=== PATIENT | male | born 1985 | race Caucasian/White ===

== ENCOUNTER 2021-01-18 16:01 | Inpatient (IN) | payer SELFPAY ==
[2021-01-18 16:07] VITALS: BMI 22.8
--- NOTE | 2021-01-18 16:13 | ECG_ITS ---
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 Measurements Intervals [place] Rate: 111 P: 57 NM: 116 QRS: 66 QRSD: 88 T: 59 QT: 320 QTc: 436 Interpretive Statements SINUS TACHYCARDIA WITH SHORT NM INTERVAL Compared to ECG 01/16/2018 21:51:07 Short NM interval now present Sinus rhythm no longer present Electronically Signed On 01-18-2021 18:48:58 PHOTO EQUIPMENT TECHNICIAN by Haile Kerns M.D. [id number]
--- NOTE | 2021-01-18 16:13 | XRR_ITS ---
PROCEDURE INFORMATION: Exam: XR Chest Exam date and time: 01/18/2021 4:44 PM Age: 35 years old Clinical indication: Injury or trauma; Other: Not specified; Blunt trauma (contusions or hematomas); Patient HX: ETOH intox, trauma, reduced breath sounds. Unable to provide history TECHNIQUE: Imaging protocol: XR of the chest Views: 1 view. COMPARISON: CR Chest 1 [place] [id number] 10/28/2015 12:46 PM FINDINGS: Lungs: Lungs are clear. Pleural spaces: Unremarkable. No pleural effusion. No pneumothorax. Heart/Mediastinum: Heart is within normal limits of size. Bones/joints: There is question of some mild lateral wedging of T9. Correlation with clinical findings is suggested. There are degenerative changes in the lower thoracic spine. XR/XR chest 1V portable [id number] IMPRESSION: Possible T9 compression fracture, correlation with clinical findings is suggested.
[2021-01-18 16:17] VITALS: BP 124/88; PULSE 123; RESP 16; O2SAT 96
[2021-01-18] MEDS: sodium chloride 0.9% 1,000 ML 999 ML IV (16:28)
--- NOTE | 2021-01-18 16:30 | CTR_ITS ---
PROCEDURE INFORMATION: Exam: CT Cervical Spine Without Contrast Exam date and time: 01/18/2021 4:32 PM Age: 35 years old Clinical indication: Injury or trauma; Fall; Blunt trauma; Additional info: Fall/ altered/ shizophrenia TECHNIQUE: Imaging protocol: Computed tomography images of the cervical spine without contrast. Radiation optimization: All CT scans at this facility use at least one of these dose optimization techniques: automated exposure control; mA and/or kV adjustment per patient size (includes targeted exams where dose is matched to clinical indication); or iterative reconstruction. COMPARISON: No relevant prior studies available. RADIATION DOSE METRICS: Total DLP (mGy-cm): 646.79 FINDINGS: Bones/joints: Small scoliosis concave towards the left. There is reversal of the normal lordotic curvature of the cervical spine which could be due to positioning. Discs/Spinal canal/Neural foramina: There is posterior osteophyte at the C5-C6 level with mild foraminal narrowing on the right. Dental: There is dental caries involving multiple teeth. Lungs: There is mild paraseptal emphysema at the right lung apex. Soft tissues: Unremarkable. CT/CT cervical spin wo con* [id number] IMPRESSION: 1. No fracture is identified. 2. Extensive dental disease which is not fully evaluated on this examination. Radiation Dose CTDIVOL = (mGy): DLP = 646.79 (mGy-cm)
--- NOTE | 2021-01-18 16:30 | CTR_ITS ---
PROCEDURE INFORMATION: Exam: CT Head Without Contrast Exam date and time: 01/18/2021 4:32 PM Age: 35 years old Clinical indication: Injury or trauma; Fall; Blunt trauma (contusions or hematomas); Altered mental status/memory loss; Additional info: Fall/ altered/ psych TECHNIQUE: Imaging protocol: Computed tomography of the head without contrast. Radiation optimization: All CT scans at this facility use at least one of these dose optimization techniques: automated exposure control; mA and/or kV adjustment per patient size (includes targeted exams where dose is matched to clinical indication); or iterative reconstruction. COMPARISON: No relevant prior studies available. RADIATION DOSE METRICS: Total DLP (mGy-cm): 1085.34 FINDINGS: Brain: Normal. No hemorrhage. Unremarkable white matter. No mass effect. Cerebral ventricles: No ventriculomegaly. Bones/joints: Unremarkable. No acute fracture. Paranasal sinuses: Visualized sinuses are unremarkable. No fluid levels. Mastoid air cells: Visualized mastoid air cells are well aerated. Soft tissues: Unremarkable. CT/CT head wo con* [id number] IMPRESSION: No acute intracranial abnormality. Radiation Dose CTDIVOL = (mGy): DLP = 1085.34 (mGy-cm)
--- NOTE | 2021-01-18 16:31 | CTR_ITS ---
PROCEDURE INFORMATION: Exam: CT Maxillofacial Without Contrast Exam date and time: 01/18/2021 4:32 PM Age: 35 years old Clinical indication: Injury or trauma; Fall; Blunt trauma (contusions or hematomas); Lip/oral cavity; Upper; Additional info: Fall/ altered/ schizophrenia TECHNIQUE: Imaging protocol: Computed tomography images of the face without contrast. Radiation optimization: All CT scans at this facility use at least one of these dose optimization techniques: automated exposure control; mA and/or kV adjustment per patient size (includes targeted exams where dose is matched to clinical indication); or iterative reconstruction. COMPARISON: No relevant prior studies available. RADIATION DOSE METRICS: Total DLP (mGy-cm): 835.34 FINDINGS: Orbital cavity: Orbits are normal. Globes are unremarkable. Bones/joints: No facial fracture is identified. There is nasal septal deviation to the right with a spur along the right side of the nasal septum. Paranasal sinuses: Paranasal sinuses are clear. Soft tissues: There is some soft tissue swelling of the lower face and overlying the mandible. Please correlate with clinical findings. Dental: There is dental caries involving multiple teeth. Please correlate with dental examination. CT/CT facial bones wo con* [id number] IMPRESSION: 1. Extensive dental disease. 2. No acute facial fracture. 3. No facial fracture is identified. Radiation Dose CTDIVOL = (mGy): DLP = 835.34 (mGy-cm)
--- NOTE | 2021-01-18 16:41 | ED_ITS ---
HPI - Trauma General: Chief Complaint: Trauma Stated Complaint: TRAUMA, ETOH INTOX Time Seen by Provider: 01/18/21 16:13 History of Present Illness: HPI narrative: The patient is a 35-year-old male who comes to the ER after being found in a ditch eating mud. He is brought in for psych evaluation. He admits using methamphetamine as well in the ER and possibly drinking alcohol as well. He is visibly looking in the corner of the room and talking to someone. There is no one there. Has a swollen lower lip but will not let me examine him further. Likely he fell but unknown he is not giving a reasonable history. He says he was eating the dirt because he was hungry. I said we will feed him. Nurse washed the mud out of his mouth. Associated symptoms: Denies abdominal pain, back pain, chest pain, confusion, dizziness or headache(s) Review of Systems General: Reports: 10 or more systems reviewed and unremarkable except in HPI and below Const: Denies: fatigue Eyes: Denies: change in vision, blurry vision or eye redness ENMT: Denies: throat pain, swelling of lips/tongue, ear or mastoid pain or nasal congestion Card: Denies: chest pain, palpitations, irregular heart rhythm, edema, dyspnea on exertion or orthopnea Resp: Denies: dyspnea, productive cough or non-productive cough GI: Denies: abdominal pain, diarrhea or GI cramping : Denies: flank pain, urinary frequency or urinary urgency Musc: Denies: neck pain, back pain, extremity pain, joint pain, joint redness, limited range of motion or muscle weakness Skin/Breast: Denies: rash, pruritus, erythema, skin pain or skin tenderness Neuro: Denies: headache(s), numbness in extremities, weakness in extremities, sensory changes, difficulty walking, dizziness, confusion or Slurred speech present Psych: Reports: visual hallucinations and auditory hallucinations; Denies: anxiety or depression Endo: Denies: polyuria All/Imm: Denies: urticaria, throat swelling or tongue swelling Physical Exam Const: COMMON NORMALS: no acute distress, average body habitus, patient oriented x3, no limitations and alert GENERAL APPEARANCE: cooperative, comfortable and disheveled ORIENTATION/CONSCIOUSNESS: Yes awake, Yes oriented to person, Yes oriented to place and Yes oriented to time HENMT: COMMON NORMALS: normocephalic, external ears normal and Normal external nose present HEAD & SCALP: normal to inspection and normocephalic NOSE: Normal external nose present EXTERNAL EAR: Yes external ears normal MOUTH: Normal oral and palatal mucosa present THROAT: posterior oropharynx normal Eye: COMMON NORMALS: Equal, round and reactive pupils present and EOMs intact bilaterally GENERAL EYE: appearance normal, both eyes and all related structures PUPIL: Yes Equal, round and reactive pupils present Neck/C-Spine: COMMON NORMALS: full ROM, no lymphadenopathy, no meningeal signs and no JVD GENERAL: Yes normal visual inspection Lymph: LYMPHATIC: no lymphadenopathy noted Chest: COMMONS NORMALS: normal inspection of the chest and normal palpation of entire chest wall Resp: COMMON NORMALS: normal respiratory effort, No retractions, No use of accessory muscles, clear to auscultation bilaterally and percussion normal EFFORT & INSPECTION: Yes able to speak in complete sentences AUSCULTATION: clear to auscultation bilaterally PERCUSSION: percussion normal Cardio: COMMON NORMALS: no JVD, regular rate, regular rhythm, S1 normal heart sound present, S2 normal heart sound present and Peripheral pulses 2+ throughout RATE: regular rate RHYTHM: regular rhythm HEART SOUNDS: S1 normal heart sound present and S2 normal heart sound present PERIPHERAL PULSES: Peripheral pulses 2+ throughout GI: COMMON NORMALS: Normal to inspection, nondistended, normoactive bowel sounds present, Soft to palpation, non-tender and no masses INSPECTION: Yes normal to inspection PALPATION: Yes Soft to palpation : COMMON NORMALS: Yes no CVA tenderness BLADDER/KIDNEY EXAM: Yes no CVA tenderness Back/Pelvis: COMMON NORMALS: no CVA tenderness, thoracic and lumbar spine normal to inspection, no thoracic nor lumbar tenderness and thoraco-lumbar ROM normal Extremity: COMMON NORMALS: normal to inspection, full ROM, capillary refill normal, no joint enlargement and no pedal edema GENERAL: Yes normal exam except as noted Neuro: COMMON NORMALS: patient oriented x3, CN's II-XII intact bilaterally, moves all extremities, no focal motor deficits, no sensory deficits noted and gait normal SENSORIUM/ORIENTATION: Yes alert, Yes oriented to person, Yes oriented to place and Yes oriented to time MENINGEAL SIGNS: Yes no meningeal signs Psych: COMMON NORMALS: cooperative, denies hallucinations, denies homicidal ideation and denies suicidal ideation ATTITUDE: Yes paranoid and Yes bizarre ACTIVITY/MOTOR BEHAVIOR: Yes fidgeting and Yes hyperactivity MOOD & AFFECT: Yes anxious THOUGHT PROCESS: disorganized and Flight of ideas present ATTENTION/CONCENTRATION: Yes attention grossly impaired and Yes concentration grossly impaired INSIGHT: Poor insight present (Psych) OTHER: The patient is talking to and looking at an object in the corner as if a person were there. This is auditory and visual hallucination. Skin: COMMON NORMALS: no rashes or lesions noted NARRATIVE SKIN EXAM: He has nesha/dirt on his extremities and in his mouth. The nurse helped him rinse his mouth with water to get it out of his mouth. GENERAL SKIN EXAM: no rashes or lesions noted OTHER: Unkempt and dirty. MDM - Trauma MDM Narrative: Medical decision making narrative: The patient continues to act bizarrely likely related to polysubstance abuse. White count 22 and he is dehydrated. Given IV fluids. He continues to act bizarre. Discussed with Dr. Lewis who accepts for admission. Lab Data: Labs: Lab Results 01/18/21 01/18/21 01/18/21 Range/Units 16:10 16:10 18:10 WBC 22.0 H (4.0-10.0) 10^3/ uL RBC 4.68 (4.1-5.3) 10^6/u L Hgb 14.7 (11.7-16.6) g/dL Hct 43.0 (42.0-52.0) % MCV 91.9 (80-94) fL MCH 31.4 (28.0-34.0) pg MCHC 34.2 (30.0-36.0) g/dL RDW 12.4 (12.1-15.1) % Plt Count 315 (130-400) 10^3/c mm MPV 9.8 (7.4-10.4) fL Neut % (Auto) 86.6 % Lymph % (Auto) 5.0 % [place] % (Auto) 7.7 % Eos % (Auto) 0.0 % Baso % (Auto) 0.2 % Neut # (Auto) 19.07 H (1.8-7.7) 10^3/u L Lymph # (Auto) 1.1 (0.8-4.8) 10^3/u L [place] # (Auto) 1.7 H (0.2-0.9) 10^3/u L Eos # (Auto) 0.0 (0.0-0.8) 10^3/u L Baso # (Auto) 0.1 (0.0-0.1) 10^3/u L Nucleated RBC % (a uto) 0 % Nucleated RBCs # 0.0 /100WBC Sodium 136 (136-145) mmol/L Potassium 3.9 (3.5-5.1) mmol/L Chloride 101 (98-107) mmol/L Carbon Dioxide 21 L (22-29) mmol/L Anion Gap 17.9 (5-19) BUN 11 (6-20) mg/dL Creatinine 1.3 H (0.7-1.2) mg/dL GFR Calculation 63.6 L (90-130) mL/min Glucose 108 (65-115) mg/dL Calculated Osmolal ity 282 L (285-295) mOsm/k g Calcium 9.6 (8.5-10.5) mg/dL Total Bilirubin 0.9 (0.15-1.2) mg/dL AST 32 (0-40) U/L ALT 17 (0-41) U/L Alkaline Phosphata se 122 (40-130) IU/L Total Protein 7.7 (6.6-8.7) g/dL Albumin 4.5 (3.5-5.2) g/dL Globulin 3.2 (1.3-4.6) g/dL TSH 0.74 (0.27-4.20) uIU/ mL Urine Color Yellow (Yellow) Urine Appearance Cloudy (CLEAR) Urine pH 5 (5-7) Ur Specific Gravit y 1.025 (1.005-1.030) Urine Protein Trace (Negative) Urine Glucose (UA) 2+ (Normal) Urine Ketones 1+ H (Negative) Urine Blood 2+ H (Negative) Urine Nitrate Negative (Negative) Urine Bilirubin 1+ H (Negative) Urine Urobilinogen 1 H (Negative) mg/dL Ur Leukocyte Frida ase Negative (Negative) Urine RBC 10-15 H (0-2) /hpf Urine WBC 0-4 H (0-5) /hpf Ur Squamous Epith Cells 0-4 H (0-5) /hpf Calcium Oxalate Cr ystal 0-4 H /hpf Amorphous Sediment Not Reportable Urine Bacteria 2+ H (NONE) /hpf Hyaline Casts 0-4 H /lpf Urine Mucus Trace /hpf Urine Sperm 1+ /hpf Salicylates 0.8 L (3-10) mg/dL Urine Opiates Scre en (Negative) ng/mL Acetaminophen < 5.0 L (10-30) ug/mL Ur Barbiturates Sc reen (Negative) ng/mL Ur Phencyclidine S crn (Negative) ng/mL Ur Amphetamines Sc reen (Negative) ng/mL U Benzodiazepines Scrn (Negative) ng/mL Urine Cocaine Scre en (Negative) ng/mL U Marijuana (THC) Screen (Negative) ng/mL Ethyl Alcohol < 10 (0-10) mg/dL 01/18/21 Range/Units 18:10 WBC (4.0-10.0) 10^3/ uL RBC (4.1-5.3) 10^6/u L Hgb (11.7-16.6) g/dL Hct (42.0-52.0) % MCV (80-94) fL MCH (28.0-34.0) pg MCHC (30.0-36.0) g/dL RDW (12.1-15.1) % Plt Count (130-400) 10^3/c mm MPV (7.4-10.4) fL Neut % (Auto) % Lymph % (Auto) % [place] % (Auto) % Eos % (Auto) % Baso % (Auto) % Neut # (Auto) (1.8-7.7) 10^3/u L Lymph # (Auto) (0.8-4.8) 10^3/u L [place] # (Auto) (0.2-0.9) 10^3/u L Eos # (Auto) (0.0-0.8) 10^3/u L Baso # (Auto) (0.0-0.1) 10^3/u L Nucleated RBC % (a uto) % Nucleated RBCs # /100WBC Sodium (136-145) mmol/L Potassium (3.5-5.1) mmol/L Chloride (98-107) mmol/L Carbon Dioxide (22-29) mmol/L Anion Gap (5-19) BUN (6-20) mg/dL Creatinine (0.7-1.2) mg/dL GFR Calculation (90-130) mL/min Glucose (65-115) mg/dL Calculated Osmolal ity (285-295) mOsm/k g Calcium (8.5-10.5) mg/dL Total Bilirubin (0.15-1.2) mg/dL AST (0-40) U/L ALT (0-41) U/L Alkaline Phosphata se (40-130) IU/L Total Protein (6.6-8.7) g/dL Albumin (3.5-5.2) g/dL Globulin (1.3-4.6) g/dL TSH (0.27-4.20) uIU/ mL Urine Color (Yellow) Urine Appearance (CLEAR) Urine pH (5-7) Ur Specific Gravit y (1.005-1.030) Urine Protein (Negative) Urine Glucose (UA) (Normal) Urine Ketones (Negative) Urine Blood (Negative) Urine Nitrate (Negative) Urine Bilirubin (Negative) Urine Urobilinogen (Negative) mg/dL Ur Leukocyte Frida ase (Negative) Urine RBC (0-2) /hpf Urine WBC (0-5) /hpf Ur Squamous Epith Cells (0-5) /hpf Calcium Oxalate Cr ystal /hpf Amorphous Sediment Urine Bacteria (NONE) /hpf Hyaline Casts /lpf Urine Mucus /hpf Urine Sperm /hpf Salicylates (3-10) mg/dL Urine Opiates Scre en Negative (Negative) ng/mL Acetaminophen (10-30) ug/mL Ur Barbiturates Sc reen Negative (Negative) ng/mL Ur Phencyclidine S crn Negative (Negative) ng/mL Ur Amphetamines Sc reen Positive H (Negative) ng/mL U Benzodiazepines Scrn Negative (Negative) ng/mL Urine Cocaine Scre en Negative (Negative) ng/mL U Marijuana (THC) Screen Positive H (Negative) ng/mL Ethyl Alcohol (0-10) mg/dL Discharge Plan Discharge Patient Disposition: Admitted As Inpatient Admit Provider: David Lewis Clinical Impression: Psychosis Condition: Stable Coding Level of Care Code ED Mobile Development Manager for Dianeg Fwd Exam Comprehensive
[2021-01-18 16:48] LABS: Basophils # 0.1 10^3/uL (0.0-0.1); Basophils % 0.2 %; Hemoglobin 14.7 g/dL (11.7-16.6); Lymphocytes # 1.1 10^3/uL (0.8-4.8); Mean Corpuscular HGB Conc 34.2 g/dL (30.0-36.0); Mean Corpuscular Hemoglobin 31.4 pg (28.0-34.0); Mean Corpuscular Volume 91.9 fL (80-94); Mean Platelet Volume 9.8 fL (7.4-10.4); Monocytes # 1.7 10^3/uL (0.2-0.9); Monocytes % 7.7 %; Neutrophils # 19.07 10^3/uL (1.8-7.7); Neutrophils % 86.6 %; Nucleated Red Blood Cells % 0 %; Platelet Count 315 10^3/cmm (130-400); Red Blood Count 4.68 10^6/uL (4.1-5.3); Red Cell Distribution Width 12.4 % (12.1-15.1)
[2021-01-18 17:15] LABS: Alanine Aminotransferase 17 U/L (0-41); Albumin Level 4.5 g/dL (3.5-5.2); Alkaline Phosphatase 122 IU/L (40-130); Anion Gap 17.9 (5-19); Aspartate Amino Transferase 32 U/L (0-40); Blood Urea Nitrogen 11 mg/dL (6-20); Calcium 9.6 mg/dL (8.5-10.5); Carbon Dioxide 21 mmol/L (22-29); Chloride 101 mmol/L (98-107); Globulin 3.2 g/dL (1.3-4.6); Glomerular Filtration Rate 63.6 mL/min (90-130); Glucose 108 mg/dL (65-115); Osmolality Calculated 282 mOsm/kg (285-295); Potassium 3.9 mmol/L (3.5-5.1); Salicylate 0.8 mg/dL (3-10); Sodium 136 mmol/L (136-145); Thyroid Stimulating Hormone 0.74 uIU/mL (0.27-4.20); Total Bilirubin 0.9 mg/dL (0.15-1.2); Total Protein 7.7 g/dL (6.6-8.7)
[2021-01-18 17:16] LABS: Acetaminophen < 5.0 ug/mL (10-30); Alcohol Level < 10 mg/dL (0-10)
--- NOTE | 2021-01-18 17:23 | CTR_ITS ---
PROCEDURE INFORMATION: Exam: CT Thoracic Spine Without Contrast Exam date and time: 01/18/2021 5:27 PM Age: 35 years old Clinical indication: Injury or trauma; Fall; Blunt trauma (contusions or hematomas); Additional info: Possible t9 FX TECHNIQUE: Imaging protocol: Computed tomography images of the thoracic spine without contrast. Radiation optimization: All CT scans at this facility use at least one of these dose optimization techniques: automated exposure control; mA and/or kV adjustment per patient size (includes targeted exams where dose is matched to clinical indication); or iterative reconstruction. COMPARISON: No relevant prior studies available. RADIATION DOSE METRICS: Total DLP (mGy-cm): 1079.81 FINDINGS: Vertebrae: There is mild wedging of T9 which appears chronic. There is Schmorl's node deformity of the inferior endplate of T9 which appears old and mild compression of the superior endplate slightly more towards the right than the left which also appears to be chronic. Correlation with clinical findings is suggested. There are degenerative osteophytes anteriorly at T9-T10 and T11-T12. Discs/Spinal canal/Neural foramina: Vacuum disc phenomenon is seen at the T5-T6, T8-T9, and T10-T11 discs. There is some lateral osteophytes along the left side at T11-T12. There is no central canal or foraminal narrowing. Soft tissues: Paraspinous soft tissues are unremarkable. Lungs: There is mild paraseptal emphysema at the lung apices. CT/CT thoracic spin wo con* [id number] IMPRESSION: Chronic findings in the thoracic spine as described. No acute abnormality. Radiation Dose CTDIVOL = (mGy): DLP = 1079.81 (mGy-cm)
[2021-01-18 18:10] VITALS: BP 160/93; PULSE 121; RESP 16; O2SAT 97
[2021-01-18 19:32] LABS: Add Urine Microscopic? YES; Amphetamines Screen Urine Positive (Negative); Barbiturates Screen Urine Negative (Negative); Benzodiazepines Screen Urine Negative (Negative); Bilirubin Urine 1+ (Negative); Blood Urine 2+ (Negative); Cocaine Screen Urine Negative (Negative); Glucose Urine UA 2+ (Normal); Ketones Urine 1+ (Negative); Leukocyte Esterase Urine Negative (Negative); Nitrate Urine Negative (Negative); Opiate Screen Urine Negative (Negative); PCP Screen Urine Negative (Negative); Protein Urine Trace (Negative); Specific Gravity, Urine 1.025 (1.005-1.030); THC Screen Urine Positive (Negative); Urine Appearance Cloudy (CLEAR); Urine Color Yellow (Yellow); Urobilinogen Urine 1 mg/dL (Negative); pH Urine 5 (5-7)
[2021-01-18 19:33] LABS: Sperm Urine 1+ /hpf
[2021-01-18 19:35] LABS: Hyaline Casts Urine 0-4 /lpf
[2021-01-18 19:36] LABS: Calcium Oxalate Crystals Urine 0-4 /hpf; Squamous Epithelial Cell Urine 0-4 /hpf (0-5); WBC Urine 0-4 /hpf (0-5)
[2021-01-18 19:37] LABS: Mucus Urine TRACE /hpf
[2021-01-18 19:38] LABS: Add Urine Culture? Yes; Bacteria Urine 2+ /hpf
[2021-01-18 22:22] VITALS: BP 144/77; PULSE 120; RESP 18; TEMP 37.1; O2SAT 97
[2021-01-18] MEDS: trazodone 50 mg Tablet PO (22:44)
[2021-01-18] MEDS: hyDROXYzine 25 mg Capsule 50 MG PO (22:44)
[2021-01-18] MEDS: acetaminophen 325 mg Tablet 650 MG PO (22:44)
[2021-01-19 06:00] VITALS: BP 144/77; PULSE 120; RESP 18; TEMP 37.1; O2SAT 97
[2021-01-19 14:00] VITALS: BP 116/62; PULSE 76; RESP 18; TEMP 36.6; O2SAT 97
[2021-01-19] MEDS: ARIPiprazole 10 mg Tablet PO (14:29)
--- NOTE | 2021-01-19 15:04 | P.HP_ITS ---
Providers/Chief Complaint Admitting Physician: David Lewis MD Chief Complaint: TRAUMA, ETOH INTOX HPI NPU History of Present Illness Alfonzo Kee is a 35 year old male who presented to the emergency department with the following report: Chief Complaint: Trauma Stated Complaint: TRAUMA, ETOH INTOX Time Seen by Provider: 01/18/21 16:13 History of Present Illness: HPI narrative: The patient is a 35-year-old male who comes to the ER after being found in a ditch eating mud. He is brought in for psych evaluation. He admits using methamphetamine as well in the ER and possibly drinking alcohol as well. He is visibly looking in the corner of the room and talking to someone. There is no one there. Has a swollen lower lip but will not let me examine him further. Likely he fell but unknown he is not giving a reasonable history. He says he was eating the dirt because he was hungry. I said we will feed him. Nurse washed the mud out of his mouth. Associated symptoms: Denies abdominal pain, back pain, chest pain, confusion, dizziness or headache(s). He was admitted to the neuropsychiatric unit for definitive treatment of those issues. He presents today as a fairly poor historian reporting that he is really unclear as to why the police apprehended him. We discussed the fact that he was found laying down in the mud reportedly eating mud and he reports that they were following him and he where his car was and where he was which is not how the reports return. He was very resistant to the idea of his addiction playing a role in his presentation. He reports that his psychiatric treatment started with inpatient hospitalizations many years ago he reports many stays as much as 13 but the last one being about 2 years ago. He has had several stays here at [facility] with 1 about 2 years ago and excerpt of which is included below. He denies really having outpatient services medication and follow-up with any consistency. He denies suicide attempts. He reports that he smokes a half to a pack a day, drinks alcohol every once in a while, reports marijuana use daily and endorses only methamphetamine from a standpoint of other illicit drug use. He reports he been to rehab a couple of times and had a DUI last in 2007. He told a very convoluted story [place] getting [place] one side but then really could get no clear story or context for why he was found the way he was. He then turned to 180 and started talking about how doctors implant tips and tips of implanted inside of him. A friend that this video games storywriter does and when this video games storywriter denied putting chips and people in my career he then said that although I might not do that I am fully aware that the hospital and other doctors do and that [facility] did that to him. Psychiatric history: As above. Substance abuse history: As above. Family history: He denies any mental health, addiction or suicide attempts or completions in his family. Developmental history: He denies any issues with his mother's with him or his or delivery. Does endorse developmental delays, and reports that he went to school he needed speech therapy, learning support, emotional support and special education classes. Psychosocial history: Reports his mother and father were together when he was born but he the only product of that union. He reports his mother had 3 children through a different relationship and that his father had 4 children through a different relationship. He reports his childhood was rough and he denied any emotional physical or sexual abuse he reports that he did not speak he was about 7 years old but that someone keep an eye on him because of him being determined that terroristic threat at . He endorses graduating from high school in 2005 endorses being a heterosexual and is always related to being 10 years. Endorses he is been 1 time and once endorses having 4 children ages 1-8 2 boys and 2 girls, he denies being in the or having any buddhist belief system. He reports his longest job is 5 years at [employer]. He reports he lives in a house alone. Legal history: He reports that he been to residential several times the longest time being 3 to 4 years. Medical history: He see ED note for full details. Per his 01/17/2018 [facility] inpatient psychiatric eval: History of Present Illness Date of Service: Jan 17, 2018 Chief Complaint: Me and my got into a little argument. HPI: Mr. Kee is a 32-year-old male who is admitted from the ED on a 96 hour hold after presenting there agitated with vaguely reported possible suicidal ideation. The patient reports that he had an argument with his last night over his relapse on methamphetamines and she kicked him out of the house. Pt reports that he just needed a place a stay so I checked myself in. He apparently was asked if he was feeling suicidal and refused to answer but then later reports he told the physician that he was not suicidal but he reports they had already documented that he was suicidal and he was told he had to come for a psychiatric evaluation. The patient states it was really silly, and I am sorry for that. He reports that he had been over 2 years and relapsed 3 weeks ago but denies IVDU. He reports that he has used marijuana occasionally but denies using that for some time although his drug screen is positive. He reports only occasionally drinking alcohol but denies that he has a substance use issue with that. He reports that he had been having some stress as he and his recently bought a new trailer home which they're supposed to be moving in the next couple of days and they also have a 3month old baby and 2 other young children. He works full-time. He reports that his relapse was a mistake but he is planning to return to AA meetings at his [facility] and is willing to accept a the [facility] chemical dependency treatment referral as well. The patient reports that his mood recently has been great prior to the relapse with some general anxiety. He reports that he did continue to take psychotropic medications since his last admission to the [facility] in August 2017 for 3 months. He reports he went to [facility] but did not like the way they treated him there so he subsequently was receiving refills from his primary care physician Dr. West Schneider and discontinued the medication approximately one month ago. The patient did not feel like it was very helpful but his was contacted by phone for collateral information during the interview on conference call per patient's consent stated that she felt he was 100% better when he was still taking medication. The patient was agreeable to returning to his primary care physician to obtain another refill. The patient's has no concerns with him returning home. She denies that he is made any suicidal comments or has any other concerning behaviors besides the recent drug relapse. The patient reports that he does have a history of intermittent auditory hallucinations in the past but reports he has not had any significant symptoms for the past 1 year, especially when sober from meth. He denies any recent auditory hallucinations/visual hallucinations/paranoia. Denies any irritability or homicidal ideation. He denies depression/anhedonia/sleep/appetite problems. He does endorse some anxiety related to stressors but feels this is overall manageable with his normal coping mechanisms such as jogging and staying busy at work. He is remorseful for his recent drug relapse but declines any inpatient chemical dependency treatment. Past Medical History Past Medical History: PAST PSYCHIATRIC HISTORY: -Last admission to the [facility] was in 08/2017, and prior in 2014 -Past dx psychosis unspecified and methamphetamine abuse as well as some prior documented history of chronic paranoid schizophrenia, and benzodiazepine dependence Patient denies any history of suicide attempt. Past medications which were effective per his included Zoloft and Zyprexa. PAST FAMILY PSYCHIATRIC HISTORY: -Denies FH drug abuse or mental illness. 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 Denies any current legal problems, past 8 years ago pawned tools in intermediate X3 years. Endorses using meth but denies other drugs initially but then admits to occasional marijuana and opiate use as well. He denies any intravenous use however. Smokes 2PPD, occasional alcohol. He denies Prior treatment through [facility] and [facility] when younger. PAST MEDICAL HISTORY: -healthy, denies head injuries/ seizures/ surgeries. Meds NPU Home Medications Medication Instructions Recorded Confirmed Last Taken Type No Known Home Medications 01/18/21 01/18/21 Unknown History Allergies Allergy/AdvReac Type Severity Reaction Status Date / Time No Known Allergies Allergy Unverified 01/18/21 17:02 [facility] NPU PFS: Social History Smoking and tobacco status: current every day smoker Mental Status Exam MSE Comments: This is a well-nourished well-developed white male in hospital scrubs appearing disheveled with limited eye contact. His lower lip and the corners of his mouth appeared to have some sort of abrasion or yeast or burn. No abnormal movements except for mild psychomotor agitation. Mostly cooperative with exam in mild to moderate distress. Speech was increased rate normal volume. Mood described as in pain, affect distressed. Thought process organized at times but disorganized at others. Thought content: Patient denied suicidal or homicidal ideation, there were no delusions reported but paranoid and persecutory delusions exist, he denied any auditory visual hallucinations. Attention and concentration were mostly intact and memory was mostly reliable but none were formally tested. He is alert and oriented x3. Insight and judgment are impaired impulse control is impaired. Vitals/I&O/Wt Last Vital Signs Temp 98 F 01/19/21 14:00 Pulse 76 01/19/21 14:00 Resp 18 01/19/21 14:00 BP 116/62 01/19/21 14:00 Pulse Ox 97 01/19/21 14:00 Weight last 48 hrs Weight 68.039 kg Data NPU : 01/18/21 16:10 01/18/21 16:10 A&P Assessment and plan (1) Methamphetamine dependence: Status: Acute (2) Methamphetamine intoxication: Status: Acute (3) Psychosis: Status: Acute (4) History of schizophrenia: Status: Acute (5) Cannabis abuse: Status: Acute Additional A&P Information This is a 35-year-old white male with a long history of mental health and addiction challenges who presents with active addiction and psychosis open to a trial of medication. 1. Continue current medication. Start Abilify 10 mg p.o. every morning. 2. Continue every 15 minute checks for safety. 3. Encourage individual, group and milieu therapies. 4. Encourage sober living treatment after discharge at the highest level of care to which he is willing to commit. Involuntary Hold Information 96 Hour Hold: 96 Hour Involuntary Admission: No Attestations NPU Medical Necessity Statement*: Inpatient hospitalization is medically necessary and the clinically appropriate intervention at this time. We will monitor medications and make changes as indicated. Patient will be in the hospital for over two midnights. Likely length of stay 3 to 5 days. Coding Level of Care Code Acute Bottling Machine Operator for Reji Mckeon Diagnoses Methamphetamine dependence F15.20 Methamphetamine intoxication F15.929 Psychosis F29 History of schizophrenia Z86.59 Cannabis abuse F12.10
[2021-01-19 20:24] VITALS: BP 119/70; PULSE 86; RESP 17; TEMP 37.1; O2SAT 98
[2021-01-19] MEDS: hyDROXYzine 25 mg Capsule 50 MG PO (20:36)
[2021-01-20 06:00] VITALS: BP 142/74; PULSE 75; RESP 19; TEMP 37; O2SAT 97
[2021-01-20] MEDS: ARIPiprazole 10 mg Tablet PO (08:08)
[2021-01-20 14:00] VITALS: BP 101/63; PULSE 84; RESP 16; TEMP 37; O2SAT 96
--- NOTE | 2021-01-20 18:00 | PM.NPN ---
Subjective NPU Subjective: Interval history: Alfonzo presents today reporting that he feels a little better. He says that the staff is working with him to make sure that his mouth is taking care of. He denies any side effects to the Abilify. He was able to discuss the idea of chips being implanted in a very resistant fashion however clearly still convinced that it is something to the hospital does. He reports he is eating and sleeping a little better but still tired and dealing with his methamphetamine withdrawal now. Mental Status Exam MSE Comments: This is a well-nourished well-developed white male in hospital scrubs appearing disheveled with limited eye contact. His lower lip and the corners of his mouth appeared to have some sort of abrasion or yeast or burn. No abnormal movements except for mild psychomotor retardation. Mostly cooperative with exam in mild distress. Speech was decreased rate normal volume. Mood described as tired, affect congruent. Thought process organized at times but disorganized at others. Thought content: Patient denied suicidal or homicidal ideation, there were no delusions reported but paranoid and persecutory delusions exist, he denied any auditory visual hallucinations. Attention and concentration were mostly intact and memory was mostly reliable but none were formally tested. He is alert and oriented x3. Insight and judgment are impaired impulse control is impaired. Vitals/I&O/Wt Last Vital Signs Temp 98.5 F 01/20/21 20:30 Pulse 94 01/20/21 20:30 Resp 17 01/20/21 20:30 BP 106/61 01/20/21 20:30 Pulse Ox 96 01/20/21 20:30 Data NPU : 01/18/21 16:10 01/18/21 16:10 Micro: Microbiology 01/18/21 18:10 Urine Culture - Preliminary Urine,Clean Catch Microbiology 01/18/21 18:10 Urine,Clean Catch Urine Culture - Preliminary A&P Assessment and plan (1) Withdrawal from methamphetamine: Status: Acute Additional A&P Information (1) Methamphetamine dependence: (2) Methamphetamine intoxication: (3) Psychosis: (4) History of schizophrenia: (5) Cannabis abuse: Additional A&P Information This is a 35-year-old white male with a long history of mental health and addiction challenges who presents with active addiction and psychosis open to a trial of medication. 1. Continue current medication. 2. Continue every 15 minute checks for safety. 3. Encourage individual, group and milieu therapies. 4. Encourage sober living treatment after discharge at the highest level of care to which he is willing to commit. Involuntary Hold Information 96 Hour Hold: 96 Hour Involuntary Admission: No Attestations NPU Medical Necessity Statement*: Inpatient hospitalization is medically necessary and the clinically appropriate intervention at this time. We will monitor medications and make changes as indicated. Likely length of stay 2-4 days. Coding Level of Care Code Acute Call Centre Supervisor for Reji Mckeon Diagnoses Withdrawal from methamphetamine F15.23
[2021-01-20 20:30] VITALS: BP 106/61; PULSE 94; RESP 17; TEMP 36.9; O2SAT 96
[2021-01-21 06:00] VITALS: BP 151/102; PULSE 91; RESP 18; TEMP 36.8; O2SAT 97
[2021-01-21] MEDS: ARIPiprazole 10 mg Tablet PO (08:11)
[2021-01-21 14:00] VITALS: BP 129/79; PULSE 122; RESP 20; TEMP 36.6; O2SAT 96
[2021-01-21 14:49] VITALS: BP 129/79; PULSE 122; RESP 20; TEMP 36.6; O2SAT 96
--- NOTE | 2021-01-21 17:10 | PM.NDC ---
Diagnoses at Discharge Discharge Diagnosis (1) Withdrawal from methamphetamine: Status: Acute Reason for Visit Reason for Visit: TRAUMA, ETOH INTOX Brief History: History of Present Illness Alfonzo Kee is a 35 year old male who presented to the emergency department with the following report: Chief Complaint: Trauma Stated Complaint: TRAUMA, ETOH INTOX Time Seen by Provider: 01/18/21 16:13 History of Present Illness: HPI narrative: The patient is a 35-year-old male who comes to the ER after being found in a ditch eating mud. He is brought in for psych evaluation. He admits using methamphetamine as well in the ER and possibly drinking alcohol as well. He is visibly looking in the corner of the room and talking to someone. There is no one there. Has a swollen lower lip but will not let me examine him further. Likely he fell but unknown he is not giving a reasonable history. He says he was eating the dirt because he was hungry. I said we will feed him. Nurse washed the mud out of his mouth. Associated symptoms: Denies abdominal pain, back pain, chest pain, confusion, dizziness or headache(s). He was admitted to the neuropsychiatric unit for definitive treatment of those issues. He presents today as a fairly poor historian reporting that he is really unclear as to why the police apprehended him. We discussed the fact that he was found laying down in the mud reportedly eating mud and he reports that they were following him and he where his car was and where he was which is not how the reports return. He was very resistant to the idea of his addiction playing a role in his presentation. He reports that his psychiatric treatment started with inpatient hospitalizations many years ago he reports many stays as much as 13 but the last one being about 2 years ago. He has had several stays here at [facility] with 1 about 2 years ago and excerpt of which is included below. He denies really having outpatient services medication and follow-up with any consistency. He denies suicide attempts. He reports that he smokes a half to a pack a day, drinks alcohol every once in a while, reports marijuana use daily and endorses only methamphetamine from a standpoint of other illicit drug use. He reports he been to rehab a couple of times and had a DUI last in 2007. He told a very convoluted story about [place] and getting [place] one side but then really could get no clear story or context for why he was found the way he was. He then turned to 180 and started talking about how doctors implant tips and tips of implanted inside of him. A friend that this ghost writer does and when this ghost writer denied putting chips and people in my career he then said that although I might not do that I am fully aware that the hospital and other doctors do and that [facility] did that to him. Psychiatric history: As above. Substance abuse history: As above. Family history: He denies any mental health, addiction or suicide attempts or completions in his family. Developmental history: He denies any issues with his mother's with him or his or delivery. Does endorse developmental delays, and reports that he went to school he needed speech therapy, learning support, emotional support and special education classes. Psychosocial history: Reports his mother and father were together when he was born but he the only product of that union. He reports his mother had 3 children through a different relationship and that his father had 4 children through a different relationship. He reports his childhood was rough and he denied any emotional physical or sexual abuse he reports that he did not speak he was about 7 years old but that someone keep an eye on him because of him being determined that terroristic threat at . He endorses graduating from high school in 2005 endorses being a heterosexual and is always related to being 10 years. Endorses he is been 1 time and once endorses having 4 children ages 1-8 2 boys and 2 girls, he denies being in the or having any holiness belief system. He reports his longest job is 5 years at [employer]. He reports he lives in a house alone. Legal history: He reports that he been to intermediate several times the longest time being 3 to 4 years. Medical history: He see ED note for full details. Per his 01/17/2018 [facility] inpatient psychiatric eval: History of Present Illness Date of Service: Jan 17, 2018 Chief Complaint: Me and my got into a little argument. HPI: Mr. Kee is a 32-year-old male who is admitted from the ED on a 96 hour hold after presenting there agitated with vaguely reported possible suicidal ideation. The patient reports that he had an argument with his last night over his relapse on methamphetamines and she kicked him out of the house. Pt reports that he just needed a place a stay so I checked myself in. He apparently was asked if he was feeling suicidal and refused to answer but then later reports he told the physician that he was not suicidal but he reports they had already documented that he was suicidal and he was told he had to come for a psychiatric evaluation. The patient states it was really silly, and I am sorry for that. He reports that he had been over 2 years and relapsed 3 weeks ago but denies IVDU. He reports that he has used marijuana occasionally but denies using that for some time although his drug screen is positive. He reports only occasionally drinking alcohol but denies that he has a substance use issue with that. He reports that he had been having some stress as he and his recently bought a new trailer home which they're supposed to be moving in the next couple of days and they also have a 3month old baby and 2 other young children. He works full-time. He reports that his relapse was a mistake but he is planning to return to AA meetings at his jainism and is willing to accept a [facility] chemical dependency treatment referral as well. The patient reports that his mood recently has been great prior to the relapse with some general anxiety. He reports that he did continue to take psychotropic medications since his last admission to the [facility] in August 2017 for 3 months. He reports he went to [facility] but did not like the way they treated him there so he subsequently was receiving refills from his primary care physician Dr. West Schneider and discontinued the medication approximately one month ago. The patient did not feel like it was very helpful but his was contacted by phone for collateral information during the interview on conference call per patient's consent stated that she felt he was 100% better when he was still taking medication. The patient was agreeable to returning to his primary care physician to obtain another refill. The patient's has no concerns with him returning home. She denies that he is made any suicidal comments or has any other concerning behaviors besides the recent drug relapse. The patient reports that he does have a history of intermittent auditory hallucinations in the past but reports he has not had any significant symptoms for the past 1 year, especially when sober from meth. He denies any recent auditory hallucinations/visual hallucinations/paranoia. Denies any irritability or homicidal ideation. He denies depression/anhedonia/sleep/appetite problems. He does endorse some anxiety related to stressors but feels this is overall manageable with his normal coping mechanisms such as jogging and staying busy at work. He is remorseful for his recent drug relapse but declines any inpatient chemical dependency treatment. Past Medical History Past Medical History: PAST PSYCHIATRIC HISTORY: -Last admission to the [facility] was in 08/2017, and prior in 2014 -Past dx psychosis unspecified and methamphetamine abuse as well as some prior documented history of chronic paranoid schizophrenia, and benzodiazepine dependence Patient denies any history of suicide attempt. Past medications which were effective per his included Zoloft and Zyprexa. PAST FAMILY PSYCHIATRIC HISTORY: -Denies FH drug abuse or mental illness. 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 Denies any current legal problems, past 8 years ago pawned tools in [place] years. Endorses using meth but denies other drugs initially but then admits to occasional marijuana and opiate use as well. He denies any intravenous use however. Smokes 2PPD, occasional alcohol. He denies Prior treatment through his jainism and [facility] when younger. PAST MEDICAL HISTORY: -healthy, denies head injuries/ seizures/ surgeries. Hospital Course Hospital Course Alfonzo presented to the emergency department with liliana psychosis and positive screen for methamphetamine very disheveled and with odd behaviors. He was admitted to the neuropsychiatric unit for definitive treatment of those issues. On the unit he slowly acclimated to the individual, group and milieu therapies provided. He was started on Abilify and showed modest improvement. He was not open to aggressive or inpatient addiction treatment. He was able to contract for safety outside of the hospital prior to discharge. During the hospitalization, patient had routine laboratory studies which were within normal limits except for few outliers. Additionally there was a general medical evaluation which was also within normal limits and revealed no new acute processes. Discharge Summary: At the time of discharge, lethality was denied and psychosis was resolving. Mood and anxiety were well managed. Patient endorsed a plan to avoid all drugs of abuse and follow-up with the aftercare recommendations of the treatment team. Patient was evaluated and deemed to be absent credible lethality, and had achieved the maximum benefit from an inpatient hospitalization, so was discharged. Involuntary Hold Information 96 Hour Hold: 96 Hour Involuntary Admission: No Mental Status Exam MSE Comments: This is a well-nourished well-developed white male in hospital scrubs with improved grooming and eye contact. His lower lip and the corners of his mouth appeared to have some sort of abrasion or yeast or burn which is slowly improving. No abnormal movements except for resolving mild psychomotor retardation. Cooperative with exam in no acute distress. Speech was more normal rate normal volume. Mood described as getting better, affect congruent. Thought process organized. Thought content: Patient denied suicidal or homicidal ideation, there were no delusions reported and paranoia was improving, he denied any auditory or visual hallucinations. Attention and concentration were intact and memory was mostly reliable but none were formally tested. He is alert and oriented x3. Insight and judgment are improving impulse control is limited, but improving. Discharge Data Data Completed and Pending: Completed Studies During Hospitalization Category Date Time Status CT cervical spin wo con* 53493 Urge nt Cat Scan 01/18/21 16:[address] facial bones w o con* [id number] Stat Cat Scan 01/18/21 16:[address] head wo con* [id number] Stat Cat Scan 01/18/21 16:[address] thoracic spin wo con* [id number] Stat Cat Scan 01/18/21 17:23 Completed XR chest 1V kasandra ble [id number] Urgent Exams 01/18/21 16:13 Completed Vitals: Last Vital Signs Temp 97.9 F 01/21/21 14:49 Pulse 122 H 01/21/21 14:49 Resp 20 H 01/21/21 14:49 BP 129/79 01/21/21 14:49 Pulse Ox 96 01/21/21 14:49 Discharge Plan Discharge Patient Disposition: Home Condition: Stable Prescriptions: New aripiprazole 10 mg Tablet 10 mg PO DAILY 30 Days Qty: 30 RF: 1 Discharge Orders: Discharge Order (Routine); Ordered 01/21/21 Ordered By: David Lewis Referrals: [facility] [Outside] (Resource for outpatient mental health treatment. Follow up for outpatient services.) Discharge Diet: Regular Discharge Activity: Resume usual activity Discharge Attestations [facility] Time Spent in Discharge Care*: less than 30 min Specific Discharge Activities: Specific discharge activities: educating patient, discussing with pillowcase sewer/social workers/dc planners, documenting/other paperwork and evaluating patient/reviewing data Coding Level of Care Code Acute Labeling Machine Operator for Reji Fwraleigh Diagnoses Withdrawal from methamphetamine F15.23
== END 2021-01-21 17:19 | disposition home or self-care (01) | DRG 897 ==
LOC: ER 20:46 → NP 20:48
PROVIDERS: Admitting Provider Psychiatry & Neurology Psychiatry; Emergency Provider Family Medicine; Visit Provider Psychiatry & Neurology Psychiatry
DX: F15.23 Other stimulant dependence with withdrawal (principal); F29 Unspecified psychosis not due to a substance or known physiological condition; F17.210 Nicotine dependence, cigarettes, uncomplicated; F12.10 Cannabis abuse, uncomplicated; Z86.59 Personal history of other mental and behavioral disorders
CPT/HCPCS: 70450; 70486; 71045; 72125; 72128; 80053; 80306; 80307; 81001; 84443; 85025; 87086; 93005; 96360; 99285; J7030

== ENCOUNTER 2021-12-15 20:07 | Emergency (ER) | payer SELFPAY ==
[2021-12-15 20:20] VITALS: PULSE 122; RESP 20; TEMP 36.8; O2SAT 95; BMI 27.3
--- NOTE | 2021-12-15 20:49 | W.ED.GENADLT ---
HPI - General Adult General: Chief complaint: General Medical Stated complaint: Covid Symptoms\ SI Time Seen by Provider: 12/15/21 20:32 Source: patient Mode of arrival: ambulatory Limitations: no limitations History of Present Illness: This patient presents to our emergency department stating that he is concerned he might have a COVID-19 he also states he is wants to be evaluated for admission to the stress unit. He states he has had fleeting thoughts and some auditory hallucinations over the past several days. He states he has been around his mother who is COVID-19 positive. He states he is not had any fevers but has had cough and some dizziness. He states he may have used yesterday but is not any more forthcoming than that. He rarely uses alcohol. He has been to the stress unit multiple times in the past. He denies any thoughts of self-harm currently. He does admit that he is living on the streets right now. He denies any other medical complaints at this time. States he has been eating and drinking today does not have any nausea vomiting or diarrhea. Denies chest pain shortness of breath etc. Associated symptoms: Reports cough; Deny chest pain, dyspnea, headache(s), nausea, rash, palpitations or vomiting Review of Systems Const: Denies: fever(s), chills or body aches Eyes: Denies: change in vision or blurry vision ENMT: Denies: throat pain or odynophagia Card: Denies: chest pain, palpitations or irregular heart rhythm Resp: Reports: non-productive cough; Denies: dyspnea, wheezing or stridor GI: Denies: abdominal pain, nausea or vomiting : Denies: flank pain or difficulty urinating Musc: Denies: neck pain, back pain or extremity pain Skin/Breast: Denies: rash or pruritus Neuro: Reports: dizziness; Denies: headache(s), numbness in extremities, weakness in extremities or difficulty walking Psych: Reports: anxiety, mood swings, difficulty concentrating and visual hallucinations; Denies: suicidal ideation Endo: Denies: polyuria or polydipsia All/Imm: Denies: urticaria or throat swelling PFSH ED PFSH: Social History Smoking and tobacco status: current every day smoker Physical Exam Narrative: EXAM NARRATIVE: Patient is somewhat fidgety and anxious in appearance. He intermittently makes eye contact. We will not leave his mask in place when requested. Const: COMMON NORMALS: no acute distress and alert GENERAL APPEARANCE: cooperative and anxious ORIENTATION/CONSCIOUSNESS: Yes awake, Yes oriented to place and Yes oriented to time HENMT: COMMON NORMALS: normocephalic, atraumatic and Normal external nose present HEAD & SCALP: normal to inspection, normocephalic and atraumatic FACE & SINUS: normal facial exam NOSE: Normal external nose present MOUTH: Normal oral and palatal mucosa present (Mask per protocol) Eye: COMMON NORMALS: Equal, round and reactive pupils present, EOMs intact bilaterally, conjunctivae normal and no scleral icterus CONJUNCTIVA: Yes conjunctivae normal PUPIL: Yes Equal, round and reactive pupils present Neck/C-Spine: COMMON NORMALS: full ROM, supple and no meningeal signs Chest: COMMONS NORMALS: normal inspection of the chest Resp: COMMON NORMALS: normal respiratory effort, No retractions, No use of accessory muscles and clear to auscultation bilaterally AUSCULTATION: clear to auscultation bilaterally Cardio: COMMON NORMALS: regular rate, regular rhythm, No murmurs present (Cardio) and Peripheral pulses 2+ throughout RATE: regular rate RHYTHM: regular rhythm PERIPHERAL PULSES: Peripheral pulses 2+ throughout GI: COMMON NORMALS: Normal to inspection, nondistended, normoactive bowel sounds present and Soft to palpation PALPATION: Yes Soft to palpation : COMMON NORMALS: Yes no CVA tenderness BLADDER/KIDNEY EXAM: Yes no CVA tenderness Back/Pelvis: COMMON NORMALS: no CVA tenderness, thoracic and lumbar spine normal to inspection, no thoracic nor lumbar tenderness and thoraco-lumbar ROM normal Extremity: COMMON NORMALS: normal to inspection, full ROM, no clubbing, cyanosis or edema, no calf tenderness and no pedal edema Neuro: COMMON NORMALS: moves all extremities, no focal motor deficits and no sensory deficits noted SENSORIUM/ORIENTATION: Yes alert, Yes oriented to place and Yes oriented to time MENINGEAL SIGNS: Yes no meningeal signs SPEECH: speech normal Psych: COMMON NORMALS: mental status grossly normal and speech normal ATTITUDE: Yes evasive ACTIVITY/MOTOR BEHAVIOR: Yes restless SPEECH: Yes normal speech and Yes rapid MOOD & AFFECT: Yes anxious and Yes constricted affect THOUGHT PROCESS: Circumstantial thought process present THOUGHT CONTENT: Yes Hallucination(s) present INSIGHT: Limited insight present (Psych) Skin: COMMON NORMALS: no rashes or lesions noted and no jaundice GENERAL SKIN EXAM: no rashes or lesions noted Course ED course: Patient's COVID-19 test is negative. His laboratories obtained thus far are reassuring. I went and interviewed the patient again. He again reiterated he has no plans of harming himself or harming others. He freely admits that he uses occasionally and has no plans on discontinuing that habit. I asked him what his desire was for being placed in the stress unit and he admitted he was just looking for a warm place to sleep. I advised him that unfortunately I did not have any significant medical or psychiatric reason to admit him to our facility at this time and he readily acknowledged that was the case. He is stable at this time to be discharged. Again no evidence at this time that he is a threat to himself other than his lifestyle. He was appreciative of interaction. Stable for discharge. Vital Signs: Vital signs: Vital Signs Temperature 98.2 F 12/15/21 20:55 Pulse Rate 110 H 12/15/21 20:55 Respiratory Rate 20 H 12/15/21 20:55 Blood Pressure 145/82 12/15/21 20:55 Pulse Oximetry 95 12/15/21 20:55 MDM - General Adult Medical Decision Making Nonsuicidal and not displaying any looseness of associations or other findings at this time that would place him at risk. He is medically stable. I discussed lifestyle changes with the patient he acknowledged our discussion but is not in a mood to make any changes at this time. He was welcome to return to the emergency department should he any worsening or changing symptoms. Lab Data : 12/15/21 20:45 12/15/21 20:45 Laboratory Results WBC 9.8 10^3/uL (4.0-10.0) 12/15/21 20:45 RBC 4.44 10^6/uL (4.1-5.3) 12/15/21 20:45 Hgb 14.1 g/dL (11.7-16.6) 12/15/21 20:45 Hct 40.4 % (42.0-52.0) L 12/15/21 20:45 MCV 91.0 fl (80-94) 12/15/21 20:45 MCH 31.8 pg (28.0-34.0) 12/15/21 20:45 MCHC 34.9 g/dL (30.0-36.0) 12/15/21 20:45 RDW 12.4 % (12.1-15.1) 12/15/21 20:45 Plt Count 320 10^3/cmm (130-400) 12/15/21 20:45 MPV 9.4 fL (7.4-10.4) 12/15/21 20:45 Neut % (Auto) 56.5 % 12/15/21 20:45 Lymph % (Auto) 30.7 % 12/15/21 20:45 [place] % (Auto) 10.1 % 12/15/21 20:45 Eos % (Auto) 2.2 % 12/15/21 20:45 Baso % (Auto) 0.3 % 12/15/21 20:45 Neut # (Auto) 5.52 10^3/uL (1.8-7.7) 12/15/21 20:45 Lymph # (Auto) 3.0 10^3/uL (0.8-4.8) 12/15/21 20:45 [place] # (Auto) 1.0 10^3/uL (0.2-0.9) H 12/15/21 20:45 Eos # (Auto) 0.2 10^3/uL (0.0-0.8) 12/15/21 20:45 Baso # (Auto) 0.0 10^3/uL (0.0-0.1) 12/15/21 20:45 Nucleated RBC % (auto) 0 % 12/15/21 20:45 Nucleated RBCs # 0.0 /100WBC 12/15/21 20:45 Sodium 135 mmol/L (136-145) L 12/15/21 20:45 Potassium 3.3 mmol/L (3.5-5.1) L 12/15/21 20:45 Chloride 97 mmol/L (98-107) L 12/15/21 20:45 Carbon Dioxide 23 mmol/L (22-29) 12/15/21 20:45 Anion Gap 18.3 (5-19) 12/15/21 20:45 BUN 12 mg/dL (6-20) 12/15/21 20:45 Creatinine 0.7 mg/dL (0.7-1.2) 12/15/21 20:45 GFR Calculation 129.1 mL/min (90-130) 12/15/21 20:45 Glucose 115 mg/dL (65-115) 12/15/21 20:45 Calculated Osmolality 281 mOsm/kg (285-295) L 12/15/21 20:45 Calcium 9.2 mg/dL (8.5-10.5) 12/15/21 20:45 Total Bilirubin 0.5 mg/dL (0.15-1.2) 12/15/21 20:45 AST 25 U/L (0-40) 12/15/21 20:45 ALT 19 U/L (0-41) 12/15/21 20:45 Alkaline Phosphatase 88 IU/L (40-130) 12/15/21 20:45 Total Protein 6.5 g/dL (6.6-8.7) L 12/15/21 20:45 Albumin 4.2 g/dL (3.5-5.2) 12/15/21 20:45 Globulin 2.3 g/dL (1.3-4.6) 12/15/21 20:45 Salicylates < 0.3 mg/dL (3-10) L 12/15/21 20:45 Acetaminophen < 5.0 ug/mL (10-30) L 12/15/21 20:45 Ethyl Alcohol 18 mg/dL (0-10) H 12/15/21 20:45 SARS-CoV-2 Ag (Rapid) Negative (Negative) 12/15/21 20:48 Discharge Plan Discharge Patient Disposition: Home Clinical Impression: Cannabis abuse, Methamphetamine dependence Condition: Stable Prescriptions: No Action aripiprazole 10 mg Tablet 10 mg PO DAILY 30 Days Qty: 30 1RF Discharge Orders: Discharge ED (Routine); Ordered 12/15/21 Ordered By: Porfirio Steele Discharge Diet: Usual diet Discharge Activity: Resume usual activity Patient Instructions: Opioid Safety Activity Restrictions/Additional Instructions: Make attempts to reduce your dependence and use of both cannabis as well as methamphetamine and any other nonprescribed medications. If you have any thoughts of harming yourself, or other concerns you are welcome to return to the emergency department at any time. Coding Level of Care Code ED Geological Survey Field Assistant for Reji Fwd Exam Comprehensive
[2021-12-15 20:55] VITALS: BP 145/82; PULSE 110; RESP 20; TEMP 36.8; O2SAT 95
[2021-12-15 20:58] LABS: Basophils % 0.3 %; Eosinophils # 0.2 10^3/uL (0.0-0.8); Eosinophils % 2.2 %; Hematocrit 40.4 % (42.0-52.0); Hemoglobin 14.1 g/dL (11.7-16.6); Lymphocytes % 30.7 %; Mean Corpuscular HGB Conc 34.9 g/dL (30.0-36.0); Mean Corpuscular Hemoglobin 31.8 pg (28.0-34.0); Mean Platelet Volume 9.4 fL (7.4-10.4); Monocytes % 10.1 %; Neutrophils # 5.52 10^3/uL (1.8-7.7); Neutrophils % 56.5 %; Nucleated Red Blood Cells % 0 %; Platelet Count 320 10^3/cmm (130-400); Red Blood Count 4.44 10^6/uL (4.1-5.3); Red Cell Distribution Width 12.4 % (12.1-15.1); White Blood Count 9.8 10^3/uL (4.0-10.0)
[2021-12-15 21:30] LABS: Alanine Aminotransferase 19 U/L (0-41); Albumin Level 4.2 g/dL (3.5-5.2); Alcohol Level 18 mg/dL (0-10); Alkaline Phosphatase 88 IU/L (40-130); Anion Gap 18.3 (5-19); Aspartate Amino Transferase 25 U/L (0-40); Blood Urea Nitrogen 12 mg/dL (6-20); Calcium 9.2 mg/dL (8.5-10.5); Carbon Dioxide 23 mmol/L (22-29); Chloride 97 mmol/L (98-107); Globulin 2.3 g/dL (1.3-4.6); Glomerular Filtration Rate 129.1 mL/min (90-130); Glucose 115 mg/dL (65-115); Osmolality Calculated 281 mOsm/kg (285-295); Potassium 3.3 mmol/L (3.5-5.1); Sodium 135 mmol/L (136-145); Total Bilirubin 0.5 mg/dL (0.15-1.2); Total Protein 6.5 g/dL (6.6-8.7)
[2021-12-15 21:35] LABS: Acetaminophen < 5.0 ug/mL (10-30); Salicylate < 0.3 mg/dL (3-10)
[2021-12-15 21:35] LABS: SARS Covid-2 Antigen Negative (Negative)
[2021-12-15 22:14] VITALS: BP 137/71; PULSE 98; RESP 18; TEMP 36.8; O2SAT 96
== END 2021-12-15 22:22 | disposition home or self-care (01) ==
PROVIDERS: Emergency Provider Emergency Medicine
DX: F12.10 Cannabis abuse, uncomplicated (principal); F15.20 Other stimulant dependence, uncomplicated; F17.210 Nicotine dependence, cigarettes, uncomplicated; Z20.822 Contact with and (suspected) exposure to COVID-19
CPT/HCPCS: 80053; 80307; 85025; 87426; 99282

== ENCOUNTER 2021-12-16 16:02 | Inpatient (IN) | payer SELFPAY ==
--- NOTE | 2021-12-16 16:03 | W.ED.PSYCHS ---
HPI - Psych General: Chief Complaint: Psychiatric Symptoms Stated Complaint: SI Time Seen by Provider: 12/16/21 16:03 Source: patient Mode of arrival: EMS History of Present Illness: 36-year-old male presents emergency room with unusual behavior. Evidently he was found sleeping under a picnic table he admits he is intoxicated his last drink was about 4 hours ago when he last used methamphetamines yesterday. Many questions he answers with bizarre tangential thinking. He admits to previous admissions to psychiatry. Patient does state he sometimes thinks about harming himself or others. He does not express a current plan. Denies any recent illness. Patient was seen in the ER yesterday for concerns about COVID. Clinically he was fine. He expressed desire to be evaluated on the psychiatry unit he denied any suicidal homicidal ideation at that time. MD complaint: suicidal ideation, feels depressed and altered mental status Onset (ago): hour(s) Duration: constant History of same: Yes Relieving factors: none Exacerbating factors: alcohol and drug use Context: recent alcohol abuse and recent drug abuse Associated psychiatric symptoms: depression, suicidal ideation and homicidal ideation Associated symptoms: Reports delusions, depression, homicidal ideation and suicidal ideation; Deny auditory hallucinations or visual hallucinations Treatments prior to arrival: none If self harm: admits thoughts of self harm Review of Systems Const: Denies: fever(s), chills, body aches, change in appetite, fatigue or malaise ENMT: Denies: throat pain, ear or mastoid pain, nasal discharge or nasal congestion Card: Denies: chest pain, edema, dyspnea on exertion or orthopnea Resp: Denies: dyspnea, productive cough or non-productive cough GI: Denies: abdominal pain, nausea, vomiting, hematemesis, coffee ground emesis, diarrhea, constipation, bloating, hematochezia or melena : Denies: flank pain, dysuria, urinary frequency or urinary urgency Skin/Breast: Denies: rash or pruritus Psych: Reports: depression, suicidal ideation and homicidal ideation; Denies: visual hallucinations or auditory hallucinations [facility] ED PFSH: Medical History (Updated 12/16/21 @ 17:22 by Donny Henning DO) Cannabis abuse History of schizophrenia Methamphetamine dependence Social History (Updated 12/16/21 @ 16:24 by Donny Henning DO) Smoking and tobacco status: current every day smoker Alcohol intake: current Alcohol intake frequency: 3 or more drinks per day Substance/Drug Use: current Substance/Drug use frequency: daily Physical Exam HENMT: COMMON NORMALS: normocephalic, atraumatic and hearing grossly normal bilaterally HEAD & SCALP: normocephalic and atraumatic Neck/C-Spine: COMMON NORMALS: no JVD Resp: COMMON NORMALS: normal respiratory effort, No retractions, No use of accessory muscles and clear to auscultation bilaterally AUSCULTATION: clear to auscultation bilaterally Cardio: COMMON NORMALS: no JVD, regular rate, regular rhythm and No murmurs present (Cardio) RATE: regular rate RHYTHM: regular rhythm GI: COMMON NORMALS: Soft to palpation and No hepatosplenomegaly present AUSCULTATION: Yes normoactive bowel sounds PALPATION: Yes Soft to palpation, No Tenderness to palpation present (GI), No Guarding due to palpation present (GI) and Yes No hepatosplenomegaly present Extremity: COMMON NORMALS: normal to inspection, capillary refill normal, no clubbing, cyanosis or edema, no calf tenderness and no pedal edema Psych: THOUGHT CONTENT: Yes delusions Skin: COMMON NORMALS: no rashes or lesions noted GENERAL SKIN EXAM: no rashes or lesions noted Course Vital Signs: Vital signs: Vital Signs Temperature 98.7 F 12/16/21 16:12 Pulse Rate 98 12/16/21 16:58 Respiratory Rate 16 12/16/21 16:58 Blood Pressure 125/65 12/16/21 16:58 Pulse Oximetry 97 12/16/21 16:58 [facility] - Psych Medical Decision Making Patient expresses suicidal ideation. He is agitated but not confrontational. He does smell mildly of alcohol. He is otherwise though awake and alert he is able to converse he is not significantly inhibited by his alcohol. He states he took methamphetamines last yesterday and last drank about [address] Lewis will admit for suicidal ideation. Lab Data : 12/16/21 16:37 12/16/21 16:37 Laboratory Results WBC 8.9 10^3/uL (4.0-10.0) 12/16/21 16:37 RBC 4.50 10^6/uL (4.1-5.3) 12/16/21 16:37 Hgb 14.4 g/dL (11.7-16.6) 12/16/21 16:37 Hct 42.5 % (42.0-52.0) 12/16/21 16:37 MCV 94.4 fl (80-94) H 12/16/21 16:37 MCH 32.0 pg (28.0-34.0) 12/16/21 16:37 MCHC 33.9 g/dL (30.0-36.0) 12/16/21 16:37 RDW 12.5 % (12.1-15.1) 12/16/21 16:37 Plt Count 317 10^3/cmm (130-400) 12/16/21 16:37 MPV 9.0 fL (7.4-10.4) 12/16/21 16:37 Neut % (Auto) 54.7 % 12/16/21 16:37 Lymph % (Auto) 32.0 % 12/16/21 16:37 Randolph % (Auto) 9.3 % 12/16/21 16:37 Eos % (Auto) 3.4 % 12/16/21 16:37 Baso % (Auto) 0.3 % 12/16/21 16:37 Neut # (Auto) 4.86 10^3/uL (1.8-7.7) 12/16/21 16:37 Lymph # (Auto) 2.9 10^3/uL (0.8-4.8) 12/16/21 16:37 Randolph # (Auto) 0.8 10^3/uL (0.2-0.9) 12/16/21 16:37 Eos # (Auto) 0.3 10^3/uL (0.0-0.8) 12/16/21 16:37 Baso # (Auto) 0.0 10^3/uL (0.0-0.1) 12/16/21 16:37 Nucleated RBC % (auto) 0 % 12/16/21 16:37 Nucleated RBCs # 0.0 /100WBC 12/16/21 16:37 Sodium 139 mmol/L (136-145) 12/16/21 16:37 Potassium 4.3 mmol/L (3.5-5.1) 12/16/21 16:37 Chloride 101 mmol/L (98-107) 12/16/21 16:37 Carbon Dioxide 27 mmol/L (22-29) 12/16/21 16:37 Anion Gap 15.3 (5-19) 12/16/21 16:37 BUN 8 mg/dL (6-20) 12/16/21 16:37 Creatinine 0.8 mg/dL (0.7-1.2) 12/16/21 16:37 GFR Calculation 110.7 mL/min (90-130) 12/16/21 16:37 Glucose 77 mg/dL (65-115) 12/16/21 16:37 Calculated Osmolality 285 mOsm/kg (285-295) 12/16/21 16:37 Calcium 9.2 mg/dL (8.5-10.5) 12/16/21 16:37 Total Bilirubin 0.3 mg/dL (0.15-1.2) 12/16/21 16:37 AST 30 U/L (0-40) 12/16/21 16:37 ALT 20 U/L (0-41) 12/16/21 16:37 Alkaline Phosphatase 93 IU/L (40-130) 12/16/21 16:37 Total Protein 6.5 g/dL (6.6-8.7) L 12/16/21 16:37 Albumin 4.2 g/dL (3.5-5.2) 12/16/21 16:37 Globulin 2.3 g/dL (1.3-4.6) 12/16/21 16:37 Salicylates < 0.3 mg/dL (3-10) L 12/16/21 16:37 Acetaminophen < 5.0 ug/mL (10-30) L 12/16/21 16:37 Discharge Plan Discharge Patient Disposition: Admitted As Inpatient Clinical Impression: Suicidal ideation, Methamphetamine dependence, History of schizophrenia, History of ETOH abuse Condition: Stable Prescriptions: No Action No Known Home Medications 0RF Coding Level of Care Code ED Administrative Support Coordinator for Chg Fwd Exam Comprehensive
[2021-12-16 16:12] VITALS: BP 130/91; PULSE 107; RESP 19; TEMP 37.1; O2SAT 98; BMI 28.1
[2021-12-16 16:34] VITALS: BP 130/91; PULSE 107; RESP 19; O2SAT 98
[2021-12-16 16:41] LABS: Basophils % 0.3 %; Eosinophils # 0.3 10^3/uL (0.0-0.8); Eosinophils % 3.4 %; Hematocrit 42.5 % (42.0-52.0); Hemoglobin 14.4 g/dL (11.7-16.6); Lymphocytes # 2.9 10^3/uL (0.8-4.8); Mean Corpuscular HGB Conc 33.9 g/dL (30.0-36.0); Mean Corpuscular Volume 94.4 fl (80-94); Monocytes # 0.8 10^3/uL (0.2-0.9); Monocytes % 9.3 %; Neutrophils # 4.86 10^3/uL (1.8-7.7); Neutrophils % 54.7 %; Nucleated Red Blood Cells % 0 %; Platelet Count 317 10^3/cmm (130-400); Red Cell Distribution Width 12.5 % (12.1-15.1); White Blood Count 8.9 10^3/uL (4.0-10.0)
[2021-12-16 16:58] VITALS: BP 125/65; PULSE 98; RESP 16; O2SAT 97
[2021-12-16 17:07] LABS: Alanine Aminotransferase 20 U/L (0-41); Albumin Level 4.2 g/dL (3.5-5.2); Alkaline Phosphatase 93 IU/L (40-130); Anion Gap 15.3 (5-19); Aspartate Amino Transferase 30 U/L (0-40); Blood Urea Nitrogen 8 mg/dL (6-20); Calcium 9.2 mg/dL (8.5-10.5); Carbon Dioxide 27 mmol/L (22-29); Chloride 101 mmol/L (98-107); Globulin 2.3 g/dL (1.3-4.6); Glomerular Filtration Rate 110.7 mL/min (90-130); Glucose 77 mg/dL (65-115); Osmolality Calculated 285 mOsm/kg (285-295); Potassium 4.3 mmol/L (3.5-5.1); Sodium 139 mmol/L (136-145); Total Bilirubin 0.3 mg/dL (0.15-1.2); Total Protein 6.5 g/dL (6.6-8.7)
[2021-12-16 17:10] LABS: Acetaminophen < 5.0 ug/mL (10-30); Salicylate < 0.3 mg/dL (3-10)
[2021-12-16 17:31] VITALS: BP 150/91; PULSE 107; RESP 18; O2SAT 98
[2021-12-16 17:58] VITALS: BP 150/91; PULSE 107; RESP 18; TEMP 37.1; O2SAT 97
--- NOTE | 2021-12-16 18:18 | PC.NURSE ---
Admission 36-year-old male presents emergency room with unusual behavior. Evidently he was found sleeping under a picnic table he admits he is intoxicated his last drink was about 4 hours ago when he last used methamphetamines yesterday. Many questions he answers with bizarre tangential thinking. He admits to previous admissions to psychiatry. Patient does state he sometimes thinks about harming himself or others. He does not express a current plan. Denies any recent illness. Patient was seen in the ER yesterday for concerns about COVID. Clinically he was fine. He expressed desire to be evaluated on the psychiatry unit he denied any suicidal homicidal ideation at that time. Upon arrival to [facility] patient is unable to hold still. Poor concentration, poor historian. Does answer questions but unsure if getting accurate answers. Denies drugs and ETOH other than using meth. Last use last night. Initially denies AVH but later endorses yes. No medications, no outpatient care. SI and some HI, just thoughts no intent. States for 1.5 years, unable to give reason it has worsened. Blisters and sores to B/L feet.
[2021-12-16 21:18] VITALS: RESP 16
[2021-12-17 05:24] VITALS: BP 121/76; PULSE 98; RESP 17; TEMP 36.3; O2SAT 98
[2021-12-17 06:13] LABS: Amphetamines Screen Urine Positive (Negative); Barbiturates Screen Urine Negative (Negative); Benzodiazepines Screen Urine Negative (Negative); Cocaine Screen Urine Negative (Negative); Opiate Screen Urine Negative (Negative); PCP Screen Urine Negative (Negative); THC Screen Urine Positive (Negative)
--- NOTE | 2021-12-17 10:56 | P.NPUHP_ITS ---
Providers/Chief Complaint Admitting Physician: David Lewis MD Chief Complaint: SI HPI [facility] History of Present Illness Alfonzo Kee is a 36 year old male who presented to the emergency department with the following report: Chief Complaint: Psychiatric Symptoms Stated Complaint: SI Time Seen by Provider: 12/16/21 16:03 Source: patient Mode of arrival: EMS History of Present Illness:?? 36-year-old male presents emergency room with unusual behavior.? Evidently he was found sleeping under a picnic table he admits he is intoxicated his last drink was about 4 hours ago when he last used methamphetamines yesterday.? Many questions he answers with bizarre tangential thinking.? He admits to previous admissions to psychiatry.? Patient does state he sometimes thinks about harming himself or others.? He does not express a current plan.? Denies any recent illness.? Patient was seen in the ER yesterday for concerns about COVID.? Clinically he was fine.? He expressed desire to be evaluated on the psychiatry unit he denied any suicidal homicidal ideation at that time.? MD complaint: suicidal ideation, feels depressed and altered mental status Onset (ago): hour(s) Duration: constant History of same: Yes Relieving factors: none Exacerbating factors: alcohol and drug use Context: recent alcohol abuse and recent drug abuse Associated psychiatric symptoms: depression, suicidal ideation and homicidal ideation Associated symptoms: Reports delusions, depression, homicidal ideation and suicidal ideation; Deny auditory hallucinations or visual hallucinations Treatments prior to arrival: none If self harm: admits thoughts of self harm He was admitted to the neuropsychiatric unit for definitive treatment of those issues. He presents today as a limited historian with significant irritability. He reports that after he left the hospital he did not refill his medication. He reports that he has continued to struggle with his addiction and has reached the point where he feels like life is not worth living if he can get his drinking and other drug use under control. He endorses recent alcohol and methamphetamine use as stated above and work with the social work team today on possible sober living inpatient services that might be available. We discussed the risk-benefit alternatives of restarting medication and he understood but not already on starting medication. He was fairly irritable and resistant answer questions however we did review his recent hospitalization information which he endorsed to be an accurate representation of his history. An excerpt of his last stay is included below for context. Per his 01/19/2021 [facility] inpatient psychiatric evaluation: History of Present Illness Alfonzo Kee is a 35 year old male who presented to the emergency department with the following report: Chief Complaint: Trauma Stated Complaint: TRAUMA, ETOH INTOX Time Seen by Provider: 01/18/21 16:13 History of Present Illness:?? HPI narrative: The patient is a 35-year-old male who comes to the ER after being found in a ditch eating mud.? He is brought in for psych evaluation.? He admits using methamphetamine as well in the ER and possibly drinking alcohol as well.? He is visibly looking in the corner of the room and talking to someone.? There is no one there.? Has a swollen lower lip but will not let me examine him further.? Likely he fell but unknown he is not giving a reasonable history.? He says he was eating the dirt because he was hungry.? I said we will feed him.? Nurse washed the mud out of his mouth. ? Associated symptoms: Denies abdominal pain, back pain, chest pain, confusion, dizziness or headache(s). He was admitted to the neuropsychiatric unit for definitive treatment of those issues.? He presents today as a fairly poor historian reporting that he is really unclear as to why the police apprehended him.? We discussed the fact that he was found laying down in the mud reportedly eating mud and he reports that they were following him and he where his car was and where he was which is not how the reports return.? He was very resistant to the idea of his addiction playing a role in his presentation.? He reports that his psychiatric treatment started with inpatient hospitalizations many years ago he reports many stays as much as 13 but the last one being about 2 years ago.? He has had several stays here at [facility] with 1 about 2 years ago and excerpt of which is included below.? He denies really having outpatient services medication and follow-up with any consistency.? He denies suicide attempts.? He reports that he smokes a half to a pack a day, drinks alcohol every once in a while, reports marijuana use daily and endorses only methamphetamine from a standpoint of other illicit drug use.? He reports he been to rehab a couple of times and had a DUI last in 2007.? He told a very convoluted story about [place] interstate and getting [place] one side but then really could get no clear story or context for why he was found the way he was.? He then turned to 180 and started talking about how doctors implant tips and tips of implanted inside of him.? A friend that this editorial writer does and when this editorial writer denied putting chips and people in my career he then said that although I might not do that I am fully aware that the hospital and other doctors do and that [facility] did that to him. Psychiatric history: As above. Substance abuse history: As above. Family history: He denies any mental health, addiction or suicide attempts or completions in his family. Developmental history: He denies any issues with his mother's with him or his or delivery.? Does endorse developmental delays, and reports that he went to school he needed speech therapy, learning support, emotional support and special education classes. Psychosocial history: Reports his mother and father were together when he was born but he the only product of that union.? He reports his mother had 3 children through a different relationship and that his father had 4 children through a different relationship.? He reports his childhood was rough and he denied any emotional physical or sexual abuse he reports that he did not speak he was about 7 years old but that someone keep an eye on him because of him being determined that terroristic threat at .? He endorses graduating from high school in 2005 endorses being a heterosexual and is always related to being 10 years.? Endorses he is been 1 time and once endorses having 4 children ages 1-8 2 boys and 2 girls, he denies being in the or having any congregation belief system.? He reports his longest job is 5 years at [email or web address].? He reports he lives in a house alone. Legal history: He reports that he been to long-term several times the longest time being 3 to 4 years. Medical history: He see ED note for full details. Per his 01/17/2018 [facility] inpatient psychiatric eval: History of Present Illness Date of Service: Jan 17, 2018 Chief Complaint: Me and my got into a little argument. HPI: Mr. Kee is a 32-year-old male who is admitted from the ED on a 96 hour hold after presenting there agitated with vaguely reported possible suicidal ideatio n.? The patient reports that he had an argument with his last night over his relapse on methamphetamines and she kicked him out of the house.? Pt reports that he just needed a place a stay so I checked myself in. ? He apparently was asked if he was feeling suicidal and refused to answer but then later reports he told the physician that he was not suicidal but he reports they had already docu mented that he was suicidal and he was told he had to come for a psychiatric evaluation.? The patient states it was really silly, and I am sorry for that. ? He reports that he had been over 2 years and relapsed 3 weeks ago but denies IVDU.? He reports that he has used marijuana occasionally but denies using that for some time although his drug screen is positive.? He reports only occasionally drinking alcohol but denies that he has a substance use issue with that.? He reports that he had been having some stress as he and his recently bought a new trailer home which they're supposed to be moving in the next couple of days and they also have a 3month old baby and 2 other young children.? He works full-time.? He reports that his relapse was a mistake but he is planning to return to AA meetings at his [facility] and is willing to accept a [facility] chemical dependency treatment referral as well. The patient reports that his mood recently has been great prior to the relapse with some general anxiety.? He reports that he did continue to take psychotropic medications since his last admission to the NPU in August 2017 for 3 months.? He reports he went to [facility] but did not like the way they treated him there so he subsequently was receiving refills from his primary care physician Dr. West Schneider and discontinued the medication approximately one month ago.? The patient did not feel like it was very helpful but his was contacted by phone for collateral information during the interview on conference call per patient's consent stated that she felt he was 100% better when he was still taking medication.? The patient was agreeable to returning to his primary care physician to obtain another refill.? The patient's has no concerns with him returning home.? She denies that he is made any suicidal comments or has any other concerning behaviors besides the recent drug relapse. The patient reports that he does have a history of intermittent auditory hallucinations in the past but reports he has not had any significant symptoms for the past 1 year, especially when sober from meth.? He denies any recent auditory hallucinations/visual hallucinations/paranoia.? Denies any irritability or homicidal ideation.? He denies depression/anhedonia/sleep/appetite problems.? He does endorse some anxiety related to stressors but feels this is overall manageable with his normal coping mechanisms such as jogging and staying busy at work.? He is remorseful for his recent drug relapse but declines any inpatient chemical dependency treatment. Past Medical History Past Medical History: PAST PSYCHIATRIC HISTORY: -Last admission to the [facility] was in 08/2017, and prior in 2014 -Past dx psychosis unspecified and methamphetamine abuse as well as some prior documented history of chronic paranoid schizophrenia, and benzodiazepine dependence Patient denies any history of suicide attempt.? Past medications which were effective per his included Zoloft and Zyprexa. PAST FAMILY PSYCHIATRIC HISTORY: -Denies FH drug abuse or mental illness. 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 Denies any current legal problems, past 8 years ago pawned tools in skilled nursing X3 years.? Endorses using meth but denies other drugs initially but then admits to occasional marijuana and opiate use as well.? He denies any intravenous use however.? Smokes 2PPD, occasional alcohol.? He denies Prior treatment through his [facility] and [facility] when younger. PAST MEDICAL HISTORY: -healthy, denies head injuries/ seizures/ surgeries. Meds NPU Home Medications Medication Instructions Recorded Confirmed Last Taken Type No Known Home Medications 12/16/21 12/16/21 Unknown History Allergies Allergy/AdvReac Type Severity Reaction Status Date / Time No Known Allergies Allergy Unverified 12/16/21 16:12 COUNTS INCLUDE 234 BEDS AT THE [facility] N[facility] PFS: Medical History (Updated 12/16/21 @ 17:22 by Donny Henning DO) Cannabis abuse History of schizophrenia Methamphetamine dependence Social History (Updated 12/16/21 @ 16:24 by Donny Henning DO) Smoking and tobacco status: current every day smoker Alcohol intake: current Alcohol intake frequency: 3 or more drinks per day Substance/Drug Use: current Substance/Drug use frequency: daily Mental Status Exam MSE Comments: This is a well-nourished well-developed white male in hospital scrubs appearing disheveled with limited eye contact.? No abnormal movements except for mild psychomotor agitation.?Limited cooperation with exam in mild distress.? Speech was increased rate normal volume.? Mood described as depressed, affect irritable.? Thought process organized.? Thought content: Patient denied suicidal or homicidal ideation, there were no delusions reported but paranoia appeared present he denied any auditory or visual hallucinations.? Attention and concentration were mostly intact and memory was mostly reliable but none were formally tested.? He is alert and oriented x3.? Insight and judgment are impaired, impulse control is impaired. Vitals/I&O/Wt Last Vital Signs Temp 97.4 F L 12/17/21 05:24 Pulse 98 12/17/21 05:24 Resp 17 12/17/21 05:24 BP 121/76 12/17/21 05:24 Pulse Ox 98 12/17/21 05:24 Weight last 48 hrs Weight 83.915 kg Data NPU : 12/16/21 16:37 12/16/21 16:37 A&P Assessment and plan (1) Suicidal ideation: Status: Acute (2) History of ETOH abuse: Status: Acute (3) Cannabis abuse: Status: Acute (4) History of schizophrenia: Status: Acute (5) Methamphetamine dependence: Status: Acute (6) Withdrawal from methamphetamine: Status: Acute Plan This is a 36-year-old white male with a significant history of mental health and addiction issues who presents with active alcohol and methamphetamine use and withdrawal with history of psychosis question of primary versus drug-induced but with a history of schizophrenia who endorses a desire to reestablish his sobriety endorsing suicidality. 1. Continue current medication. We will continue to discuss new medications or restarting previously successful medications. 2. Continue every 15 minute checks for safety. 3. Encourage individual, group and milieu therapies. 4. Encourage sober living treatment after discharge at the highest level of care to which he is willing to commit. Involuntary Hold Information 96 Hour Hold: 96 Hour Involuntary Admission: Yes 96 Hour Hold Ending Date: 12/22/21 96 Hour Hold Ending Time: 16:35 Attestations NPU Medical Necessity Statement*: Inpatient hospitalization is medically necessary and the clinically appropriate intervention at this time. We will monitor medication to make changes as indicated. Patient will be in the hospital for over two midnights. Likely length of stay 3 to 5 days. Coding Level of Care Code Acute Life Insurance Actuary for g Fwd Diagnoses Suicidal ideation R45.851 History of ETOH abuse F10.11 Cannabis abuse F12.10 History of schizophrenia Z86.59 Methamphetamine dependence F15.20 Withdrawal from methamphetamine F15.23
[2021-12-17 13:40] VITALS: BP 100/58; PULSE 86; RESP 17; TEMP 36.7; O2SAT 98
[2021-12-17] MEDS: LORazepam 2 mg Tablet PO (17:29)
[2021-12-17 20:55] VITALS: BP 100/58; PULSE 66; RESP 16; TEMP 36.7; O2SAT 99
[2021-12-18 06:00] VITALS: BP 119/71; PULSE 77; RESP 18; TEMP 36.4; O2SAT 96
[2021-12-18] MEDS: OLANZapine 5 mg ODT PO ×2 (10:46→19:16)
[2021-12-18 14:00] VITALS: BP 110/64; PULSE 70; RESP 16; TEMP 36.7; O2SAT 99
--- NOTE | 2021-12-18 19:11 | P.NPUPN_ITS ---
Subjective NPU Subjective: Interval history: Patient today reporting that he was ready to leave. He reported that the 2 previous visits where and this health science writer was in his room discussing his circum stances with him he did not recall. He was very upset about why he was even here reporting he was told he would have been discharged yesterday. Reported that the social media analyst who he felt was the doctor and told him he would be leaving. He had not filled out the documents for sober living that he had reported he would fill out last 2 days. I read the affidavits to him and he reported that he never said that he was suicidal, however he could not answer how he be certain he did not say that when he does not remember me being in his room for 2 straight days. Mental Status Exam MSE Comments: This is a well-nourished well-developed white male in hospital scrubs with adequate grooming and eye contact.?? No abnormal movements except for psychomotor agitation.?Limited cooperation with exam in mild distress.? Speech was increased rate normal volume.? Mood described as fine, affect irritable.? Thought process organized.? Thought content: Patient denied suicidal or homicidal ideation, there were no delusions reported or noted, he denied any auditory or visual hallucinations.? Attention and concentration were mostly intact and memory was unreliable but none were formally tested.? He is alert and oriented x3.? Insight and judgment are limited, impulse control is limited. Vitals/I&O/Wt Last Vital Signs Temp 98.0 F 12/18/21 14:00 Pulse 70 12/18/21 14:00 Resp 16 12/18/21 21:16 BP 110/64 12/18/21 14:00 Pulse Ox 99 12/18/21 14:00 Data NPU : 12/16/21 16:37 12/16/21 16:37 A&P Assessment and plan (1) Suicidal ideation: Status: Acute (2) History of ETOH abuse: Status: Acute (3) Cannabis abuse: Status: Acute (4) History of schizophrenia: Status: Acute (5) Methamphetamine dependence: Status: Acute (6) Withdrawal from methamphetamine: Status: Acute Plan This is a 36-year-old white male with a significant history of mental health and addiction issues who presents with active alcohol and methamphetamine use and withdrawal with history of psychosis question of primary versus drug-induced but with a history of schizophrenia who endorses a desire to reestablish his sobriety endorsing suicidality. 1.? Continue current medication. We will continue to discuss new medications or restarting previously successful medications. 2.? Continue every 15 minute checks for safety. 3.? Encourage individual, group and milieu therapies. 4.? Encourage sober living treatment after discharge at the highest level of care to which he is willing to commit. Involuntary Hold Information 96 Hour Hold: 96 Hour Involuntary Admission: Yes 96 Hour Hold Ending Date: 12/22/21 96 Hour Hold Ending Time: 16:35 Attestations NPU Medical Necessity Statement*: Inpatient hospitalization is medically necessary and the clinically appropriate intervention at this time. We will monitor medication to make changes as indicated. Likely length of stay 2-4 days. Coding Level of Care Code Acute Marshmallow Runner for Reji Petersond Diagnoses Suicidal ideation R45.851 History of ETOH abuse F10.11 Cannabis abuse F12.10 History of schizophrenia Z86.59 Methamphetamine dependence F15.20 Withdrawal from methamphetamine F15.23
[2021-12-18 21:16] VITALS: RESP 16
[2021-12-19 05:55] VITALS: BP 119/75; PULSE 78; RESP 16; O2SAT 98
[2021-12-19 06:00] VITALS: BMI 28.1
[2021-12-19 14:00] VITALS: BP 119/75; PULSE 78; RESP 16; TEMP 36.7; O2SAT 98
--- NOTE | 2021-12-19 15:14 | W.PM.NPUDCS ---
Diagnoses at Discharge Discharge Diagnosis (1) Suicidal ideation: Status: Resolved (2) History of ETOH abuse: Status: Acute (3) Cannabis abuse: Status: Acute (4) History of schizophrenia: Status: Acute (5) Methamphetamine dependence: Status: Acute (6) Withdrawal from methamphetamine: Status: Acute Reason for Visit Reason for Visit: SI Brief History: History of Present Illness Alfonzo Kee is a 36 year old male who presented to the emergency department with the following report: Chief Complaint: P sychiatric Symptom s Stated Complaint : SI Time Seen by Provider: 12/16/21 16:03 Source: pat ient Mode of arriv al: EMS? ? History of Present Illness:??? 36-year-old male presents emergency room with unusual behavior.? Eviden tly he was found s leeping under a pi cnic table he admi ts he is intoxicat ed his last drink was about 4 hours ago when he last u sed methamphetamin es yesterday.? Man y questions he ans wers with bizarre tangential thinkin g.? He admits to p revious admissions to psychiatry.? P atient does state he sometimes think s about harming hi mself or others.? He does not expres s a current plan.? Denies any recent illness.? Patient was seen in the E R yesterday for co ncerns about COVID .? Clinically he w as fine.? He expre ssed desire to be evaluated on the p sychiatry unit he denied any suicida l homicidal ideati on at that time.?MD complain t: suicidal ideati on, feels depresse d and altered ment al status Onset (a go): hour(s) Durat ion: constant Hist ory of same: Yes R elieving factors: none Exacerbating factors: alcohol a nd drug use Contex t: recent alcohol abuse and recent d rug abuse Associat ed psychiatric sym ptoms: depression, suicidal ideation and homicidal ochoa ation Associated s ymptoms: Reports d elusions, depressi on, homicidal idea tion and suicidal ideation; Deny aud itory hallucinatio ns or visual hallu cinations Treatmen ts prior to arriva l: none If self guillen rm: admits thought s of self harm He was admitted to the neuropsychiatric unit for definitive treatment of those issues. He presents today as a limited historian with significant irritability. He reports that after he left the hospital he did not refill his medication. He reports that he has continued to struggle with his addiction and has reached the point where he feels like life is not worth living if he can get his drinking and other drug use under control. He endorses recent alcohol and methamphetamine use as stated above and work with the social work team today on possible sober living inpatient services that might be available. We discussed the risk-benefit alternatives of restarting medication and he understood but not already on starting medication. He was fairly irritable and resistant answer questions however we did review his recent hospitalization information which he endorsed to be an accurate representation of his history. An excerpt of his last stay is included below for context. Per his 01/19/2021 [facility] inpatient psychiatric evaluation: History of Present Illness Alfonzo Kee is a 35 year old male who presented to the emergency department with the following report: Chief Complaint: Trauma Stated Complaint: TRAUMA, ETOH INTOX Time Seen by Provider: 01/18/21 16:13 History of Present Illness:?? HPI narrative: The patient is a 35-year-old male who comes to the ER after being found in a ditch eating mud.? He is brought in for psych evaluation.? He admits using methamphetamine as well in the ER and possibly drinking alcohol as well.? He is visibly looking in the corner of the room and talking to someone.? There is no one there.? Has a swollen lower lip but will not let me examine him further.? Likely he fell but unknown he is not giving a reasonable history.? He says he was eating the dirt because he was hungry.? I said we will feed him.? Nurse washed the mud out of his mouth. ? Associated symptoms: Denies abdominal pain, back pain, chest pain, confusion, dizziness or headache(s). He was admitted to the neuropsychiatric unit for definitive treatment of those issues.? He presents today as a fairly poor historian reporting that he is really unclear as to why the police apprehended him.? We discussed the fact that he was found laying down in the mud reportedly eating mud and he reports that they were following him and he where his car was and where he was which is not how the reports return.? He was very resistant to the idea of his addiction playing a role in his presentation.? He reports that his psychiatric treatment started with inpatient hospitalizations many years ago he reports many stays as much as 13 but the last one being about 2 years ago.? He has had several stays here at [facility] with 1 about 2 years ago and excerpt of which is included below.? He denies really having outpatient services medication and follow-up with any consistency.? He denies suicide attempts.? He reports that he smokes a half to a pack a day, drinks alcohol every once in a while, reports marijuana use daily and endorses only methamphetamine from a standpoint of other illicit drug use.? He reports he been to rehab a couple of times and had a DUI last in 2007.? He told a very convoluted story about [place] interstate and getting on one side but then really could get no clear story or context for why he was found the way he was.? He then turned to 180 and started talking about how doctors implant tips and tips of implanted inside of him.? A friend that this teletypewriter installer does and when this teletypewriter installer denied putting chips and people in my career he then said that although I might not do that I am fully aware that the hospital and other doctors do and that [facility] did that to him. Psychiatric history: As above. Substance abuse history: As above. Family history: He denies any mental health, addiction or suicide attempts or completions in his family. Developmental history: He denies any issues with his mother's with him or his or delivery.? Does endorse developmental delays, and reports that he went to school he needed speech therapy, learning support, emotional support and special education classes. Psychosocial history: Reports his mother and father were together when he was born but he the only product of that union.? He reports his mother had 3 children through a different relationship and that his father had 4 children through a different relationship.? He reports his childhood was rough and he denied any emotional physical or sexual abuse he reports that he did not speak he was about 7 years old but that someone keep an eye on him because of him being determined that terroristic threat at .? He endorses graduating from high school in 2005 endorses being a heterosexual and is always related to being 10 years.? Endorses he is been 1 time and once endorses having 4 children ages 1-8 2 boys and 2 girls, he denies being in the or having any gnosticist belief system.? He reports his longest job is 5 years at [employer].? He reports he lives in a house alone. Legal history: He reports that he been to assisted several times the longest time being 3 to 4 years. Medical history: He see ED note for full details. Per his 01/17/2018 [facility] inpatient psychiatric eval: History of Present Illness Date of Service: Jan 17, 2018 Chief Complaint: Me and my got into a little argument. HPI: Mr. Kee is a 32-year-old male who is admitted from the ED on a 96 hour hold after presenting there agitated with vaguely reported possible suicidal ideation.? The patient reports that he had an argument with his last night over his relapse on methamphetamines and she kicked him out of the house.? Pt reports that he just needed a place a stay so I checked myself in. ? He apparently was asked if he was feeling suicidal and refused to answer but then later reports he told the physician that he was not suicidal but he reports they had already documented that he was suicidal and he was told he had to come for a psychiatric evaluation.? The patient states it was really silly, and I am sorry for that. ? He reports that he had been over 2 years and relapsed 3 weeks ago but denies IVDU.? He reports that he has used marijuana occasionally but denies using that for some time although his drug screen is positive.? He reports only occasionally drinking alcohol but denies that he has a substance use issue with that.? He reports that he had been having some stress as he and his recently bought a new trailer home which they're supposed to be moving in the next couple of days and they also have a 3month old baby and 2 other young children.? He works full-time.? He reports that his relapse was a mistake but he is planning to return to AA meetings at his religion and is willing to accept a [facility] chemical dependency treatment referral as well. The patient reports that his mood recently has been great prior to the relapse with some general anxiety.? He reports that he did continue to take psychotropic medications since his last admission to the NPU in August 2017 for 3 months.? He reports he went to [facility] but did not like the way they treated him there so he subsequently was receiving refills from his primary care physician Dr. West Schneider and discontinued the medication approximately one month ago.? The patient did not feel like it was very helpful but his was contacted by phone for collateral information during the interview on conference call per patient's consent stated that she felt he was 100% better when he was still taking medication.? The patient was agreeable to returning to his primary care physician to obtain another refill.? The patient's has no concerns with him returning home.? She denies that he is made any suicidal comments or has any other concerning behaviors besides the recent drug relapse. The patient reports that he does have a history of intermittent auditory hallucinations in the past but reports he has not had any significant symptoms for the past 1 year, especially when sober from meth.? He denies any recent auditory hallucinations/visual hallucinations/paranoia.? Denies any irritability or homicidal ideation.? He denies depression/anhedonia/sleep/appetite problems.? He does endorse some anxiety related to stressors but feels this is overall manageable with his normal coping mechanisms such as jogging and staying busy at work.? He is remorseful for his recent drug relapse but declines any inpatient chemical dependency treatment. Past Medical History Past Medical History: PAST PSYCHIATRIC HISTORY: -Last admission to the NPU was in 08/2017, and prior in 2014 -Past dx psychosis unspecified and methamphetamine abuse as well as some prior documented history of chronic paranoid schizophrenia, and benzodiazepine dependence Patient denies any history of suicide attempt.? Past medications which were effective per his included Zoloft and Zyprexa. PAST FAMILY PSYCHIATRIC HISTORY: -Denies FH drug abuse or mental illness. 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 Denies any current legal problems, past 8 years ago pawned tools in [place] [facility].? Endorses using meth but denies other drugs initially but then admits to occasional marijuana and opiate use as well.? He denies any intravenous use however.? Smokes 2PPD, occasional alcohol.? He denies Prior treatment through his religion and [facility] when younger. PAST MEDICAL HISTORY: -healthy, denies head injuries/ seizures/ surgeries. Hospital Course Hospital Course He slowly acclimated to the individual, group and milieu therapies provided. He was similar to previous hospitalizations and fairly resistant to intervention. It certainly raised the question of whether we are dealing with psychosis possibly related to addiction as a primary entity or whether malingering was a significant aspect based on his behavior at times. He was initially resistant and withdrawn from treatment and interactions and then demanding of what he should get and what we should do. He had modest improvement during the hospitalization and was able to contract for safety outside the hospital prior to discharge. During the hospitalization, patient had routine laboratory studies which were within normal limits except for few outliers. Additionally there was a general medical evaluation which was also within normal limits and revealed no new acute processes. Discharge Summary: At the time of discharge, lethality was denied and psychosis was resolving. Mood and anxiety were well managed. Patient endorsed a plan to avoid all drugs of abuse and follow-up with the aftercare recommendations of the treatment team. Patient was evaluated and deemed to be absent credible lethality, and had achieved the maximum benefit from an inpatient hospitalization, so was discharged. Involuntary Hold Information 96 Hour Hold: 96 Hour Involuntary Admission: Yes 96 Hour Hold Ending Date: 12/22/21 96 Hour Hold Ending Time: 16:35 Mental Status Exam MSE Comments: This is a well-nourished well-developed white male in hospital scrubs with adequate grooming and eye contact.?? No abnormal movements except for mild psychomotor agitation.?Limited cooperation with exam in no acute distress.? Speech was increased rate normal volume.? Mood described as okay, affect irritable.? Thought process organized.? Thought content: Patient denied suicidal or homicidal ideation, there were no delusions reported or noted, he denied any auditory or visual hallucinations.? Attention and concentration were mostly intact and memory was unreliable but none were formally tested.? He is alert and oriented x3.? Insight and judgment are limited, impulse control is limited. Discharge Data Studies Completed and Pending: Laboratory Results WBC 8.9 10^3/uL (4.0- 10.0) 12/16/21 16:37 RBC 4.50 10^6/uL (4.1 -5.3) 12/16/21 16:37 Hgb 14.4 g/dL (11.7-1 6.6) 12/16/21 16:37 Hct 42.5 % (42.0-52.0 ) 12/16/21 16:37 MCV 94.4 fl (80-94) H 12/16/21 16:37 MCH 32.0 pg (28.0-34. 0) 12/16/21 16:37 MCHC 33.9 g/dL (30.0-3 6.0) 12/16/21 16:37 RDW 12.5 % (12.1-15.1 ) 12/16/21 16:37 Plt Count 317 10^3/cmm (130 -400) 12/16/21 16:37 MPV 9.0 fL (7.4-10.4) 12/16/21 16:37 Neut % (Auto) 54.7 % 12/16/21 16:37 Lymph % (Auto) 32.0 % 12/16/21 16:37 [place] % (Auto) 9.3 % 12/16/21 16:37 Eos % (Auto) 3.4 % 12/16/21 16:37 Baso % (Auto) 0.3 % 12/16/21 16:37 Neut # (Auto) 4.86 10^3/uL (1.8 -7.7) 12/16/21 16:37 Lymph # (Auto) 2.9 10^3/uL (0.8- 4.8) 12/16/21 16:37 [place] # (Auto) 0.8 10^3/uL (0.2- 0.9) 12/16/21 16:37 Eos # (Auto) 0.3 10^3/uL (0.0- 0.8) 12/16/21 16:37 Baso # (Auto) 0.0 10^3/uL (0.0- 0.1) 12/16/21 16:37 Nucleated RBC % (a uto) 0 % 12/16/21 16:37 Nucleated RBCs # 0.0 /100WBC 12/16/21 16:37 Sodium 139 mmol/L (136-1 45) 12/16/21 16:37 Potassium 4.3 mmol/L (3.5-5 .1) 12/16/21 16:37 Chloride 101 mmol/L (98-10 7) 12/16/21 16:37 Carbon Dioxide 27 mmol/L (22-29) 12/16/21 16:37 Anion Gap 15.3 (5-19) 12/16/21 16:37 BUN 8 mg/dL (6-20) 12/16/21 16:37 Creatinine 0.8 mg/dL (0.7-1. 2) 12/16/21 16:37 GFR Calculation 110.7 mL/min (90- 130) 12/16/21 16:37 Glucose 77 mg/dL (65-115) 12/16/21 16:37 Calculated Osmolal ity 285 mOsm/kg (285- 295) 12/16/21 16:37 Calcium 9.2 mg/dL (8.5-10 .5) 12/16/21 16:37 Total Bilirubin 0.3 mg/dL (0.15-1 .2) 12/16/21 16:37 AST 30 U/L (0-40) 12/16/21 16:37 ALT 20 U/L (0-41) 12/16/21 16:37 Alkaline Phosphata se 93 IU/L (40-130) 12/16/21 16:37 Total Protein 6.5 g/dL (6.6-8.7 ) L 12/16/21 16:37 Albumin 4.2 g/dL (3.5-5.2 ) 12/16/21 16:37 Globulin 2.3 g/dL (1.3-4.6 ) 12/16/21 16:37 Salicylates < 0.3 mg/dL (3-10 ) L 12/16/21 16:37 Urine Opiates Scre en Negative ng/mL (N egative) 12/17/21 05:24 Acetaminophen < 5.0 ug/mL (10-3 0) L 12/16/21 16:37 Ur Barbiturates Sc reen Negative ng/mL (N egative) 12/17/21 05:24 Ur Phencyclidine S crn Negative ng/mL (N egative) 12/17/21 05:24 Ur Amphetamines Sc reen Positive ng/mL (N egative) H 12/17/21 05:24 U Benzodiazepines Scrn Negative ng/mL (N egative) 12/17/21 05:24 Urine Cocaine Scre en Negative ng/mL (N egative) 12/17/21 05:24 U Marijuana (THC) Screen Positive ng/mL (N egative) H 12/17/21 05:24 Vitals: Last Vital Signs Temp 98.0 F 12/18/21 14:00 Pulse 78 12/19/21 05:55 Resp 16 12/19/21 05:55 BP 119/75 12/19/21 05:55 Pulse Ox 98 12/19/21 05:55 Discharge Plan Discharge Patient Disposition: Home Condition: Stable Prescriptions: No Action No Known Home Medications 0RF Discharge Orders: Discharge Order (Routine); Ordered 12/19/21 Ordered By: David Lewis Discharge Diet: Regular Discharge Activity: Resume usual activity Patient Instructions: Opioid Safety Discharge Attestations NPU Time Spent in Discharge Care*: less than 30 min Specific Discharge Activities: Specific discharge activities: educating patient, discussing with case packer/social workers/dc planners, documenting/other paperwork and evaluating patient/reviewing data Coding Level of Care Code Acute Chg DC note Diagnoses Suicidal ideation R45.851 History of ETOH abuse F10.11 Cannabis abuse F12.10 History of schizophrenia Z86.59 Methamphetamine dependence F15.20 Withdrawal from methamphetamine F15.23
[2021-12-19 15:19] VITALS: BP 119/75; PULSE 78; RESP 16; O2SAT 98
== END 2021-12-19 15:28 | disposition home or self-care (01) | DRG 897 ==
LOC: ER 17:22 → NP 17:36
PROVIDERS: Admitting Provider Psychiatry & Neurology Psychiatry; Emergency Provider Family Medicine; Visit Provider Psychiatry & Neurology Psychiatry
DX: F15.23 Other stimulant dependence with withdrawal (principal); R45.851 Suicidal ideations; F10.10 Alcohol abuse, uncomplicated; F17.210 Nicotine dependence, cigarettes, uncomplicated; F12.10 Cannabis abuse, uncomplicated; Z86.59 Personal history of other mental and behavioral disorders
CPT/HCPCS: 80053; 80306; 80307; 85025; 97165; 99285

== ENCOUNTER 2023-03-22 02:58 | Inpatient (IN) | payer MEDICAID, SELFPAY ==
[2023-03-22] VITALS (9 sets, daily range): BP systolic 99–156; BP diastolic 54–92; PULSE 96–121; RESP 16–24; TEMP 36.3–37.1; O2SAT 90–99; BMI 29.3
--- NOTE | 2023-03-22 03:04 | W.ED.OVERDOS ---
HPI - Overdose General: Chief Complaint: Overdose Stated Complaint: OD Time Seen by Provider: 03/22/23 03:01 Source: EMS Mode of arrival: EMS Limitations: altered mental status History of Present Illness: 37-year-old male who had admitted to using crystal meth tonight he went to the police station he started acting erratic EMS was called him and states that he became slightly combative he was hallucinating saying he wanted to kill himself I did have to sedate him in route with Versed. Patient is currently sedated unable answer any questions at this time. No known injuries Review of Systems General: Reports: ROS unobtainable due to mental status PFS ED PFSH: Medical History Cannabis abuse History of schizophrenia Methamphetamine dependence Social History Smoking and tobacco status: current every day smoker Alcohol intake: current Alcohol intake frequency: 3 or more drinks per day Substance/Drug Use: current Substance/Drug use frequency: daily Physical Exam Const: COMMON NORMALS: negative for patient oriented x3 HENMT: COMMON NORMALS: normocephalic and atraumatic HEAD & SCALP: normocephalic and atraumatic Eye: COMMON NORMALS: Equal, round and reactive pupils present and EOMs intact bilaterally PUPIL: Yes Equal, round and reactive pupils present Neck/C-Spine: COMMON NORMALS: full ROM and supple Chest: COMMONS NORMALS: normal inspection of the chest and normal palpation of entire chest wall Resp: COMMON NORMALS: normal respiratory effort, No retractions, No use of accessory muscles and clear to auscultation bilaterally AUSCULTATION: clear to auscultation bilaterally Cardio: COMMON NORMALS: regular rhythm and No murmurs present (Cardio) RATE: tachycardic RHYTHM: regular rhythm GI: COMMON NORMALS: Normal to inspection, nondistended, normoactive bowel sounds present, Soft to palpation, non-tender and no masses PALPATION: Yes Soft to palpation Extremity: COMMON NORMALS: normal to inspection and full ROM Neuro: COMMON NORMALS: negative for patient oriented x3 Psych: COMMON NORMALS: negative for mental status grossly normal, negative for Normal thought process present and negative for cooperative THOUGHT PROCESS: abnormal Skin: COMMON NORMALS: no rashes or lesions noted and no wounds GENERAL SKIN EXAM: no rashes or lesions noted Course Vital Signs: Vital signs: Vital Signs Temperature 98.7 F 03/22/23 02:59 Pulse Rate 96 03/22/23 05:02 Respiratory Rate 24 H 03/22/23 02:59 Blood Pressure 99/54 03/22/23 05:02 Pulse Oximetry 90 03/22/23 02:59 Oxygen Delivery Me thod Room Air 03/22/23 02:59 MDM - Overdose Medical Decision Making Patient presents with acute psychosis likely from methamphetamine abuse he had made suicidal statements to police he has been sedated while here due to agitation spoke to psychiatrist will admit on a 96-hour hold Lab Data 03/22/23 02:48 03/22/23 04:48 Laboratory Results WBC 17.1 10^3/uL (4.0-10.0) H 03/22/23 02:48 RBC 5.18 10^6/uL (4.1-5.3) 03/22/23 02:48 Hgb 15.3 g/dL (11.7-16.6) 03/22/23 02:48 Hct 43.3 % (42.0-52.0) 03/22/23 02:48 MCV 83.6 fl (80-94) 03/22/23 02:48 MCH 29.5 pg (28.0-34.0) 03/22/23 02:48 MCHC 35.3 g/dL (30.0-36.0) 03/22/23 02:48 RDW 13.6 % (12.1-15.1) 03/22/23 02:48 Plt Count 353 10^3/cmm (130-400) 03/22/23 02:48 MPV 8.9 fL (7.4-10.4) 03/22/23 02:48 Neut % (Auto) 70.3 % 03/22/23 02:48 Lymph % (Auto) 17.3 % 03/22/23 02:48 Mccreary % (Auto) 10.8 % 03/22/23 02:48 Eos % (Auto) 0.6 % 03/22/23 02:48 Baso % (Auto) 0.4 % 03/22/23 02:48 Neut # (Auto) 12.03 10^3/uL (1.8-7.7) H 03/22/23 02:48 Lymph # (Auto) 3.0 10^3/uL (0.8-4.8) 03/22/23 02:48 Mccreary # (Auto) 1.8 10^3/uL (0.2-0.9) H 03/22/23 02:48 Eos # (Auto) 0.1 10^3/uL (0.0-0.8) 03/22/23 02:48 Baso # (Auto) 0.1 10^3/uL (0.0-0.1) 03/22/23 02:48 Nucleated RBC % (auto) 0 % 03/22/23 02:48 Nucleated RBCs # 0.0 /100WBC 03/22/23 02:48 Sodium 132 mmol/L (136-145) L 03/22/23 04:48 Potassium 3.5 mmol/L (3.5-5.1) 03/22/23 04:48 Chloride 98 mmol/L (98-107) 03/22/23 04:48 Carbon Dioxide 24 mmol/L (22-29) 03/22/23 04:48 Anion Gap 13.5 (5-19) 03/22/23 04:48 BUN 13 mg/dL (6-20) 03/22/23 04:48 Creatinine 0.9 mg/dL (0.7-1.2) 03/22/23 04:48 GFR Calculation 96.0 mL/min (90-130) 03/22/23 04:48 Glucose 93 mg/dL (65-115) 03/22/23 04:48 Calculated Osmolality 274 mOsm/kg (285-295) L 03/22/23 04:48 Calcium 8.4 mg/dL (8.5-10.5) L 03/22/23 04:48 Total Bilirubin 1.4 mg/dL (0.15-1.2) H 03/22/23 02:48 AST 56 U/L (0-40) H 03/22/23 02:48 ALT 32 U/L (0-41) 03/22/23 02:48 Alkaline Phosphatase 93 U/L (40-130) 03/22/23 02:48 Total Protein 6.9 g/dL (6.6-8.7) 03/22/23 02:48 Albumin 4.2 g/dL (3.5-5.2) 03/22/23 02:48 Globulin 2.7 g/dL (1.3-4.6) 03/22/23 02:48 Salicylates < 0.3 mg/dL (3-10) L 03/22/23 02:48 Acetaminophen < 5.0 ug/mL (10-30) L 03/22/23 02:48 Ethyl Alcohol < 10 mg/dL (0-10) 03/22/23 02:48 Discharge Plan Discharge Patient Disposition: Admitted As Inpatient Clinical Impression: Methamphetamine dependence, Psychosis Condition: Stable Coding Level of Care Code ED Facilities Technician for Reji Mckeon
[2023-03-22] MEDS: haloperidol inj 5 mg/mL INJ 1 mL IM (03:05)
[2023-03-22 03:09] LABS: Basophils # 0.1 10^3/uL (0.0-0.1); Basophils % 0.4 %; Eosinophils # 0.1 10^3/uL (0.0-0.8); Eosinophils % 0.6 %; Hematocrit 43.3 % (42.0-52.0); Hemoglobin 15.3 g/dL (11.7-16.6); Lymphocytes % 17.3 %; Mean Corpuscular HGB Conc 35.3 g/dL (30.0-36.0); Mean Corpuscular Hemoglobin 29.5 pg (28.0-34.0); Mean Corpuscular Volume 83.6 fl (80-94); Mean Platelet Volume 8.9 fL (7.4-10.4); Monocytes # 1.8 10^3/uL (0.2-0.9); Monocytes % 10.8 %; Neutrophils # 12.03 10^3/uL (1.8-7.7); Neutrophils % 70.3 %; Nucleated Red Blood Cells % 0 %; Platelet Count 353 10^3/cmm (130-400); Red Blood Count 5.18 10^6/uL (4.1-5.3); Red Cell Distribution Width 13.6 % (12.1-15.1); White Blood Count 17.1 10^3/uL (4.0-10.0)
[2023-03-22] MEDS: sodium chloride 0.9% 1,000 ML 999 ML IV ×2 (03:09→03:50)
[2023-03-22 03:26] LABS: Alanine Aminotransferase 32 U/L (0-41); Albumin Level 4.2 g/dL (3.5-5.2); Alkaline Phosphatase 93 U/L (40-130); Aspartate Amino Transferase 56 U/L (0-40); Blood Urea Nitrogen 14 mg/dL (6-20); Calcium 9.3 mg/dL (8.5-10.5); Carbon Dioxide 22 mmol/L (22-29); Chloride 90 mmol/L (98-107); Globulin 2.7 g/dL (1.3-4.6); Glucose 137 mg/dL (65-115); Osmolality Calculated 267 mOsm/kg (285-295); Sodium 127 mmol/L (136-145); Total Bilirubin 1.4 mg/dL (0.15-1.2); Total Protein 6.9 g/dL (6.6-8.7)
[2023-03-22 03:38] LABS: Acetaminophen < 5.0 ug/mL (10-30); Alcohol Level < 10 mg/dL (0-10); Salicylate < 0.3 mg/dL (3-10)
[2023-03-22] MEDS: LORazepam 2 mg/mL INJ 1 mL IVP (05:04)
[2023-03-22 05:08] LABS: Anion Gap 13.5 (5-19); Blood Urea Nitrogen 13 mg/dL (6-20); Calcium 8.4 mg/dL (8.5-10.5); Carbon Dioxide 24 mmol/L (22-29); Chloride 98 mmol/L (98-107); Glucose 93 mg/dL (65-115); Osmolality Calculated 274 mOsm/kg (285-295); Potassium 3.5 mmol/L (3.5-5.1); Sodium 132 mmol/L (136-145)
--- NOTE | 2023-03-22 08:16 | PC.NURSE ---
report called to [facility] @0625. attempted to wake PT to get him dressed out in scrubs and give a urine sample. PT sat up groaning and flailing his arms. helped pt lay back down in bed, VSS PSA with PT.
--- NOTE | 2023-03-22 13:29 | P.NPUHP_ITS ---
Providers/Chief Complaint Admitting Physician: David Lewis MD Chief Complaint: OD HPI NPU History of Present Illness Alfonzo Kee is a 37 year old male who presented to the emergency department with the following report: Chief Complaint: Overdose Stated Complaint: OD Time Seen by Provider: 03/22/23 03:01 Source: EMS Mode of arrival: EMS Limitations: altered mental status History of Present Illness: 37-year-old male who had admitted to using crystal meth tonight he went to the police station he started acting erratic EMS was called him and states that he became slightly combative he was hallucinating saying he wanted to kill himself I did have to sedate him in route with Versed. Patient is currently sedated unable answer any questions at this time. No known injuries He was admitted to the neuropsychiatric unit for definitive treatment of those issues. He states today fairly lethargic. He was seen up a couple times after getting to the unit about 10:00 this morning. He did eat but was very quick to be sleeping consistent with his history of methamphetamine addiction. He presen ts today acknowledging that his erratic behavior identified him as is likely a consequence of his methamphetamine use. A UDS was not done in the emergency department, but will be obtained as soon as we need to get his compliance. He was a fairly poor historian at times unable to be located and other times sleep during answers. This likely secondary to the combination of the Versed given to him in to the hospital as well as methamphetamine withdrawal. An excerpt of his last discharge summary of his November 2021 hospitalization is included below for context in his lack of ability as a historian. He did speak to the social work team briefly in a similar situation acknowledging his addiction and openness to rehab treatment. Attempted to review with him the possibility of an antipsychotic for his psychosis/hallucinations and aggression but he was unable to respond. Per his 12/19/2021 [facility] inpatient psychiatric discharge summary: Discharge Diagnosis (1) Suicidal ideation: Status: Resolved (2) History of ETOH abuse: Status: Acute (3) Cannabis abuse: Status: Acute (4) History of schizophrenia: Status: Acute (5) Methamphetamine dependence: Status: Acute (6) Withdrawal from methamphetamine: Status: Acute Reason for Visit Reason for Visit: SI Brief History: History of Present Illness Alfonzo Kee is a 36 year old male who presented to the emergency department with the following report: Chief Complaint: Psychiatric Symptoms Stated Complaint: SI Time Seen by Provider: 12/16/21 16:03 Source: patient Mode of arrival: EMS History of Present Illness: 36-year-old male presents emergency room with unusual behavior. Evidently he was found sleeping under a picnic table he admits he is intoxicated his last drink was about 4 hours ago when he last used methamphetamines yesterday. Many questions he answers with bizarre tangential thinking. He admits to previous admissions to psychiatry. Patient does state he sometimes thinks about harming himself or others. He does not express a current plan. Denies any recent illness. Patient was seen in the ER yesterday for concerns about COVID. Clin reyna he was fine. He expressed desire to be evaluated on the psychiatry unit he denied any suicidal homicidal ideation at that time. MD complaint: suicidal ideation, feels depressed and altered mental status Onset (ago): hour(s) Duration: constant History of same: Yes Relieving factors: none Exacerbating factors: alcohol and drug use Context: recent alcohol abuse and recent drug abuse Associated psychiatric symptoms: depression, suicidal ideation and homicidal ideation Associated symptoms: Reports delusions, depression, homicidal ideation and suicidal ideation; Deny auditory hallucinations or visual hallucinations Treatments prior to arrival: none If self harm: admits thoughts of self harm He was admitted to the neuropsychiatric unit for definitive treatment of those issues. He presents today as a limited historian with significant irritability. He reports that after he left the hospital he did not refill his medication. He reports that he has continued to struggle with his addiction and has reached the point where he feels like life is not worth living if he can get his drinking and other drug use under control. He endorses recent alcohol and methamphetamine use as stated above and work with the social work team today on possible sober living inpatient services that might be available. We discussed the risk-benefit alternatives of restarting medication and he understood but not already on starting medication. He was fairly irritable and resistant answer questions however we did review his recent hospitalization information which he endorsed to be an accurate representation of his history. An excerpt of his last stay is included below for context. Per his 01/19/2021 [facility] inpatient psychiatric evaluation: History of Present Illness Alfonzo Kee is a 35 year old male who presented to the emergency department with the following report: Chief Complaint: Trauma Stated Complaint: TRAUMA, ETOH INTOX Time Seen by Provider: 01/18/21 16:13 History of Present Illness: HPI narrative: The patient is a 35-year-old male who comes to the ER after being found in a ditch eating mud. He is brought in for psych evaluation. He admits using methamphetamine as well in the ER and possibly drinking alcohol as well. He is visibly looking in the corner of the room and talking to someone. There is no one there. Has a swollen lower lip but will not let me examine him further. Likely he fell but unknown he is not giving a reasonable history. He says he was eating the dirt because he was hungry. I said we will feed him. Nurse washed the mud out of his mouth. Associated symptoms: Denies abdominal pain, back pain, chest pain, confusion, dizziness or headache(s). He was admitted to the neuropsychiatric unit for definitive treatment of those issues. He presents today as a fairly poor historian reporting that he is really unclear as to why the police apprehended him. We discussed the fact that he was found laying down in the mud reportedly eating mud and he reports that they were following him and he where his car was and where he was which is not how the reports return. He was very resistant to the idea of his addiction playing a role in his presentation. He reports that his psychiatric treatment started with inpatient hospitalizations many years ago he reports many stays as much as 13 but the last one being about 2 years ago. He has had several stays here at [facility] with 1 about 2 years ago and excerpt of which is included below. He denies really having outpatient services medication and follow-up with any consistency. He denies suicide attempts. He reports that he smokes a half to a pack a day, drinks alcohol every once in a while, reports marijuana use daily and endorses only methamphetamine from a standpoint of other illicit drug use. He reports he been to rehab a couple of times and had a DUI last in 2007. He told a very convoluted story about [place] and getting [place] one side but then really could get no clear story or context for why he was found the way he was. He then turned to 180 and started talking about how doctors implant tips and tips of implanted inside of him. A friend that this conventional mortgage underwriter does and when this conventional mortgage underwriter denied putting chips and people in my career he then said that although I might not do that I am fully aware that the hospital and other doctors do and that [facility] did that to him. Psychiatric history: As above. Substance abuse history: As above. Family history: He denies any mental health, addiction or suicide attempts or completions in his family. Developmental history: He denies any issues with his mother's with him or his or delivery. Does endorse developmental delays, and reports that he went to school he needed speech therapy, learning support, emotional support and special education classes. Psychosocial history: Reports his mother and father were together when he was born but he the only product of that union. He reports his mother had 3 children through a different relationship and that his father had 4 children through a different relationship. He reports his childhood was rough and he denied any emotional physical or sexual abuse he reports that he did not speak he was about 7 years old but that someone keep an eye on him because of him being determined that terroristic threat at . He endorses graduating from high school in 2005 endorses being a heterosexual and is always related to being 10 years. Endorses he is been 1 time and once endorses having 4 children ages 1-8 2 boys and 2 girls, he denies being in the or having any amish belief system. He reports his longest job is 5 years at [employer]. He reports he lives in a house alone. Legal history: He reports that he been to [facility] several times the longest time being 3 to 4 years. Medical history: He see ED note for full details. Per his 01/17/2018 [facility] inpatient psychiatric eval: History of Present Illness Date of Service: Jan 17, 2018 Chief Complaint: Me and my got into a little argument. HPI: Mr. Kee is a 32-year-old male who is admitted from the ED on a 96 hour hold after presenting there agitated with vaguely reported possible suicidal ideation. The patient reports that he had an argument with his last night over his relapse on methamphetamines and she kicked him out of the house. Pt reports that he just needed a place a stay so I checked myself in. He apparently was asked if he was feeling suicidal and refused to answer but then later reports he told the physician that he was not suicidal but he reports they had already documented that he was suicidal and he was told he had to come for a psychiatric evaluation. The patient states it was really silly, and I am sorry for that. He reports that he had been over 2 years and relapsed 3 weeks ago but denies IVDU. He reports that he has used marijuana occasionally but denies using that for some time although his drug screen is positive. He reports only occasionally drinking alcohol but denies that he has a substance use issue with that. He reports that he had been having some stress as he and his recent ly bought a new trailer home which they're supposed to be moving in the next couple of days and they also have a 3month old baby and 2 other young children. He works full-time. He reports that his relapse was a mistake but he is planning to return to AA meetings at his [facility] and is willing to accept a [facility] chemical dependency treatment referral as well. The patient reports that his mood recently has been great prior to the relapse with some general anxiety. He reports that he did continue to take psychotropic medications since his last admission to the [facility] in August 2017 for 3 months. He reports he went to [facility] but did not like the way they treated him there so he subsequently was receiving refills from his primary care physician Dr. West Schneider and discontinued the medication approximately one month ago. The patient did not feel like it was very helpful but his was contacted by phone for collateral information during the interview on conference call per patient's consent stated that she felt he was 100% better when he was still taking medication. The patient was agreeable to returning to his primary care physician to obtain another refill. The patient's has no concerns with him returning home. She denies that he is made any suicidal comments or has any other concerning behaviors besides the recent drug relapse. The patient reports that he does have a history of intermittent auditory hallucinations in the past but reports he has not had any significant symptoms for the past 1 year, especially when sober from meth. He denies any recent auditory hallucinations/visual hallucinations/paranoia. Denies any irritability or homicidal ideation. He denies depression/anhedonia/sleep/appetite problems. He does endorse some anxiety related to stressors but feels this is overall manageable with his normal coping mechanisms such as jogging and staying busy at work. He is remorseful for his recent drug relapse but declines any inpatient chemical dependency treatment. Past Medical History Past Medical History: PAST PSYCHIATRIC HISTORY: -Last admission to the [facility] was in 08/2017, and prior in 2014 -Past dx psychosis unspecified and methamphetamine abuse as well as some prior documented history of chronic paranoid schizophrenia, and benzodiazepine dependence Patient denies any history of suicide attempt. Past medications which were effective per his included Zoloft and Zyprexa. PAST FAMILY PSYCHIATRIC HISTORY: -Denies FH drug abuse or mental illness. 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 Denies any current legal problems, past 8 years ago pawned tools in [facility]. Endorses using meth but denies other drugs initially but then admits to occasional marijuana and opiate use as well. He denies any intravenous use however. Smokes 2PPD, occasional alcohol. He denies Prior treatment through his [facility] and [facility] when younger. PAST MEDICAL HISTORY: -healthy, denies head injuries/ seizures/ surgeries. Hospital Course He slowly acclimated to the individual, group and milieu therapies provided. He was similar to previous hospitalizations and fairly resistant to intervention. It certainly raised the question of whether we are dealing with psychosis possibly related to addiction as a primary entity or whether malingering was a significant aspect based on his behavior at times. He was initially resistant and withdrawn from treatment and interactions and then demanding of what he should get and what we should do. He had modest improvement during the hospit alization and was able to contract for safety outside the hospital prior to discharge. During the hospitalization, patient had routine laboratory studies which were within normal limits except for few outliers. Additionally there was a general medical evaluation which was also within normal limits and revealed no new acute processes. Discharge Summary: At the time of discharge, lethality was denied and psychosis was resolving. Mood and anxiety were well managed. Patient endorsed a plan to avoid all drugs of abuse and follow-up with the aftercare recommendations of the treatment team. Patient was evaluated and deemed to be absent credible lethality, and had achieved the maximum benefit from an inpatient hospitalization, so was discharged. Meds NPU Home Medications Medication Instructions Recorded Confirmed Last Taken Type No Known Home Medications 12/16/21 03/22/23 Unknown History Allergies Allergy/AdvReac Type Severity Reaction Status Date / Time No Known Allergies Allergy Verified 03/22/23 03:02 [facility] N[facility] PFS: Medical History Cannabis abuse History of schizophrenia Methamphetamine dependence Social History Smoking and tobacco status: current every day smoker Alcohol intake: current Alcohol intake frequency: 3 or more drinks per day Substance/Drug Use: current Substance/Drug use frequency: daily Mental Status Exam MSE Comments: This is an overweight appearing white male in hospital scrubs appearing disheveled with limited eye contact.? No abnormal movements except for psychomotor retardation.?Limited cooperation with exam in mild distress with significant lethargy.? Speech was limited and near nonexistent with decreased rate and volume.? Mood not described, affect irritable and subdued.? Thought process linear.? Thought content: Patient did not answer questions regarding suicidal or homicidal ideation but had no significant aggression toward self or others, there were no delusions reported or noted given limited interaction and he did not report any auditory or visual hallucinations.? Attention and co ncentration was impaired and memory was mostly unreliable in his condition but none were formally tested.? He is alert and oriented x3.? Insight and judgment are impaired, impulse control is impaired. Vitals/I&O/Wt Last Vital Signs Temp 97.3 F L 03/22/23 11:11 Pulse 116 H 03/22/23 11:11 Resp 18 03/22/23 11:11 BP 124/67 03/22/23 11:11 Pulse Ox 97 03/22/23 11:11 O2 Del Method Room Air 03/22/23 11:11 03/21/23 03/22/23 03/22/23 22:59 06:59 14:59 Intake Total 1999 Balance 1999 Weight last 48 hrs Weight 90.265 kg Data NPU 03/22/23 02:48 03/22/23 04:48 A&P Assessment and plan (1) Suicidal ideation: (2) History of ETOH abuse: (3) Cannabis abuse: (4) History of schizophrenia: (5) Methamphetamine dependence: (6) Withdrawal from methamphetamine: (7) Psychosis: (8) Homicidal ideation: Plan This is a 37-year-old white male with a significant history of mental health and addiction issues who presents with active addiction including methamphetamine use and withdrawal with history of psychosis question of primary versus drug- induced but with a history of schizophrenia with reports of lethality. 1. Continue current medication. We will attempt to discuss new medications or restarting previously successful medications including antipsychotic. 2. Continue every 15 minute checks for safety. 3. Encourage individual, group and milieu therapies. 4. Encourage sober living treatment after discharge at the highest level of care to which he is willing to commit. Involuntary Hold Information 96 Hour Hold: 96 Hour Involuntary Admission: Yes 96 Hour Hold Ending Date: 12/22/21 96 Hour Hold Ending Time: 16:35 Attestations NPU Medical Necessity Statement*: Inpatient hospitalization is medically necessary and the clinically appropriate intervention at this time. We will monitor medication to make changes as indicated. Patient will be in the hospital for over two midnights. Likely length of stay 4-6 days. Coding Level of Care Code Acute Code for [facility] Fwd Diagnoses Suicidal ideation R45.851 History of ETOH abuse F10.11 Cannabis abuse F12.10 History of schizophrenia Z86.59 Methamphetamine dependence F15.20 Withdrawal from methamphetamine F15.23 Psychosis F29 Homicidal ideation R45.850
[2023-03-23 05:57] LABS: Amphetamines Screen Urine Positive (Negative); Barbiturates Screen Urine Negative (Negative); Benzodiazepines Screen Urine Positive (Negative); Cocaine Screen Urine Negative (Negative); PCP Screen Urine Negative (Negative); THC Screen Urine Negative (Negative)
[2023-03-23 05:58] LABS: Opiate Screen Urine Negative (Negative)
[2023-03-23 06:00] VITALS: BP 117/79; PULSE 140; RESP 18; TEMP 36.6; O2SAT 97
--- NOTE | 2023-03-23 12:22 | P.NPUPN_ITS ---
Subjective NPU Subjective: Presented today reporting that he is feeling fine. He has clearly exited the toilet bowl moment, and no longer is reporting a desire for rehab or addiction treatment. He endorses that he has a car that he does not want to lose and that is his primary focus. He was very ambivalent about a discussion regarding his circumstances. Mental Status Exam MSE Comments: This is an overweight appearing white male in hospital scrubs with adequate grooming with limited eye contact.? No abnormal movements except for psychomotor retardation with some aimless pacing in the hallways.?Limited cooperation with exam in mild distress .? Speech was limited with decreased rate and volume.? Mood not described, affect irritable and subdued.? Thought process linear.? Thought content: Patient did not answer questions regarding suicidal or homicidal ideation but had no significant aggression toward self or others, there were no delusions reported or noted given limited interaction and he did not report any auditory or visual hallucinations.? Attention and concentration was impaired and memory was mostly unreliable in his condition but none were formally tested.? He is alert and oriented x3.? Insight and judgment are impaired, impulse control is impaired. Vitals/I&O/Wt Last Vital Signs Temp 97.8 F 03/23/23 06:00 Pulse 140 H 03/23/23 06:00 Resp 18 03/23/23 06:00 BP 117/79 03/23/23 06:00 Pulse Ox 97 03/23/23 06:00 O2 Del Method Room Air 03/23/23 06:00 Weight last 48 hrs Weight 90.265 kg Data NPU 03/22/23 02:48 03/22/23 04:48 A&P Assessment and plan (1) Suicidal ideation: (2) History of ETOH abuse: (3) Cannabis abuse: (4) History of schizophrenia: (5) Methamphetamine dependence: (6) Withdrawal from methamphetamine: (7) Psychosis: (8) Homicidal ideation: Plan This is a 37-year-old white male with a significant history of mental health and addiction issues who presents with active addiction including methamphetamine use and withdrawal with history of psychosis question of primary versus drug- induced but with a history of schizophrenia with reports of lethality. 1. Continue current medication. We will attempt to discuss new medications or restarting previously successful medications including antipsychotic. 2. Continue every 15 minute checks for safety. 3. Encourage individual, group and milieu therapies. 4. Encourage sober living treatment after discharge at the highest level of care to which he is willing to commit. Involuntary Hold Information 96 Hour Hold: 96 Hour Involuntary Admission: Yes 96 Hour Hold Ending Date: 12/22/21 96 Hour Hold Ending Time: 16:35 Attestations NPU Medical Necessity Statement*: Inpatient hospitalization is medically necessary and the clinically appropriate intervention at this time. We will monitor medication to make changes as indic ated. Likely length of stay 3-5 days. We will evaluate him on the grounds of the 96-hour hold given his current reticence to treatment. Coding Level of Care Code Acute Code for [facility] Fwd Diagnoses Suicidal ideation R45.851 History of ETOH abuse F10.11 Cannabis abuse F12.10 History of schizophrenia Z86.59 Methamphetamine dependence F15.20 Withdrawal from methamphetamine F15.23 Psychosis F29 Homicidal ideation R45.850
[2023-03-23] MEDS: OLANZapine 5 mg ODT PO ×2 (12:39→17:19)
[2023-03-23 14:00] VITALS: BP 110/74; PULSE 105; RESP 18; TEMP 36.6; O2SAT 99
[2023-03-23] MEDS: hyDROXYzine 25 mg Capsule 50 MG PO (16:25)
--- NOTE | 2023-03-23 16:27 | PC.NURSE ---
Patient reporting anxiety. Patient visibly agitated. Administered 50mg Vistaril to patient. Encouraged patient to do deep breathing exercises. Will continue to monitor.
[2023-03-23] MEDS: haloperidol 5 mg Tablet PO (18:42)
[2023-03-23 19:58] VITALS: RESP 17
[2023-03-24 06:00] VITALS: RESP 18
[2023-03-24] MEDS: OLANZapine 5 mg ODT PO ×2 (12:58→19:53)
--- NOTE | 2023-03-24 13:46 | P.NPUPN_ITS ---
Subjective NPU Subjective: Patient presented today reporting that he is feeling a little better. He was able to work with social work to identify the location of his vehicle and calls were made and he was able to ensure that there would be no problems with his vehicle regardless of what intervention he chooses here. He was a little less isolative yesterday however he continues to deny any interest in restarting his medication or going into a more active drug and alcohol treatment. Mental Status Exam MSE Comments: This is an overweight appearing white male in hospital scrubs with adequate grooming with limited eye contact.? No abnormal movements except for psychomotor retardation with some pacing in the hallways.? More cooperation with exam in mild distress.? Speech was limited with more normal rate and volume.? Mood described as okay, affect less irritable and subdued.? Thought process linear.? Thought content: Patient denied suicidal or homicidal ideation, there were no delusions reported or noted and he did not report any auditory or visual hallucinations.? Attention and concentration was improving and memory was more reliable but none were formally tested.? He is alert and oriented x3.? Insight and judgment are limited, impulse control is impaired. Vitals/I&O/Wt Last Vital Signs Temp 98 F 03/23/23 14:00 Pulse 105 H 03/23/23 14:00 Resp 18 03/24/23 06:00 BP 110/74 03/23/23 14:00 Pulse Ox 99 03/23/23 14:00 O2 Del Method Room Air 03/23/23 06:00 Data NPU 03/22/23 02:48 03/22/23 04:48 A&P Assessment and plan (1) Suicidal ideation: (2) History of ETOH abuse: (3) Cannabis abuse: (4) History of schizophrenia: (5) Methamphetamine dependence: (6) Withdrawal from methamphetamine: (7) Psychosis: (8) Homicidal ideation: Plan This is a 37-year-old white male with a significant history of mental health and addiction issues who presents with active addiction including methamphetamine use and withdrawal with history of psychosis question of primary versus drug- induced but with a history of schizophrenia with reports of lethality. 1. Continue current medication. We will attempt to discuss new medications or restarting previously successful medications including antipsychotic. 2. Continue every 15 minute checks for safety. 3. Encourage individual, group and milieu therapies. 4. Encourage sober living treatment after discharge at the highest level of care to which he is willing to commit. Involuntary Hold Information 96 Hour Hold: 96 Hour Involuntary Admission: Yes 96 Hour Hold Ending Date: 12/22/21 96 Hour Hold Ending Time: 16:35 Attestations NPU Medical Necessity Statement*: Inpatient hospitalization is medically necessary and the clinically appropriate intervention at this time. We will monitor medication to make changes as indicated. Likely length of stay 2 to 4 days. We will evaluate him on the grounds of the 96-hour hold given his current reticence to treatment. Coding Level of Care Code Acute Code for [facility] Fwd Diagnoses Suicidal ideation R45.851 History of ETOH abuse F10.11 Cannabis abuse F12.10 History of schizophrenia Z86.59 Methamphetamine dependence F15.20 Withdrawal from methamphetamine F15.23 Psychosis F29 Homicidal ideation R45.850
[2023-03-24 14:00] VITALS: BP 107/70; PULSE 92; RESP 18; TEMP 36.8; O2SAT 97
[2023-03-24] MEDS: hyDROXYzine 25 mg Capsule 50 MG PO (15:16)
[2023-03-24] MEDS: trazodone 50 mg Tablet PO (19:53)
[2023-03-24 21:56] VITALS: RESP 18
[2023-03-25 06:00] VITALS: RESP 17
--- NOTE | 2023-03-25 07:00 | W.PM.NPUPNS ---
Subjective NPU Subjective: Patient presented today reporting that he is feeling tired but better. He continues to stay to himself, but is more pleasant in interactions. He is still resistant to restarting his medication or going into a more active drug and alcohol treatment. We discussed Dr. Sheth coming tomorrow and deciding on discharge moving forward. Mental Status Exam MSE Comments: This is an overweight appearing white male in hospital scrubs with adequate grooming with limited eye contact.? No abnormal movements except for psychomotor retardation with less pacing in the hallways.? More cooperation with exam in no acute distress.? Speech was limited with more normal rate and volume.? Mood described as okay, affect congruent and less subdued.? Thought process linear.? Thought content: Patient denied suicidal or homicidal ideation, there were no delusions reported or noted and he did not report any auditory or visual hallucinations.? Attention and concentration was improving and memory was more reliable but none were formally tested.? He is alert and oriented x3.? Insight and judgment are limited, impulse control is impaired. Vitals/I&O/Wt Last Vital Signs Temp 98.2 F 03/24/23 14:00 Pulse 92 03/24/23 14:00 Resp 17 03/25/23 06:00 BP 107/70 03/24/23 14:00 Pulse Ox 97 03/24/23 14:00 O2 Del Method Room Air 03/23/23 06:00 Data NPU 03/22/23 02:48 03/22/23 04:48 A&P Assessment and plan (1) Suicidal ideation: (2) History of ETOH abuse: (3) Cannabis abuse: (4) History of schizophrenia: (5) Methamphetamine dependence: (6) Withdrawal from methamphetamine: (7) Psychosis: (8) Homicidal ideation: Plan This is a 37-year-old white male with a significant history of mental health and addiction issues who presents with active addiction including methamphetamine use and withdrawal with history of psychosis question of primary versus drug-induced but with a history of schizophrenia with reports of lethality. 1. Continue current medication. We will attempt to discuss new medications or restarting previously successful medications including antipsychotic. 2. Continue every 15 minute checks for safety. 3. Encourage individual, group and milieu therapies. 4. Encourage sober living treatment after discharge at the highest level of care to which he is willing to commit. Involuntary Hold Information 96 Hour Hold: 96 Hour Involuntary Admission: Yes 96 Hour Hold Ending Date: 12/22/21 96 Hour Hold Ending Time: 16:35 Attestations NPU Medical Necessity Statement*: Inpatient hospitalization is medically necessary and the clinically appropriate intervention at this time. We will monitor medication to make changes as indicated. Likely length of stay 2 to 4 days. We will evaluate him on the grounds of the 96-hour hold. Coding Level of Care Code Acute Code for [facility] Fwd Diagnoses Suicidal ideation R45.851 History of ETOH abuse F10.11 Cannabis abuse F12.10 History of schizophrenia Z86.59 Methamphetamine dependence F15.20 Withdrawal from methamphetamine F15.23 Psychosis F29 Homicidal ideation R45.850
[2023-03-25 14:00] VITALS: BP 114/74; PULSE 83; RESP 20; TEMP 36.7; O2SAT 98
[2023-03-25] MEDS: hyDROXYzine 25 mg Capsule 50 MG PO (16:51)
[2023-03-25] MEDS: OLANZapine 5 mg ODT PO (18:22)
[2023-03-25 21:26] VITALS: BP 134/93; PULSE 80; RESP 18; TEMP 36.7; O2SAT 99
[2023-03-26 06:00] VITALS: RESP 16
[2023-03-26] MEDS: hyDROXYzine 25 mg Capsule 50 MG PO ×2 (09:02→16:52)
--- NOTE | 2023-03-26 09:08 | PC.NURSE ---
Patient visibly anxious. Patient requesting medication to help anxiety. Administered 50mg Vistaril to patient. This patient talked with patient to better understand his anxiety. Patient states that he is unsure of why has anxiety. Rates anxiety high.
[2023-03-26 14:00] VITALS: BP 124/84; PULSE 105; RESP 16; TEMP 36.6; O2SAT 99
--- NOTE | 2023-03-26 17:53 | W.PM.NPUPNS ---
Subjective NPU Subjective: Patient is a 37-year-old male admitted with a history of methamphetamine dependence who had reported a past history of psychosis as well. He reported that he would like to consider further help with his substance use. He reports that he had recently lost his job and was currently homeless. He reports that he is not taking any medications currently but would like any help in regards to remaining sober. Staff notes the patient had isolated himself. He had minimized any thoughts of hurting himself or others. He had been redirectable and did require some prompting to attend to activities of daily living. Mental Status Exam MSE Comments: This is an overweight appearing white male in hospital scrubs with adequate grooming with limited eye contact.? There is no evidence of any abnormal involuntary motor movements. He was seen in his room and was cooperative with exam in no acute distress.? Speech was slow but normal in volume and prosody. Mood described as all right., His affect was incongruent and somewhat flat..? Thought process was linear.? Thought content: Patient denied suicidal or homicidal ideation, there were no delusions reported or noted and he did not report any auditory or visual hallucinations.? Attention and concentration was improving and memory was more reliable but none were formally tested.? He is alert and oriented x3.? Insight and judgment are limited. His impulse control is poor but improving. Vitals/I&O/Wt Last Vital Signs Temp 98 F 03/26/23 14:00 Pulse 105 H 03/26/23 14:00 Resp 16 03/26/23 14:00 BP 124/84 03/26/23 14:00 Pulse Ox 99 03/26/23 14:00 O2 Del Method Room Air 03/25/23 14:00 Data NPU 03/22/23 02:48 03/22/23 04:48 A&P Assessment and plan (1) Suicidal ideation: (2) History of ETOH abuse: (3) Cannabis abuse: (4) History of schizophrenia: (5) Methamphetamine dependence: (6) Withdrawal from methamphetamine: (7) Psychosis: (8) Homicidal ideation: Plan This is a 37-year-old white male with a significant history of mental health and addiction issues who presents with active addiction including methamphetamine use and withdrawal with history of psychosis question of primary versus drug-induced but with a history of schizophrenia with reports of lethality. 1. Patient does not wish to remain or start any medications to target the psychosis that may have been present on his admission. He does appear to be significantly improved. He likely needs intense treatment to remain sober off of methamphetamine. The magnetic tape typewriter operator discussed with the patient some alternative options including a virtual therapy program using after applications on the mobile phone to treat methamphetamine dependence. 2. Continue every 15 minute checks for safety. 3. Encourage individual, group and milieu therapies. 4. Encourage sober living treatment after discharge at the highest level of care to which he is willing to commit. Involuntary Hold Information 96 Hour Hold: 96 Hour Involuntary Admission: Yes 96 Hour Hold Ending Date: 12/22/21 96 Hour Hold Ending Time: 16:35 Attestations NPU Medical Necessity Statement*: Inpatient hospitalization is medically necessary and the clinically appropriate intervention at this time. We will monitor medication to make changes as indicated. His liikely length of stay 2 to 4 days.. Coding Level of Care Code Acute Code for [facility] Fwd Diagnoses Suicidal ideation R45.851 History of ETOH abuse F10.11 Cannabis abuse F12.10 History of schizophrenia Z86.59 Methamphetamine dependence F15.20 Withdrawal from methamphetamine F15.23 Psychosis F29 Homicidal ideation R45.850
[2023-03-26] MEDS: OLANZapine 5 mg ODT PO (18:06)
[2023-03-26] MEDS: trazodone 50 mg Tablet PO (19:41)
[2023-03-26 20:16] VITALS: BP 117/80; PULSE 134; RESP 20; TEMP 36.8; O2SAT 95
[2023-03-27 06:00] VITALS: RESP 16
--- NOTE | 2023-03-27 14:29 | P.NPUDS_ITS ---
Diagnoses at Discharge Discharge Diagnosis (1) Suicidal ideation: Status: Resolved (2) History of ETOH abuse: Status: Acute (3) Cannabis abuse: Status: Acute (4) History of schizophrenia: Status: Acute (5) Methamphetamine dependence: Status: Acute (6) Withdrawal from methamphetamine: Status: Acute (7) Psychosis: Status: Acute (8) Homicidal ideation: Status: Acute Reason for Visit Reason for Visit: OD Brief History: History of Present Illness Alfonzo Kee is a 37 year old male who presented to the emergency department with the following report: Chief Complaint: Overdose Stated Complaint: OD Time Seen by Provider: 03/22/23 03:01 Source: EMS Mode of arrival: EMS Limitations: altered mental status History of Present Illness:?? 37-year-old male who had admitted to using crystal meth tonight he went to the police station he started acting erratic EMS was called him and states that he became slightly combative he was hallucinating saying he wanted to kill himself I did have to sedate him in route with Versed.? Patient is currently sedated u nable answer any questions at this time.? No known injuries He was admitted to the neuropsychiatric unit for definitive treatment of those issues.? He states today fairly lethargic.? He was seen up a couple times after getting to the unit about 10:00 this morning.? He did eat but was very quick to be sleeping consistent with his history of methamphetamine addiction.? He presents today acknowledging that his erratic behavior identified him as is likely a consequence of his methamphetamine use.? A UDS was not done in the emergency department, but will be obtained as soon as we need to get his c ompliance.? He was a fairly poor historian at times unable to be located and other times sleep during answers.? This likely secondary to the combination of the Versed given to him in to the hospital as well as methamphetamine withdrawal.? An excerpt of his last discharge summary of his November 2021 hospitalization is included below for context in his lack of ability as a historian.? He did speak to the social work team briefly in a similar situation acknowledging his addiction and openness to rehab treatment.? Attempted to review with him the possibility of an antipsychotic for his psychosis/h allucinations and aggression but he was unable to respond. Per his 12/19/2021 [facility] inpatient psychiatric discharge summary: Discharge Diagnosis (1) Suicidal ideation: ? ? ? Status: Resolved (2) History of ETOH abuse: ? ? ? Status: Acute (3) Cannabis abuse: ? ? ? Status: Acute (4) History of schizophrenia: ? ? ? Status: Acute (5) Methamphetamine dependence: ? ? ? Status: Acute (6) Withdrawal from methamphetamine: ? ? ? Status: Acute Reason for Visit Reason for Visit:?? SI? Brief History: History of Present Illness Alfonzo Kee is a 36 year old male who presented to the emergency department with the following report: Chief Complaint: Psychiatric Symptoms Stated Complaint: SI Time Seen by Provider: 12/16/21 16:03 Source: patient Mode of arrival: EMS History of Present Illness:?? 36-year-old male presents emergency room with unusual behavior.? Evidently he was found sleeping under a picnic table he admits he is intoxicated his last drink was about 4 hours ago when he last used methamphetamines yesterday.? Many questions he answers with bizarre tangential thinking.? He admits to previous admissions to psychiatry.? Patient does state he sometimes thinks about harming himself or others.? He does not express a current plan.? Denies any recent illness.? Patient was seen in the ER yesterday for concerns about COVID.? Clinically he was fine.? He expressed desire to be evaluated on the psychiatry unit he denied any suicidal homicidal ideation at that time. ? MD complaint: suicidal ideation, feels depressed and altered mental status Onset (ago): hour(s) Duration: constant History of same: Yes Relieving factors: none Exacerbating factors: alcohol and drug use Context: recent alcohol abuse and recent drug abuse Associated psychiatric symptoms: depression, suicidal ideation and homicidal ideation Associated symptoms: Reports delusions, depression, homicidal ideation and suicidal ideation; Deny auditory hallucinations or visual hallucinations Treatments prior to arrival: none If self harm: admits thoughts of self harm He was admitted to the neuropsychiatric unit for definitive treatment of those issues. He presents today as a limited historian with significant irritability. He reports that after he left the hospital he did not refill his medication. He reports that he has continued to struggle with his addiction and has reached the point where he feels like life is not worth living if he can get his drinking and other drug use under control. He endorses recent alcohol and methamphetamine use as stated above and work with the social work team today on possible sober living inpatient services that might be available. We discussed the risk-benefit alternatives of restarting medication and he understood but not already on starting medication. He was fairly irritable and resistant answer questions however we did review his recent hospitalization information which he endorsed to be an accurate representation of his history. An excerpt of his last stay is included below for context. Per his 01/19/2021 [facility] inpatient psychiatric evaluation: History of Present Illness Alfonzo Kee is a 35 year old male who presented to the emergency department with the following report: Chief Complaint: Trauma Stated Complaint: TRAUMA, ETOH INTOX Time Seen by Provider: 01/18/21 16:13 History of Present Illness:? HPI narrative: The patient is a 35-year-old male who comes to the ER after being found in a ditch eating mud.? He is brought in for psych evaluation.? He admits using methamphetamine as well in the ER and possibly drinking alcohol as well.? He is visibly looking in the corner of the room and talking to someone.? There is no one there.? Has a swollen lower lip but will not let me examine him further.? Likely he fell but unknown he is not giving a reasonable history.? He says he was eating the dirt because he was hungry.? I said we will feed him.? Nurse washed the mud out of his mouth. ? Associated symptoms: Denies abdominal pain, back pain, chest pain, confusion, dizziness or headache(s). He was admitted to the neuropsychiatric unit for definitive treatment of those issues.? He presents today as a fairly poor historian reporting that he is really unclear as to why the police apprehended him.? We discussed the fact that he was found laying down in the mud reportedly eating mud and he reports that they were following him and he where his car was and where he was which is not how the reports return.? He was very resistant to the idea of his addiction playing a role in his presentation.? He reports that his psychiatric treatment started with inpatient hospitalizations many years ago he reports many stays as much as 13 but the last one being about 2 years ago.? He has had several stays here at [facility] with 1 about 2 years ago and excerpt of which is included below.? He denies really having outpatient services medication and follow-up with any consistency.? He denies suicide attempts.? He reports that he smokes a half to a pack a day, drinks alcohol every once in a while, reports marijuana use daily and endorses only methamphetamine from a standpoint of other illicit drug use.? He reports he been to rehab a couple of times and had a DUI last in 2007.? He told a very convoluted story about [place] interstate and getting [place] one side but then really could get no clear story or context for why he was found the way he was.? He then turned to 180 and started talking about how doctors implant tips and tips of implanted inside of him.? A friend that this assembly instructions writer does and when this assembly instructions writer denied putting chips and people in my career he then said that although I might not do that I am fully aware that the hospital and other doctors do and that [facility] did that to him. Psychiatric history: As above. Substance abuse history: As above. Family history: He denies any mental health, addiction or suicide attempts or completions in his family. Developmental history: He denies any issues with his mother's with him or his or delivery.? Does endorse developmental delays, and reports that he went to school he needed speech therapy, learning support, emotional support and special education classes. Psychosocial history: Reports his mother and father were together when he was born but he the only product of that union.? He reports his mother had 3 children through a different relationship and that his father had 4 children through a different relationship.? He reports his childhood was rough and he denied any emotional physical or sexual abuse he reports that he did not speak he was about 7 years old but that someone keep an eye on him because of him being determined that terroristic threat at .? He endorses graduating from high school in 2005 endorses being a heterosexual and is always related to being 10 years.? Endorses he is been 1 time and once endorses having 4 children ages 1-8 2 boys and 2 girls, he denies being in the or having any episcopalian belief system.? He reports his longest job is 5 years at [employer].? He reports he lives in a house alone. Legal history: He reports that he been to prison several times the longest time being 3 to 4 years. Medical history: He see ED note for full details. Per his 01/17/2018 [facility] inpatient psychiatric eval: History of Present Illness Date of Service: Jan 17, 2018 Chief Complaint: Me and my got into a little argument. HPI: Mr. Kee is a 32-year-old male who is admitted from the ED on a 96 hour hold after presenting there agitated with vaguely reported possible suicidal ideation.? The patient reports that he had an argument with his last night over his relapse on methamphetamines and she kicked him out of the house.? Pt reports that he just needed a place a stay so I checked myself in. ? He apparently was asked if he was feeling suicidal and refused to answer but then later reports he told the physician that he was not suicidal but he reports they had already documented that he was suicidal and he was told he had to come for a psychiatric evaluation.? The patient states it was really silly, and I am sorry for that. ? He reports that he had been over 2 years and relapsed 3 weeks ago but denies IVDU.? He reports that he has used marijuana occasionally but denies using that for some time although his drug screen is positive.? He reports only occasionally drinking alcohol but denies that he has a substance use issue with that.? He reports that he had been having some stress as he and his recently bought a new trailer home which they're supposed to be moving in the next couple of days and they also have a 3month old baby and 2 other young children.? He works full-time.? He reports that his relapse was a mistake but he is planning to return to AA meetings at his [facility] and is willing to accept a [facility] chemical dependency treatment referral as well. The patient reports that his mood recently has been great prior to the relapse with some general anxiety.? He reports that he did continue to take psychotropic medications since his last admission to the [facility] in August 2017 for 3 months.? He reports he went to [facility] but did not like the way they treated him there so he subsequently was receiving refills from his primary care physician Dr. West Schneider and discontinued the medication approximately one month ago.? The patient did not feel like it was very helpful but his was contacted by phone for collateral information during the interview on conference call per patient's consent stated that she felt he was 100% better when he was still taking medication.? The patient was agreeable to returning to his primary care physician to obtain another refill.? The patient's has no concerns with him returning home.? She denies that he is made any suicidal comments or has any other concerning behaviors besides the recent drug relapse. The patient reports that he does have a history of intermittent auditory hallucinations in the past but reports he has not had any significant symptoms for the past 1 year, especially when sober from meth.? He denies any recent auditory hallucinations/visual hallucinations/paranoia.? Denies any irritability or homicidal ideation.? He denies depression/anhedonia/sleep/appetite problems.? He does endorse some anxiety related to stressors but feels this is overall manageable with his normal coping mechanisms such as jogging and staying busy at work.? He is remorseful for his recent drug relapse but declines any inpatient chemical dependency treatment. Past Medical History Past Medical History: PAST PSYCHIATRIC HISTORY: -Last admission to the [facility] was in 08/2017, and prior in 2014 -Past dx psychosis unspecified and methamphetamine abuse as well as some prior documented history of chronic paranoid schizophrenia, and benzodiazepine dep endence Patient denies any history of suicide attempt.? Past medications which were effective per his included Zoloft and Zyprexa. PAST FAMILY PSYCHIATRIC HISTORY: -Denies FH drug abuse or mental illness. 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 Denies any current legal problems, past 8 years ago pawned tools in half-way X3 years.? Endorses using meth but denies other drugs initially but then admits to occasional marijuana and opiate use as well.? He denies any intravenous use however.? Smokes 2PPD, occasional alcohol.? He denies Prior treatment through his [facility] and [facility] when younger. PAST MEDICAL HISTORY: -healthy, denies head injuries/ seizures/ surgeries. Hospital Course He slowly acclimated to the individual, group and milieu therapies provided.? He was similar to previous hospitalizations and fairly resistant to intervention.? It certainly raised the question of whether we are dealing with psychosis possibly related to addiction as a primary entity or whether malingering was a significant aspect based on his behavior at times.? He was initially resistant and withdrawn from treatment and interactions and then demanding of what he should get and what we should do.? He had modest improvement during the hospitalization and was able to contract for safety outside the hospital prior to discharge.? During the hospitalization, patient had routine laboratory studies which were within normal limits except for few outliers.? Additionally there was a general medical evaluation which was also within normal limits and revealed no new acute processes. Discharge Summary: At the time of discharge, lethality was denied and psychosis was resolving.? Mood and anxiety were well managed.? Patient endorsed a plan to avoid all drugs of abuse and follow-up with the aftercare recommendations of the treatment team.? Patient was evaluated and deemed to be absent credible lethality, and had achieved the maximum benefit from an inpatient hospitalization, so was discharged. Hospital Course Hospital Course During the hospitalization, patient had routine laboratory studies which were within normal limits except for few outliers. Additionally there was a general medical evaluation which was also within normal limits and revealed no new acute processes. At the time of discharge, lethality was denied and psychosis was resolving. Mood and anxiety were well managed. Patient endorsed a plan to avoid all drugs of abuse and follow-up with the aftercare recommendations of the treatment team. Patient was evaluated and deemed to be absent credible lethality, and had achieved the maximum benefit from an inpatient hospitalization, so was dischar margy. Patient had refused any form of inpatient treatment and was given options regarding specific virtual programs to target his problems with methamphetamine abuse. Involuntary Hold Information 96 Hour Hold: 96 Hour Involuntary Admission: Yes 96 Hour Hold Ending Date: 12/22/21 96 Hour Hold Ending Time: 16:35 Mental Status Exam MSE Comments: This is an overweight appearing white male in hospital scrubs with adequate grooming with limited eye contact.? There is no evidence of any abnormal involuntary motor movements. He was seen in his room and was cooperative with exam in no acute distress.? Speech was normal in regards to rate rhythm and prosody. Mood described as better. His affect was slightly restricted..? Thought process was linear.? Thought content: Patient denied suicidal or homicidal ideation, there were no delusions reported or noted and he did not report any auditory or visual hallucinations.? Attention and concentration was improving and memory was more reliable but none were formally tested.? He is alert and oriented x3.? Insight and judgment appeared fair. His impulse control appeared improved.. Discharge Data Studies Completed and Pending: Laboratory Results WBC 17.1 10^3/uL (4.0 -10.0) H 03/22/23 02:48 RBC 5.18 10^6/uL (4.1 -5.3) 03/22/23 02:48 Hgb 15.3 g/dL (11.7-1 6.6) 03/22/23 02:48 Hct 43.3 % (42.0-52.0 ) 03/22/23 02:48 MCV 83.6 fl (80-94) 03/22/23 02:48 MCH 29.5 pg (28.0-34. 0) 03/22/23 02:48 MCHC 35.3 g/dL (30.0-3 6.0) 03/22/23 02:48 RDW 13.6 % (12.1-15.1 ) 03/22/23 02:48 Plt Count 353 10^3/cmm (130 -400) 03/22/23 02:48 MPV 8.9 fL (7.4-10.4) 03/22/23 02:48 Neut % (Auto) 70.3 % 03/22/23 02:48 Lymph % (Auto) 17.3 % 03/22/23 02:48 [place] % (Auto) 10.8 % 03/22/23 02:48 Eos % (Auto) 0.6 % 03/22/23 02:48 Baso % (Auto) 0.4 % 03/22/23 02:48 Neut # (Auto) 12.03 10^3/uL (1. 8-7.7) H 03/22/23 02:48 Lymph # (Auto) 3.0 10^3/uL (0.8- 4.8) 03/22/23 02:48 [place] # (Auto) 1.8 10^3/uL (0.2- 0.9) H 03/22/23 02:48 Eos # (Auto) 0.1 10^3/uL (0.0- 0.8) 03/22/23 02:48 Baso # (Auto) 0.1 10^3/uL (0.0- 0.1) 03/22/23 02:48 Nucleated RBC % (a uto) 0 % 03/22/23 02:48 Nucleated RBCs # 0.0 /100WBC 03/22/23 02:48 Sodium 132 mmol/L (136-1 45) L 03/22/23 04:48 Potassium 3.5 mmol/L (3.5-5 .1) 03/22/23 04:48 Chloride 98 mmol/L (98-107 ) 03/22/23 04:48 Carbon Dioxide 24 mmol/L (22-29) 03/22/23 04:48 Anion Gap 13.5 (5-19) 03/22/23 04:48 BUN 13 mg/dL (6-20) 03/22/23 04:48 Creatinine 0.9 mg/dL (0.7-1. 2) 03/22/23 04:48 GFR Calculation 96.0 mL/min (90-1 30) 03/22/23 04:48 Glucose 93 mg/dL (65-115) 03/22/23 04:48 Calculated Osmolal ity 274 mOsm/kg (285- 295) L 03/22/23 04:48 Calcium 8.4 mg/dL (8.5-10 .5) L 03/22/23 04:48 Total Bilirubin 1.4 mg/dL (0.15-1 .2) H 03/22/23 02:48 AST 56 U/L (0-40) H 03/22/23 02:48 ALT 32 U/L (0-41) 03/22/23 02:48 Alkaline Phosphata se 93 U/L (40-130) 03/22/23 02:48 Total Protein 6.9 g/dL (6.6-8.7 ) 03/22/23 02:48 Albumin 4.2 g/dL (3.5-5.2 ) 03/22/23 02:48 Globulin 2.7 g/dL (1.3-4.6 ) 03/22/23 02:48 Salicylates < 0.3 mg/dL (3-10 ) L 03/22/23 02:48 Urine Opiates Scre en Negative ng/mL (N egative) 03/23/23 04:40 Acetaminophen < 5.0 ug/mL (10-3 0) L 03/22/23 02:48 Ur Barbiturates Sc reen Negative ng/mL (N egative) 03/23/23 04:40 Ur Phencyclidine S crn Negative ng/mL (N egative) 03/23/23 04:40 Ur Amphetamines Sc reen Positive ng/mL (N egative) H 03/23/23 04:40 U Benzodiazepines Scrn Positive ng/mL (N egative) H 03/23/23 04:40 Urine Cocaine Scre en Negative ng/mL (N egative) 03/23/23 04:40 U Marijuana (THC) Screen Negative ng/mL (N egative) 03/23/23 04:40 Ethyl Alcohol < 10 mg/dL (0-10) 03/22/23 02:48 Vitals: Last Vital Signs Temp 98.2 F 03/26/23 20:16 Pulse 134 H 03/26/23 20:16 Resp 16 03/27/23 06:00 BP 117/80 03/26/23 20:16 Pulse Ox 95 03/26/23 20:16 O2 Del Method Room Air 03/26/23 20:16 Discharge Plan Discharge Patient Disposition: Home Condition: Stable Prescriptions: No Action No Known Home Medications Discharge Orders: Discharge Order (Routine); Ordered 03/27/23 Ordered By: Bautista Sheth Referrals: [facility] [Other] (Contact [facility] through the e-mail provided) [facility] [Outside] - 04/10/23 2:30 pm Discharge Diet: Usual diet Discharge Activity: Resume usual activity Patient Instructions: Marijuana Abuse, Methamphetamine Abuse, Schizophrenia (GEN), Abuse of Alcohol (GEN), Help Prevent Suicide (GEN), Opioid Safety Discharge Attestations [facility] Time Spent in Discharge Care*: less than 30 min Specific Discharge Activities: Specific discharge activities: educating patient and documenting/other paperwork Coding Level of Care Code Acute [facility] [place] note Diagnoses Suicidal ideation R45.851 History of ETOH abuse F10.11 Cannabis abuse F12.10 History of schizophrenia Z86.59 Methamphetamine dependence F15.20 Withdrawal from methamphetamine F15.23 Psychosis F29 Homicidal ideation R45.850
[2023-03-27 15:17] VITALS: RESP 16
== END 2023-03-27 15:55 | disposition home or self-care (01) | DRG 918 ==
LOC: ER 05:28 → NP 06:51
PROVIDERS: Admitting Provider Psychiatry & Neurology Psychiatry; Emergency Provider Emergency Medicine; Visit Provider Psychiatry & Neurology Psychiatry
DX: T43.622A Poisoning by amphetamines, intentional self-harm, initial encounter (principal); F15.23 Other stimulant dependence with withdrawal; R45.851 Suicidal ideations; F12.10 Cannabis abuse, uncomplicated; F10.10 Alcohol abuse, uncomplicated; R45.850 Homicidal ideations; F25.9 Schizoaffective disorder, unspecified; F17.200 Nicotine dependence, unspecified, uncomplicated
CPT/HCPCS: 80048; 80053; 80306; 80307; 85025; 96372; 96374; 96375; 96376; 97165; 99285; J1630; J2060; J7030

== ENCOUNTER 2024-04-10 10:15 | Inpatient (IN) | payer MEDICAID, SELFPAY ==
[2024-04-10 10:17] VITALS: BP 125/83; PULSE 77; TEMP 36.9; O2SAT 96; BMI 27.3
--- NOTE | 2024-04-10 10:26 | W.ED.PSYCHS ---
HPI - Psych General: Chief Complaint: Psychiatric Symptoms Stated Complaint: SI Time Seen by Provider: 04/10/24 10:18 Source: patient Mode of arrival: ambulatory Limitations: no limitations History of Present Illness: 38-year-old male has a history of depression and SI along with EtOH and meth abuse he states that he has been out of his psych meds for months since having increasing depression states he has been having some subtle thoughts as well he states he just does not feel like living anymore. Associated symptoms: Reports depression and suicidal ideation Review of Systems Const: Denies: fever(s), chills, body aches or change in appetite Eyes: Denies: blurry vision ENMT: Denies: throat pain or dental pain Card: Denies: chest pain Resp: Denies: dyspnea GI: Denies: abdominal pain, nausea, vomiting or diarrhea Musc: Denies: neck pain or back pain Skin/Breast: Denies: rash Neuro: Denies: headache(s) Psych: Reports: depression and suicidal ideation [facility] ED PFSH: Medical History Cannabis abuse Methamphetamine dependence Social History Smoking and tobacco/nicotine status: current every day tobacco/nicotine user Alcohol intake: current Alcohol intake frequency: 3 or more drinks per day Substance/Drug Use: current Substance/Drug use frequency: daily Physical Exam Const: COMMON NORMALS: no acute distress, patient oriented x3 and healthy appearing HENMT: COMMON NORMALS: normocephalic and atraumatic HEAD & SCALP: normocephalic and atraumatic Neck/C-Spine: COMMON NORMALS: full ROM and supple Chest: COMMONS NORMALS: normal inspection of the chest Resp: COMMON NORMALS: normal respiratory effort Cardio: COMMON NORMALS: regular rate, regular rhythm and No murmurs present (Cardio) RATE: regular rate RHYTHM: regular rhythm Extremity: COMMON NORMALS: normal to inspection and full ROM Neuro: COMMON NORMALS: patient oriented x3, moves all extremities and no focal motor deficits Psych: COMMON NORMALS: mental status grossly normal, Normal thought process present and cooperative THOUGHT PROCESS: Normal thought process present THOUGHT CONTENT: Yes Suicidality present Skin: COMMON NORMALS: no rashes or lesions noted and no wounds GENERAL SKIN EXAM: no rashes or lesions noted Course Vital Signs: Vital signs: Vital Signs Temperature 98.4 F 04/10/24 10:17 Pulse Rate 77 04/10/24 10:17 Blood Pressure 125/83 04/10/24 10:17 Pulse Oximetry 96 04/10/24 10:17 Oxygen Delivery Me thod Room Air 04/10/24 10:17 [facility] - Psych Medical Decision Making Patient presents here with suicidal ideations he is medically cleared spoke to psychiatrist and will admit. Medical Records I reviewed the patient's medical records. Lab Data I reviewed the patient's lab results. 04/10/24 10:35 04/10/24 10:35 Laboratory Results WBC 9.44 10^3/uL (3.29-11.43) 04/10/24 10:35 RBC 5.14 10^6/uL (3.85-5.65) 04/10/24 10:35 Hgb 15.50 g/dL (11.27-16.99) 04/10/24 10:35 Hct 46.2 % (37-53) 04/10/24 10:35 MCV 89.9 fl (82-101) 04/10/24 10:35 MCH 30.2 pg (27-33) 04/10/24 10:35 MCHC 33.5 g/dL (30-55) 04/10/24 10:35 RDW 12.6 % (12.1-15.1) 04/10/24 10:35 Plt Count 297 10^3/cmm (157-399) 04/10/24 10:35 MPV 9.3 fL (7.4-10.4) 04/10/24 10:35 Neut % (Auto) 68.3 % 04/10/24 10:35 Lymph % (Auto) 22.4 % 04/10/24 10:35 Cotton % (Auto) 6.7 % 04/10/24 10:35 Eos % (Auto) 1.3 % 04/10/24 10:35 Baso % (Auto) 0.5 % 04/10/24 10:35 Neut # (Auto) 6.45 10^3/uL (1.8-7.7) 04/10/24 10:35 Lymph # (Auto) 2.1 10^3/uL (0.8-4.8) 04/10/24 10:35 Cotton # (Auto) 0.6 10^3/uL (0.2-0.9) 04/10/24 10:35 Eos # (Auto) 0.1 10^3/uL (0.0-0.8) 04/10/24 10:35 Baso # (Auto) 0.1 10^3/uL (0.0-0.1) 04/10/24 10:35 Nucleated RBC % (auto) 0 % 04/10/24 10:35 Nucleated RBCs # 0.0 /100WBC 04/10/24 10:35 Sodium 139 mmol/L (136-145) 04/10/24 10:35 Potassium 3.9 mmol/L (3.5-5.1) 04/10/24 10:35 Chloride 103 mmol/L (98-107) 04/10/24 10:35 Carbon Dioxide 25 mmol/L (22-29) 04/10/24 10:35 Anion Gap 14.9 (5-19) 04/10/24 10:35 BUN 9 mg/dL (6-20) 04/10/24 10:35 Creatinine 0.8 mg/dL (0.7-1.2) 04/10/24 10:35 GFR Calculation 109.4 mL/min (90-130) 04/10/24 10:35 Glucose 93 mg/dL (65-115) 04/10/24 10:35 Calculated Osmolality 286 mOsm/kg (285-295) 04/10/24 10:35 Calcium 9.5 mg/dL (8.5-10.5) 04/10/24 10:35 Total Bilirubin 0.4 mg/dL (0.15-1.2) 04/10/24 10:35 AST 14 U/L (0-40) 04/10/24 10:35 ALT 16 U/L (0-41) 04/10/24 10:35 Alkaline Phosphatase 71 U/L (40-130) 04/10/24 10:35 Total Protein 7.9 g/dL (6.6-8.7) 04/10/24 10:35 Albumin 4.4 g/dL (3.5-5.2) 04/10/24 10:35 Globulin 3.5 g/dL (1.3-4.6) 04/10/24 10:35 Salicylates < 0.3 mg/dL (3-10) L 04/10/24 10:35 Urine Opiates Screen Negative ng/mL (Negative) 04/10/24 10:30 Acetaminophen < 5.0 ug/mL (10-30) L 04/10/24 10:35 Ur Barbiturates Screen Negative ng/mL (Negative) 04/10/24 10:30 Ur Phencyclidine Scrn Negative ng/mL (Negative) 04/10/24 10:30 Ur Amphetamines Screen Negative ng/mL (Negative) 04/10/24 10:30 U Benzodiazepines Scrn Negative ng/mL (Negative) 04/10/24 10:30 Urine Cocaine Screen Negative ng/mL (Negative) 04/10/24 10:30 U Marijuana (THC) Screen Negative ng/mL (Negative) 04/10/24 10:30 Ethyl Alcohol < 10 mg/dL (0-10) 04/10/24 10:35 No radiology studies performed this visit Discharge Plan Discharge Patient Disposition: Admitted As Inpatient Clinical Impression: Suicidal ideation Condition: Stable Prescriptions: No Action gabapentin 400 mg capsule 400 mg PO QID hydroxyzine pamoate 50 mg capsule 50 mg PO TID PRN (Reason: Severe Anxiety) Coding Level of Care Code ED Elevator Installer for Reji Mckeon
[2024-04-10 10:42] LABS: Basophils # 0.1 10^3/uL (0.0-0.1); Basophils % 0.5 %; Eosinophils # 0.1 10^3/uL (0.0-0.8); Eosinophils % 1.3 %; Hematocrit 46.2 % (37-53); Lymphocytes # 2.1 10^3/uL (0.8-4.8); Lymphocytes % 22.4 %; Mean Corpuscular HGB Conc 33.5 g/dL (30-55); Mean Corpuscular Hemoglobin 30.2 pg (27-33); Mean Corpuscular Volume 89.9 fl (82-101); Mean Platelet Volume 9.3 fL (7.4-10.4); Monocytes # 0.6 10^3/uL (0.2-0.9); Monocytes % 6.7 %; Neutrophils # 6.45 10^3/uL (1.8-7.7); Neutrophils % 68.3 %; Nucleated Red Blood Cells % 0 %; Platelet Count 297 10^3/cmm (157-399); Red Blood Count 5.14 10^6/uL (3.85-5.65); Red Cell Distribution Width 12.6 % (12.1-15.1); White Blood Count 9.44 10^3/uL (3.29-11.43)
--- NOTE | 2024-04-10 10:56 | PC.PHAR ---
PT COMMITS TO ONLY TAKING HYDROXYZINE PAMOATE 50 MG 3 TIMES DAILY NEEDED, AND GABAPENTIN 400MG 4 TIMES DAILY. PT STATES HE WAS TAKING LATUDA AND REMERON PRIOR TO GOING TO [place] TO [facility] AND IT DID NOT WORK OUT. PT HAS SEVERAL OTHER MEDICATIONS ON HIS EXTERNAL MED LIST: BUPROPION XL 150MG DAILY LAST FILL 03/29/24 30DS, DIVALPROEX 500MG TWICE DAILY LAST FILL 02/15/24 30DS, RISPERIDONE 2MG TWICE DAILY LAST FILL 02/15/24 30DS, QUETIAPINE 100MG AT BEDTIME LAST FILL 12/27/23 30DS, FLUOXETINE 20MG 2 CAPSULES DAILY LAST FILL 12/27/23 30DS, PRAZOSIN 2MG AT BEDTIME LAST FILL 12/27/23 30DS.
[2024-04-10 11:00] LABS: Alanine Aminotransferase 16 U/L (0-41); Albumin Level 4.4 g/dL (3.5-5.2); Alkaline Phosphatase 71 U/L (40-130); Anion Gap 14.9 (5-19); Aspartate Amino Transferase 14 U/L (0-40); Blood Urea Nitrogen 9 mg/dL (6-20); Calcium 9.5 mg/dL (8.5-10.5); Carbon Dioxide 25 mmol/L (22-29); Chloride 103 mmol/L (98-107); Creatinine Clr Calc Pharmacy 133.0673; Globulin 3.5 g/dL (1.3-4.6); Glomerular Filtration Rate 109.4 mL/min (90-130); Glucose 93 mg/dL (65-115); Osmolality Calculated 286 mOsm/kg (285-295); Potassium 3.9 mmol/L (3.5-5.1); Sodium 139 mmol/L (136-145); Total Bilirubin 0.4 mg/dL (0.15-1.2); Total Protein 7.9 g/dL (6.6-8.7)
[2024-04-10 11:01] LABS: Acetaminophen < 5.0 ug/mL (10-30); Alcohol Level < 10 mg/dL (0-10); Salicylate < 0.3 mg/dL (3-10)
--- NOTE | 2024-04-10 11:06 | PC.NURSE ---
96 hour hold rights read and reviewed with patient. Patient verbalized understandings. Copy of rights given to patient.
[2024-04-10 11:27] LABS: Amphetamines Screen Urine Negative (Negative); Barbiturates Screen Urine Negative (Negative); Benzodiazepines Screen Urine Negative (Negative); Cocaine Screen Urine Negative (Negative); Opiate Screen Urine Negative (Negative); PCP Screen Urine Negative (Negative); THC Screen Urine Negative (Negative)
[2024-04-10] MEDS: OLANZapine 5 mg ODT PO (17:49)
[2024-04-10] MEDS: hyDROXYzine 25 mg Capsule 50 MG PO (20:22)
[2024-04-10] MEDS: trazodone 50 mg Tablet PO (20:22)
[2024-04-10 21:38] VITALS: BP 109/70; PULSE 73; RESP 18; TEMP 36.7; O2SAT 97
[2024-04-11 06:00] VITALS: BP 95/60; PULSE 65; RESP 18; TEMP 36.4; O2SAT 98
[2024-04-11] MEDS: hyDROXYzine 25 mg Capsule 50 MG PO ×2 (08:06→20:10)
--- NOTE | 2024-04-11 08:21 | PC.NURSE ---
UP IN DAY ROOM WATCHING TV. DENIES PAIN. DENIES SI/HI AND AVH AT THIS TIME. RATES ANXIETY 8/10 AND WAS GIVEN ANXIETY MEDICATIONS, VISTARIL 50 MG ORDERED FOR ANXIETY. RATES DEPRESSION 5/10. PT STATES GOAL FOR THE DAY IS TO STAY POSITIVE. ALL QUESTIONS ANSWERED AND SUPPORT WAS VOICED.
[2024-04-11] MEDS: OLANZapine 5 mg ODT PO ×2 (11:50→21:07)
--- NOTE | 2024-04-11 11:58 | P.NPUHP_ITS ---
Providers/Chief Complaint 2 Admitting Physician: David Lewis MD Chief Complaint: SI HPI NPU History of Present Illness Alfonzo Kee is a 38 year old male who presented to the emergency department with the following report: Chief Complaint: Psychiatric Symptoms Stated Complaint: SI Time Seen by Provider: 04/10/24 10:18 Source: patient Mode of arrival: ambulatory Limitations: no limitations History of Present Illness: 38-year-old male has a history of depression and SI along with EtOH and meth abuse he states that he has been out of his psych meds for months since having increasing depression states he has been having some subtle thoughts as well he states he just does not feel like living anymore. Associated symptoms: Reports depression and suicidal ideation. He was admitted to the neuropsychiatric unit for definitive treatment of those issues. He is known to this junior technical writer through past inpatient hospitalizations the last of which was about a year ago. An excerpt of that discharge summary is included below for context. He presents today reporting that after he discharged from here about a year ago he went to the [facility]. He reports that he had not done very well during that time and was really continuing to struggle with his addiction. He reports that he did go to [facility] and had been on medications for about a month ago but he is going to go to a program in [place] for sober living that did not allow you to take medication and so he went off of his medication which he believes were Neurontin Latuda and Remeron. He reports however that off the medication he just did not do well from a mental health standpoint and the combination of that and his struggles with his sobriety things are getting pretty [id number]. He reports that he was mostly homeless during that time and has just had limited success over this time since we last saw him. He gave this junior technical writer permission to research the specifics of his doses and try to restart all or some of those medications appropriately. He worked with the social work team to identify some sober living options and he is filled out some applications. We discussed the risks, benefits and alternatives of this plan of restarting medication and getting into rehab and he understood and agreed to proceed as is documented in this note. Per his 03/27/2023 [facility] inpatient psychiatric discharge summary: Discharge Diagnosis (1) Suicidal ideation: Status: Resolved (2) History of ETOH abuse: Status: Acute (3) Cannabis abuse: Status: Acute (4) History of schizophrenia: Status: Acute (5) Methamphetamine dependence: Status: Acute (6) Withdrawal from methamphetamine: Status: Acute (7) Psychosis: Status: Acute (8) Homicidal ideation: Status: Acute Reason for Visit Reason for Visit: OD Brief History: History of Present Illness Alfonzo Kee is a 37 year old male who presented to the emergency department with the following report: Chief Complaint: Overdose Stated Complaint: OD Time Seen by Provider: 03/22/23 03:01 Source: EMS Mode of arrival: EMS Limitations: altered mental status History of Present Illness: 37-year-old male who had admitted to using crystal meth tonight he went to the police station he started acting erratic EMS was called him and states that he became slightly combative he was hallucinating saying he wanted to kill himself I did have to sedate him in route with Versed. Patient is currently sedated unable answer any questions at this time. No known injuries He was admitted to the neuropsychiatric unit for definitive treatment of those issues. He states today fairly lethargic. He was seen up a couple times after getting to the unit about 10:00 this morning. He did eat but was very quick to be sleeping consistent with his history of methamphetamine addiction. He presents today acknowledging that his erratic behavior identified him as is likely a consequence of his methamphetamine use. A UDS was not done in the emergency department, but will be obtained as soon as we need to get his compliance. He was a fairly poor historian at times unable to be located and other times sleep during answers. This likely secondary to the combination of the Versed given to him in to the hospital as well as methamphetamine withdrawal. An excerpt of his last discharge summary of his November 2021 hospitalization is included below for context in his lack of ability as a historian. He did speak to the social work team briefly in a similar situation acknowledging his addiction and openness to rehab treatment. Attempted to review with him the possibility of an antipsychotic for his psychosis/hallucinations and aggression but he was unable to respond. Per his 12/19/2021 [facility] inpatient psychiatric discharge summary: Discharge Diagnosis (1) Suicidal ideation: Status: Resolved (2) History of ETOH abuse: Status: Acute (3) Cannabis abuse: Status: Acute (4) History of schizophrenia: Status: Acute (5) Methamphetamine dependence: Status: Acute (6) Withdrawal from methamphetamine: Status: Acute Reason for Visit Reason for Visit: SI Brief History: History of Present Illness Alfonzo Kee is a 36 year old male who presented to the emergency department with the following report: Chief Complaint: Psychiatric Symptoms Stated Complaint: SI Time Seen by Provider: 12/16/21 16:03 Source: patient Mode of arrival: EMS History of Present Illness: 36-year-old male presents emergency room with unusual behavior. Evidently he was found sleeping under a picnic table he admits he is intoxicated his last drink was about 4 hours ago when he last used methamphetamines yesterday. Many questions he answers with bizarre tangential thinking. He admits to previous admissions to psychiatry. Patient does state he sometimes thinks about harming himself or others. He does not express a current plan. Denies any recent illness. Patient was seen in the ER yesterday for concerns about COVID. Clinically he was fine. He expressed desire to be evaluated on the psychiatry unit he denied any suicidal homicidal ideation at that time. MD complaint: suicidal ideation, feels depressed and altered mental status Onset (ago): hour(s) Duration: constant History of same: Yes Relieving factors: none Exacerbating factors: alcohol and drug use Context: recent alcohol abuse and recent drug abuse Associated psychiatric symptoms: depression, suicidal ideation and homicidal ideation Associated symptoms: Reports delusions, depression, homicidal ideation and suicidal ideation; Deny auditory hallucinations or visual hallucinations Treatments prior to arrival: none If self harm: admits thoughts of self harm He was admitted to the neuropsychiatric unit for definitive treatment of those issues. He presents today as a limited historian with significant irritability. He reports that after he left the hospital he did not refill his medication. He reports that he has continued to struggle with his addiction and has reached the point where he feels like life is not worth living if he can get his drinking and other drug use under control. He endorses recent alcohol and methamphetamine use as stated above and work with the social work team today on possible sober living inpatient services that might be available. We discussed the risk-benefit alternatives of restarting medication and he understood but not already on starting medication. He was fairly irritable and resistant answer questions however we did review his recent hospitalization information which he endorsed to be an accurate representation of his history. An excerpt of his last stay is included below for context. Per his 01/19/2021 [facility] inpatient psychiatric evaluation: History of Present Illness Alfonzo Kee is a 35 year old male who presented to the emergency department with the following report: Chief Complaint: Trauma Stated Complaint: TRAUMA, ETOH INTOX Time Seen by Provider: 01/18/21 16:13 History of Present Illness: HPI narrative: The patient is a 35-year-old male who comes to the ER after being found in a ditch eating mud. He is brought in for psych evaluation. He admits using methamphetamine as well in the ER and possibly drinking alcohol as well. He is visibly looking in the corner of the room and talking to someone. There is no one there. Has a swollen lower lip but will not let me examine him further. Likely he fell but unknown he is not giving a reasonable history. He says he was eating the dirt because he was hungry. I said we will feed him. Nurse washed the mud out of his mouth. Associated symptoms: Denies abdominal pain, back pain, chest pain, confusion, dizziness or headache(s). He was admitted to the neuropsychiatric unit for definitive treatment of those issues. He presents today as a fairly poor historian reporting that he is really unclear as to why the police apprehended him. We discussed the fact that he was found laying down in the mud reportedly eating mud and he reports that they were following him and he where his car was and where he was which is not how the reports return. He was very resistant to the idea of his addiction playing a role in his presentation. He reports that his psychiatric treatment started with inpatient hospitalizations many years ago he reports many stays as much as 13 but the last one being about 2 years ago. He has had several stays here at [facility] with 1 about 2 years ago and excerpt of which is included below. He denies really having outpatient services medication and follow-up with any consistency. He denies suicide attempts. He reports that he smokes a half to a pack a day, drinks alcohol every once in a while, reports marijuana use daily and endorses only methamphetamine from a standpoint of other illicit drug use. He reports he been to rehab a couple of times and had a DUI last in 2007. He told a very convoluted story about [place] getting [place] one side but then really could get no clear story or context for why he was found the way he was. He then turned to 180 and started talking about how doctors implant tips and tips of implanted inside of him. A friend that this junior technical writer does and when this junior technical writer denied putting chips and people in my career he then said that although I might not do that I am fully aware that the hospital and other doctors do and that [facility] did that to him. Psychiatric history: As above. Substance abuse history: As above. Family history: He denies any mental health, addiction or suicide attempts or completions in his family. Developmental history: He denies any issues with his mother's with him or his or delivery. Does endorse developmental delays, and reports that he went to school he needed speech therapy, learning support, emotional support and special education classes. Psychosocial history: Reports his mother and father were together when he was born but he the only product of that union. He reports his mother had 3 children through a different relationship and that his father had 4 children through a different relationship. He reports his childhood was rough and he denied any emotional physical or sexual abuse he reports that he did not speak he was about 7 years old but that someone keep an eye on him because of him being determined that terroristic threat at . He endorses graduating from high school in 2005 endorses being a heterosexual and is always related to being 10 years. Endorses he is been 1 time and once endorses having 4 children ages 1-8 2 boys and 2 girls, he denies being in the or having any yazdanism belief system. He reports his longest job is 5 years at [employer]. He reports he lives in a house alone. Legal history: He reports that he been to longterm several times the longest time being 3 to 4 years. Medical history: He see ED note for full details. Per his 01/17/2018 [facility] inpatient psychiatric eval: History of Present Illness Date of Service: Jan 17, 2018 Chief Complaint: Me and my got into a little argument. HPI: Mr. Kee is a 32-year-old male who is admitted from the ED on a 96 hour hold after presenting there agitated with vaguely reported possible suicidal ideation. The patient reports that he had an argument with his last night over his relapse on methamphetamines and she kicked him out of the house. Pt reports that he just needed a place a stay so I checked myself in. He apparently was asked if he was feeling suicidal and refused to answer but then later reports he told the physician that he was not suicidal but he reports they had already documented that he was suicidal and he was told he had to come for a psychiatric evaluation. The patient states it was really silly, and I am sorry for that. He reports that he had been over 2 years and relapsed 3 weeks ago but denies IVDU. He reports that he has used marijuana occasionally but denies using that for some time although his drug screen is positive. He reports only occasionally drinking alcohol but denies that he has a substance use issue with that. He reports that he had been having some stress as he and his recently bought a new trailer home which they're supposed to be moving in the next couple of days and they also have a 3month old baby and 2 other young children. He works full-time. He reports that his relapse was a mistake but he is planning to return to AA meetings at his buddhism and is willing to accept a [facility] chemical dependency treatment referral as well. The patient reports that his mood recently has been great prior to the relapse with some general anxiety. He reports that he did continue to take psychotropic medications since his last admission to the NPU in August 2017 for 3 months. He reports he went to [facility] but did not like the way they treated him there so he subsequently was receiving refills from his primary care physician Dr. West Schneider and discontinued the medication approximately one month ago. The patient did not feel like it was very helpful but his was contacted by phone for collateral information during the interview on conference call per patient's consent stated that she felt he was 100% better when he was still taking medication. The patient was agreeable to returning to his primary care physician to obtain another refill. The patient's has no concerns with him returning home. She denies that he is made any suicidal comments or has any other concerning behaviors besides the recent drug relapse. The patient reports that he does have a history of intermittent auditory hallucinations in the past but reports he has not had any significant symptoms for the past 1 year, especially when sober from meth. He denies any recent auditory hallucinations/visual hallucinations/paranoia. Denies any irritability or homicidal ideation. He denies depression/anhedonia/sleep/appetite problems. He does endorse some anxiety related to stressors but feels this is overall manageable with his normal coping mechanisms such as jogging and staying busy at work. He is remorseful for his recent drug relapse but declines any inpatient chemical dependency treatment. Past Medical History Past Medical History: PAST PSYCHIATRIC HISTORY: -Last admission to the [facility]PU was in 08/2017, and prior in 2014 -Past dx psychosis unspecified and methamphetamine abuse as well as some prior documented history of chronic paranoid schizophrenia, and benzodiazepine dependence Patient denies any history of suicide attempt. Past medications which were effective per his included Zoloft and Zyprexa. PAST FAMILY PSYCHIATRIC HISTORY: -Denies FH drug abuse or mental illness. 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 Denies any current legal problems, past 8 years ago pawned tools in skilled nursing X3 years. Endorses using meth but denies other drugs initially but then admits to occasional marijuana and opiate use as well. He denies any intravenous use however. Smokes 2PPD, occasional alcohol. He denies Prior treatment through his buddhism and [facility] when younger. PAST MEDICAL HISTORY: -healthy, denies head injuries/ seizures/ surgeries. Hospital Course He slowly acclimated to the individual, group and milieu therapies provided. He was similar to previous hospitalizations and fairly resistant to intervention. It certainly raised the question of whether we are dealing with psychosis possibly related to addiction as a primary entity or whether malingering was a significant aspect based on his behavior at times. He was initially resistant and withdrawn from treatment and interactions and then demanding of what he should get and what we should do. He had modest improvement during the hospitalization and was able to contract for safety outside the hospital prior to discharge. During the hospitalization, patient had routine laboratory studies which were within normal limits except for few outliers. Additionally there was a general medical evaluation which was also within normal limits and revealed no new acute processes. Discharge Summary: At the time of discharge, lethality was denied and psychosis was resolving. Mood and anxiety were well managed. Patient endorsed a plan to avoid all drugs of abuse and follow-up with the aftercare recommendations of the treatment team. Patient was evaluated and deemed to be absent credible lethality, and had achieved the maximum benefit from an inpatient hospitalization, so was discharged. Hospital Course During the hospitalization, patient had routine laboratory studies which were within normal limits except for few outliers. Additionally there was a general medical evaluation which was also within normal limits and revealed no new acute processes. At the time of discharge, lethality was denied and psychosis was resolving. Mood and anxiety were well managed. Patient endorsed a plan to avoid all drugs of abuse and follow-up with the aftercare recommendations of the treatment team. Patient was evaluated and deemed to be absent credible lethality, and had achieved the maximum benefit from an inpatient hospitalization, so was discharged. Patient had refused any form of inpatient treatment and was given options regarding specific virtual programs to target his problems with methamphetamine abuse. Meds NPU Home Medications Medication Instructions Recorded Confirmed Last Taken Type gabapentin 400 mg capsule 400 mg PO QID 04/10/24 04/10/24 Unknown History hydroxyzine pamoate 50 mg capsule 50 mg PO TID PRN Severe Anxiety 04/10/24 04/10/24 Unknown History Allergies Allergy/AdvReac Type Severity Reaction Status Date / Time No Known Allergies Allergy Verified 03/22/23 03:02 PFSH NPU 2 PFSH: Medical History Cannabis abuse Methamphetamine dependence Social History Smoking and tobacco/nicotine status: current every day tobacco/nicotine user Alcohol intake: current Alcohol intake frequency: 3 or more drinks per day Substance/Drug Use: current Substance/Drug use frequency: daily Mental Status Exam 2 MSE Comments: This is an overweight white male in hospital scrubs with limited grooming with eye contact looking older than his stated age.? No abnormal movements except for psychomotor retardation.?Cooperation with exam in mild distress.? Speech was decreased rate and volume.? Mood described as okay, affect congruent and subdued.? Thought process linear.? Thought content: Patient denied active suicidal or homicidal ideation, there were no delusions reported but mild paranoia noted and he did not report any auditory or visual hallucinations.? Attention and concentration was limited and memory was mostly reliable, but none were formally tested.? He is alert and oriented x3.? Insight and judgment are limited, impulse control is impaired. Vitals/I&O/Wt Last Vital Signs Temp 97.6 F 04/11/24 06:00 Pulse 65 04/11/24 06:00 Resp 18 04/11/24 06:00 BP 95/60 04/11/24 06:00 Pulse Ox 98 04/11/24 06:00 O2 Del Method Room Air 04/10/24 17:20 Weight last 48 hrs Weight 81.647 kg Data NPU 04/10/24 10:35 04/10/24 10:35 A&P Assessment and plan (1) Suicidal ideation: (2) History of ETOH abuse: (3) Cannabis abuse: (4) History of schizophrenia: (5) Methamphetamine dependence: (6) Withdrawal from methamphetamine: (7) Psychosis: Plan This is a 38-year-old white male with a significant history of mental health and addiction issues who presents with active addiction including methamphetamine use and withdrawal with history of psychosis with last hospitalization here about a year ago off of his medication endorsing a desire for resuming medications and getting into sober living treatment. 1. Restart previous medications at appropriate doses. 2. Continue every 15 minute checks for safety. 3. Encourage individual, group and milieu therapies. 4. Encourage sober living treatment after discharge at the highest level of care to which he is willing to commit. Involuntary Hold Information 2 96 Hour Hold: 96 Hour Involuntary Admission: Yes 96 Hour Hold Ending Date: 04/17/24 96 Hour Hold Ending Time: 10:42 Attestations NPU 2 Medical Necessity Statement*: Inpatient hospitalization is medically necessary and the clinically appropriate intervention at this time. We will monitor medication to make changes as indicated. Patient will be in the hospital for over two midnights. Likely length of stay 4-6 days. Coding Level of Care Code Acute Code for [facility] Fwd Diagnoses Suicidal ideation R45.851 History of ETOH abuse F10.11 Cannabis abuse F12.10 History of schizophrenia Z86.59 Methamphetamine dependence F15.20 Withdrawal from methamphetamine F15.23 Psychosis F29
[2024-04-11 13:55] VITALS: BP 119/73; PULSE 90; RESP 16; TEMP 36.6; O2SAT 98
[2024-04-11] MEDS: trazodone 50 mg Tablet PO ×2 (21:05→23:34)
[2024-04-11 22:00] VITALS: BP 120/77; PULSE 85; RESP 18; TEMP 36.7; O2SAT 97
[2024-04-11] MEDS: haloperidol 5 mg Tablet PO (23:34)
--- NOTE | 2024-04-12 00:26 | PC.NURSE ---
Vistaril 50 mg PO, Trazadone 50mg PO X 2, and Zyprexa 5mg SL and Haldol 5mg PO given for anxiety, sleep and agitation; with positive results.
[2024-04-12 06:00] VITALS: BP 91/53; PULSE 61; RESP 16; TEMP 36.4; O2SAT 97
[2024-04-12] MEDS: hyDROXYzine 25 mg Capsule 50 MG PO (08:38)
[2024-04-12] MEDS: gabapentin 400 mg Capsule PO ×4 (08:38→20:41)
--- NOTE | 2024-04-12 10:10 | PC.NURSE ---
Room searched for contraband. None found.
--- NOTE | 2024-04-12 13:11 | P.NPUPN_ITS ---
Subjective NPU 2 Subjective: Patient presented today reporting that things are going well. He continue to work on applications for different rehabs and work with the social work team for different options. There may be a possibility lined up for Monday. He reports tolerating his medications being restarted. And he denied any side effects to the medication. Mental Status Exam 2 MSE Comments: This is an overweight white male in hospital scrubs with limited grooming with eye contact looking older than his stated age.? No abnormal movements except for psychomotor retardation.?Cooperation with exam in mild distress.? Speech was decreased rate and volume.? Mood described as okay, affect congruent and subdued.? Thought process linear.? Thought content: Patient denied active suicidal or homicidal ideation, there were no delusions reported but mild paranoia noted and he did not report any auditory or visual hallucinations.? Attention and concentration was limited and memory was mostly reliable, but none were formally tested.? He is alert and oriented x3.? Insight and judgment are limited, impulse control is impaired. Vitals/I&O/Wt Last Vital Signs Temp 97.5 F L 04/12/24 06:00 Pulse 61 04/12/24 06:00 Resp 16 04/12/24 06:00 BP 91/53 04/12/24 06:00 Pulse Ox 97 04/12/24 06:00 O2 Del Method Room Air 04/11/24 13:55 Data NPU 04/10/24 10:35 04/10/24 10:35 A&P Assessment and plan (1) Suicidal ideation: (2) History of ETOH abuse: (3) Cannabis abuse: (4) History of schizophrenia: (5) Methamphetamine dependence: (6) Withdrawal from methamphetamine: (7) Psychosis: Plan This is a 38-year-old white male with a significant history of mental health and addiction issues who presents with active addiction including methamphetamine use and withdrawal with history of psychosis with last hospitalization here about a year ago off of his medication endorsing a desire for resuming medications and getting into sober living treatment. 1. Restart previous medications at appropriate doses. 2. Continue every 15 minute checks for safety. 3. Encourage individual, group and milieu therapies. 4. Encourage sober living treatment after discharge at the highest level of care to which he is willing to commit. May have a rehab possibility for Monday. Involuntary Hold Information 2 96 Hour Hold: 96 Hour Involuntary Admission: Yes 96 Hour Hold Ending Date: 04/17/24 96 Hour Hold Ending Time: 10:42 Attestations NPU 2 Medical Necessity Statement*: Inpatient hospitalization is medically necessary and the clinically appropriate intervention at this time. We will monitor medication to make changes as indicated. Likely length of stay 4-6 days. Coding Level of Care Code Acute Code for Chg Fwd Diagnoses Suicidal ideation R45.851 History of ETOH abuse F10.11 Cannabis abuse F12.10 History of schizophrenia Z86.59 Methamphetamine dependence F15.20 Withdrawal from methamphetamine F15.23 Psychosis F29
[2024-04-12 14:00] VITALS: BP 123/77; PULSE 105; RESP 20; TEMP 37.1; O2SAT 96
[2024-04-12] MEDS: nicotine 4 mg lozenge MUCOUS MEM (16:09)
[2024-04-12 19:25] VITALS: BP 103/62; PULSE 79; RESP 18; TEMP 36.8; O2SAT 97
[2024-04-12] MEDS: mirtazapine 15 mg Tablet PO (20:41)
[2024-04-12] MEDS: trazodone 50 mg Tablet PO (20:41)
[2024-04-13 06:00] VITALS: BP 101/64; PULSE 66; RESP 17; O2SAT 98
--- NOTE | 2024-04-13 08:22 | P.NPUPN_ITS ---
Subjective NPU 2 Subjective: Patient presented today reporting that he is doing okay. He reported feeling out multiple applications for rehab and is awaiting acceptance. He reports taking medication as prescribed trying to focus on his goals and manage his anxiety. He denied any side effects to his medications. Mental Status Exam 2 MSE Comments: This is an overweight white male in hospital scrubs with limited grooming with eye contact looking older than his stated age.? No abnormal movements except for psychomotor retardation.?Cooperation with exam in mild distress.? Speech was decreased rate and volume.? Mood described as okay, affect congruent and subdued.? Thought process linear.? Thought content: Patient denied active suicidal or homicidal ideation, there were no delusions reported but mild paranoia noted and he did not report any auditory or visual hallucinations.? Attention and concentration was limited and memory was mostly reliable, but none were formally tested.? He is alert and oriented x3.? Insight and judgment are limited, impulse control is impaired. Vitals/I&O/Wt Last Vital Signs Temp 98.3 F 04/12/24 19:25 Pulse 66 04/13/24 06:00 Resp 17 04/13/24 06:00 BP 101/64 04/13/24 06:00 Pulse Ox 98 04/13/24 06:00 O2 Del Method Room Air 04/11/24 13:55 Data NPU 04/10/24 10:35 04/10/24 10:35 A&P Assessment and plan (1) Suicidal ideation: (2) History of ETOH abuse: (3) Cannabis abuse: (4) History of schizophrenia: (5) Methamphetamine dependence: (6) Withdrawal from methamphetamine: (7) Psychosis: Plan This is a 38-year-old white male with a significant history of mental health and addiction issues who presents with active addiction including methamphetamine use and withdrawal with history of psychosis with last hospitalization here about a year ago off of his medication endorsing a desire for resuming medications and getting into sober living treatment. 1. Restart previous medications at appropriate doses. 2. Continue every 15 minute checks for safety. 3. Encourage individual, group and milieu therapies. 4. Encourage sober living treatment after discharge at the highest level of care to which he is willing to commit. May have a rehab possibility for Monday. Involuntary Hold Information 2 96 Hour Hold: 96 Hour Involuntary Admission: Yes 96 Hour Hold Ending Date: 04/17/24 96 Hour Hold Ending Time: 10:42 Attestations NPU 2 Medical Necessity Statement*: Inpatient hospitalization is medically necessary and the clinically appropriate intervention at this time. We will monitor medication to make changes as indicated. Likely length of stay 3-5 days. Coding Level of Care Code Acute Code for Chg Fwd Diagnoses Suicidal ideation R45.851 History of ETOH abuse F10.11 Cannabis abuse F12.10 History of schizophrenia Z86.59 Methamphetamine dependence F15.20 Withdrawal from methamphetamine F15.23 Psychosis F29
[2024-04-13] MEDS: gabapentin 400 mg Capsule PO ×4 (08:26→20:19)
[2024-04-13] MEDS: hyDROXYzine 25 mg Capsule 50 MG PO (08:28)
[2024-04-13] MEDS: nicotine 4 mg lozenge MUCOUS MEM ×3 (09:15→18:44)
[2024-04-13 14:00] VITALS: BP 119/78; PULSE 99; RESP 20; TEMP 36.7; O2SAT 95
--- NOTE | 2024-04-13 18:34 | PC.NURSE ---
ROOM SEARCH PREFORMED BY STAFF NO CONTRABAND FOUND AT THIS TIME.
[2024-04-13 19:32] VITALS: BP 124/83; PULSE 90; RESP 18; TEMP 36.8; O2SAT 98
[2024-04-13] MEDS: mirtazapine 15 mg Tablet PO (20:19)
[2024-04-13] MEDS: trazodone 50 mg Tablet PO (20:19)
[2024-04-14 06:00] VITALS: BP 100/65; PULSE 83; RESP 18; O2SAT 97
[2024-04-14] MEDS: nicotine 4 mg lozenge MUCOUS MEM ×4 (09:42→17:09)
[2024-04-14] MEDS: gabapentin 400 mg Capsule PO ×4 (09:42→20:02)
--- NOTE | 2024-04-14 11:48 | W.PM.NPUPNS ---
Subjective NPU Subjective: Patient presented today reporting that he is feeling continuum and optimism about things going his way. He reports that [facility] reports they may have a bed for him if worse comes to worse. However he reports a few rehabs expressing interest and suggesting that he may have a bed for him by Monday. He reports that he is tolerating his medication without issue. He denies any side effects of the medication. Mental Status Exam MSE Comments: This is an overweight white male in hospital scrubs with limited grooming with eye contact looking older than his stated age.? No abnormal movements except for psychomotor retardation.?Cooperation with exam in mild distress.? Speech was decreased rate and volume.? Mood described as okay, affect congruent and subdued.? Thought process linear.? Thought content: Patient denied active suicidal or homicidal ideation, there were no delusions reported but mild paranoia noted and he did not report any auditory or visual hallucinations.? Attention and concentration was limited and memory was mostly reliable, but none were formally tested.? He is alert and oriented x3.? Insight and judgment are limited, impulse control is impaired. Vitals/I&O/Wt Last Vital Signs Temp 98.2 F 04/13/24 19:32 Pulse 83 04/14/24 06:00 Resp 18 04/14/24 06:00 BP 100/65 04/14/24 06:00 Pulse Ox 97 04/14/24 06:00 O2 Del Method Room Air 04/13/24 19:32 Weight last 48 hrs Weight 92.261 kg Data NPU 04/10/24 10:35 04/10/24 10:35 A&P Assessment and plan (1) Suicidal ideation: (2) History of ETOH abuse: (3) Cannabis abuse: (4) History of schizophrenia: (5) Methamphetamine dependence: (6) Withdrawal from methamphetamine: (7) Psychosis: Plan This is a 38-year-old white male with a significant history of mental health and addiction issues who presents with active addiction including methamphetamine use and withdrawal with history of psychosis with last hospitalization here about a year ago off of his medication endorsing a desire for resuming medications and getting into sober living treatment. 1. Restart previous medications at appropriate doses. 2. Continue every 15 minute checks for safety. 3. Encourage individual, group and milieu therapies. 4. Encourage sober living treatment after discharge at the highest level of care to which he is willing to commit. May have a rehab possibility for Monday. Involuntary Hold Information 96 Hour Hold: 96 Hour Involuntary Admission: Yes 96 Hour Hold Ending Date: 04/17/24 96 Hour Hold Ending Time: 10:42 Attestations NPU Medical Necessity Statement*: Inpatient hospitalization is medically necessary and the clinically appropriate intervention at this time. We will monitor medication to make changes as indicated. Likely length of stay 2-4 days. Coding Level of Care Code Acute Code for [facility] Fwd Diagnoses Suicidal ideation R45.851 History of ETOH abuse F10.11 Cannabis abuse F12.10 History of schizophrenia Z86.59 Methamphetamine dependence F15.20 Withdrawal from methamphetamine F15.23 Psychosis F29
[2024-04-14 14:00] VITALS: BP 116/77; PULSE 108; RESP 16; TEMP 37; O2SAT 95
[2024-04-14] MEDS: hyDROXYzine 25 mg Capsule 50 MG PO (17:09)
[2024-04-14] MEDS: OLANZapine 5 mg ODT PO (18:16)
[2024-04-14 19:49] VITALS: BP 112/72; PULSE 103; RESP 18; TEMP 36.7; O2SAT 97
[2024-04-14] MEDS: trazodone 50 mg Tablet PO (20:02)
[2024-04-14] MEDS: mirtazapine 15 mg Tablet PO (20:02)
[2024-04-15 06:00] VITALS: BP 105/67; PULSE 78; RESP 17; O2SAT 96
[2024-04-15] MEDS: nicotine 4 mg lozenge MUCOUS MEM ×5 (08:29→18:37)
[2024-04-15] MEDS: gabapentin 400 mg Capsule PO ×4 (08:30→20:36)
--- NOTE | 2024-04-15 11:35 | P.NPUPN_ITS ---
Subjective NPU 2 Subjective: Patient presented today reporting that he is feeling okay and optimistic that something will come from sober living or even SOC tomorrow. He reports that he is doing well with his medications and is denying any side effects. He reports a continued commitment to his sober living treatment and inpatient plans. Mental Status Exam 2 MSE Comments: This is an overweight white male in hospital scrubs with limited grooming with eye contact looking older than his stated age.? No abnormal movements except for psychomotor retardation.?Cooperation with exam in mild distress.? Speech was decreased rate and volume.? Mood described as okay, affect congruent and subdued.? Thought process linear.? Thought content: Patient denied active suicidal or homicidal ideation, there were no delusions reported but mild paranoia noted and he did not report any auditory or visual hallucinations.? Attention and concentration was limited and memory was mostly reliable, but none were formally tested.? He is alert and oriented x3.? Insight and judgment are limited, impulse control is impaired. Vitals/I&O/Wt Last Vital Signs Temp 98.1 F 04/14/24 19:49 Pulse 78 04/15/24 06:00 Resp 17 04/15/24 06:00 BP 105/67 04/15/24 06:00 Pulse Ox 96 04/15/24 06:00 O2 Del Method Room Air 04/13/24 19:32 Weight last 48 hrs Weight 92.261 kg Data NPU 04/10/24 10:35 04/10/24 10:35 A&P Assessment and plan (1) Suicidal ideation: (2) History of ETOH abuse: (3) Cannabis abuse: (4) History of schizophrenia: (5) Methamphetamine dependence: (6) Withdrawal from methamphetamine: (7) Psychosis: Plan This is a 38-year-old white male with a significant history of mental health and addiction issues who presents with active addiction including methamphetamine use and withdrawal with history of psychosis with last hospitalization here about a year ago off of his medication endorsing a desire for resuming medications and getting into sober living treatment. 1. Restart previous medications at appropriate doses. 2. Continue every 15 minute checks for safety. 3. Encourage individual, group and milieu therapies. 4. Encourage sober living treatment after discharge at the highest level of care to which he is willing to commit. May have a rehab possibility for [place]. Involuntary Hold Information 2 96 Hour Hold: 96 Hour Involuntary Admission: Yes 96 Hour Hold Ending Date: 04/17/24 96 Hour Hold Ending Time: 10:42 Attestations NPU 2 Medical Necessity Statement*: Inpatient hospitalization is medically necessary and the clinically appropriate intervention at this time. We will monitor medication to make changes as indicated. Likely length of stay 1-3 days. Coding Level of Care Code Acute Code for g Fwd Diagnoses Suicidal ideation R45.851 History of ETOH abuse F10.11 Cannabis abuse F12.10 History of schizophrenia Z86.59 Methamphetamine dependence F15.20 Withdrawal from methamphetamine F15.23 Psychosis F29
[2024-04-15 13:51] VITALS: BP 114/78; PULSE 121; RESP 16; TEMP 37; O2SAT 96
--- NOTE | 2024-04-15 14:38 | PC.NURSE ---
Patient's room checked for contraband. None found.
[2024-04-15 19:36] VITALS: BP 114/79; PULSE 94; RESP 20; TEMP 36.4; O2SAT 97
[2024-04-15] MEDS: mirtazapine 15 mg Tablet PO (20:36)
[2024-04-15] MEDS: trazodone 50 mg Tablet PO (20:36)
[2024-04-15] MEDS: hyDROXYzine 25 mg Capsule 50 MG PO (20:37)
[2024-04-16 06:00] VITALS: BP 101/67; PULSE 81; RESP 16; TEMP 36.5; O2SAT 96
[2024-04-16] MEDS: nicotine 4 mg lozenge MUCOUS MEM ×6 (08:18→18:52)
[2024-04-16] MEDS: gabapentin 400 mg Capsule PO ×4 (08:18→20:30)
[2024-04-16 14:00] VITALS: BP 136/72; PULSE 104; RESP 16; TEMP 37; O2SAT 95
--- NOTE | 2024-04-16 16:40 | P.NPUPN_ITS ---
Subjective NPU 2 Subjective: Patient presented today reporting that he feels that he is doing better. He did not get the rehab bed today but it may be soon. Also he has not been given a bed at [facility] yet either. He is proposing a plan for him to discharge to a hotel/motel room for couple days and then go to his mother's house. We reported that we do not like the idea of him not going directly to the rehab. We discussed a plan to not extend his 96-hour hold but to see if he has any options tomorrow and if there are no options tomorrow we will allow his 96-hour hold to labs and discharged home. He denies any side effects to the medication. Mental Status Exam 2 MSE Comments: This is an overweight white male in hospital scrubs with limited grooming with eye contact looking older than his stated age.? No abnormal movements except for psychomotor retardation.?Cooperation with exam in mild distress.? Speech was decreased rate and volume.? Mood described as okay, affect congruent and subdued.? Thought process linear.? Thought content: Patient denied active suicidal or homicidal ideation, there were no delusions reported but mild paranoia noted and he did not report any auditory or visual hallucinations.? Attention and concentration was limited and memory was mostly reliable, but none were formally tested.? He is alert and oriented x3.? Insight and judgment are limited, impulse control is impaired. Vitals/I&O/Wt Last Vital Signs Temp 98.6 F 04/16/24 14:00 Pulse 104 H 04/16/24 14:00 Resp 16 04/16/24 14:00 BP 136/72 04/16/24 14:00 Pulse Ox 95 04/16/24 14:00 O2 Del Method Room Air 04/16/24 14:00 Data NPU 04/10/24 10:35 04/10/24 10:35 A&P Assessment and plan (1) Suicidal ideation: (2) History of ETOH abuse: (3) Cannabis abuse: (4) History of schizophrenia: (5) Methamphetamine dependence: (6) Withdrawal from methamphetamine: (7) Psychosis: Plan This is a 38-year-old white male with a significant history of mental health and addiction issues who presents with active addiction including methamphetamine use and withdrawal with history of psychosis with last hospitalization here about a year ago off of his medication endorsing a desire for resuming medications and getting into sober living treatment. 1. Restarted previous medications at appropriate doses. 2. Continue every 15 minute checks for safety. 3. Encourage individual, group and milieu therapies. 4. Encourage sober living treatment after discharge at the highest level of care to which he is willing to commit. No rehab available. Plan for discharge tomorrow. Involuntary Hold Information 2 96 Hour Hold: 96 Hour Involuntary Admission: Yes 96 Hour Hold Ending Date: 04/17/24 96 Hour Hold Ending Time: 10:42 Attestations NPU 2 Medical Necessity Statement*: Inpatient hospitalization is medically necessary and the clinically appropriate intervention at this time. We will monitor medication to make changes as indicated. Likely length of stay 1 day. Coding Level of Care Code Acute Code for [facility] Fwd Diagnoses Suicidal ideation R45.851 History of ETOH abuse F10.11 Cannabis abuse F12.10 History of schizophrenia Z86.59 Methamphetamine dependence F15.20 Withdrawal from methamphetamine F15.23 Psychosis F29
[2024-04-16 20:10] VITALS: BP 125/87; PULSE 119; RESP 20; TEMP 36.4; O2SAT 96
[2024-04-16] MEDS: hyDROXYzine 25 mg Capsule 50 MG PO (20:29)
[2024-04-16] MEDS: trazodone 50 mg Tablet PO (20:30)
[2024-04-16] MEDS: mirtazapine 15 mg Tablet PO (20:30)
[2024-04-17 06:00] VITALS: BP 114/73; PULSE 75; RESP 16; TEMP 36.4; O2SAT 99
[2024-04-17] MEDS: nicotine 4 mg lozenge MUCOUS MEM ×4 (06:16→12:23)
[2024-04-17] MEDS: gabapentin 400 mg Capsule PO ×2 (08:02→12:23)
--- NOTE | 2024-04-17 10:14 | P.NPUDS_ITS ---
Diagnoses at Discharge Discharge Diagnosis (1) Suicidal ideation: Status: Resolved (2) History of ETOH abuse: Status: Acute (3) Cannabis abuse: Status: Acute (4) History of schizophrenia: Status: Deleted (5) Methamphetamine dependence: Status: Acute (6) Withdrawal from methamphetamine: Status: Resolved (7) Psychosis: Status: Resolved Reason for Visit Reason for Visit: SI Involuntary Hold Information 96 Hour Hold: 96 Hour Involuntary Admission: Yes 96 Hour Hold Ending Date: 04/17/24 96 Hour Hold Ending Time: 10:42 Mental Status Exam MSE Comments: This is an overweight white male in hospital scrubs with limited grooming with eye contact looking older than his stated age.? No abnormal movements except for psychomotor retardation.?Cooperation with exam in mild distress.? Speech was decreased rate and volume.? Mood described as okay, affect congruent and subdued.? Thought process linear.? Thought content: Patient denied active parra icidal or homicidal ideation, there were no delusions reported but mild paranoia noted and he did not report any auditory or visual hallucinations.? Attention and concentration was limited and memory was mostly reliable, but none were formally tested.? He is alert and oriented x3.? Insight and judgment are limited, impulse control is impaired. Discharge Data Studies Completed and Pending: Laboratory Results WBC 9.44 10^3/uL (3.2 9-11.43) 04/10/24 10:35 RBC 5.14 10^6/uL (3.8 5-5.65) 04/10/24 10:35 Hgb 15.50 g/dL (11.27 -16.99) 04/10/24 10:35 Hct 46.2 % (37-53) 04/10/24 10:35 MCV 89.9 fl (82-101) 04/10/24 10:35 MCH 30.2 pg (27-33) 04/10/24 10:35 MCHC 33.5 g/dL (30-55) 04/10/24 10:35 RDW 12.6 % (12.1-15.1 ) 04/10/24 10:35 Plt Count 297 10^3/cmm (157 -399) 04/10/24 10:35 MPV 9.3 fL (7.4-10.4) 04/10/24 10:35 Neut % (Auto) 68.3 % 04/10/24 10:35 Lymph % (Auto) 22.4 % 04/10/24 10:35 Mercer % (Auto) 6.7 % 04/10/24 10:35 Eos % (Auto) 1.3 % 04/10/24 10:35 Baso % (Auto) 0.5 % 04/10/24 10:35 Neut # (Auto) 6.45 10^3/uL (1.8 -7.7) 04/10/24 10:35 Lymph # (Auto) 2.1 10^3/uL (0.8- 4.8) 04/10/24 10:35 Mercer # (Auto) 0.6 10^3/uL (0.2- 0.9) 04/10/24 10:35 Eos # (Auto) 0.1 10^3/uL (0.0- 0.8) 04/10/24 10:35 Baso # (Auto) 0.1 10^3/uL (0.0- 0.1) 04/10/24 10:35 Nucleated RBC % (a uto) 0 % 04/10/24 10:35 Nucleated RBCs # 0.0 /100WBC 04/10/24 10:35 Sodium 139 mmol/L (136-1 45) 04/10/24 10:35 Potassium 3.9 mmol/L (3.5-5 .1) 04/10/24 10:35 Chloride 103 mmol/L (98-10 7) 04/10/24 10:35 Carbon Dioxide 25 mmol/L (22-29) 04/10/24 10:35 Anion Gap 14.9 (5-19) 04/10/24 10:35 BUN 9 mg/dL (6-20) 04/10/24 10:35 Creatinine 0.8 mg/dL (0.7-1. 2) 04/10/24 10:35 GFR Calculation 109.4 mL/min (90- 130) 04/10/24 10:35 Glucose 93 mg/dL (65-115) 04/10/24 10:35 Calculated Osmolal ity 286 mOsm/kg (285- 295) 04/10/24 10:35 Calcium 9.5 mg/dL (8.5-10 .5) 04/10/24 10:35 Total Bilirubin 0.4 mg/dL (0.15-1 .2) 04/10/24 10:35 AST 14 U/L (0-40) 04/10/24 10:35 ALT 16 U/L (0-41) 04/10/24 10:35 Alkaline Phosphata se 71 U/L (40-130) 04/10/24 10:35 Total Protein 7.9 g/dL (6.6-8.7 ) 04/10/24 10:35 Albumin 4.4 g/dL (3.5-5.2 ) 04/10/24 10:35 Globulin 3.5 g/dL (1.3-4.6 ) 04/10/24 10:35 Salicylates < 0.3 mg/dL (3-10 ) L 04/10/24 10:35 Urine Opiates Scre en Negative ng/mL (N egative) 04/10/24 10:30 Acetaminophen < 5.0 ug/mL (10-3 0) L 04/10/24 10:35 Ur Barbiturates Sc reen Negative ng/mL (N egative) 04/10/24 10:30 Ur Phencyclidine S crn Negative ng/mL (N egative) 04/10/24 10:30 Ur Amphetamines Sc reen Negative ng/mL (N egative) 04/10/24 10:30 U Benzodiazepines Scrn Negative ng/mL (N egative) 04/10/24 10:30 Urine Cocaine Scre en Negative ng/mL (N egative) 04/10/24 10:30 U Marijuana (THC) Screen Negative ng/mL (N egative) 04/10/24 10:30 Ethyl Alcohol < 10 mg/dL (0-10) 04/10/24 10:35 Vitals: Last Vital Signs Temp 97.6 F 04/17/24 06:00 Pulse 75 04/17/24 06:00 Resp 16 04/17/24 06:00 BP 114/73 04/17/24 06:00 Pulse Ox 99 04/17/24 06:00 O2 Del Method Room Air 04/17/24 06:00 Discharge Plan Discharge Patient Disposition: Home Condition: Stable Prescriptions: New trazodone 50 mg Tablet 50 mg PO BEDTIME PRN (Reason: Sleep) 30 Days Qty: 30 1RF mirtazapine 15 mg Tablet 15 mg PO BEDTIME 30 Days Qty: 30 1RF Continued gabapentin 400 mg capsule 400 mg PO QID 30 Days Qty: 120 1RF hydroxyzine pamoate 50 mg capsule 50 mg PO TID PRN (Reason: Severe Anxiety) 30 Days Qty: 90 1RF Discharge Orders: Discharge Order (Routine); Ordered 04/17/24 Ordered By: David Lewis Referrals: [facility] [Other] - 04/17/24 [facility] [Outside] - 04/24/24 8:30 am (Initial assessment for services) Discharge Diet: Regular Discharge Activity: Resume usual activity Patient Instructions: Opioid Safety Discharge Attestations NPU Time Spent in Discharge Care*: less than 30 min Specific Discharge Activities: Specific discharge activities: educating patient, discussing with counseling case manager/social workers/dc planners, documenting/other paperwork and evaluating patient/reviewing data Coding Level of Care Code Acute Code for Chg Fwd Diagnoses Suicidal ideation R45.851 History of ETOH abuse F10.11 Cannabis abuse F12.10 History of schizophrenia Z86.59 Methamphetamine dependence F15.20 Withdrawal from methamphetamine F15.23 Psychosis F29
[2024-04-17 10:19] VITALS: BP 114/73; PULSE 75; RESP 16; TEMP 36.4; O2SAT 99
== END 2024-04-17 12:47 | DRG 885 ==
LOC: ER 11:37 → NP 15:32
PROVIDERS: Admitting Provider Psychiatry & Neurology Psychiatry; Emergency Provider Emergency Medicine; Visit Provider Psychiatry & Neurology Psychiatry
DX: F29 Unspecified psychosis not due to a substance or known physiological condition (principal); F15.13 Other stimulant abuse with withdrawal; R45.851 Suicidal ideations; F12.10 Cannabis abuse, uncomplicated; F10.11 Alcohol abuse, in remission; F32.A Depression, unspecified; Z72.0 Tobacco use
CPT/HCPCS: 36415; 80053; 80306; 80307; 85025; 97150; 97165; 99285

== ENCOUNTER 2024-04-20 15:18 | Inpatient (IN) | payer MEDICAID, SELFPAY ==
[2024-04-20 15:21] VITALS: BP 119/76; PULSE 98; RESP 14; TEMP 36.8; O2SAT 96
--- NOTE | 2024-04-20 15:44 | W.ED.PSYCHS ---
Documented by User: ARIEL Gonsales 04/20/24 17:14 HPI - Psych General: Chief Complaint: Psychiatric Symptoms Stated Complaint: SI Time Seen by Provider: 04/20/24 15:24 Source: patient Mode of arrival: ambulatory Limitations: no limitations History of Present Illness: Patient is a 38-year-old male presenting to the emergency department complaining of suicidal ideations onset today. Patient recently was discharged from the [facility] days ago, where he was started on Remeron, trazodone, and gabapentin. He states that he has been taking these but they seem to have not helped as his suicidal thoughts have came back. His plan is still to jump in front of traffic, states he would have done so he did not come in today. He is also reporting some auditory hallucinations, though these are not new and they are intermittent. Denies any homicidal ideations. He states that he was staying at a long term prior to coming in today, states that everything has been okay there. No significant life stressors to report between discharge and now. He states this is his fourth time being evaluated for psychiatric symptoms this year, and he reports significant history of suicidal ideations and attempts. No medical symptoms to report at this time. MD complaint: suicidal ideation Duration: constant and getting worse History of same: Yes Relieving factors: none Exacerbating factors: none Context: new medication(s) and other (Recent psych admission) Associated psychiatric symptoms: auditory hallucinations Associated symptoms: Reports auditory hallucinations, depression and suicidal ideation; Deny visual hallucinations or homicidal ideation If self harm: admits thoughts of self harm and has plan Details of plan: Wants to jump in front of oncoming traffic Review of Systems General: Reports: 10 or more systems reviewed and unremarkable except in HPI and below Const: Denies: fever(s), chills or fatigue Eyes: Denies: change in vision ENMT: Denies: throat pain, ear or mastoid pain or nasal discharge Card: Denies: chest pain, palpitations, swelling of feet/ankles or lightheadedness Resp: Denies: dyspnea, productive cough or wheezing GI: Denies: abdominal pain, nausea, vomiting, diarrhea or constipation : Denies: flank pain, difficulty urinating, dysuria or urinary frequency Musc: Denies: neck pain, back pain or joint pain Skin/Breast: Denies: rash Neuro: Denies: headache(s), numbness in extremities or weakness in extremities Psych: Reports: depression, auditory hallucinations and suicidal ideation; Denies: visual hallucinations, tactile hallucinations or homicidal ideation PFSH ED PFSH: Medical History Cannabis abuse Methamphetamine dependence Social History Smoking and tobacco/nicotine status: current every day tobacco/nicotine user Alcohol intake: current Alcohol intake frequency: 3 or more drinks per day Substance/Drug Use: current Substance/Drug use frequency: daily Physical Exam Const: COMMON NORMALS: no acute distress, patient oriented x3 and no limitations GENERAL APPEARANCE: cooperative, comfortable and well developed ORIENTATION/CONSCIOUSNESS: Yes awake, Yes oriented to person, Yes oriented to place and Yes oriented to time HENMT: COMMON NORMALS: normocephalic, atraumatic and hearing grossly normal bilaterally HEAD & SCALP: normocephalic and atraumatic Eye: COMMON NORMALS: Equal, round and reactive pupils present, EOMs intact bilaterally and conjunctivae normal CONJUNCTIVA: Yes conjunctivae normal PUPIL: Yes Equal, round and reactive pupils present Neck/C-Spine: COMMON NORMALS: full ROM, supple and no JVD Resp: COMMON NORMALS: normal respiratory effort, No retractions, No use of accessory muscles and clear to auscultation bilaterally AUSCULTATION: clear to auscultation bilaterally Cardio: COMMON NORMALS: no JVD, regular rate, regular rhythm, No clicks present (Cardio), No murmurs present (Cardio) and No rub (Cardio) RATE: regular rate RHYTHM: regular rhythm GI: COMMON NORMALS: Normal to inspection, nondistended, normoactive bowel sounds present, Soft to palpation and non-tender AUSCULTATION: Yes normoactive bowel sounds PALPATION: Yes Soft to palpation RECTAL EXAM: Yes deferred Extremity: COMMON NORMALS: normal to inspection, full ROM and capillary refill normal Neuro: COMMON NORMALS: patient oriented x3, CN's II-XII intact bilaterally, moves all extremities, no focal motor deficits and no sensory deficits noted SENSORIUM/ORIENTATION: Yes oriented to person, Yes oriented to place and Yes oriented to time Psych: COMMON NORMALS: mental status grossly normal and Normal thought process present THOUGHT PROCESS: Normal thought process present Skin: COMMON NORMALS: no rashes or lesions noted GENERAL SKIN EXAM: no rashes or lesions noted Course Vital Signs: Vital signs: Vital Signs Temperature 98.2 F 04/20/24 15:21 Pulse Rate 98 04/20/24 15:21 Respiratory Rate 14 04/20/24 15:21 Blood Pressure 119/76 04/20/24 15:21 Pulse Oximetry 96 04/20/24 15:21 Oxygen Delivery Me thod Room Air 04/20/24 15:21 MDM - Psych Medical Decision Making Patient admitted for inpatient psychiatric care to Dr. Barlow. Cleared medically. Lab Data 04/20/24 16:35 04/20/24 16:35 Laboratory Results WBC 8.57 10^3/uL (3.29-11.43) 04/20/24 16:35 RBC 4.53 10^6/uL (3.85-5.65) 04/20/24 16:35 Hgb 13.50 g/dL (11.27-16.99) 04/20/24 16:35 Hct 40.7 % (37-53) 04/20/24 16:35 MCV 89.8 fl (82-101) 04/20/24 16:35 MCH 29.8 pg (27-33) 04/20/24 16:35 MCHC 33.2 g/dL (30-55) 04/20/24 16:35 RDW 12.7 % (12.1-15.1) 04/20/24 16:35 Plt Count 220 10^3/cmm (157-399) 04/20/24 16:35 MPV 9.3 fL (7.4-10.4) 04/20/24 16:35 Neut % (Auto) 71.4 % 04/20/24 16:35 Lymph % (Auto) 21.8 % 04/20/24 16:35 [place] % (Auto) 5.1 % 04/20/24 16:35 Eos % (Auto) 0.8 % 04/20/24 16:35 Baso % (Auto) 0.4 % 04/20/24 16:35 Neut # (Auto) 6.12 10^3/uL (1.8-7.7) 04/20/24 16:35 Lymph # (Auto) 1.9 10^3/uL (0.8-4.8) 04/20/24 16:35 [place] # (Auto) 0.4 10^3/uL (0.2-0.9) 04/20/24 16:35 Eos # (Auto) 0.1 10^3/uL (0.0-0.8) 04/20/24 16:35 Baso # (Auto) 0.0 10^3/uL (0.0-0.1) 04/20/24 16:35 Nucleated RBC % (auto) 0 % 04/20/24 16:35 Nucleated RBCs # 0.0 /100WBC 04/20/24 16:35 Sodium 137 mmol/L (136-145) 04/20/24 16:35 Potassium 3.1 mmol/L (3.5-5.1) L 04/20/24 16:35 Chloride 102 mmol/L (98-107) 04/20/24 16:35 Carbon Dioxide 24 mmol/L (22-29) 04/20/24 16:35 Anion Gap 14.1 (5-19) 04/20/24 16:35 BUN 13 mg/dL (6-20) 04/20/24 16:35 Creatinine 0.7 mg/dL (0.7-1.2) 04/20/24 16:35 GFR Calculation 127.6 mL/min (90-130) 04/20/24 16:35 Glucose 152 mg/dL (65-115) H 04/20/24 16:35 Calculated Osmolality 287 mOsm/kg (285-295) 04/20/24 16:35 Calcium 8.7 mg/dL (8.5-10.5) 04/20/24 16:35 Total Bilirubin 0.5 mg/dL (0.15-1.2) 04/20/24 16:35 AST 16 U/L (0-40) 04/20/24 16:35 ALT 19 U/L (0-41) 04/20/24 16:35 Alkaline Phosphatase 59 U/L (40-130) 04/20/24 16:35 Total Protein 7.0 g/dL (6.6-8.7) 04/20/24 16:35 Albumin 4.1 g/dL (3.5-5.2) 04/20/24 16:35 Globulin 2.9 g/dL (1.3-4.6) 04/20/24 16:35 Salicylates < 0.3 mg/dL (3-10) L 04/20/24 16:35 Urine Opiates Screen Negative ng/mL (Negative) 04/20/24 15:30 Acetaminophen < 5.0 ug/mL (10-30) L 04/20/24 16:35 Ur Barbiturates Screen Negative ng/mL (Negative) 04/20/24 15:30 Ur Phencyclidine Scrn Negative ng/mL (Negative) 04/20/24 15:30 Ur Amphetamines Screen Negative ng/mL (Negative) 04/20/24 15:30 U Benzodiazepines Scrn Negative ng/mL (Negative) 04/20/24 15:30 Urine Cocaine Screen Negative ng/mL (Negative) 04/20/24 15:30 U Marijuana (THC) Screen Positive ng/mL (Negative) H 04/20/24 15:30 Ethyl Alcohol < 10 mg/dL (0-10) 04/20/24 16:35 No radiology studies performed this visit Discharge Plan Discharge Patient Disposition: Admitted As Inpatient Clinical Impression: Suicidal ideation Condition: Stable Coding Level of Care Code ED Aeronautical Test Engineer for Chg Fwd Documented by User: Donny Henning DO 04/20/24 17:27 HPI - Psych General: Chief Complaint: Psychiatric Symptoms Stated Complaint: SI Time Seen by Provider: 04/20/24 15:24 [facility] ED PFSH: Medical History Cannabis abuse Methamphetamine dependence Social History Smoking and tobacco/nicotine status: current every day tobacco/nicotine user Alcohol intake: current Alcohol intake frequency: 3 or more drinks per day Substance/Drug Use: current Substance/Drug use frequency: daily Course Vital Signs: Vital signs: Vital Signs Temperature 98.2 F 04/20/24 15:21 Pulse Rate 98 04/20/24 15:21 Respiratory Rate 14 04/20/24 15:21 Blood Pressure 119/76 04/20/24 15:21 Pulse Oximetry 96 04/20/24 15:21 Oxygen Delivery Me thod Room Air 04/20/24 15:21 MDM - Psych Medical Decision Making Patient admitted for inpatient psychiatric care to Dr. Barlow. Cleared medically. Chart reviewed and patient discussed with midlevel. Agree with assessment and plan. Lab Data 04/20/24 16:35 04/20/24 16:35 Laboratory Results WBC 8.57 10^3/uL (3.29-11.43) 04/20/24 16:35 RBC 4.53 10^6/uL (3.85-5.65) 04/20/24 16:35 Hgb 13.50 g/dL (11.27-16.99) 04/20/24 16:35 Hct 40.7 % (37-53) 04/20/24 16:35 MCV 89.8 fl (82-101) 04/20/24 16:35 MCH 29.8 pg (27-33) 04/20/24 16:35 MCHC 33.2 g/dL (30-55) 04/20/24 16:35 RDW 12.7 % (12.1-15.1) 04/20/24 16:35 Plt Count 220 10^3/cmm (157-399) 04/20/24 16:35 MPV 9.3 fL (7.4-10.4) 04/20/24 16:35 Neut % (Auto) 71.4 % 04/20/24 16:35 Lymph % (Auto) 21.8 % 04/20/24 16:35 [place] % (Auto) 5.1 % 04/20/24 16:35 Eos % (Auto) 0.8 % 04/20/24 16:35 Baso % (Auto) 0.4 % 04/20/24 16:35 Neut # (Auto) 6.12 10^3/uL (1.8-7.7) 04/20/24 16:35 Lymph # (Auto) 1.9 10^3/uL (0.8-4.8) 04/20/24 16:35 [place] # (Auto) 0.4 10^3/uL (0.2-0.9) 04/20/24 16:35 Eos # (Auto) 0.1 10^3/uL (0.0-0.8) 04/20/24 16:35 Baso # (Auto) 0.0 10^3/uL (0.0-0.1) 04/20/24 16:35 Nucleated RBC % (auto) 0 % 04/20/24 16:35 Nucleated RBCs # 0.0 /100WBC 04/20/24 16:35 Sodium 137 mmol/L (136-145) 04/20/24 16:35 Potassium 3.1 mmol/L (3.5-5.1) L 04/20/24 16:35 Chloride 102 mmol/L (98-107) 04/20/24 16:35 Carbon Dioxide 24 mmol/L (22-29) 04/20/24 16:35 Anion Gap 14.1 (5-19) 04/20/24 16:35 BUN 13 mg/dL (6-20) 04/20/24 16:35 Creatinine 0.7 mg/dL (0.7-1.2) 04/20/24 16:35 GFR Calculation 127.6 mL/min (90-130) 04/20/24 16:35 Glucose 152 mg/dL (65-115) H 04/20/24 16:35 Calculated Osmolality 287 mOsm/kg (285-295) 04/20/24 16:35 Calcium 8.7 mg/dL (8.5-10.5) 04/20/24 16:35 Total Bilirubin 0.5 mg/dL (0.15-1.2) 04/20/24 16:35 AST 16 U/L (0-40) 04/20/24 16:35 ALT 19 U/L (0-41) 04/20/24 16:35 Alkaline Phosphatase 59 U/L (40-130) 04/20/24 16:35 Total Protein 7.0 g/dL (6.6-8.7) 04/20/24 16:35 Albumin 4.1 g/dL (3.5-5.2) 04/20/24 16:35 Globulin 2.9 g/dL (1.3-4.6) 04/20/24 16:35 Salicylates < 0.3 mg/dL (3-10) L 04/20/24 16:35 Urine Opiates Screen Negative ng/mL (Negative) 04/20/24 15:30 Acetaminophen < 5.0 ug/mL (10-30) L 04/20/24 16:35 Ur Barbiturates Screen Negative ng/mL (Negative) 04/20/24 15:30 Ur Phencyclidine Scrn Negative ng/mL (Negative) 04/20/24 15:30 Ur Amphetamines Screen Negative ng/mL (Negative) 04/20/24 15:30 U Benzodiazepines Scrn Negative ng/mL (Negative) 04/20/24 15:30 Urine Cocaine Screen Negative ng/mL (Negative) 04/20/24 15:30 U Marijuana (THC) Screen Positive ng/mL (Negative) H 04/20/24 15:30 Ethyl Alcohol < 10 mg/dL (0-10) 04/20/24 16:35 Discharge Plan Discharge Patient Disposition: Admitted As Inpatient Clinical Impression: Suicidal ideation Condition: Stable Coding Level of Care Code ED Aeronautical Test Engineer for Reji Mckeon
[2024-04-20 16:42] LABS: Basophils % 0.4 %; Eosinophils # 0.1 10^3/uL (0.0-0.8); Eosinophils % 0.8 %; Hematocrit 40.7 % (37-53); Lymphocytes # 1.9 10^3/uL (0.8-4.8); Lymphocytes % 21.8 %; Mean Corpuscular HGB Conc 33.2 g/dL (30-55); Mean Corpuscular Hemoglobin 29.8 pg (27-33); Mean Corpuscular Volume 89.8 fl (82-101); Mean Platelet Volume 9.3 fL (7.4-10.4); Monocytes # 0.4 10^3/uL (0.2-0.9); Monocytes % 5.1 %; Neutrophils # 6.12 10^3/uL (1.8-7.7); Neutrophils % 71.4 %; Nucleated Red Blood Cells % 0 %; Platelet Count 220 10^3/cmm (157-399); Red Blood Count 4.53 10^6/uL (3.85-5.65); Red Cell Distribution Width 12.7 % (12.1-15.1); White Blood Count 8.57 10^3/uL (3.29-11.43)
[2024-04-20 16:48] LABS: Amphetamines Screen Urine Negative (Negative); Barbiturates Screen Urine Negative (Negative); Benzodiazepines Screen Urine Negative (Negative); Cocaine Screen Urine Negative (Negative); Opiate Screen Urine Negative (Negative); PCP Screen Urine Negative (Negative); THC Screen Urine Positive (Negative)
[2024-04-20 17:00] LABS: Alanine Aminotransferase 19 U/L (0-41); Albumin Level 4.1 g/dL (3.5-5.2); Alkaline Phosphatase 59 U/L (40-130); Anion Gap 14.1 (5-19); Aspartate Amino Transferase 16 U/L (0-40); Blood Urea Nitrogen 13 mg/dL (6-20); Calcium 8.7 mg/dL (8.5-10.5); Carbon Dioxide 24 mmol/L (22-29); Chloride 102 mmol/L (98-107); Creatinine Clr Calc Pharmacy 163.3081; Globulin 2.9 g/dL (1.3-4.6); Glomerular Filtration Rate 127.6 mL/min (90-130); Glucose 152 mg/dL (65-115); Osmolality Calculated 287 mOsm/kg (285-295); Potassium 3.1 mmol/L (3.5-5.1); Sodium 137 mmol/L (136-145); Total Bilirubin 0.5 mg/dL (0.15-1.2)
[2024-04-20 17:03] LABS: Acetaminophen < 5.0 ug/mL (10-30); Alcohol Level < 10 mg/dL (0-10); Salicylate < 0.3 mg/dL (3-10)
[2024-04-20 17:57] VITALS: BP 111/70; PULSE 73; RESP 17; O2SAT 98
[2024-04-20 18:26] VITALS: BP 122/73; PULSE 89; RESP 17; TEMP 36.6; O2SAT 97
--- NOTE | 2024-04-20 18:47 | PC.NURSE ---
Patient presented to our ER with complaint of SI and thoughts to walk into traffic. He says this has been ongoing since he left our facility on 04/17/24. He said he began feeling suicidal again because his anxiety is through the roof and he wasn't prescribed anything for anxiety. However, this RN noted that he was prescribed vistaril prn for anxiety when he left. Patient denies hi and vh, but does endorse ah. He says he hears light voices telling him negative things. Patient pacing the room during assessment and answers questions very quickly.
[2024-04-20 20:06] VITALS: BP 114/70; PULSE 75; RESP 16; TEMP 36.6; O2SAT 98
[2024-04-21 06:00] VITALS: BP 116/65; PULSE 73; RESP 17; O2SAT 98
[2024-04-21] MEDS: nicotine 4 mg lozenge MUCOUS MEM (10:37)
[2024-04-21 14:00] VITALS: BP 118/81; PULSE 93; RESP 17; TEMP 36.6; O2SAT 96
--- NOTE | 2024-04-21 17:30 | P.NPUHP_ITS ---
Providers/Chief Complaint 2 Admitting Physician: Bautista Sheth MD Chief Complaint: SI HPI NPU History of Present Illness Alfonzo Kee is a 38 year old male with a history of methamphetamine dependence, and depression recently discharged from the neuropsychiatric unit here in [place] on 04/17/2024. The patient reports that he was sent to an SOC to live and reported that he continued to report feeling extremely depressed and stated that he had suicidal thoughts with a plan to jump out in front of traffic. He had requested a change in medications as he stated that the Remeron, trazodone, and gabapentin had not been helpful. He denied any psychotic symptoms. He had reported having more intense thoughts of suicide and states that there have been no recent worsening stressors but he still continues to feel hopeless and worthless. He reports that he has struggled with sleep. He reports finding little pleasure in completing any previously pleasurable activities. He reports no cravings or use of methamphetamine but reports continued use of marijuana. He had expressed desire to consider substance abuse rehabilitation to help him maintain sobriety. The patient reports no substantial changes in stressors or symptoms since his last hospitalization less than 1 week ago here on the neuropsychiatric unit. UDS was positive for THC only. Current Medications: Gabapentin 400 mg qid, Remeron 15mg at night, trazodone 50mg at night, hydroxyzine 50mg prn. Excerpt from NPU discharge summary on 04/17/2024 History of Present Illness Alfonzo Kee is a 38 year old male who presented to the emergency department with the following report: Chief Complaint: Psychiatric Symptoms Stated Complaint: SI Time Seen by Provider: 04/10/24 10:18 Source: patient Mode of arrival: ambulatory Limitations: no limitations History of Present Illness: 38-year-old male has a history of depression and SI along with EtOH and meth abuse he states that he has been out of his psych meds for months since having increasing depression states he has been having some subtle thoughts as well he states he just does not feel like living anymore. Associated symptoms: Reports depression and suicidal ideation. He was admitted to the neuropsychiatric unit for definitive treatment of those issues. He is known to this typewriter mechanic through past inpatient hospitalizations the last of which was about a year ago. An excerpt of that discharge summary is included below for context. He presents today reporting that after he discharged from here about a year ago he went to the [facility]. He reports that he had not done very well during that time and was really continuing to struggle with his addiction. He reports that he did go to [facility] and had been on medications for about a month ago but he is going to go to a program in [place] for sober living that did not allow you to take medication and so he went off of his medication which he believes were Neurontin Latuda and Remeron. He reports however that off the medication he just did not do well from a mental health standpoint and the combination of that and his struggles with his sobriety things are getting pretty [id number]. He reports that he was mostly homeless during that time and has just had limited success over this time since we last saw him. He gave this typewriter mechanic permission to research the specifics of his doses and try to restart all or some of those medications appropriately. He worked with the social work team to identify some sober living options and he is filled out some applications. We discussed the risks, benefits and alternatives of this plan of restarting medication and getting into rehab and he understood and agreed to proceed as is documented in this note. Per his 03/27/2023 [facility] inpatient psychiatric discharge summary: Discharge Diagnosis (1) Suicidal ideation: Status: Resolved (2) History of ETOH abuse: Status: Acute (3) Cannabis abuse: Status: Acute (4) History of schizophrenia: Status: Acute (5) Methamphetamine dependence: Status: Acute (6) Withdrawal from methamphetamine: Status: Acute (7) Psychosis: Status: Acute (8) Homicidal ideation: Status: Acute Reason for Visit Reason for Visit: OD Brief History: History of Present Illness Alfonzo Kee is a 37 year old male who presented to the emergency department with the following report: Chief Complaint: Overdose Stated Complaint: OD Time Seen by Provider: 03/22/23 03:01 Source: EMS Mode of arrival: EMS Limitations: altered mental status History of Present Illness: 37-year-old male who had admitted to using crystal meth tonight he went to the police station he started acting erratic EMS was called him and states that he became slightly combative he was hallucinating saying he wanted to kill himself I did have to sedate him in route with Versed. Patient is currently sedated unable answer any questions at this time. No known injuries He was admitted to the neuropsychiatric unit for definitive treatment of those issues. He states today fairly lethargic. He was seen up a couple times after getting to the unit about 10:00 this morning. He did eat but was very quick to be sleeping consistent with his history of methamphetamine addiction. He presents today acknowledging that his erratic behavior identified him as is likely a consequence of his methamphetamine use. A UDS was not done in the emergency department, but will be obtained as soon as we need to get his compliance. He was a fairly poor historian at times unable to be located and other times sleep during answers. This likely secondary to the combination of the Versed given to him in to the hospital as well as methamphetamine withdrawal. An excerpt of his last discharge summary of his November 2021 hospitalization is included below for context in his lack of ability as a historian. He did speak to the social work team briefly in a similar situation acknowledging his addiction and openness to rehab treatment. Attempted to review with him the possibility of an antipsychotic for his psychosis/hallucinations and aggression but he was unable to respond. Per his 12/19/2021 [facility] inpatient psychiatric discharge summary: Discharge Diagnosis (1) Suicidal ideation: Status: Resolved (2) History of ETOH abuse: Status: Acute (3) Cannabis abuse: Status: Acute (4) History of schizophrenia: Status: Acute (5) Methamphetamine dependence: Status: Acute (6) Withdrawal from methamphetamine: Status: Acute Reason for Visit Reason for Visit: SI Brief History: History of Present Illness Alfonzo Kee is a 36 year old male who presented to the emergency department with the following report: Chief Complaint: Psychiatric Symptoms Stated Complaint: SI Time Seen by Provider: 12/16/21 16:03 Source: patient Mode of arrival: EMS History of Present Illness: 36-year-old male presents emergency room with unusual behavior. Evidently he was found sleeping under a picnic table he admits he is intoxicated his last drink was about 4 hours ago when he last used methamphetamines yesterday. Many questions he answers with bizarre tangential thinking. He admits to previous admissions to psychiatry. Patient does state he sometimes thinks about harming himself or others. He does not express a current plan. Denies any recent illness. Patient was seen in the ER yesterday for concerns about COVID. Clinically he was fine. He expressed desire to be evaluated on the psychiatry unit he denied any suicidal homicidal ideation at that time. MD complaint: suicidal ideation, feels depressed and altered mental status Onset (ago): hour(s) Duration: constant History of same: Yes Relieving factors: none Exacerbating factors: alcohol and drug use Context: recent alcohol abuse and recent drug abuse Associated psychiatric symptoms: depression, suicidal ideation and homicidal ideation Associated symptoms: Reports delusions, depression, homicidal ideation and suicidal ideation; Deny auditory hallucinations or visual hallucinations Treatments prior to arrival: none If self harm: admits thoughts of self harm He was admitted to the neuropsychiatric unit for definitive treatment of those issues. He presents today as a limited historian with significant irritability. He reports that after he left the hospital he did not refill his medication. He reports that he has continued to struggle with his addiction and has reached the point where he feels like life is not worth living if he can get his drinking and other drug use under control. He endorses recent alcohol and methamphetamine use as stated above and work with the social work team today on possible sober living inpatient services that might be available. We discussed the risk-benefit alternatives of restarting medication and he understood but not already on starting medication. He was fairly irritable and resistant answer questions however we did review his recent hospitalization information which he endorsed to be an accurate representation of his history. An excerpt of his last stay is included below for context. Per his 01/19/2021 [facility] inpatient psychiatric evaluation: History of Present Illness Alfonzo Kee is a 35 year old male who presented to the emergency department with the following report: Chief Complaint: Trauma Stated Complaint: TRAUMA, ETOH INTOX Time Seen by Provider: 01/18/21 16:13 History of Present Illness: HPI narrative: The patient is a 35-year-old male who comes to the ER after being found in a ditch eating mud. He is brought in for psych evaluation. He admits using methamphetamine as well in the ER and possibly drinking alcohol as well. He is visibly looking in the corner of the room and talking to someone. There is no one there. Has a swollen lower lip but will not let me examine him further. Likely he fell but unknown he is not giving a reasonable history. He says he was eating the dirt because he was hungry. I said we will feed him. Nurse washed the mud out of his mouth. Associated symptoms: Denies abdominal pain, back pain, chest pain, confusion, dizziness or headache(s). He was admitted to the neuropsychiatric unit for definitive treatment of those issues. He presents today as a fairly poor historian reporting that he is really unclear as to why the police apprehended him. We discussed the fact that he was found laying down in the mud reportedly eating mud and he reports that they were following him and he where his car was and where he was which is not how the reports return. He was very resistant to the idea of his addiction playing a role in his presentation. He reports that his psychiatric treatment started with inpatient hospitalizations many years ago he reports many stays as much as 13 but the last one being about 2 years ago. He has had several stays here at [facility] with 1 about 2 years ago and excerpt of which is included below. He denies really having outpatient services medication and follow-up with any consistency. He denies suicide attempts. He reports that he smokes a half to a pack a day, drinks alcohol every once in a while, reports marijuana use daily and endorses only methamphetamine from a standpoint of other illicit drug use. He reports he been to rehab a couple of times and had a DUI last in 2007. He told a very convoluted story about [place] getting [place] one side but then really could get no clear story or context for why he was found the way he was. He then turned to [facility] and started talking about how doctors implant tips and tips of implanted inside of him. A friend that this typewriter mechanic does and when this typewriter mechanic denied putting chips and people in my career he then said that although I might not do that I am fully aware that the hospital and other doctors do and that [facility] did that to him. Psychiatric history: As above. Substance abuse history: As above. Family history: He denies any mental health, addiction or suicide attempts or completions in his family. Developmental history: He denies any issues with his mother's with him or his or delivery. Does endorse developmental delays, and reports that he went to school he needed speech therapy, learning support, emotional support and special education classes. Psychosocial history: Reports his mother and father were together when he was born but he the only product of that union. He reports his mother had 3 children through a different relationship and that his father had 4 children through a different relationship. He reports his childhood was rough and he denied any emotional physical or sexual abuse he reports that he did not speak he was about 7 years old but that someone keep an eye on him because of him being determined that terroristic threat at . He endorses graduating from high school in 2005 endorses being a heterosexual and is always related to being 10 years. Endorses he is been 1 time and once endorses having 4 children ages 1-8 2 boys and 2 girls, he denies being in the or having any adventism belief system. He reports his longest job is 5 years at [employer]. He reports he lives in a house alone. Legal history: He reports that he been to [facility] several times the longest time being 3 to 4 years. Medical history: He see ED note for full details. Per his 01/17/2018 [facility] inpatient psychiatric eval: History of Present Illness Date of Service: Jan 17, 2018 Chief Complaint: Me and my got into a little argument. HPI: Mr. Kee is a 32-year-old male who is admitted from the ED on a 96 hour hold after presenting there agitated with vaguely reported possible suicidal ideation. The patient reports that he had an argument with his last night over his relapse on methamphetamines and she kicked him out of the house. Pt reports that he just needed a place a stay so I checked myself in. He apparently was asked if he was feeling suicidal and refused to answer but then later reports he told the physician that he was not suicidal but he reports they had already documented that he was suicidal and he was told he had to come for a psychiatric evaluation. The patient states it was really silly, and I am sorry for that. He reports that he had been over 2 years and relapsed 3 weeks ago but denies IVDU. He reports that he has used marijuana occasionally but denies using that for some time although his drug screen is positive. He reports only occasionally drinking alcohol but denies that he has a substance use issue with that. He reports that he had been having some stress as he and his recently bought a new trailer home which they're supposed to be moving in the next couple of days and they also have a 3month old baby and 2 other young children. He works full-time. He reports that his relapse was a mistake but he is planning to return to AA meetings at his [facility] and is willing to accept a [facility] chemical dependency treatment referral as well. The patient reports that his mood recently has been great prior to the relapse with some general anxiety. He reports that he did continue to take psychotropic medications since his last admission to the NPU in August 2017 for 3 months. He reports he went to [facility] but did not like the way they treated him there so he subsequently was receiving refills from his primary care physician Dr. West Schneider and discontinued the medication approximately one month ago. The patient did not feel like it was very helpful but his was contacted by phone for collateral information during the interview on conference call per patient's consent stated that she felt he was 100% better when he was still taking medication. The patient was agreeable to returning to his primary care physician to obtain another refill. The patient's has no concerns with him returning home. She denies that he is made any suicidal comments or has any other concerning behaviors besides the recent drug relapse. The patient reports that he does have a history of intermittent auditory hallucinations in the past but reports he has not had any significant symptoms for the past 1 year, especially when sober from meth. He denies any recent auditory hallucinations/visual hallucinations/paranoia. Denies any irritability or homicidal ideation. He denies depression/anhedonia/sleep/appetite problems. He does endorse some anxiety related to stressors but feels this is overall manageable with his normal coping mechanisms such as jogging and staying busy at work. He is remorseful for his recent drug relapse but declines any inpatient chemical dependency treatment. Past Medical History Past Medical History: PAST PSYCHIATRIC HISTORY: -Last admission to the NPU was in 08/2017, and prior in 2014 -Past dx psychosis unspecified and methamphetamine abuse as well as some prior documented history of chronic paranoid schizophrenia, and benzodiazepine dependence Patient denies any history of suicide attempt. Past medications which were effective per his included Zoloft and Zyprexa. PAST FAMILY PSYCHIATRIC HISTORY: -Denies FH drug abuse or mental illness. 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 Denies any current legal problems, past 8 years ago pawned tools in detention X3 years. Endorses using meth but denies other drugs initially but then admits to occasional marijuana and opiate use as well. He denies any intravenous use however. Smokes 2PPD, occasional alcohol. He denies Prior treatment through his [facility] and [facility] when younger. PAST MEDICAL HISTORY: -healthy, denies head injuries/ seizures/ surgeries. Hospital Course He slowly acclimated to the individual, group and milieu therapies provided. He was similar to previous hospitalizations and fairly resistant to intervention. It certainly raised the question of whether we are dealing with psychosis possibly related to addiction as a primary entity or whether malingering was a significant aspect based on his behavior at times. He was initially resistant and withdrawn from treatment and interactions and then demanding of what he should get and what we should do. He had modest improvement during the hospitalization and was able to contract for safety outside the hospital prior to discharge. During the hospitalization, patient had routine laboratory studies which were within normal limits except for few outliers. Additionally there was a general medical evaluation which was also within normal limits and revealed no new acute processes. Discharge Summary: At the time of discharge, lethality was denied and psychosis was resolving. Mood and anxiety were well managed. Patient endorsed a plan to avoid all drugs of abuse and follow-up with the aftercare recommendations of the treatment team. Patient was evaluated and deemed to be absent credible lethality, and had achieved the maximum benefit from an inpatient hospitalization, so was discharged. Hospital Course During the hospitalization, patient had routine laboratory studies which were within normal limits except for few outliers. Additionally there was a general medical evaluation which was also within normal limits and revealed no new acute processes. At the time of discharge, lethality was denied and psychosis was resolving. Mood and anxiety were well managed. Patient endorsed a plan to avoid all drugs of abuse and follow-up with the aftercare recommendations of the treatment team. Patient was evaluated and deemed to be absent credible lethality, and had achieved the maximum benefit from an inpatient hospitalization, so was discharged. Patient had refused any form of inpatient treatment and was given options regarding specific virtual programs to target his problems with methamphetamine abuse. New trazodone 50 mg Tablet 50 mg PO BEDTIME PRN (Reason: Sleep) 30 Days Qty: 30 1RF mirtazapine 15 mg Tablet 15 mg PO BEDTIME 30 Days Qty: 30 1RF Continued gabapentin 400 mg capsule 400 mg PO QID 30 Days Qty: 120 1RF hydroxyzine pamoate 50 mg capsule 50 mg PO TID PRN (Reason: Severe Anxiety) 30 Days Qty: 90 1RF Meds NPU Home Medications Medication Instructions Recorded Confirmed Last Taken Type gabapentin 400 mg capsule 400 mg PO QID 30 days #120 caps 04/17/24 04/20/24 Unknown Rx hydroxyzine pamoate 50 mg capsule 50 mg PO TID PRN Severe Anxiety 30 04/17/24 04/20/24 Unknown Rx days #90 caps mirtazapine 15 mg tablet 15 mg PO BEDTIME 30 days #30 tabs 04/17/24 04/20/24 Unknown Rx trazodone 50 mg tablet 50 mg PO BEDTIME PRN Sleep 30 days 04/17/24 04/20/24 Unknown Rx #30 tabs Allergies Allergy/AdvReac Type Severity Reaction Status Date / Time No Known Allergies Allergy Verified 03/22/23 03:02 PFSH NPU 2 PFSH: Medical History Cannabis abuse Methamphetamine dependence Social History Smoking and tobacco/nicotine status: current every day tobacco/nicotine user Alcohol intake: current Alcohol intake frequency: 3 or more drinks per day Substance/Drug Use: current Substance/Drug use frequency: daily Mental Status Exam 2 MSE Comments: This is an overweight white male in hospital scrubs with limited grooming with eye contact looking older than his stated age.? No abnormal movements except for psychomotor retardation.?He was cooperative with exam in mild distress.? Speech was decreased in rate and normal in volume.? Mood described as depressed. His affect was mood congruent restricted. ? Thought process was linear.? Thought content: Patient endorsed suicidal ideation with plan to jump into traffic. There were no delusions reported but mild paranoia noted and he did not report any auditory or visual hallucinations.? Attention and concentration was limited and memory was mostly reliable, but none were formally tested.? He is alert and oriented x3.? Insight and judgment are limited. His impulse control is impaired. Vitals/I&O/Wt Last Vital Signs Temp 97.8 F 04/21/24 14:00 Pulse 93 04/21/24 14:00 Resp 17 04/21/24 14:00 BP 118/81 04/21/24 14:00 Pulse Ox 96 04/21/24 14:00 O2 Del Method Room Air 04/20/24 18:27 Weight last 48 hrs Weight 95.254 kg Weight 95.254 kg Data NPU 04/20/24 16:35 04/20/24 16:35 A&P Assessment and plan (1) Depression, unspecified: (2) Suicidal ideation: (3) History of ETOH abuse: (4) Cannabis abuse: (5) History of schizophrenia: (6) Methamphetamine dependence: Plan This is a 38-year-old white male with a significant history of mental health and addiction issues who presents with continued depression and suicidality in the absence of illicit substance abuse with history of psychosis endorsing a desire to change his medications but desirous of substance abuse treatment. 1. Restart gabapentin as prescribed. D/C remeron, d/c trazodone, begin zoloft 25mg daily and seroquel 50mg at night. 2. Continue every 15 minute checks for safety. 3. Encourage individual, group and milieu therapies. 4. Encourage sober living treatment after discharge at the highest level of care to which he is willing to commit. Involuntary Hold Information 2 96 Hour Hold: 96 Hour Involuntary Admission: No Attestations NPU 2 Medical Necessity Statement*: Inpatient hospitalization is medically necessary and the clinically appropriate intervention at this time. We will monitor medication to make changes as indicated. Patient will be in the hospital for over two midnights. His likely length of stay 4-6 days. Coding Level of Care Code Acute Code for [facility] Diagnoses Depression, unspecified F32.A Suicidal ideation R45.851 History of ETOH abuse F10.11 Cannabis abuse F12.10 History of schizophrenia Z86.59 Methamphetamine dependence F15.20
[2024-04-21] MEDS: sertraline 50 mg Tablet 25 MG PO (17:53)
[2024-04-21 19:43] VITALS: BP 113/79; PULSE 80; RESP 17; TEMP 36.6; O2SAT 96
[2024-04-21] MEDS: trazodone 50 mg Tablet PO (20:41)
[2024-04-21] MEDS: quetiapine 25 mg Tablet 50 MG PO (20:41)
[2024-04-22 06:00] VITALS: BP 99/62; PULSE 67; RESP 17; O2SAT 98
[2024-04-22] MEDS: sertraline 50 mg Tablet 25 MG PO (09:35)
[2024-04-22] MEDS: nicotine 4 mg lozenge MUCOUS MEM ×2 (11:36→14:24)
[2024-04-22 13:46] VITALS: BP 117/80; PULSE 107; RESP 17; TEMP 36.5; O2SAT 96
--- NOTE | 2024-04-22 17:04 | P.NPUPN_ITS ---
Subjective NPU 2 Subjective: Patient is a 38-year-old male who reported an extended history of methamphetamine abuse and reports increased depression since he stopped using methamphetamine several weeks ago. He had described having used methamphetamine since the age of 17. He had reported a past history of psychosis and paranoia with the methamphetamine use but reported that his depression had been much more severe in the last few months. He had reported a prior history of ADHD and stated that he had used stimulants to help him with concentration and focus in his childhood and reported that methamphetamine use had helped him with his focus in the past. He had reported some desire to remain off of methamphetamine but continues with complaint of low energy and low motivation. He had expressed interest in potential incentive sized programs digitally to treat methamphetamine use. He had reported extended history of trials of inpatient substance abuse rehabilitation as well. He had reported that he continued to have occasional periods of hearing other people and increased agitation and paranoia and was agreeable to treatment with medications to help manage this problem as well. Mental Status Exam 2 MSE Comments: This is an overweight white male in hospital scrubs with limited grooming with eye contact looking older than his stated age.? No abnormal movements except for severe psychomotor retardation.?He was cooperative with exam in mild distress.? Speech was normal in rate and normal in volume.? Mood described as depressed. His affect was mood congruent and restricted. ? Thought process was linear.? Thought content: Patient endorsed fleeting suicidal ideation with plan to jump into traffic. There were no delusions reported but mild paranoia noted and he did not report any auditory or visual hallucinations.? Attention and concentration was limited and memory was mostly reliable, but none were formally tested.? He is alert and oriented x3.? Insight and judgment are limited. His impulse control is impaired. Vitals/I&O/Wt Last Vital Signs Temp 97.7 F 04/22/24 13:46 Pulse 107 H 04/22/24 13:46 Resp 17 04/22/24 13:46 BP 117/80 04/22/24 13:46 Pulse Ox 96 04/22/24 13:46 O2 Del Method Room Air 04/20/24 18:27 Weight last 48 hrs Weight 95.254 kg Data NPU 04/20/24 16:35 04/20/24 16:35 A&P Assessment and plan (1) Depression, unspecified: (2) Methamphetamine dependence: (3) Suicidal ideation: (4) History of ETOH abuse: (5) Cannabis abuse: (6) History of schizophrenia: (7) ADHD, adult residual type: Plan This is a 38-year-old white male with a significant history of mental health and addiction issues who presents with continued depression and suicidality in the absence of illicit substance abuse with history of psychosis endorsing a desire to change his medications but desirous of substance abuse treatment. 1. Restart gabapentin 400mg tid. Continue zoloft 25mg daily with increase to 50mg daily tommorow and increase seroquel 100mg at night. 2. Continue every 15 minute checks for safety. 3. Encourage individual, group and milieu therapies. 4. Encourage sober living treatment after discharge at the highest level of care to which he is willing to commit. Involuntary Hold Information 2 96 Hour Hold: 96 Hour Involuntary Admission: No Attestations NPU 2 Medical Necessity Statement*: Inpatient hospitalization is medically necessary and the clinically appropriate intervention at this time. We will monitor medication to make changes as indicated. His likely length of stay 4-6 days. Coding Level of Care Code Acute Code for [facility] Fw Diagnoses Depression, unspecified F32.A Methamphetamine dependence F15.20 Suicidal ideation R45.851 History of ETOH abuse F10.11 Cannabis abuse F12.10 History of schizophrenia Z86.59 ADHD, adult residual type F90.8
[2024-04-22] MEDS: gabapentin 400 mg Capsule PO (19:48)
[2024-04-22] MEDS: hyDROXYzine 25 mg Capsule 50 MG PO (19:48)
[2024-04-22] MEDS: quetiapine 100 mg Tablet PO (19:48)
[2024-04-22 21:34] VITALS: BP 128/78; PULSE 90; RESP 17; TEMP 36.6; O2SAT 96
[2024-04-22 23:17] LABS: Hepatitis A Antibody IgM Non-Reactive (Nonreactive); Hepatitis B Core AB, Total Non-Reactive (Nonreactive); Hepatitis B Surface AB < 3.5 (11.5-1000); Hepatitis B Surface Antigen Non-Reactive (Nonreactive); Hepatitis C Virus Antibody Non-Reactive (Nonreactive)
[2024-04-23 06:00] VITALS: BP 106/72; PULSE 66; RESP 18; TEMP 36.5; O2SAT 97
[2024-04-23] MEDS: sertraline 50 mg Tablet PO (08:39)
[2024-04-23] MEDS: gabapentin 400 mg Capsule PO ×3 (08:39→20:08)
[2024-04-23] MEDS: nicotine 4 mg lozenge MUCOUS MEM ×3 (10:59→16:13)
[2024-04-23 13:52] VITALS: BP 122/80; PULSE 89; RESP 16; TEMP 36.8; O2SAT 98
--- NOTE | 2024-04-23 15:41 | P.NPUPN_ITS ---
Subjective NPU 2 Subjective: Patient is a 38-year-old male who reported an extended history of methamphetamine abuse and reports increased depression since he stopped using methamphetamine several weeks ago. He had continued to endorse suicidal thoughts and having depression. He had been less isolative on the milieu. He had reported some difficulties with sleep. He had expressed desire to continue medications to target anxiety and depression as he had reported struggles with staying on task and frequent distractibility. He had reported some cravings for methamphetamine. He reported low energy and low motivation. Mental Status Exam 2 MSE Comments: This is an overweight white male in hospital scrubs with limited grooming with eye contact looking older than his stated age.? No abnormal movements except for severe psychomotor retardation.?He was cooperative with exam in mild to moderate distress.? Speech was normal in rate and normal in volume.? Mood described as depressed. His affect was mood congruent and restricted. ? Thought process was linear.? Thought content: Patient endorsed suicidal ideation with plan to jump into traffic. There were no delusions reported but mild paranoia noted and he did not report any auditory or visual hallucinations and did not appear to be responding to internal stimuli. Attention and concentration was limited and memory was mostly reliable, but none were formally tested.? He is alert and oriented x3.? Insight and judgment are limited. His impulse control is impaired. Vitals/I&O/Wt Last Vital Signs Temp 98.3 F 04/23/24 13:52 Pulse 89 04/23/24 13:52 Resp 16 04/23/24 13:52 BP 122/80 04/23/24 13:52 Pulse Ox 98 04/23/24 13:52 O2 Del Method Room Air 04/23/24 13:52 Data NPU 04/20/24 16:35 04/20/24 16:35 A&P Assessment and plan (1) Depression, unspecified: (2) Methamphetamine dependence: (3) Suicidal ideation: (4) History of ETOH abuse: (5) Cannabis abuse: (6) History of schizophrenia: (7) ADHD, adult residual type: Plan This is a 38-year-old white male with a significant history of mental health and addiction issues who presents with continued depression and suicidality in the absence of illicit substance abuse with history of psychosis endorsing a desire to change his medications but desirous of substance abuse treatment. 1. Restart gabapentin 400mg tid. Increased zoloft to 50mg daily and increase seroquel 150mg at night. 2. Continue every 15 minute checks for safety. 3. Encourage individual, group and milieu therapies. 4. Encourage sober living treatment after discharge at the highest level of care to which he is willing to commit. Involuntary Hold Information 2 96 Hour Hold: 96 Hour Involuntary Admission: No Attestations NPU 2 Medical Necessity Statement*: Inpatient hospitalization is medically necessary and the clinically appropriate intervention at this time. We will monitor medication to make changes as indicated. His likely length of stay 4-6 days. Coding Level of Care Code Acute Code for [facility] Fwd Diagnoses Depression, unspecified F32.A Methamphetamine dependence F15.20 Suicidal ideation R45.851 History of ETOH abuse F10.11 Cannabis abuse F12.10 History of schizophrenia Z86.59 ADHD, adult residual type F90.8
[2024-04-23 20:03] VITALS: BP 127/77; PULSE 93; RESP 17; TEMP 36.7; O2SAT 92
[2024-04-23] MEDS: quetiapine 100 mg Tablet 150 MG PO (20:08)
[2024-04-24 06:00] VITALS: BP 110/74; PULSE 76; RESP 17; TEMP 36.6; O2SAT 98
[2024-04-24] MEDS: nicotine 4 mg lozenge MUCOUS MEM ×3 (06:06→16:08)
[2024-04-24] MEDS: sertraline 50 mg Tablet PO (08:00)
[2024-04-24] MEDS: gabapentin 400 mg Capsule PO ×3 (08:00→21:15)
[2024-04-24] MEDS: hyDROXYzine 25 mg Capsule 50 MG PO ×3 (08:00→21:15)
[2024-04-24] MEDS: OLANZapine 5 mg ODT PO (10:22)
[2024-04-24 14:00] VITALS: BP 122/72; PULSE 72; RESP 16; TEMP 36.6; O2SAT 97
--- NOTE | 2024-04-24 16:13 | P.NPUPN_ITS ---
Subjective NPU 2 Subjective: Patient is a 38-year-old male who reported an extended history of methamphetamine abuse and reports increased depression since he stopped using methamphetamine several weeks ago. The patient endorsed continued suicidal ideation. He had reported that he was hearing voices and felt distracted by his thoughts. He had reported some improvement in sleep with the Seroquel. He reported continued feelings of hopelessness. He stated that he was motivated to stay clean off of methamphetamine and wanted to be better before he returned back to his [facility]. He reported no side effects from his current medication regimen. He had endorsed some feelings of worthlessness. He was able to attend groups briefly reported continued problems with social anxiety. Mental Status Exam 2 MSE Comments: This is an overweight white male in hospital scrubs with limited grooming with eye contact looking older than his stated age. He was pacing the hallway while reporting his mood is anxious. His affect remained restricted and mood congruent.? No abnormal movements except for severe psychomotor retardation.?He was cooperative with exam in mild to moderate distress.? Speech was normal in rate and normal in volume.? ? Thought process was linear.? Thought content: Patient endorsed suicidal ideation with plan to jump into traffic. There were no delusions reported but mild paranoia noted and he did not report any auditory or visual hallucinations and did not appear to be responding to internal stimuli. Attention and concentration was limited and memory was mostly reliable, but none were formally tested.? He is alert and oriented x3.? Insight was poor and judgment are limited. His impulse control is impaired. Vitals/I&O/Wt Last Vital Signs Temp 97.8 F 04/24/24 14:00 Pulse 72 04/24/24 14:00 Resp 16 04/24/24 14:00 BP 122/72 04/24/24 14:00 Pulse Ox 97 04/24/24 14:00 O2 Del Method Room Air 04/24/24 06:00 Data NPU 04/20/24 16:35 04/20/24 16:35 A&P Assessment and plan (1) Depression, unspecified: (2) Methamphetamine dependence: (3) Suicidal ideation: (4) History of ETOH abuse: (5) Cannabis abuse: (6) History of schizophrenia: (7) ADHD, adult residual type: (8) Auditory hallucinations: Plan This is a 38-year-old white male with a significant history of mental health and addiction issues who presents with continued depression and suicidality in the absence of illicit substance abuse with history of psychosis endorsing a desire to change his medications but desirous of substance abuse treatment. 1. Restart gabapentin 400mg tid. Increased zoloft to 75mg daily and increase seroquel 200mg at night to target psychosis and adjunctively for depression. 2. Continue every 15 minute checks for safety. 3. Encourage individual, group and milieu therapies. 4. Encourage sober living treatment after discharge at the highest level of care to which he is willing to commit. Involuntary Hold Information 2 96 Hour Hold: 96 Hour Involuntary Admission: No Attestations NPU 2 Medical Necessity Statement*: Inpatient hospitalization is medically necessary and the clinically appropriate intervention at this time. We will monitor medication to make changes as indicated. His likely length of stay 4-6 days. Coding Level of Care Code Acute Code for [facility] Fwd Diagnoses Depression, unspecified F32.A Methamphetamine dependence F15.20 Suicidal ideation R45.851 History of ETOH abuse F10.11 Cannabis abuse F12.10 History of schizophrenia Z86.59 ADHD, adult residual type F90.8 Auditory hallucinations R44.0
[2024-04-24] MEDS: acetaminophen 325 mg Tablet 650 MG PO (17:29)
[2024-04-24 21:08] VITALS: BP 112/71; PULSE 88; RESP 18; TEMP 36.8; O2SAT 95
[2024-04-24] MEDS: trazodone 50 mg Tablet PO (21:15)
[2024-04-24] MEDS: quetiapine 100 mg Tablet 200 MG PO (21:16)
[2024-04-25 06:00] VITALS: BP 118/74; PULSE 79; RESP 16; TEMP 36.5; O2SAT 98
[2024-04-25] MEDS: gabapentin 400 mg Capsule PO ×3 (08:05→20:31)
[2024-04-25] MEDS: sertraline 50 mg Tablet 75 MG PO (08:05)
[2024-04-25] MEDS: hyDROXYzine 25 mg Capsule 50 MG PO (08:08)
--- NOTE | 2024-04-25 08:13 | PC.NURSE ---
Patient reports denies SI and HI. Patient endorses AH, reports hearing voices telling him to harm himself. Patient rates anxiety /10 and depression /
[2024-04-25] MEDS: nicotine 4 mg lozenge MUCOUS MEM ×3 (10:03→18:35)
[2024-04-25 14:00] VITALS: BP 118/78; PULSE 103; RESP 20; TEMP 37.2; O2SAT 96
--- NOTE | 2024-04-25 14:16 | PC.NURSE ---
PT UP TO WINDOW ASKING FOR VALIUM. PT STATES THE SAID HE WAS PUTTING ME ON VALIUM AND WANT TO GET NOW IF I CAN. RN REVIEWED ORDERS AND DID NOT SEE WHERE ANY VALIUM WAS STARTED. RN NOTIFIED DR. ROSETNHAL OF PT REQUEST. DR. PÉREZ STATED HE DID WANT PT TO GET STARTED ON VALIUM. ONE TIME ORDER RECEIVED TO GIVE VALIUM 5 MG NOW AND THEN WILL PUT IN A SCHEDULED DOSE WHEN HE GETS TO PT CHART. EDUCATED PT ON NEW ORDERS, PT VERY PLEASED, THANKED RN. ALL QUESTIONS WERE ANSWERED AND SUPPORT WAS VOICED.
[2024-04-25] MEDS: diazePAM 5 mg Tablet 2.5 MG PO ×2 (15:54→15:55)
--- NOTE | 2024-04-25 16:07 | PC.NURSE ---
RN ADMINISTERED 1/2 TAB OF VALIUM 5MG AND WASTED 2.5 MG OF VALIUM WITH JERICA. BAUDILIO W[place]. INCORRECT DOSE WAS GIVEN. THIS RN THOUGHT IT WAS A 10 MG TAB RESULTING IN INCORRECT DOSE GIVEN. DR. PÉREZ WAS NOTIFIED IMMEDIATELY THAT PT WAS NOT GIVEN THE FULL [address] PÉREZ GAVE ORDERS FOR VALIUM 2.5 MG NOW TIMES TWO. FIRST 2.5 MG VALIUM DOSE WAS GIVEN AT APPROXIMATELY 1424, SECOND 2.5 MG VALIUM DOSE WAS GIVEN AT 1554. RN NOTIFIED PT OF ISSUE WITH MEDICATION AND THAT THIS RN NEEDED TO ADMINISTER ANOTHER 2.5 MG VALIUM TO EQUAL THE [address] PÉREZ WAS INITIALLY WANTED AND ORDERED. ALL QUESTIONS WERE ANSWERED AND SUPPORT WAS VOICED. NPU RECONSTRUCTIVE SURGEON NOTIFIED VIA PHONE, PHARMACY NOTIFIED VIA PHONE AND IN PERSON AND WAREHOUSE RECORD CLERK NOTIFIED.
--- NOTE | 2024-04-25 16:15 | P.NPUPN_ITS ---
Subjective NPU 2 Subjective: Patient is a 38-year-old male who reported an extended history of methamphetamine abuse and reports increased depression since he stopped using methamphetamine several weeks ago. patient had reported feeling more anxious and agitated. He had reported that he had been more frustrated. He states that he had been walking around more and reported that his paranoia was worsening. He reported no side effects currently from his medication but reported having increased anxiety. He had endorsed continued depression as well and stated that he continued to have fleeting suicidal thoughts.T Mental Status Exam 2 MSE Comments: This is an overweight white male in hospital scrubs with limited grooming with eye contact looking older than his stated age. He was pacing the hallway while reporting his mood is stressed. His affect remained restricted and mood congruent.? No abnormal movements except for severe psychomotor retardation.?He was cooperative with exam in moderate distress.? Speech was normal in rate and normal in volume.? ? Thought process was linear.? Thought content: Patient endorsed suicidal ideation with plan to There were no delusions reported but mild paranoia noted and he did not report any auditory or visual hallucinations and did not appear to be responding to internal stimuli. Attention and concentration was limited and memory was mostly reliable, but none were formally tested.? He is alert and oriented x3.? Insight was poor and judgment are limited. His impulse control is impaired. Vitals/I&O/Wt Last Vital Signs Temp 99 F 04/25/24 14:00 Pulse 103 H 04/25/24 14:00 Resp 20 H 04/25/24 14:00 BP 118/78 04/25/24 14:00 Pulse Ox 96 04/25/24 14:00 O2 Del Method Room Air 04/25/24 14:00 Data NPU 04/20/24 16:35 04/20/24 16:35 A&P Assessment and plan (1) Depression, unspecified: (2) Methamphetamine dependence: (3) Suicidal ideation: (4) History of ETOH abuse: (5) Cannabis abuse: (6) History of schizophrenia: (7) ADHD, adult residual type: (8) Auditory hallucinations: Plan This is a 38-year-old white male with a significant history of mental health and addiction issues who presents with continued depression and suicidality in the absence of illicit substance abuse with history of psychosis endorsing a desire to change his medications but desirous of substance abuse treatment. 1. Continue gabapentin 400mg tid. Continue zoloft at 75mg daily and increase seroquel 300mg at night to target psychosis and adjunctively for depression. Add trial of valium for anxiety at 5mg tid. 2. Continue every 15 minute checks for safety. 3. Encourage individual, group and milieu therapies. 4. Encourage sober living treatment after discharge at the highest level of care to which he is willing to commit. Involuntary Hold Information 2 96 Hour Hold: 96 Hour Involuntary Admission: No Attestations NPU 2 Medical Necessity Statement*: Inpatient hospitalization is medically necessary and the clinically appropriate intervention at this time. We will monitor medication to make changes as indicated. His likely length of stay 4-6 days. Coding Level of Care Code Acute Code for [facility] Fw Diagnoses Depression, unspecified F32.A Methamphetamine dependence F15.20 Suicidal ideation R45.851 History of ETOH abuse F10.11 Cannabis abuse F12.10 History of schizophrenia Z86.59 ADHD, adult residual type F90.8 Auditory hallucinations R44.0
--- NOTE | 2024-04-25 17:15 | PC.NURSE ---
This nurse wasted 2.5mg Valium with PADMINI Casey in medication room
[2024-04-25] MEDS: OLANZapine 5 mg ODT PO (18:21)
[2024-04-25 19:15] VITALS: BP 144/91; PULSE 98; RESP 18; TEMP 36.8; O2SAT 96
[2024-04-25] MEDS: diazePAM 5 mg Tablet PO (20:31)
[2024-04-25] MEDS: quetiapine 300 mg Tablet PO (20:31)
[2024-04-26 06:00] VITALS: BP 105/69; PULSE 72; RESP 16; TEMP 36.6; O2SAT 96
[2024-04-26] MEDS: nicotine 4 mg lozenge MUCOUS MEM ×5 (06:01→19:18)
[2024-04-26] MEDS: diazePAM 5 mg Tablet PO ×3 (08:22→20:01)
[2024-04-26] MEDS: gabapentin 400 mg Capsule PO ×3 (08:22→20:00)
[2024-04-26] MEDS: sertraline 50 mg Tablet 75 MG PO (08:22)
[2024-04-26 13:42] VITALS: BP 139/77; PULSE 100; RESP 16; TEMP 36.6; O2SAT 96
--- NOTE | 2024-04-26 14:39 | P.NPUPN_ITS ---
Subjective NPU 2 Subjective: Patient is a 38-year-old male who reported an extended history of methamphetamine abuse and reports increased depression since he stopped using methamphetamine several weeks ago. He had continued to report struggles with anxiety. He had reported that he was feeling more calm later at night. He had continued to report some sleep continuity disruption. He had reported no cravings for methamphetamine today. He had continued to report feeling depressed but stated that he was starting to feel a little better. He had continued to report occasional suicidal thoughts but stated that it was less intense. Mental Status Exam 2 MSE Comments: This is an overweight white male in hospital scrubs with limited grooming with eye contact looking older than his stated age. He was pacing the hallway while reporting his mood is a little better. His affect remained restricted. ? No abnormal movements except for severe psychomotor retardation.?He was cooperative with exam in moderate distress.? Speech was normal in rate and normal in volume.? ? Thought process was linear.? Thought content: Patient endorsed suicidal ideation with no plan. There were no delusions reported but mild paranoia noted. He endorsed hearing voices intermittently but appeared less preoccupied. Attention and concentration was limited and memory was mostly reliable, but none were formally tested.? He is alert and oriented x3.? Insight was poor and judgment are limited. His impulse control is impaired. Vitals/I&O/Wt Last Vital Signs Temp 98 F 04/26/24 13:42 Pulse 100 04/26/24 13:42 Resp 16 04/26/24 13:42 BP 139/77 04/26/24 13:42 Pulse Ox 96 04/26/24 13:42 O2 Del Method Room Air 04/26/24 13:42 Data NPU 04/20/24 16:35 04/20/24 16:35 A&P Assessment and plan (1) Depression, unspecified: (2) Methamphetamine dependence: (3) Suicidal ideation: (4) Cannabis abuse: (5) History of schizophrenia: (6) ADHD, adult residual type: (7) Auditory hallucinations: Plan This is a 38-year-old white male with a significant history of mental health and addiction issues who presents with continued depression and suicidality in the absence of illicit substance abuse with history of psychosis endorsing a desire to change his medications but desirous of substance abuse treatment. 1. Continue gabapentin 400mg tid. Continue zoloft at 75mg daily and continue seroquel 300mg at night to target psychosis and adjunctively for depression with increase to 400mg at night tommorow. Valium for anxiety at 5mg tid. 2. Continue every 15 minute checks for safety. 3. Encourage individual, group and milieu therapies. 4. Encourage sober living treatment after discharge at the highest level of care to which he is willing to commit. Involuntary Hold Information 2 96 Hour Hold: 96 Hour Involuntary Admission: No Attestations NPU 2 Medical Necessity Statement*: Inpatient hospitalization is medically necessary and the clinically appropriate intervention at this time. We will monitor medication to make changes as indicated. His likely length of stay 4-6 days. Coding Level of Care Code Acute Code for [facility] Fwd Diagnoses Depression, unspecified F32.A Methamphetamine dependence F15.20 Suicidal ideation R45.851 Cannabis abuse F12.10 History of schizophrenia Z86.59 ADHD, adult residual type F90.8 Auditory hallucinations R44.0
[2024-04-26 19:59] VITALS: BP 131/87; PULSE 98; RESP 18; TEMP 36.2; O2SAT 96
[2024-04-26] MEDS: quetiapine 300 mg Tablet PO (20:00)
[2024-04-27 06:00] VITALS: RESP 16
[2024-04-27] MEDS: nicotine 4 mg lozenge MUCOUS MEM ×4 (06:47→19:02)
--- NOTE | 2024-04-27 07:53 | PC.NURSE ---
Patient watching tv in dayroom. Denies avh and si/hi. He states he still feels some mild anxiety, but believes his medication change is helping with this. He also states he feels his depression is turning around. Patient endorses sleeping well and seems to be in a jovial mood this morning, talking about fishing in various places and helping with rehabilitation efforts of people coming out of [facility] in the past.
--- NOTE | 2024-04-27 07:55 | PC.NURSE ---
Patient watching tv in dayroom. Denies avh and si/hi. He states he still feels some mild anxiety, but believes his medication change is helping with this. He also states he feels his depression is turning around. Patient endorses sleeping well and seems to be in a jovial mood this morning, talking about fishing in various places and helping with rehabilitation efforts of people coming out of [facility] in the past.
[2024-04-27] MEDS: sertraline 50 mg Tablet 75 MG PO (08:37)
[2024-04-27] MEDS: diazePAM 5 mg Tablet PO ×3 (08:37→20:11)
[2024-04-27] MEDS: gabapentin 400 mg Capsule PO ×3 (08:37→20:11)
--- NOTE | 2024-04-27 13:34 | P.NPUPN_ITS ---
Subjective NPU 2 Subjective: Patient is a 38-year-old male who reported an extended history of methamphetamine abuse and reports increased depression since he stopped using methamphetamine several weeks ago. He reported continued periods of irritability and reported the paranoia was still present. He had reported some improvement in sleep. He had continued to endorse depression but stated that his anxiety was better. He had continued to report at times hearing a voice but stated that it was last clear to decipher. There is no acts of aggression. He had reported feeling hopeless at times but stated that he felt better on these medications with no active cravings to use methamphetamine at this time. Mental Status Exam 2 MSE Comments: This is an overweight white male in hospital scrubs with limited grooming with eye contact looking older than his stated age. He was pacing the hallway while reporting his mood as up and down. His affect was irritable today. No abnormal movements except for severe psychomotor retardation.?He was cooperative with exam in moderate distress.? Speech was normal in rate and normal in volume.? ? Thought process was linear.? Thought content: Patient endorsed suicidal ideation with no plan.No homicidal ideation endorsed. There were no delusions reported but mild paranoia noted. He endorsed hearing voices intermittently but appeared less preoccupied. Attention and concentration was limited and memory was mostly reliable, but none were formally tested.? He is alert and oriented x3.? Insight was poor and judgment was guarded. His impulse control is poor. Vitals/I&O/Wt Last Vital Signs Temp 97.2 F L 04/26/24 19:59 Pulse 98 04/26/24 19:59 Resp 16 04/27/24 06:00 BP 131/87 04/26/24 19:59 Pulse Ox 96 04/26/24 19:59 O2 Del Method Room Air 04/26/24 13:42 Data NPU 04/20/24 16:35 04/20/24 16:35 A&P Assessment and plan (1) Depression, unspecified: (2) Methamphetamine dependence: (3) Suicidal ideation: (4) Cannabis abuse: (5) History of schizophrenia: (6) ADHD, adult residual type: (7) Auditory hallucinations: Plan This is a 38-year-old white male with a significant history of mental health and addiction issues who presents with continued depression and suicidality in the absence of illicit substance abuse with history of psychosis endorsing a desire to change his medications but desirous of substance abuse treatment. 1. Continue gabapentin 400mg tid. Continue zoloft at 75mg daily and increase seroquel 400mg at night. Valium for anxiety at 5mg tid. 2. Continue every 15 minute checks for safety. 3. Encourage individual, group and milieu therapies. 4. Encourage sober living treatment after discharge at the highest level of care to which he is willing to commit. Involuntary Hold Information 2 96 Hour Hold: 96 Hour Involuntary Admission: No Attestations NPU 2 Medical Necessity Statement*: Inpatient hospitalization is medically necessary and the clinically appropriate intervention at this time. We will monitor medication to make changes as indicated. His likely length of stay 4-6 days. Coding Level of Care Code Acute Code for [facility] Fw Diagnoses Depression, unspecified F32.A Methamphetamine dependence F15.20 Suicidal ideation R45.851 Cannabis abuse F12.10 History of schizophrenia Z86.59 ADHD, adult residual type F90.8 Auditory hallucinations R44.0
[2024-04-27 14:00] VITALS: BP 133/89; PULSE 87; RESP 16; TEMP 36.6; O2SAT 96
[2024-04-27 19:41] VITALS: BP 127/85; PULSE 112; RESP 18; TEMP 36.9; O2SAT 95
[2024-04-27] MEDS: quetiapine 100 mg Tablet 400 MG PO (20:10)
[2024-04-28 06:00] VITALS: BP 100/66; PULSE 90; RESP 16; O2SAT 98
[2024-04-28] MEDS: nicotine 4 mg lozenge MUCOUS MEM ×3 (06:28→19:15)
[2024-04-28] MEDS: gabapentin 400 mg Capsule PO ×3 (08:03→20:11)
[2024-04-28] MEDS: sertraline 50 mg Tablet 75 MG PO (08:03)
[2024-04-28] MEDS: diazePAM 5 mg Tablet PO ×3 (08:03→20:12)
[2024-04-28 14:00] VITALS: BP 153/89; PULSE 114; RESP 16; TEMP 37.1; O2SAT 96
--- NOTE | 2024-04-28 15:10 | P.NPUPN_ITS ---
Subjective NPU 2 Subjective: Patient is a 38-year-old male who reported an extended history of methamphetamine abuse and reports increased depression since he stopped using methamphetamine several weeks ago. The patient reported that he had less paranoia. He had continued to endorse anxiety and depression. He had reported that he was less distracted by thoughts in his head. He had reported feeling less hopeless. He reported today he had a history of having previously been on methadone in the past for opiate addiction although he had abstained from opiate use in a several years. He had reported continued struggles with managing mood instability and cravings for methamphetamine. He had been compliant on the milieu and stated that he was feeling less angry. Patient had continued to state that he was feeling better on these medications despite the reduction and discontinuation of his previous medications prescribed prior to admission. Mental Status Exam 2 MSE Comments: This is an overweight white male in hospital scrubs with limited grooming with eye contact looking older than his stated age. He was pacing the hallway initially but sat to talk with the bid writer of this note. His mood was described as better. His affect was anxious today. No abnormal movements except for mild psychomotor retardation.?He was cooperative with exam in mild distress.? Speech was normal in rate and normal in volume.? ? Thought process was linear.? Thought content: Patient endorsed fleeting suicidal ideation with no plan.No homicidal ideation endorsed. There were no delusions reported but mild paranoia noted. He denied any active auditory or visual hallucinations and did not appear to be responding to internal stimuli. Attention and concentration was limited and memory was mostly reliable, but none were formally tested.? He is alert and oriented x3.? Insight was poor and judgment was guarded. His impulse control is poor. Vitals/I&O/Wt Last Vital Signs Temp 98.7 F 04/28/24 14:00 Pulse 114 H 04/28/24 14:00 Resp 16 04/28/24 14:00 BP 153/89 04/28/24 14:00 Pulse Ox 96 04/28/24 14:00 O2 Del Method Room Air 04/28/24 14:00 Weight last 48 hrs Weight 91.989 kg Data NPU 04/20/24 16:35 04/20/24 16:35 A&P Assessment and plan (1) Depression, unspecified: (2) Methamphetamine dependence: (3) Suicidal ideation: (4) Cannabis abuse: (5) History of schizophrenia: (6) ADHD, adult residual type: (7) Auditory hallucinations: Plan This is a 38-year-old white male with a significant history of mental health and addiction issues who presents with continued depression and suicidality in the absence of illicit substance abuse with history of psychosis endorsing a desire to change his medications but desirous of substance abuse treatment. 1. Continue gabapentin 400mg tid. Increase zoloft at 100mg daily and continue seroquel 400mg at night. Valium for anxiety at 5mg tid. 2. Continue every 15 minute checks for safety. 3. Encourage individual, group and milieu therapies. 4. Encourage sober living treatment after discharge at the highest level of care to which he is willing to commit. Involuntary Hold Information 2 96 Hour Hold: 96 Hour Involuntary Admission: No Attestations NPU 2 Medical Necessity Statement*: Inpatient hospitalization is medically necessary and the clinically appropriate intervention at this time. We will monitor medication to make changes as indicated. His likely length of stay 2-3 days. Coding Level of Care Code Acute Code for [facility] F[facility] Diagnoses Depression, unspecified F32.A Methamphetamine dependence F15.20 Suicidal ideation R45.851 Cannabis abuse F12.10 History of schizophrenia Z86.59 ADHD, adult residual type F90.8 Auditory hallucinations R44.0
[2024-04-28] MEDS: quetiapine 100 mg Tablet 400 MG PO (20:11)
[2024-04-28] MEDS: acetaminophen 325 mg Tablet 650 MG PO (21:39)
[2024-04-28 22:00] VITALS: BP 144/95; PULSE 107; RESP 18; TEMP 36.6; O2SAT 94
[2024-04-29 06:00] VITALS: BP 109/77; PULSE 83; RESP 18; TEMP 36.4; O2SAT 98
[2024-04-29] MEDS: nicotine 4 mg lozenge MUCOUS MEM ×3 (07:33→14:04)
[2024-04-29] MEDS: diazePAM 5 mg Tablet PO ×3 (08:35→20:19)
[2024-04-29] MEDS: sertraline 100 mg Tablet PO (08:35)
[2024-04-29] MEDS: gabapentin 400 mg Capsule PO ×3 (08:35→20:19)
--- NOTE | 2024-04-29 10:26 | PC.NURSE ---
Room searched for contraband. Extra towel confiscated laying near patient's bed.
[2024-04-29 14:00] VITALS: BP 139/81; PULSE 109; RESP 18; TEMP 36.7; O2SAT 96
[2024-04-29] MEDS: hyDROXYzine 25 mg Capsule 50 MG PO (15:00)
[2024-04-29] MEDS: acetaminophen 325 mg Tablet 650 MG PO (15:00)
--- NOTE | 2024-04-29 17:29 | W.PM.NPUPNS ---
Subjective NPU Subjective: Patient is a 38-year-old male who reported an extended history of methamphetamine abuse and reports increased depression since he stopped using methamphetamine several weeks ago. Patient had reported that his mood was better. He reported being less distracted. He reported having a reduction in irritability and stated that he had been sleeping better. He had been less isolative on the milieu. He had continued to report a long history of addiction but stated that he had felt more hopeful and optimistic about remaining sober at this time. He was more engaging and had expressed desire to engage in some therapy as he had reported a long history of methamphetamine abuse since childhood. He had reported no clear triggers to the use of amphetamines. He reported a reduction in paranoia. Mental Status Exam MSE Comments: This is an overweight white male in hospital scrubs with limited grooming with eye contact looking older than his stated age. His mood was described as feeling better His affect was less anxious today. No abnormal movements except for mild psychomotor retardation.?He was cooperative with exam in mild distress.? Speech was normal in rate and normal in volume.? ? Thought process was linear.? Thought content: Patient endorsed fleeting suicidal ideation with no plan.No homicidal ideation endorsed. There were no delusions reported but mild paranoia noted. He denied any active auditory or visual hallucinations and did not appear to be responding to internal stimuli. Attention and concentration was limited and memory was mostly reliable, but none were formally tested.? He is alert and oriented x3.? Insight was improving. and judgment was improving. His impulse control is poor. Vitals/I&O/Wt Last Vital Signs Temp 98.1 F 04/29/24 14:00 Pulse 109 H 04/29/24 14:00 Resp 18 04/29/24 14:00 BP 139/81 04/29/24 14:00 Pulse Ox 96 04/29/24 14:00 O2 Del Method Room Air 04/29/24 14:00 Weight last 48 hrs Weight 91.989 kg Data NPU 04/20/24 16:35 04/20/24 16:35 A&P Assessment and plan (1) Depression, unspecified: (2) Methamphetamine dependence: (3) Suicidal ideation: (4) Cannabis abuse: (5) History of schizophrenia: (6) ADHD, adult residual type: (7) Auditory hallucinations: Plan This is a 38-year-old white male with a significant history of mental health and addiction issues who presents with continued depression and suicidality in the absence of illicit substance abuse with history of psychosis endorsing a desire to change his medications but desirous of substance abuse treatment. 1. Continue gabapentin 400mg tid. Continue zoloft at 100mg daily and continue seroquel 400mg at night. Valium for anxiety at 5mg tid. Hepatitis panel ordered. 2. Continue every 15 minute checks for safety. 3. Encourage individual, group and milieu therapies. 4. Encourage sober living treatment after discharge at the highest level of care to which he is willing to commit. Involuntary Hold Information 96 Hour Hold: 96 Hour Involuntary Admission: No Attestations NPU Medical Necessity Statement*: Inpatient hospitalization is medically necessary and the clinically appropriate intervention at this time. We will monitor medication to make changes as indicated. His likely length of stay 1-2 days. Coding Level of Care Code Acute Code for [facility] Fwd Diagnoses Depression, unspecified F32.A Methamphetamine dependence F15.20 Suicidal ideation R45.851 Cannabis abuse F12.10 History of schizophrenia Z86.59 ADHD, adult residual type F90.8 Auditory hallucinations R44.0
[2024-04-29] MEDS: OLANZapine 5 mg ODT PO (18:25)
[2024-04-29] MEDS: quetiapine 100 mg Tablet 400 MG PO (20:19)
[2024-04-29 21:06] VITALS: BP 131/95; PULSE 100; RESP 18; TEMP 36.6; O2SAT 95
[2024-04-29 23:55] LABS: Hepatitis A Antibody IgM Non-Reactive (Nonreactive); Hepatitis B Core AB, Total Non-Reactive (Nonreactive); Hepatitis B Surface AB < 3.5 (11.5-1000); Hepatitis B Surface Antigen Non-Reactive (Nonreactive); Hepatitis C Virus Antibody Non-Reactive (Nonreactive)
[2024-04-30 06:00] VITALS: BP 99/65; PULSE 88; RESP 17; TEMP 36.4; O2SAT 97
[2024-04-30] MEDS: nicotine 4 mg lozenge MUCOUS MEM ×3 (08:38→16:37)
[2024-04-30] MEDS: diazePAM 5 mg Tablet PO ×2 (08:38→14:10)
[2024-04-30] MEDS: gabapentin 400 mg Capsule PO ×2 (08:38→14:10)
[2024-04-30] MEDS: sertraline 100 mg Tablet PO (08:38)
--- NOTE | 2024-04-30 12:45 | P.NPUDS_ITS ---
Diagnoses at Discharge Discharge Diagnosis (1) Depression, unspecified: Status: Acute (2) Methamphetamine dependence: Status: Acute (3) Suicidal ideation: Status: Resolved (4) Cannabis abuse: Status: Acute (5) ADHD, adult residual type: Status: Acute (6) Auditory hallucinations: Status: Acute Reason for Visit Reason for Visit: SI Brief History: History of Present Illness Alfonzo Kee is a 38 year old male with a history of methamphetamine dependence, and depression recently discharged from the neuropsychiatric unit here in [place] on 04/17/2024. The patient reports that he was sent to an SOC to live and reported that he continued to report feeling extremely depressed and stated that he had suicidal thoughts with a plan to jump out in front of traffic. He had requested a change in medications as he stated that the Remeron, trazodone, and gabapentin had not been helpful. He denied any psychotic symptoms. He had reported having more intense thoughts of suicide and states that there have been no recent worsening stressors but he still continues to feel hopeless and worthless. He reports that he has struggled with sleep. He reports finding little pleasure in completing any previously pleasurable activities. He reports no cravings or use of methamphetamine but reports continued use of marijuana. He had expressed desire to consider substance abuse rehabilitation to help him maintain sobriety. The patient reports no substantial changes in stressors or symptoms since his last hospitalization less than 1 week ago here on the neuropsychiatric unit. UDS was positive for THC only. Current Medications: Gabapentin 400 mg qid, Remeron 15mg at night, trazodone 50mg at night, hydroxyzine 50mg prn. Excerpt from NPU discharge summary on 04/17/2024 History of Present Illness Alfonzo Kee is a 38 year old male who presented to the emergency department with the following report: Chief Complaint: Psychiatric Symptoms Stated Complaint: SI Time Seen by Provider: 04/10/24 10:18 Source: patient Mode of arrival: ambulatory Limitations: no limitations History of Present Illness: 38-year-old male has a history of depres shelton and SI along with EtOH and meth abuse he states that he has been out of his psych meds for months since having increasing depression states he has been having some subtle thoughts as well he states he just does not feel like living anymore. Associated symptoms: Reports depression and suicidal ideation. He was admitted to the neuropsychiatric unit for definitive treatment of those issues. He is known to this mortgage or loan underwriter through past inpatient hospitalizations the last of which was about a year ago. An excerpt of that discharge summary is included below for context. He presents today reporting that after he discharged from here about a year ago he went to the [facility]. He reports that he had not done very well during that time and was really continuing to struggle with his addiction. He reports that he did go to [facility] and had been on medications for about a month ago but he is going to go to a program in [place] for sober living that did not allow you to take medication and so he went off of his medication which he believes were Neurontin Latuda and Remeron. He reports however that off the medication he just did not do well from a mental health standpoint and the combination of that and his struggles with his sobriety things are getting pretty [id number]. He reports that he was mostly homeless during that time and has just had limited success over this time since we last saw him. He gave this mortgage or loan underwriter permission to research the specifics of his doses and try to restart all or some of those medications appropriately. He worked with the social work team to identify some sober living options and he is filled out some applications. We discussed the risks, benefits and alternatives of this plan of restarting medication and getting into rehab and he understood and agreed to proceed as is documented in this note. Per his 03/27/2023 [facility] inpatient psychiatric discharge summary: Discharge Diagnosis (1) Suicidal ideation: Status: Resolved (2) History of ETOH abuse: Status: Acute (3) Cannabis abuse: Status: Acute (4) History of schizophrenia: Status: Acute (5) Methamphetamine dependence: Status: Acute (6) Withdrawal from methamphetamine: Status: Acute (7) Psychosis: Status: Acute (8) Homicidal ideation: Status: Acute Reason for Visit Reason for Visit: OD Brief History: History of Present Illness Alfonzo Kee is a 37 year old male who presented to the emergency department with the following report: Chief Complaint: Overdose Stated Complaint: OD Time Seen by Provider: 03/22/23 03:01 Source: EMS Mode of arrival: EMS Limitations: altered mental status History of Present Illness: 37-year-old male who had admitted to [facility] he went to the police station he started acting erratic EMS was called him and states that he became slightly combative he was hallucinating saying he wanted to kill himself I did have to sedate him in route with Versed. Patient is currently sedated unable answer any questions at this time. No known injuries He was admitted to the neuropsychiatric unit for definitive treatment of those issues. He states today fairly lethargic. He was seen up a couple times after getting to the unit about 10:00 this morning. He did eat but was very quick to be sleeping consistent with his history of methamphetamine addiction. He presents today acknowledging that his erratic behavior identified him as is likely a consequence of his methamphetamine use. A UDS was not done in the emergency department, but will be obtained as soon as we need to get his compliance. He was a fairly poor historian at times unable to be located and other times sleep during answers. This likely secondary to the combination of the Versed given to him in to the hospital as well as methamphetamine withdrawal. An excerpt of his last discharge summary of his November 2021 hospitalization is included below for context in his lack of ability as a historian. He did speak to the social work team briefly in a similar situation acknowledging his addiction and openness to rehab treatment. Attempted to review with him the possibility of an antipsychotic for his psychosis/hallucinations and aggression but he was unable to respond. Per his 12/19/2021 [facility] inpatient psychiatric discharge summary: Discharge Diagnosis (1) Suicidal ideation: Status: Resolved (2) History of ETOH abuse: Status: Acute (3) Cannabis abuse: Status: Acute (4) History of schizophrenia: Status: Acute (5) Methamphetamine dependence: Status: Acute (6) Withdrawal from methamphetamine: Status: Acute Reason for Visit Reason for Visit: SI Brief History: History of Present Illness Alfonzo Kee is a 36 year old male who presented to the emergency department with the following report: Chief Complaint: Psychiatric Symptoms Stated Complaint: SI Time Seen by Provider: 12/16/21 16:03 Source: patient Mode of arrival: EMS History of Present Illness: 36-year-old male presents emergency room with unusual behavior. Evidently he was found sleeping under a picnic table he admits he is intoxicated his last drink was about 4 hours ago when he last used methamphetamines yesterday. Many questions he answers with bizarre tangential thinking. He admits to previous admissions to psychiatry. Patient does state he sometimes thinks about harming himself or others. He does not express a current plan. Denies any recent illness. Patient was seen in the ER yesterday for concerns about COVID. Clinically he was fine. He expressed desire to be evaluated on the psychiatry unit he denied any suicidal homicidal ideation at that time. MD complaint: suicidal ideation, feels depressed and altered mental status Onset (ago): hour(s) Duration: constant History of same: Yes Relieving factors: none Exacerbating factors: alcohol and drug use Context: recent alcohol abuse and recent drug abuse Associated psychiatric symptoms: depression, suicidal ideation and homicidal ideation Associated symptoms: Reports delusions, depression, homicidal ideation and suicidal ideation; Deny auditory hallucinations or visual hallucinations Treatments prior to arrival: none If self harm: admits thoughts of self harm He was admitted to the neuropsychiatric unit for definitive treatment of those issues. He presents today as a limited historian with significant irritability. He reports that after he left the hospital he did not refill his medication. He reports that he has continued to struggle with his addiction and has reached the point where he feels like life is not worth living if he can get his drinking and other drug use under control. He endorses recent alcohol and methamphetamine use as stated above and work with the social work team today on possible sober living inpatient services that might be available. We discussed the risk-benefit alternatives of restarting medication and he understood but not already on starting medication. He was fairly irritable and resistant answer questions however we did review his recent hospitalization information which he endorsed to be an accurate representation of his history. An excerpt of his last stay is included below for context. Per his 01/19/2021 [facility] inpatient psychiatric evaluation: History of Present Illness Alfonzo Kee is a 35 year old male who presented to the emergency department with the following report: Chief Complaint: Trauma Stated Complaint: TRAUMA, ETOH INTOX Time Seen by Provider: 01/18/21 16:13 History of Present Illness: HPI narrative: The patient is a 35-year-old male who comes to the ER after being found in a ditch eating mud. He is brought in for psych evaluation. He admits using methamphetamine as well in the ER and possibly drinking alcohol as well. He is visibly looking in the corner of the room and talking to someone. There is no one there. Has a swollen lower lip but will not let me examine him further. Likely he fell but unknown he is not giving a reasonable history. He says he was eating the dirt because he was hungry. I said we will feed him. Nurse washed the mud out of his mouth. Associated symptoms: Denies abdominal pain, back pain, chest pain, confusion, dizziness or headache(s). He was admitted to the neuropsychiatric unit for definitive treatment of those issues. He presents today as a fairly poor historian reporting that he is really unclear as to why the police apprehended him. We discussed the fact that he was found laying down in the mud reportedly eating mud and he reports that they were following him and he where his car was and where he was which is not how the reports return. He was very resistant to the idea of his addiction playing a role in his presentation. He reports that his psychiatric treatment started with inpatient hospitalizations many years ago he reports many stays as much as 13 but the last one being about 2 years ago. He has had several stays here at [facility] with 1 about 2 years ago and excerpt of which is included below. He denies really having outpatient services medication and follow-up with any consistency. He denies suicide attempts. He reports that he smokes a half to a pack a day, drinks alcohol every once in a while, reports marijuana use daily and endorses only methamphetamine from a standpoint of other illicit drug use. He reports he been to rehab a couple of times and had a DUI last in 2007. He told a very convoluted story about [place] and getting [place] one side but then really could get no clear story or context for why he was found the way he was. He then turned to [facility] and started talking about how doctors implant tips and tips of implanted inside of him. A friend that this mortgage or loan underwriter does and when this mortgage or loan underwriter denied putting chips and people in my career he then said that although I might not do that I am fully aware that the hospital and other doctors do and that [facility] did that to him. Psychiatric history: As above. Substance abuse history: As above. Family history: He denies any mental health, addiction or suicide attempts or completions in his family. Developmental history: He denies any issues with his mother's with him or his or delivery. Does endorse developmental delays, and reports that he went to school he needed speech therapy, learning support, emotional support and special education classes. Psychosocial history: Reports his mother and father were together when he was born but he the only product of that union. He reports his mother had 3 children through a different relationship and that his father had 4 children through a different relationship. He reports his childhood was rough and he denied any emotional physical or sexual abuse he reports that he did not speak he was about 7 years old but that someone keep an eye on him because of him being determined that terroristic threat at . He endorses graduating from high school in 2005 endorses being a heterosexual and is always related to being 10 years. Endorses he is been 1 time and once endorses having 4 children ages 1-8 2 boys and 2 girls, he denies being in the or having any mormonism belief system. He reports his longest job is 5 years at [employer]. He reports he lives in a house alone. Legal history: He reports that he [facility] the longest time being 3 to 4 years. Medical history: Hospital Course Hospital Course During the hospitalization, the patient had routine laboratory studies which were within normal limits except for a few outliers.? Additionally, there was a general medical evaluation which was also within normal limits and revealed no new acute processes. ?At the time of discharge, lethality was denied and psychosis was resolving.? Mood and anxiety were well managed.? The patient endorsed a plan to avoid all drugs of abuse and follow up with the aftercare recommendations of the treatment team.? The patient was evaluated and deemed to be absent credible lethality and had achieved the maximum benefit from an inpatient hospitalization, and so was discharged. The patient's previous medications were discontinued. Valium was started to target anxiety with tremendous improvement noted. Zoloft was started and titrated up to a dose of 100mg to target depression and chronic anxiety. He remained on gabapentin as prescribed. 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 Seroquel had helped to alleviate psychosis and the patient was given a referral for [facility] to begin digital substance abuse treatment of methamphetamine abuse. Involuntary Hold Information 96 Hour Hold: 96 Hour Involuntary Admission: No Mental Status Exam MSE Comments: This is an overweight white male in hospital scrubs with limited grooming with eye contact looking older than his stated age. His mood was described as feeling better His affect was less anxious today. No abnormal movements except for mild psychomotor retardation.?He was cooperative with exam in mild distress.? Speech was normal in rate and normal in volume.? ? Thought process was linear.? Thought content: Patient endorsed no suicidal ideation with no plan.No homicidal ideation endorsed. There were no delusions and he appeared less guarded. He denied any active auditory or visual hallucinations and did not appear to be responding to internal stimuli. Attention and concentration was limited and memory was mostly reliable, but none were formally tested.? He is alert and oriented x3.? Insight was improving. and judgment was improving. His impulse control was better at the time of discharge. Discharge Data Studies Completed and Pending: Laboratory Results WBC 8.57 10^3/uL (3.2 9-11.43) 04/20/24 16:35 RBC 4.53 10^6/uL (3.8 5-5.65) 04/20/24 16:35 Hgb 13.50 g/dL (11.27 -16.99) 04/20/24 16:35 Hct 40.7 % (37-53) 04/20/24 16:35 MCV 89.8 fl (82-101) 04/20/24 16:35 MCH 29.8 pg (27-33) 04/20/24 16:35 MCHC 33.2 g/dL (30-55) 04/20/24 16:35 RDW 12.7 % (12.1-15.1 ) 04/20/24 16:35 Plt Count 220 10^3/cmm (157 -399) 04/20/24 16:35 MPV 9.3 fL (7.4-10.4) 04/20/24 16:35 Neut % (Auto) 71.4 % 04/20/24 16:35 Lymph % (Auto) 21.8 % 04/20/24 16:35 Gilmer % (Auto) 5.1 % 04/20/24 16:35 Eos % (Auto) 0.8 % 04/20/24 16:35 Baso % (Auto) 0.4 % 04/20/24 16:35 Neut # (Auto) 6.12 10^3/uL (1.8 -7.7) 04/20/24 16:35 Lymph # (Auto) 1.9 10^3/uL (0.8- 4.8) 04/20/24 16:35 Gilmer # (Auto) 0.4 10^3/uL (0.2- 0.9) 04/20/24 16:35 Eos # (Auto) 0.1 10^3/uL (0.0- 0.8) 04/20/24 16:35 Baso # (Auto) 0.0 10^3/uL (0.0- 0.1) 04/20/24 16:35 Nucleated RBC % (a uto) 0 % 04/20/24 16:35 Nucleated RBCs # 0.0 /100WBC 04/20/24 16:35 Sodium 137 mmol/L (136-1 45) 04/20/24 16:35 Potassium 3.1 mmol/L (3.5-5 .1) L 04/20/24 16:35 Chloride 102 mmol/L (98-10 7) 04/20/24 16:35 Carbon Dioxide 24 mmol/L (22-29) 04/20/24 16:35 Anion Gap 14.1 (5-19) 04/20/24 16:35 BUN 13 mg/dL (6-20) 04/20/24 16:35 Creatinine 0.7 mg/dL (0.7-1. 2) 04/20/24 16:35 GFR Calculation 127.6 mL/min (90- 130) 04/20/24 16:35 Glucose 152 mg/dL (65-115 ) H 04/20/24 16:35 Calculated Osmolal ity 287 mOsm/kg (285- 295) 04/20/24 16:35 Calcium 8.7 mg/dL (8.5-10 .5) 04/20/24 16:35 Total Bilirubin 0.5 mg/dL (0.15-1 .2) 04/20/24 16:35 AST 16 U/L (0-40) 04/20/24 16:35 ALT 19 U/L (0-41) 04/20/24 16:35 Alkaline Phosphata se 59 U/L (40-130) 04/20/24 16:35 Total Protein 7.0 g/dL (6.6-8.7 ) 04/20/24 16:35 Albumin 4.1 g/dL (3.5-5.2 ) 04/20/24 16:35 Globulin 2.9 g/dL (1.3-4.6 ) 04/20/24 16:35 Salicylates < 0.3 mg/dL (3-10 ) L 04/20/24 16:35 Urine Opiates Scre en Negative ng/mL (N egative) 04/20/24 15:30 Acetaminophen < 5.0 ug/mL (10-3 0) L 04/20/24 16:35 Ur Barbiturates Sc reen Negative ng/mL (N egative) 04/20/24 15:30 Ur Phencyclidine S crn Negative ng/mL (N egative) 04/20/24 15:30 Ur Amphetamines Sc reen Negative ng/mL (N egative) 04/20/24 15:30 U Benzodiazepines Scrn Negative ng/mL (N egative) 04/20/24 15:30 Urine Cocaine Scre en Negative ng/mL (N egative) 04/20/24 15:30 U Marijuana (THC) Screen Positive ng/mL (N egative) H 04/20/24 15:30 Ethyl Alcohol < 10 mg/dL (0-10) 04/20/24 16:35 Hepatitis A IgM Ab Non-reactive (No nreactive) 04/29/24 17:43 Hep Bs Antigen Non-reactive (No nreactive) 04/29/24 17:43 Hep Bs Antibody < 3.5 (11.5-1000 ) L 04/29/24 17:43 Hep B Core Total A b Non-reactive (No nreactive) 04/29/24 17:43 Hepatitis C Antibo dy Non-reactive (No nreactive) 04/29/24 17:43 Vitals: Last Vital Signs Temp 97.5 F L 04/30/24 06:00 Pulse 88 04/30/24 06:00 Resp 17 04/30/24 06:00 BP 99/65 04/30/24 06:00 Pulse Ox 97 04/30/24 06:00 O2 Del Method Room Air 04/30/24 06:00 Discharge Plan Discharge Patient Disposition: Home Condition: Stable Prescriptions: New sertraline 100 mg Tablet 100 mg PO DAILY 30 Days Qty: 30 1RF quetiapine 400 mg tablet 400 mg PO BEDTIME 30 Days Qty: 30 1RF gabapentin 400 mg Capsule 400 mg PO TID 30 Days Qty: 90 1RF diazepam 5 mg Tablet 5 mg PO TID Qty: 90 1RF Discontinued trazodone 50 mg Tablet 50 mg PO BEDTIME PRN (Reason: Sleep) 30 Days Qty: 30 1RF mirtazapine 15 mg Tablet 15 mg PO BEDTIME 30 Days Qty: 30 1RF gabapentin 400 mg capsule 400 mg PO QID 30 Days Qty: 120 1RF hydroxyzine pamoate 50 mg capsule 50 mg PO TID PRN (Reason: Severe Anxiety) 30 Days Qty: 90 1RF Discharge Orders: Discharge Order (Routine); Ordered 04/30/24 Ordered By: Bautista Sheth Referrals: [facility] [Other] - 1-3 days (You will have an invitation on your e- mail regarding the program.) [facility] [Other] - 04/30/24 [facility] [Outside] Charan Suarez MD [Physician] - 05/01/24 10:00 am Discharge Diet: Usual diet Discharge Activity: Resume usual activity Patient Instructions: Diazepam (By mouth) (Diazepam Intensol, Valium, [place]- 5), Sertraline (By mouth) (Zoloft), Gabapentin (By mouth), ADHD in Adults (DC), Depression (DC), Help Prevent Suicide (DC), Suicide Prevention (DC), Opioid Safety Discharge Attestations NPU Time Spent in Discharge Care*: less than 30 min Specific Discharge Activities: Specific discharge activities: educating patient and discussing with pcp/other providers Coding Level of Care Code Acute Code for [facility] Fwd Diagnoses Depression, unspecified F32.A Methamphetamine dependence F15.20 Suicidal ideation R45.851 Cannabis abuse F12.10 ADHD, adult residual type F90.8 Auditory hallucinations R44.0
[2024-04-30 13:12] VITALS: BP 99/65; PULSE 88; RESP 17; TEMP 36.4; O2SAT 97
--- NOTE | 2024-04-30 18:00 | PC.NURSE ---
written discharge instruction discussed and left with pt and pt father. personal belongings and $337.00 benton returned to pt.
[2024-04-30 18:06] VITALS: BP 134/74; PULSE 88; RESP 16; TEMP 36.9; O2SAT 95
== END 2024-04-30 18:32 | disposition home or self-care (01) | DRG 881 ==
LOC: ER 17:17 → NP 17:55
PROVIDERS: Admitting Provider Psychiatry & Neurology Psychiatry; Emergency Provider Physician Assistant; Visit Provider Psychiatry & Neurology Psychiatry
DX: F32.A Depression, unspecified (principal); F15.20 Other stimulant dependence, uncomplicated; R45.851 Suicidal ideations; F12.10 Cannabis abuse, uncomplicated; F10.10 Alcohol abuse, uncomplicated; F17.210 Nicotine dependence, cigarettes, uncomplicated; F41.9 Anxiety disorder, unspecified; F20.9 Schizophrenia, unspecified; F90.8 Attention-deficit hyperactivity disorder, other type
CPT/HCPCS: 36415; 80053; 80306; 80307; 85025; 86705; 86706; 86709; 86803; 87340; 97150; 97165; 99285

== ENCOUNTER 2024-05-07 16:33 | Inpatient (IN) | payer MEDICAID, SELFPAY ==
[2024-05-07 16:46] VITALS: BP 165/145; PULSE 120; RESP 20; TEMP 36.9; O2SAT 96; BMI 32.6
[2024-05-07 17:12] LABS: Amphetamines Screen Urine Negative (Negative); Barbiturates Screen Urine Negative (Negative); Benzodiazepines Screen Urine Positive (Negative); Cocaine Screen Urine Negative (Negative); Opiate Screen Urine Negative (Negative); PCP Screen Urine Negative (Negative); THC Screen Urine Positive (Negative)
[2024-05-07 17:12] LABS: Basophils % 0.2 %; Eosinophils % 0.2 %; Hematocrit 44.2 % (37-53); Lymphocytes # 1.8 10^3/uL (0.8-4.8); Lymphocytes % 11.2 %; Mean Corpuscular HGB Conc 34.6 g/dL (30-55); Mean Corpuscular Hemoglobin 30.3 pg (27-33); Mean Corpuscular Volume 87.5 fl (82-101); Monocytes # 1.4 10^3/uL (0.2-0.9); Monocytes % 8.9 %; Neutrophils # 12.69 10^3/uL (1.8-7.7); Neutrophils % 79.2 %; Nucleated Red Blood Cells % 0 %; Platelet Count 290 10^3/cmm (157-399); Red Blood Count 5.05 10^6/uL (3.85-5.65); Red Cell Distribution Width 12.8 % (12.1-15.1); White Blood Count 16.03 10^3/uL (3.29-11.43)
[2024-05-07] MEDS: LORazepam 1 mg Tablet PO (17:17)
[2024-05-07 17:34] LABS: Alanine Aminotransferase 26 U/L (0-41); Albumin Level 4.6 g/dL (3.5-5.2); Alkaline Phosphatase 80 U/L (40-130); Anion Gap 18.4 (5-19); Aspartate Amino Transferase 24 U/L (0-40); Blood Urea Nitrogen 11 mg/dL (6-20); Calcium 9.8 mg/dL (8.5-10.5); Carbon Dioxide 27 mmol/L (22-29); Chloride 98 mmol/L (98-107); Globulin 3.6 g/dL (1.3-4.6); Glomerular Filtration Rate 109.4 mL/min (90-130); Glucose 122 mg/dL (65-115); Osmolality Calculated 291 mOsm/kg (285-295); Potassium 3.4 mmol/L (3.5-5.1); Salicylate 0.6 mg/dL (3-10); Sodium 140 mmol/L (136-145); Total Bilirubin 0.7 mg/dL (0.15-1.2); Total Protein 8.2 g/dL (6.6-8.7)
[2024-05-07 17:35] LABS: Acetaminophen < 5.0 ug/mL (10-30); Alcohol Level < 10 mg/dL (0-10)
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
[2024-05-07 17:57] VITALS: BP 149/75; PULSE 98; RESP 16; O2SAT 96
[2024-05-07 19:27] VITALS: BP 157/116; PULSE 115; RESP 20; TEMP 37.2; O2SAT 96
[2024-05-07 19:43] VITALS: BP 149/75; PULSE 98; RESP 16; TEMP 36.9; O2SAT 96
[2024-05-07] MEDS: trazodone 50 mg Tablet PO (21:18)
[2024-05-07] MEDS: gabapentin 400 mg Capsule PO (21:18)
[2024-05-07 21:31] VITALS: BP 132/92; PULSE 113; O2SAT 91
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
[2024-05-08 06:00] VITALS: BP 145/90; PULSE 94; RESP 18; O2SAT 97
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
[2024-05-08] MEDS: gabapentin 400 mg Capsule PO ×3 (08:53→20:32)
[2024-05-08] MEDS: quetiapine 100 mg Tablet PO (08:53)
[2024-05-08] MEDS: sertraline 100 mg Tablet PO (08:54)
[2024-05-08] MEDS: LORazepam 2 mg Tablet PO (12:36)
--- NOTE | 2024-05-08 12:39 | PC.NURSE ---
Pt experiencing Alcohol withdrawl administered 2mg Ativan PO to pt.
[2024-05-08 14:00] VITALS: BP 117/77; PULSE 97; RESP 16; TEMP 36.8; O2SAT 97
[2024-05-08] MEDS: quetiapine 100 mg Tablet 400 MG PO (20:32)
[2024-05-08 20:53] VITALS: BP 114/68; PULSE 101; RESP 15; TEMP 37.2; O2SAT 94
[2024-05-09 06:00] VITALS: BP 115/73; PULSE 88; RESP 18; TEMP 36.6; O2SAT 96
[2024-05-09] MEDS: quetiapine 100 mg Tablet PO (08:40)
[2024-05-09] MEDS: gabapentin 400 mg Capsule PO ×3 (08:40→20:10)
[2024-05-09] MEDS: sertraline 100 mg Tablet PO (08:40)
[2024-05-09 13:40] VITALS: BP 109/70; PULSE 97; RESP 16; TEMP 36.9; O2SAT 96
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
[2024-05-09] MEDS: calcium carbonate 500 mg Chew Tablet 1000 MG PO (18:46)
[2024-05-09 19:45] VITALS: BP 148/83; PULSE 73; RESP 17; TEMP 36.8; O2SAT 98
[2024-05-09] MEDS: quetiapine 100 mg Tablet 400 MG PO (20:10)
[2024-05-10 06:00] VITALS: BP 101/71; PULSE 104; RESP 16; TEMP 36.6; O2SAT 97
[2024-05-10] MEDS: calcium carbonate 500 mg Chew Tablet 1000 MG PO ×2 (08:21→17:29)
[2024-05-10] MEDS: quetiapine 100 mg Tablet PO (08:22)
[2024-05-10] MEDS: gabapentin 400 mg Capsule PO ×3 (08:22→19:55)
[2024-05-10] MEDS: sertraline 100 mg Tablet PO (08:22)
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
[2024-05-10 13:51] VITALS: BP 131/83; PULSE 120; RESP 17; TEMP 36.6; O2SAT 96
[2024-05-10 15:20] VITALS: BP 131/83; PULSE 120; RESP 17; TEMP 36.6; O2SAT 96
[2024-05-10] MEDS: quetiapine 100 mg Tablet 400 MG PO (19:55)
[2024-05-10 20:18] VITALS: BP 124/88; PULSE 104; RESP 18; TEMP 37.2; O2SAT 96
[2024-05-11 06:00] VITALS: BP 116/74; PULSE 70; RESP 16; TEMP 36.5; O2SAT 98
[2024-05-11] MEDS: sertraline 100 mg Tablet PO (07:56)
[2024-05-11] MEDS: quetiapine 100 mg Tablet PO (07:56)
[2024-05-11] MEDS: gabapentin 400 mg Capsule PO (07:56)
--- NOTE | 2024-05-11 07:59 | PC.NURSE ---
Patient discharged this am. Belongings returned and inventory sheet signed. Patient pleasant and morning medications given. Patient left unit without incident.
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
== END 2024-05-11 07:57 | disposition home or self-care (01) | DRG 881 ==
LOC: ER 17:53 → NP 18:16
PROVIDERS: Admitting Provider Psychiatry & Neurology Psychiatry; Emergency Provider Emergency Medicine; Visit Provider Psychiatry & Neurology Psychiatry
DX: F32.A Depression, unspecified (principal); R45.851 Suicidal ideations; Z59.00 Homelessness unspecified; F15.20 Other stimulant dependence, uncomplicated; F90.8 Attention-deficit hyperactivity disorder, other type; F20.9 Schizophrenia, unspecified; F43.10 Post-traumatic stress disorder, unspecified; F41.9 Anxiety disorder, unspecified; Z72.0 Tobacco use; F12.10 Cannabis abuse, uncomplicated; F10.10 Alcohol abuse, uncomplicated
CPT/HCPCS: 36415; 80053; 80306; 80307; 85025; 97165; 99285

== ENCOUNTER 2024-07-16 14:26 | Emergency (ER) | payer MEDICAID, SELFPAY ==
[2024-07-16 14:50] VITALS: BP 123/73; PULSE 115; RESP 16; TEMP 36.7; O2SAT 96
[2024-07-16 15:21] LABS: Basophils % 0.6 %; Eosinophils # 0.2 10^3/uL (0.0-0.8); Eosinophils % 3.7 %; Hematocrit 40.6 % (37-53); Lymphocytes # 2.6 10^3/uL (0.8-4.8); Mean Corpuscular HGB Conc 32.8 g/dL (30-55); Mean Corpuscular Hemoglobin 29.6 pg (27-33); Mean Corpuscular Volume 90.4 fl (82-101); Mean Platelet Volume 9.3 fL (7.4-10.4); Monocytes # 0.4 10^3/uL (0.2-0.9); Neutrophils # 2.92 10^3/uL (1.8-7.7); Neutrophils % 47.1 %; Nucleated Red Blood Cells % 0 %; Platelet Count 268 10^3/cmm (157-399); Red Blood Count 4.49 10^6/uL (3.85-5.65); Red Cell Distribution Width 12.7 % (12.1-15.1); White Blood Count 6.21 10^3/uL (3.29-11.43)
[2024-07-16 15:21] LABS: Charge for UA Resulting for Rev
[2024-07-16 15:33] LABS: Bilirubin Urine Negative (Negative); Blood Urine Negative (Negative); Glucose Urine UA Negative (Normal); Ketones Urine Negative (Negative); Leukocyte Esterase Urine Negative (Negative); Nitrate Urine Negative (Negative); Protein Urine Negative (Negative); Specific Gravity, Urine 1.015 (1.005-1.030); Urine Appearance Clear (CLEAR); Urine Color Yellow (Yellow); Urobilinogen Urine 0.2 mg/dL (Negative)
[2024-07-16 15:39] LABS: Bacteria Urine None Seen /hpf; Hyaline Casts Urine 0-4 /lpf; RBC Urine 0-2 /hpf (0-2); Squamous Epithelial Cell Urine 0-5 /hpf (0-5); WBC Urine 0-5 /hpf (0-5)
[2024-07-16 15:48] LABS: Alanine Aminotransferase 17 U/L (0-41); Albumin Level 3.9 g/dL (3.5-5.2); Alkaline Phosphatase 104 U/L (40-130); Anion Gap 15.8 (5-19); Aspartate Amino Transferase 14 U/L (0-40); Blood Urea Nitrogen 15 mg/dL (6-20); Calcium 9.5 mg/dL (8.5-10.5); Carbon Dioxide 23 mmol/L (22-29); Chloride 104 mmol/L (98-107); Creatinine Clr Calc Pharmacy 168.0277; Globulin 2.8 g/dL (1.3-4.6); Glomerular Filtration Rate 127.6 mL/min (90-130); Glucose 109 mg/dL (65-115); Lipase 39 U/L (13-60); Osmolality Calculated 289 mOsm/kg (285-295); Potassium 3.8 mmol/L (3.5-5.1); Sodium 139 mmol/L (136-145); Total Bilirubin 0.2 mg/dL (0.15-1.2); Total Protein 6.7 g/dL (6.6-8.7)
--- NOTE | 2024-07-16 16:26 | ED_ITS ---
HPI - Male Genitourinary 2 General: Chief complaint: Urogenital-Male Stated complaint: Kidney Pain Time Seen by Provider: 07/16/24 15:40 Source: patient Mode of arrival: ambulatory Limitations: no limitations History of Present Illness: Patient is a 38-year-old male presents to ED today with a complaint of dark urine and lower back pain that he describes as kidney pain . He states his lower back began hurting him Monday evening. He states he works two jobs and works overnight at [employer]. He states he lives on soda, energy drinks, and coffee and admittedly does not drink much water. States his urine got really dark-almost orange like. States over the past 24 hours he has been drinking a lot of water and upon arrival to the emergency department he states his urine is now normal and clear. He states he is mainly here for a work note for [employer] shift. No abdominal pain. No history of kidney/ureter stones. MD Complaint: other (dark urine/low back pain) Onset (ago): day(s) Duration: improved Severity: mild Quality: aching Relieving factors: other (drinking more water) Exacerbating factors: none Associated symptoms: Reports no associated symptoms; Deny dysuria, nausea or vomiting Related Data Previous Rx's Medication Instructions Recorded gabapentin 400 mg capsule 400 mg PO TID 30 days #90 caps 05/28/24 quetiapine 100 mg tablet (Seroquel) 100 mg PO .HS #30 tabs 05/30/24 quetiapine 300 mg tablet 300 mg PO QAM 30 days #30 tabs 05/30/24 quetiapine 400 mg tablet 400 mg PO BEDTIME 30 days #30 tabs 05/30/24 sertraline 100 mg tablet 100 mg PO DAILY 30 days #30 tabs 05/30/24 Allergies Allergy/AdvReac Type Severity Reaction Status Date / Time No Known Allergies Allergy Verified 07/16/24 14:54 Review of Systems 2 Const: Denies: fever(s), chills, body aches, fatigue or malaise Card: Denies: chest pain Resp: Denies: dyspnea GI: Denies: abdominal pain, nausea, vomiting or diarrhea : Reports: other (dark urine); Denies: flank pain, difficulty urinating, dysuria, urinary frequency, urinary urgency or urinary hesitancy Musc: Reports: back pain; Denies: neck pain, extremity pain, extremity swelling, joint pain or joint swelling Skin/Breast: Denies: rash Neuro: Denies: headache(s), numbness in extremities, weakness in extremities, sensory changes or dizziness PFSH ED 2 PFSH: Medical History Nicotine use disorder Major depressive disorder, recurrent, mild JAROCHO (generalized anxiety disorder) On combination antipsychotic drug therapy Psychiatric care Auditory hallucinations PTSD (post-traumatic stress disorder) ADHD, adult residual type Depression, unspecified History of psychosis Anxiety History of ETOH abuse Methamphetamine dependence Cannabis abuse Family History Father Cancer melanoma Social History Smoking and tobacco/nicotine status: former use of tobacco/nicotine Alcohol intake: current Alcohol intake frequency: 3 or more drinks per day Substance/Drug Use: current Substance/Drug use frequency: daily Marital status: Single Number of children: 0 Highest education level completed: High School Graduate Physical Exam 2 Const: COMMON NORMALS: no acute distress, average body habitus, patient oriented x3, no limitations, alert and well nourished GENERAL APPEARANCE: c ooperative ORIENTATION/CONSCIOUSNESS: Yes awake, Yes oriented to person, Yes oriented to place and Yes oriented to time Eye: COMMON NORMALS: no scleral icterus Chest: COMMONS NORMALS: normal inspection of the chest and normal palpation of entire chest wall Resp: COMMON NORMALS: normal respiratory effort and clear to auscultation bilaterally AUSCULTATION: clear to auscultation bilaterally Cardio: COMMON NORMALS: regular rate and regular rhythm RATE: regular rate RHYTHM: regular rhythm GI: COMMON NORMALS: Normal to inspection, nondistended, normoactive bowel sounds present, Soft to palpation, non-tender, No hepatosplenomegaly present and no masses INSPECTION: Yes normal to inspection PALPATION: Yes Soft to palpation and Yes No hepatosplenomegaly present : COMMON NORMALS: Yes no CVA tenderness BLADDER/KIDNEY EXAM: Yes no CVA tenderness Back/Pelvis: COMMON NORMALS: no CVA tenderness, thoracic and lumbar spine normal to inspection, no thoracic nor lumbar tenderness, thoraco-lumbar ROM normal and straight leg raise negative bilaterally LUMBAR SPINE/LOWER BACK: Y es normal to inspection, Yes lumbar ROM normal, No lumbar spinal tenderness and Yes paraspinal muscle tenderness PELVIS: Yes buttocks normal SACROILIAC JOINTS: Yes SI joints normal SACRUM: no tenderness COCCYX: no tenderness Extremity: COMMON NORMALS: normal to inspection GENERAL: Yes normal exam except as noted Neuro: COMMON NORMALS: patient oriented x3, moves all extremities, no focal motor deficits, no sensory deficits noted and gait normal S ENSORIUM/ORIENTATION: Yes alert, Yes oriented to person, Yes oriented to place and Yes oriented to time Course 2 Vital Signs: Vital signs: Vital Signs Temperature 98.0 F 07/16/24 14:50 Pulse Rate 115 H 07/16/24 14:50 Respiratory Rate 16 07/16/24 14:50 Blood Pressure 123/73 07/16/24 14:50 Pulse Oximetry 96 07/16/24 14:50 Oxygen Delivery Me thod Room Air 07/16/24 14:50 MDM - Male Medical Decision Making Patient appears in no acute distress. He states his back pain is minimal currently. Blood work is completely unremarkable. His UA is clear here. He states he mainly is here for a work note for [employer] shift. Return to ED precautions given. Medical Records I reviewed the patient's medical records. Lab Data I reviewed the patient's lab results. 07/16/24 15:15 07/16/24 15:15 Laboratory Results WBC 6.21 10^3/uL (3.29-11.43) 07/16/24 15:15 RBC 4.49 10^6/uL (3.85-5.65) 07/16/24 15:15 Hgb 13.30 g/dL (11.27-16.99) 07/16/24 15:15 Hct 40.6 % (37-53) 07/16/24 15:15 MCV 90.4 fl (82-101) 07/16/24 15:15 MCH 29.6 pg (27-33) 07/16/24 15:15 MCHC 32.8 g/dL (30-55) 07/16/24 15:15 RDW 12.7 % (12.1-15.1) 07/16/24 15:15 Plt Count 268 10^3/cmm (157-399) 07/16/24 15:15 MPV 9.3 fL (7.4-10.4) 07/16/24 15:15 Neut % (Auto) 47.1 % 07/16/24 15:15 Lymph % (Auto) 42.0 % 07/16/24 15:15 [place] % (Auto) 6.0 % 07/16/24 15:15 Eos % (Auto) 3.7 % 07/16/24 15:15 Baso % (Auto) 0.6 % 07/16/24 15:15 Neut # (Auto) 2.92 10^3/uL (1.8-7.7) 07/16/24 15:15 Lymph # (Auto) 2.6 10^3/uL (0.8-4.8) 07/16/24 15:15 [place] # (Auto) 0.4 10^3/uL (0.2-0.9) 07/16/24 15:15 Eos # (Auto) 0.2 10^3/uL (0.0-0.8) 07/16/24 15:15 Baso # (Auto) 0.0 10^3/uL (0.0-0.1) 07/16/24 15:15 Nucleated RBC % (auto) 0 % 07/16/24 15:15 Nucleated RBCs # 0.0 /100WBC 07/16/24 15:15 Sodium 139 mmol/L (136-145) 07/16/24 15:15 Potassium 3.8 mmol/L (3.5-5.1) 07/16/24 15:15 Chloride 104 mmol/L (98-107) 07/16/24 15:15 Carbon Dioxide 23 mmol/L (22-29) 07/16/24 15:15 Anion Gap 15.8 (5-19) 07/16/24 15:15 BUN 15 mg/dL (6-20) 07/16/24 15:15 Creatinine 0.7 mg/dL (0.7-1.2) 07/16/24 15:15 GFR Calculation 127.6 mL/min (90-130) 07/16/24 15:15 Glucose 109 mg/dL (65-115) 07/16/24 15:15 Calculated Osmolality 289 mOsm/kg (285-295) 07/16/24 15:15 Calcium 9.5 mg/dL (8.5-10.5) 07/16/24 15:15 Total Bilirubin 0.2 mg/dL (0.15-1.2) 07/16/24 15:15 AST 14 U/L (0-40) 07/16/24 15:15 ALT 17 U/L (0-41) 07/16/24 15:15 Alkaline Phosphatase 104 U/L (40-130) 07/16/24 15:15 Total Protein 6.7 g/dL (6.6-8.7) 07/16/24 15:15 Albumin 3.9 g/dL (3.5-5.2) 07/16/24 15:15 Globulin 2.8 g/dL (1.3-4.6) 07/16/24 15:15 Lipase 39 U/L (13-60) 07/16/24 15:15 Urine Color Yellow (Yellow) 07/16/24 14:55 Urine Appearance Clear (CLEAR) 07/16/24 14:55 Urine pH 6.0 (5-7) 07/16/24 14:55 Ur Specific [place] 1.015 (1.005-1.030) 07/16/24 14:55 Urine Protein Negative (Negative) 07/16/24 14:55 Urine Glucose (UA) Negative (Normal) 07/16/24 14:55 Urine Ketones Negative (Negative) 07/16/24 14:55 Urine Blood Negative (Negative) 07/16/24 14:55 Urine Nitrate Negative (Negative) 07/16/24 14:55 Urine Bilirubin Negative (Negative) 07/16/24 14:55 Urine Urobilinogen 0.2 mg/dL (Negative) 07/16/24 14:55 Ur Leukocyte Esterase Negative (Negative) 07/16/24 14:55 Urine RBC 0-2 /hpf (0-2) 07/16/24 14:55 Urine WBC 0-5 /hpf (0-5) 07/16/24 14:55 Ur Squamous Epith Cells 0-5 /hpf (0-5) 07/16/24 14:55 Amorphous Sediment Not Reportable 07/16/24 14:55 Urine Bacteria None seen /hpf (NONE) 07/16/24 14:55 Hyaline Casts 0-4 /lpf H 07/16/24 14:55 No radiology studies performed this visit Discharge Plan Discharge Patient Disposition: Home Clinical Impression: Dehydration Condition: Stable Prescriptions: No Action quetiapine 300 mg tablet 300 mg PO QAM 30 Days Qty: 30 1RF quetiapine [Seroquel] 100 mg tablet 100 mg PO .HS Qty: 30 1RF Rx Instructions: Take with Seroquel 400mg for a total of 500mg at bedtime quetiapine 400 mg tablet 400 mg PO BEDTIME 30 Days Qty: 30 1RF Rx Instructions: Take with Seroquel 400mg at bedtime for a total dose of 500mg. sertraline 100 mg tablet 100 mg PO DAILY 30 Days Qty: 30 1RF gabapentin 400 mg capsule 400 mg PO TID 30 Days Qty: 90 1RF Discharge Orders: Discharge ED (Routine); Ordered 07/16/24 Ordered By: Magui Peng Stand Alone Forms: Work/School Release Coding Level of Care Code ED Internal Specialist for Reji Mckeon
[2024-07-16 16:52] VITALS: BP 123/88; PULSE 111; RESP 20; O2SAT 98
== END 2024-07-16 16:54 | disposition home or self-care (01) ==
PROVIDERS: Emergency Medicine; Emergency Provider Physician Assistant
DX: E86.0 Dehydration (principal); Z87.891 Personal history of nicotine dependence
CPT/HCPCS: 36415; 80053; 81003; 81015; 83690; 85025; 99283

== ENCOUNTER 2024-07-19 04:38 | Inpatient (IN) | payer MEDICAID, SELFPAY ==
[2024-07-19 04:41] VITALS: BP 137/95; PULSE 111; RESP 18; TEMP 36.6; O2SAT 100; BMI 31.7
--- NOTE | 2024-07-19 04:49 | W.ED.PSYCHS ---
Documented by User: James Danielle MD 07/19/24 05:58 HPI - Psych General: Chief Complaint: Psychiatric Symptoms Stated Complaint: SI Time Seen by Provider: 07/19/24 04:42 History of Present Illness: 38-year-old male with complaint of depression and suicidal ideation. He states that he has been having a lot of suicidal thoughts lately and overdosed on Seroquel about 6 hours prior like taking 1500 mg. He states that he feels like he needs to be admitted to the hospital due to his depression and suicidal thoughts before he tries a more serious attempt. Related Data Home Medications Medication Instructions Recorded Confirmed quetiapine 100 mg tablet (Seroquel) See Rx Instructions .Route .COMPLEX 07/19/24 07/19/24 trazodone 50 mg tablet 50 mg PO BEDTIME PRN Sleep 07/19/24 07/19/24 Previous Rx's Medication Instructions Recorded gabapentin 400 mg capsule 400 mg PO TID 30 days #90 caps 05/28/24 quetiapine 300 mg tablet 300 mg PO QAM 30 days #30 tabs 05/30/24 quetiapine 400 mg tablet 400 mg PO BEDTIME 30 days #30 tabs 05/30/24 sertraline 100 mg tablet 100 mg PO DAILY 30 days #30 tabs 05/30/24 Allergies Allergy/AdvReac Type Severity Reaction Status Date / Time No Known Allergies Allergy Verified 07/16/24 14:54 PFSH ED PFSH: Medical History Nicotine use disorder Major depressive disorder, recurrent, mild JAROCHO (generalized anxiety disorder) On combination antipsychotic drug therapy Psychiatric care Auditory hallucinations PTSD (post-traumatic stress disorder) ADHD, adult residual type Depression, unspecified History of psychosis Anxiety History of ETOH abuse Methamphetamine dependence Cannabis abuse Family History Father Cancer melanoma Social History Smoking and tobacco/nicotine status: former use of tobacco/nicotine Alcohol intake: current Alcohol intake frequency: 3 or more drinks per day Substance/Drug Use: current Substance/Drug use frequency: daily Marital status: Single Number of children: 0 Highest education level completed: High School Graduate Physical Exam Const: COMMON NORMALS: no acute distress, average body habitus, patient oriented x3, no limitations, healthy appearing, alert and well nourished Neck/C-Spine: COMMON NORMALS: no JVD Resp: COMMON NORMALS: normal respiratory effort, No retractions, No use of accessory muscles, clear to auscultation bilaterally and percussion normal AUSCULTATION: clear to auscultation bilaterally PERCUSSION: percussion normal Cardio: COMMON NORMALS: no JVD, regular rate, regular rhythm, S1 normal heart sound present, S2 normal heart sound present, No gallops present (Cardio), No clicks present (Cardio), No murmurs present (Cardio), No rub (Cardio) and Peripheral pulses 2+ throughout RATE: regular rate RHYTHM: regular rhythm HEART SOUNDS: S1 normal heart sound present and S2 normal heart sound present PERIPHERAL PULSES: Peripheral pulses 2+ throughout GI: COMMON NORMALS: Normal to inspection, nondistended, normoactive bowel sounds present, Soft to palpation, non-tender, No hepatosplenomegaly present, no masses and no bruits PALPATION: Yes Soft to palpation and Yes No hepatosplenomegaly present Neuro: COMMON NORMALS: patient oriented x3 SENSORIUM/ORIENTATION: Yes alert Psych: COMMON NORMALS: Normal thought process present MOOD & AFFECT: Yes depressed mood THOUGHT PROCESS: Normal thought process present THOUGHT CONTENT: Yes Suicidality present JUDGEMENT: questionable Course Vital Signs: Vital signs: Vital Signs Temperature 97.9 F 07/19/24 04:41 Pulse Rate 111 H 07/19/24 04:41 Respiratory Rate 18 07/19/24 04:41 Blood Pressure 137/95 07/19/24 04:41 Pulse Oximetry 100 07/19/24 04:41 MDM - Psych Medical Decision Making 38-year-old male with complaint of depression and suicidal ideation. He states that he has been having a lot of suicidal thoughts lately and overdosed on Seroquel about 6 hours prior like taking 1500 mg. He states that he feels like he needs to be admitted to the hospital due to his depression and suicidal thoughts before he tries a more serious attempt Lab Data 07/19/24 05:08 07/19/24 05:08 Laboratory Results WBC 7.26 10^3/uL (3.29-11.43) 07/19/24 05:08 RBC 4.44 10^6/uL (3.85-5.65) 07/19/24 05:08 Hgb 13.20 g/dL (11.27-16.99) 07/19/24 05:08 Hct 39.6 % (37-53) 07/19/24 05:08 MCV 89.2 fl (82-101) 07/19/24 05:08 MCH 29.7 pg (27-33) 07/19/24 05:08 MCHC 33.3 g/dL (30-55) 07/19/24 05:08 RDW 13.0 % (12.1-15.1) 07/19/24 05:08 Plt Count 264 10^3/cmm (157-399) 07/19/24 05:08 MPV 9.0 fL (7.4-10.4) 07/19/24 05:08 Neut % (Auto) 42.0 % 07/19/24 05:08 Lymph % (Auto) 44.6 % 07/19/24 05:08 Platte % (Auto) 8.8 % 07/19/24 05:08 Eos % (Auto) 3.0 % 07/19/24 05:08 Baso % (Auto) 0.6 % 07/19/24 05:08 Neut # (Auto) 3.05 10^3/uL (1.8-7.7) 07/19/24 05:08 Lymph # (Auto) 3.2 10^3/uL (0.8-4.8) 07/19/24 05:08 Platte # (Auto) 0.6 10^3/uL (0.2-0.9) 07/19/24 05:08 Eos # (Auto) 0.2 10^3/uL (0.0-0.8) 07/19/24 05:08 Baso # (Auto) 0.0 10^3/uL (0.0-0.1) 07/19/24 05:08 Nucleated RBC % (auto) 0 % 07/19/24 05:08 Nucleated RBCs # 0.0 /100WBC 07/19/24 05:08 Sodium 140 mmol/L (136-145) 07/19/24 05:08 Potassium 3.3 mmol/L (3.5-5.1) L 07/19/24 05:08 Chloride 102 mmol/L (98-107) 07/19/24 05:08 Carbon Dioxide 22 mmol/L (22-29) 07/19/24 05:08 Anion Gap 19.3 (5-19) H 07/19/24 05:08 BUN 17 mg/dL (6-20) 07/19/24 05:08 Creatinine 0.9 mg/dL (0.7-1.2) 07/19/24 05:08 GFR Calculation 95.5 mL/min (90-130) 07/19/24 05:08 Glucose 145 mg/dL (65-115) H 07/19/24 05:08 Calculated Osmolality 294 mOsm/kg (285-295) 07/19/24 05:08 Calcium 8.7 mg/dL (8.5-10.5) 07/19/24 05:08 Total Bilirubin 0.6 mg/dL (0.15-1.2) 07/19/24 05:08 AST 20 U/L (0-40) 07/19/24 05:08 ALT 19 U/L (0-41) 07/19/24 05:08 Alkaline Phosphatase 103 U/L (40-130) 07/19/24 05:08 Total Protein 7.0 g/dL (6.6-8.7) 07/19/24 05:08 Albumin 4.2 g/dL (3.5-5.2) 07/19/24 05:08 Globulin 2.8 g/dL (1.3-4.6) 07/19/24 05:08 Urine Color Yellow (Yellow) 07/19/24 05:23 Urine Appearance Cloudy (CLEAR) A 07/19/24 05:23 Urine pH 6.0 (5-7) 07/19/24 05:23 Ur Specific Jeannette 1.022 (1.005-1.030) 07/19/24 05:23 Urine Protein Trace (Negative) A 07/19/24 05:23 Urine Glucose (UA) Negative (Normal) 07/19/24 05:23 Urine Ketones Negative (Negative) 07/19/24 05:23 Urine Blood Negative (Negative) 07/19/24 05:23 Urine Nitrate Negative (Negative) 07/19/24 05:23 Urine Bilirubin Negative (Negative) 07/19/24 05:23 Urine Urobilinogen 1.0 mg/dL (Negative) 07/19/24 05:23 Ur Leukocyte Esterase Negative (Negative) 07/19/24 05:23 Urine RBC 0-2 /hpf (0-2) 07/19/24 05:23 Urine WBC 0-5 /hpf (0-5) 07/19/24 05:23 Ur Squamous Epith Cells 0-5 /hpf (0-5) 07/19/24 05:23 Amorphous Sediment Not Reportable 07/19/24 05:23 Urine Bacteria None seen /hpf (NONE) 07/19/24 05:23 Hyaline Casts 2.05 /lpf 07/19/24 05:23 Salicylates < 0.3 mg/dL (3-10) L 07/19/24 05:08 Urine Opiates Screen Negative ng/mL (Negative) 07/19/24 05:23 Acetaminophen < 5.0 ug/mL (10-30) L 07/19/24 05:08 Ur Barbiturates Screen Negative ng/mL (Negative) 07/19/24 05:23 Ur Phencyclidine Scrn Negative ng/mL (Negative) 07/19/24 05:23 Ur Amphetamines Screen Negative ng/mL (Negative) 07/19/24 05:23 U Benzodiazepines Scrn Negative ng/mL (Negative) 07/19/24 05:23 Urine Cocaine Screen Negative ng/mL (Negative) 07/19/24 05:23 U Marijuana (THC) Screen Positive ng/mL (Negative) H 07/19/24 05:23 Ethyl Alcohol 32 mg/dL (0-10) H 07/19/24 05:08 No radiology studies performed this visit Discharge Plan Discharge Patient Disposition: Admitted As Inpatient Clinical Impression: Suicidal ideation, Overdose by ingestion Condition: Stable Prescriptions: No Action quetiapine 300 mg tablet 300 mg PO QAM 30 Days Qty: 30 1RF quetiapine 400 mg tablet 400 mg PO BEDTIME 30 Days Qty: 30 1RF Rx Instructions: Take 400mg by mouth with Seroquel 100mg at bedtime for a total dose of 500mg. sertraline 100 mg tablet 100 mg PO DAILY 30 Days Qty: 30 1RF gabapentin 400 mg capsule 400 mg PO TID 30 Days Qty: 90 1RF trazodone 50 mg tablet 50 mg PO BEDTIME PRN (Reason: Sleep) Seroquel 100 mg tablet See Rx Instructions .ROUTE .COMPLEX Rx Instructions: Take 100mg by mouth with Seroquel 400mg for a total of 500mg at bedtime. Sign Out Sign Out Data: Patient Sign Out occurred on 07/19/24 at 06:23. Patient's care was discussed, and care was transferred from James Danielle MD to Donny Henning DO. 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 [employer] Documented by User: Donny Henning DO 07/19/24 08:31 HPI - Psych General: Chief Complaint: Psychiatric Symptoms Stated Complaint: SI Time Seen by Provider: 07/19/24 04:42 Related Data Home Medications Medication Instructions Recorded Confirmed quetiapine 100 mg tablet (Seroquel) See Rx Instructions .Route .COMPLEX 07/19/24 07/19/24 trazodone 50 mg tablet 50 mg PO BEDTIME PRN Sleep 07/19/24 07/19/24 Previous Rx's Medication Instructions Recorded gabapentin 400 mg capsule 400 mg PO TID 30 days #90 caps 05/28/24 quetiapine 300 mg tablet 300 mg PO QAM 30 days #30 tabs 05/30/24 quetiapine 400 mg tablet 400 mg PO BEDTIME 30 days #30 tabs 05/30/24 sertraline 100 mg tablet 100 mg PO DAILY 30 days #30 tabs 05/30/24 Allergies Allergy/AdvReac Type Severity Reaction Status Date / Time No Known Allergies Allergy Verified 07/16/24 14:54 PFSH ED PFSH: Medical History Nicotine use disorder Major depressive disorder, recurrent, mild JAROCHO (generalized anxiety disorder) On combination antipsychotic drug therapy Psychiatric care Auditory hallucinations PTSD (post-traumatic stress disorder) ADHD, adult residual type Depression, unspecified History of psychosis Anxiety History of ETOH abuse Methamphetamine dependence Cannabis abuse Family History Father Cancer melanoma Social History Smoking and tobacco/nicotine status: former use of tobacco/nicotine Alcohol intake: current Alcohol intake frequency: 3 or more drinks per day Substance/Drug Use: current Substance/Drug use frequency: daily Marital status: Single Number of children: 0 Highest education level completed: High School Graduate Course Vital Signs: Vital signs: Vital Signs Temperature 97.9 F 07/19/24 04:41 Pulse Rate 111 H 07/19/24 04:41 Respiratory Rate 18 07/19/24 04:41 Blood Pressure 137/95 07/19/24 04:41 Pulse Oximetry 100 07/19/24 04:41 MDM - Psych Medical Decision Making 38-year-old male with complaint of depression and suicidal ideation. He states that he has been having a lot of suicidal thoughts lately and overdosed on Seroquel about 6 hours prior like taking 1500 mg. He states that he feels like he needs to be admitted to the hospital due to his depression and suicidal thoughts before he tries a more serious attempt Care assumed at change of shift. Will admit for suicidal ideation with attempted overdose. At this point patient is nearly 12 hours out from ingestion of the Seroquel and has no toxic effect. He thinks he can safely be admitted to the [facility] you have discussed with Dr. Mccarthy. They will have a bed later this morning after some discharges. Patient will be placed on a 96-hour hold Lab Data 07/19/24 05:08 07/19/24 05:08 Laboratory Results WBC 7.26 10^3/uL (3.29-11.43) 07/19/24 05:08 RBC 4.44 10^6/uL (3.85-5.65) 07/19/24 05:08 Hgb 13.20 g/dL (11.27-16.99) 07/19/24 05:08 Hct 39.6 % (37-53) 07/19/24 05:08 MCV 89.2 fl (82-101) 07/19/24 05:08 MCH 29.7 pg (27-33) 07/19/24 05:08 MCHC 33.3 g/dL (30-55) 07/19/24 05:08 RDW 13.0 % (12.1-15.1) 07/19/24 05:08 Plt Count 264 10^3/cmm (157-399) 07/19/24 05:08 MPV 9.0 fL (7.4-10.4) 07/19/24 05:08 Neut % (Auto) 42.0 % 07/19/24 05:08 Lymph % (Auto) 44.6 % 07/19/24 05:08 Platte % (Auto) 8.8 % 07/19/24 05:08 Eos % (Auto) 3.0 % 07/19/24 05:08 Baso % (Auto) 0.6 % 07/19/24 05:08 Neut # (Auto) 3.05 10^3/uL (1.8-7.7) 07/19/24 05:08 Lymph # (Auto) 3.2 10^3/uL (0.8-4.8) 07/19/24 05:08 Platte # (Auto) 0.6 10^3/uL (0.2-0.9) 07/19/24 05:08 Eos # (Auto) 0.2 10^3/uL (0.0-0.8) 07/19/24 05:08 Baso # (Auto) 0.0 10^3/uL (0.0-0.1) 07/19/24 05:08 Nucleated RBC % (auto) 0 % 07/19/24 05:08 Nucleated RBCs # 0.0 /100WBC 07/19/24 05:08 Sodium 140 mmol/L (136-145) 07/19/24 05:08 Potassium 3.3 mmol/L (3.5-5.1) L 07/19/24 05:08 Chloride 102 mmol/L (98-107) 07/19/24 05:08 Carbon Dioxide 22 mmol/L (22-29) 07/19/24 05:08 Anion Gap 19.3 (5-19) H 07/19/24 05:08 BUN 17 mg/dL (6-20) 07/19/24 05:08 Creatinine 0.9 mg/dL (0.7-1.2) 07/19/24 05:08 GFR Calculation 95.5 mL/min (90-130) 07/19/24 05:08 Glucose 145 mg/dL (65-115) H 07/19/24 05:08 Calculated Osmolality 294 mOsm/kg (285-295) 07/19/24 05:08 Calcium 8.7 mg/dL (8.5-10.5) 07/19/24 05:08 Total Bilirubin 0.6 mg/dL (0.15-1.2) 07/19/24 05:08 AST 20 U/L (0-40) 07/19/24 05:08 ALT 19 U/L (0-41) 07/19/24 05:08 Alkaline Phosphatase 103 U/L (40-130) 07/19/24 05:08 Total Protein 7.0 g/dL (6.6-8.7) 07/19/24 05:08 Albumin 4.2 g/dL (3.5-5.2) 07/19/24 05:08 Globulin 2.8 g/dL (1.3-4.6) 07/19/24 05:08 Urine Color Yellow (Yellow) 07/19/24 05:23 Urine Appearance Cloudy (CLEAR) A 07/19/24 05:23 Urine pH 6.0 (5-7) 07/19/24 05:23 Ur Specific Jeannette 1.022 (1.005-1.030) 07/19/24 05:23 Urine Protein Trace (Negative) A 07/19/24 05:23 Urine Glucose (UA) Negative (Normal) 07/19/24 05:23 Urine Ketones Negative (Negative) 07/19/24 05:23 Urine Blood Negative (Negative) 07/19/24 05:23 Urine Nitrate Negative (Negative) 07/19/24 05:23 Urine Bilirubin Negative (Negative) 07/19/24 05:23 Urine Urobilinogen 1.0 mg/dL (Negative) 07/19/24 05:23 Ur Leukocyte Esterase Negative (Negative) 07/19/24 05:23 Urine RBC 0-2 /hpf (0-2) 07/19/24 05:23 Urine WBC 0-5 /hpf (0-5) 07/19/24 05:23 Ur Squamous Epith Cells 0-5 /hpf (0-5) 07/19/24 05:23 Amorphous Sediment Not Reportable 07/19/24 05:23 Urine Bacteria None seen /hpf (NONE) 07/19/24 05:23 Hyaline Casts 2.05 /lpf 07/19/24 05:23 Salicylates < 0.3 mg/dL (3-10) L 07/19/24 05:08 Urine Opiates Screen Negative ng/mL (Negative) 07/19/24 05:23 Acetaminophen < 5.0 ug/mL (10-30) L 07/19/24 05:08 Ur Barbiturates Screen Negative ng/mL (Negative) 07/19/24 05:23 Ur Phencyclidine Scrn Negative ng/mL (Negative) 07/19/24 05:23 Ur Amphetamines Screen Negative ng/mL (Negative) 07/19/24 05:23 U Benzodiazepines Scrn Negative ng/mL (Negative) 07/19/24 05:23 Urine Cocaine Screen Negative ng/mL (Negative) 07/19/24 05:23 U Marijuana (THC) Screen Positive ng/mL (Negative) H 07/19/24 05:23 Ethyl Alcohol 32 mg/dL (0-10) H 07/19/24 05:08 Discharge Plan Discharge Patient Disposition: Admitted As Inpatient Clinical Impression: Suicidal ideation, Overdose by ingestion Condition: Stable Prescriptions: No Action quetiapine 300 mg tablet 300 mg PO QAM 30 Days Qty: 30 1RF quetiapine 400 mg tablet 400 mg PO BEDTIME 30 Days Qty: 30 1RF Rx Instructions: Take 400mg by mouth with Seroquel 100mg at bedtime for a total dose of 500mg. sertraline 100 mg tablet 100 mg PO DAILY 30 Days Qty: 30 1RF gabapentin 400 mg capsule 400 mg PO TID 30 Days Qty: 90 1RF trazodone 50 mg tablet 50 mg PO BEDTIME PRN (Reason: Sleep) Seroquel 100 mg tablet See Rx Instructions .ROUTE .COMPLEX Rx Instructions: Take 100mg by mouth with Seroquel 400mg for a total of 500mg at bedtime. Sign Out Sign Out Data: Patient Sign Out occurred on 07/19/24 at 06:23. Patient's care was discussed, and care was transferred from James Danielle MD to Donny Henning DO. 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
--- NOTE | 2024-07-19 04:54 | ECG_ITS ---
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 Measurements Intervals [place] Rate: 91 P: 37 VT: 116 QRS: 53 QRSD: 82 T: 43 QT: 380 QTc: 470 Interpretive Statements SINUS RHYTHM WITH SHORT VT INTERVAL Compared to ECG 01/18/2021 16:42:40 Sinus tachycardia no longer present Electronically Signed On 07-19-2024 18:15:16 CDT by Jeannette Corcoran M.D. [id number]
[2024-07-19 05:13] LABS: Basophils % 0.6 %; Eosinophils # 0.2 10^3/uL (0.0-0.8); Hematocrit 39.6 % (37-53); Lymphocytes # 3.2 10^3/uL (0.8-4.8); Lymphocytes % 44.6 %; Mean Corpuscular HGB Conc 33.3 g/dL (30-55); Mean Corpuscular Hemoglobin 29.7 pg (27-33); Mean Corpuscular Volume 89.2 fl (82-101); Monocytes # 0.6 10^3/uL (0.2-0.9); Monocytes % 8.8 %; Neutrophils # 3.05 10^3/uL (1.8-7.7); Nucleated Red Blood Cells % 0 %; Platelet Count 264 10^3/cmm (157-399); Red Blood Count 4.44 10^6/uL (3.85-5.65); White Blood Count 7.26 10^3/uL (3.29-11.43)
[2024-07-19 05:28] LABS: Charge for UA Resulting for Rev
[2024-07-19 05:32] LABS: Alanine Aminotransferase 19 U/L (0-41); Albumin Level 4.2 g/dL (3.5-5.2); Alcohol Level 32 mg/dL (0-10); Alkaline Phosphatase 103 U/L (40-130); Anion Gap 19.3 (5-19); Aspartate Amino Transferase 20 U/L (0-40); Blood Urea Nitrogen 17 mg/dL (6-20); Calcium 8.7 mg/dL (8.5-10.5); Carbon Dioxide 22 mmol/L (22-29); Chloride 102 mmol/L (98-107); Creatinine Clr Calc Pharmacy 130.6882; Globulin 2.8 g/dL (1.3-4.6); Glomerular Filtration Rate 95.5 mL/min (90-130); Glucose 145 mg/dL (65-115); Osmolality Calculated 294 mOsm/kg (285-295); Potassium 3.3 mmol/L (3.5-5.1); Sodium 140 mmol/L (136-145); Total Bilirubin 0.6 mg/dL (0.15-1.2)
[2024-07-19 05:33] LABS: Acetaminophen < 5.0 ug/mL (10-30); Salicylate < 0.3 mg/dL (3-10)
[2024-07-19 05:34] LABS: Bilirubin Urine Negative (Negative); Blood Urine Negative (Negative); Glucose Urine UA Negative (Normal); Ketones Urine Negative (Negative); Leukocyte Esterase Urine Negative (Negative); Nitrate Urine Negative (Negative); Protein Urine Trace (Negative); Specific Gravity, Urine 1.022 (1.005-1.030); Urine Appearance Cloudy (CLEAR); Urine Color Yellow (Yellow)
[2024-07-19 05:39] LABS: Bacteria Urine None Seen /hpf; Hyaline Casts Urine 2.05 /lpf; RBC Urine 0-2 /hpf (0-2); Squamous Epithelial Cell Urine 0-5 /hpf (0-5); WBC Urine 0-5 /hpf (0-5)
[2024-07-19 05:41] LABS: Amphetamines Screen Urine Negative (Negative); Barbiturates Screen Urine Negative (Negative); Benzodiazepines Screen Urine Negative (Negative); Cocaine Screen Urine Negative (Negative); Opiate Screen Urine Negative (Negative); PCP Screen Urine Negative (Negative); THC Screen Urine Positive (Negative)
--- NOTE | 2024-07-19 07:20 | PC.PHAR ---
Pt unable to verify medications at this time. Med rec completed by fill dates and days supply from [facility]
--- NOTE | 2024-07-19 09:17 | PC.NURSE ---
this nurse took over patient care from PADMINI Mcginnis @ [phone]
--- NOTE | 2024-07-19 09:19 | PC.NURSE ---
96 hr rights reviewed with patient @[phone] with assistance of [facility] security messenger Artur Ko and Artur Skinner All education reviewed with patient. No verbalized concerns or needs at this time. Patient copy left @bedside with patient. Patient currently resting with eyes closed.
[2024-07-19 10:00] VITALS: BP 106/66; PULSE 86; O2SAT 94
[2024-07-19 11:59] VITALS: BP 109/63; PULSE 81; O2SAT 97
[2024-07-19 12:00] VITALS: BP 110/72; PULSE 91; RESP 16; TEMP 36.5; O2SAT 98
--- NOTE | 2024-07-19 13:03 | PC.ADMIT ---
[facility] The patient,Alfonzo Kee,38 y/o, was given written information regarding hospital policies, unit procedures and contact persons. Patient's smoking status: former smoker. Vital Signs - 8 hr 07/19/24 10:00 07/19/24 11:59 07/19/24 12:00 Temperature 97.7 F Pulse Rate 86 81 91 Respiratory Rate 16 Blood Pressure 106/66 109/63 110/72 Pulse Oximetry 94 97 98 Oxygen Delivery Method Room Air 07/19/24 12:45 Temperature Pulse Rate Respiratory Rate Blood Pressure Pulse Oximetry Oxygen Delivery Method Room Air ADMITTED FROM [facility] ER VIA WHEELCHAIR, SECURITY AND ER STAFF AT 1200 ON INVOLUNTARY HOLD THAT ENDS ON 07/26/24@0815 AM. PT IS OBSERVED TO HAVE A FLAT AFFECT AND LITTLE TO NO EYE CONTACT. PT HAS BEEN TO THE [facility] SEVERAL TIMES OVER THE PAST YEAR. PT REPORTS HE GOES TO [facility] FOR HIS MEDICATION MANAGEMENT AND LIVES AT [facility]. PT IS POSITIVE FOR THC AND ETOH IS 32. PT ON CIPR PROTOCOL FOR ALCOHOL WITHDRAWAL. PT REPORTS SUICIDAL THOUGHTS WITH NO PLAN. DENIES HI AND AVH AT THIS TIME. PT REPORTS HE DOES HAVE TIMES HE HEARS VOICES AND SEES THINGS THAT ARE NOT THERE. PT IS EVASIVE WITH ASSESSMENT. REPORTS HE TAKES SEROQUEL 300MG IN AM, 500 MG AT BEDTIME, GABAPENTIN 400 MG PO TID AND SERTRALINE 100MG PO QDAY. MEDICATIONS RESTARTED PER DR. PÉREZ ORDERS. PT DRESSED OUT PER PROTOCOL, SKIN ASSESSMENT COMPLETED AND REVEALS BILATERAL UPPER ARMS WITH RED RAISED BUMPS. PT STATES THEY ARE ANT BITES. RN ASKED IF ARMS ITCH, PT STATED YES BUT DECLINES WANTING ANY TOPICAL MEDICATIONS TO RELIEVE IT. PT WAS OFFERED A LUNCH TRAY BUT DECLINES. ORIENTATED TO UNIT, SAFETY RULES AND GUIDELINES. ALL QUESTIONS ANSWERED AND SUPPORT WAS VOICED;
--- NOTE | 2024-07-19 15:31 | W.PM.NPUH&PS ---
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 [facility] which is a sober living home. States he has been there for couple weeks since he was last discharged from the hospital. Prior to that he states he was homeless. He was staying in [place]. He is single and has no kids. Currently working at [employer]phy the third shift and states he logs during the day. Graduated high school. No history of physical, emotional, sexual abuse. He does report legal history including getting several felonies for possession and avelino larceny. He states he spent a couple years in care home in 2006. States he is currently not on probation or parole. Records indicate that he has been and and has 4 children that he does not have contact with. Meds NPU Home Medications Medication Instructions Recorded Confirmed Last Taken Type gabapentin 400 mg capsule 400 mg PO TID 30 days #90 caps 05/28/24 07/19/24 Unknown Rx quetiapine 300 mg tablet 300 mg PO QAM 30 days #30 tabs 05/30/24 07/19/24 Unknown Rx quetiapine 400 mg tablet 400 mg PO BEDTIME 30 days #30 tabs 05/30/24 07/19/24 Unknown Rx sertraline 100 mg tablet 100 mg PO DAILY 30 days #30 tabs 05/30/24 07/19/24 Unknown Rx quetiapine 100 mg tablet (Seroquel) See Rx Instructions .Route .COMPLEX 07/19/24 07/19/24 Unknown History trazodone 50 mg tablet 50 mg PO BEDTIME PRN Sleep 07/19/24 07/19/24 Unknown History Allergies Allergy/AdvReac Type Severity Reaction Status Date / Time No Known Allergies Allergy Verified 07/19/24 12:00 PFSH NPU PFSH: Medical History Nicotine use disorder Major depressive disorder, recurrent, mild JAROCHO (generalized anxiety disorder) On combination antipsychotic drug therapy Psychiatric care Auditory hallucinations PTSD (post-traumatic stress disorder) ADHD, adult residual type Depression, unspecified History of psychosis Anxiety History of ETOH abuse Methamphetamine dependence Cannabis abuse Family History Father Cancer melanoma Social History Smoking and tobacco/nicotine status: former use of tobacco/nicotine Alcohol intake: current Alcohol intake frequency: 3 or more drinks per day Substance/Drug Use: current Substance/Drug use frequency: daily Marital status: Single Number of children: 0 Highest education level completed: High School Graduate Mental Status Exam MSE Comments: This is an overweight white male in hospital scrubs with limited grooming with eye contact looking older than his stated age.? No abnormal involuntary motor movements except for psychomotor retardation.?He was cooperative with exam in mild distress.? Speech was decreased in rate and normal in volume.? Mood described as more depressed. His affect was mood congruent and restricted in range. ? Thought process was linear.? Thought content: Patient endorsed suicidal ideation with no plan today. There were no delusions reported and he denied auditory or visual hallucinations. Attention and concentration was limited and memory was mostly reliable, but none were formally tested.? He is alert and oriented x3.? Insight and judgment are limited. His impulse control is impaired. Vitals/I&O/Wt Last Vital Signs Temp 97.7 F 07/19/24 12:00 Pulse 91 07/19/24 12:00 Resp 16 07/19/24 12:00 BP 110/72 07/19/24 12:00 Pulse Ox 98 07/19/24 12:00 O2 Del Method Room Air 07/19/24 12:45 Weight last 48 hrs Weight 97.522 kg Data NPU 07/19/24 05:08 07/19/24 05:08 A&P Assessment and plan (1) Depression, unspecified: (2) Alcohol abuse: (3) Suicidal ideation: (4) Cannabis abuse: (5) History of schizophrenia: (6) ADHD, adult residual type: (7) PTSD (post-traumatic stress disorder): (8) Methamphetamine abuse: Plan This is a 38-year-old white male with a significant history of mental health and addiction issues who presents with recent hospitalization related to continued depression currently sober from methamphetamine use but reporting increased suicidality He appears to have place to return this time in sober living situation. 1. Restart current medications including gabapentin 400mg tid, increase zoloft to 150mg daily and continue seroquel 400mg at night and 300mg in am. Patient BAL is 32. Will restart CIWA today. 2. Continue every 15 minute checks for safety. 3. Encourage individual, group and milieu therapies. 4. Encourage sober living treatment after discharge at the highest level of care to which he is willing to commit. Involuntary Hold Information 96 Hour Hold: 96 Hour Involuntary Admission: Yes 96 Hour Hold Ending Date: 07/26/24 96 Hour Hold Ending Time: 08:15 Attestations NPU Medical Necessity Statement*: Inpatient hospitalization is medically necessary and the clinically appropriate intervention at this time. We will monitor medication to make changes as indicated. Patient will be in the hospital for over two midnights. His likely length of stay 4-6 days. Coding Level of Care Code Acute Code for [facility] Fwd Diagnoses Depression, unspecified F32.A Alcohol abuse F10.10 Suicidal ideation R45.851 Cannabis abuse F12.10 History of schizophrenia Z86.59 ADHD, adult residual type F90.8 PTSD (post-traumatic stress disorder) F43.10 Methamphetamine abuse F15.10
[2024-07-19 16:00] VITALS: BP 95/58; PULSE 83; RESP 18; TEMP 36.8; O2SAT 97
[2024-07-19] MEDS: sertraline 100 mg Tablet PO (17:55)
[2024-07-19 20:00] VITALS: BP 110/66; PULSE 78; RESP 18; TEMP 36.9; O2SAT 99
[2024-07-19] MEDS: LORazepam 2 mg Tablet PO (20:59)
[2024-07-19] MEDS: quetiapine 100 mg Tablet 500 MG PO (20:59)
[2024-07-19] MEDS: gabapentin 400 mg Capsule PO (20:59)
[2024-07-20] VITALS: BP 108/65; PULSE 95; RESP 18; O2SAT 96
[2024-07-20 04:00] VITALS: BP 103/65; PULSE 81; RESP 18; O2SAT 97
[2024-07-20 08:00] VITALS: BP 98/60; PULSE 65; RESP 15; TEMP 36.6; O2SAT 96
[2024-07-20] MEDS: thiamine 100 mg Tablet PO (09:04)
[2024-07-20] MEDS: sertraline 100 mg Tablet 150 MG PO (09:04)
[2024-07-20] MEDS: quetiapine 300 mg Tablet PO (09:04)
[2024-07-20] MEDS: folic acid 1 mg Tablet PO (09:04)
[2024-07-20] MEDS: multivitamin therapeutic Tablet 1 TAB PO (09:04)
[2024-07-20] MEDS: gabapentin 400 mg Capsule PO ×3 (09:05→19:56)
[2024-07-20 12:00] VITALS: BP 115/68; PULSE 96; RESP 17; TEMP 36.6; O2SAT 96
--- NOTE | 2024-07-20 13:35 | P.NPUPN_ITS ---
Subjective NPU 2 Subjective: Patient is a 38-year-old male who reported an extended history of methamphetamine abuse (currently negative for methamphetmamine) and reports increased depression and PTSD symptoms. Patient reported no cravings for opiates at this time or for methamphetamines. He reported stress with his current job situation but stated that he was supported at that sober living home and stated that he continued to feel depressed. He reported no worsening mood or increased irritability with the increase in Zoloft. He had reported sleeping better on Seroquel. He did not wish for any changes in his current medication regimen. He had appeared isolated himself in his room but appeared more redirectable and less irritable than previously. Mental Status Exam 2 MSE Comments: This is an overweight white male in hospital scrubs with limited grooming with eye contact looking older than his stated age.? No abnormal involuntary motor movements except for psychomotor retardation.?He was cooperative with exam in mild distress.? Speech was decreased in rate and normal in volume.? Mood described as depressed. His affect was mood congruent and restricted in range. ? Thought process was linear.? Thought content: Patient endorsed suicidal ideation with no plan today. There were no delusions reported and he denied auditory or visual hallucinations. Attention and concentration was limited and memory was mostly reliable, but none were formally tested.? He is alert and oriented x3.? Insight and judgment are limited. His impulse control is impaired. Vitals/I&O/Wt Last Vital Signs Temp 97.8 F 07/20/24 08:00 Pulse 65 07/20/24 08:00 Resp 15 07/20/24 08:00 BP 98/60 07/20/24 08:00 Pulse Ox 96 07/20/24 08:00 O2 Del Method Room Air 07/20/24 04:00 Weight last 48 hrs Weight 97.522 kg Data NPU 07/19/24 05:08 07/19/24 05:08 A&P Assessment and plan (1) Depression, unspecified: (2) Alcohol abuse: (3) Suicidal ideation: (4) Cannabis abuse: (5) History of schizophrenia: (6) ADHD, adult residual type: (7) PTSD (post-traumatic stress disorder): (8) Methamphetamine abuse: Plan This is a 38-year-old white male with a significant history of mental health and addiction issues who presents with recent hospitalization related to continued depression currently sober from methamphetamine use but reporting increased suicidality He appears to have place to return this time in sober living situation. 1. Restart current medications including gabapentin 400mg tid, continue zoloft to 150mg daily and increase seroquel 500mg at night and 300mg in am. Patient BAL is 32. Continue CIWA today. 2. Continue every 15 minute checks for safety. 3. Encourage individual, group and milieu therapies. 4. Encourage sober living treatment after discharge at the highest level of care to which he is willing to commit. Involuntary Hold Information 2 96 Hour Hold: 96 Hour Involuntary Admission: Yes 96 Hour Hold Ending Date: 07/26/24 96 Hour Hold Ending Time: 08:15 Attestations NPU 2 Medical Necessity Statement*: Inpatient hospitalization is medically necessary and the clinically appropriate intervention at this time. We will monitor medication to make changes as indicated. Patient will be in the hospital for over two midnights. His likely length of stay 4-6 days. Coding Level of Care Code Acute Code for [facility] Diagnoses Depression, unspecified F32.A Alcohol abuse F10.10 Suicidal ideation R45.851 Cannabis abuse F12.10 History of schizophrenia Z86.59 ADHD, adult residual type F90.8 PTSD (post-traumatic stress disorder) F43.10 Methamphetamine abuse F15.10
[2024-07-20 16:00] VITALS: BP 120/76; PULSE 110; RESP 17; TEMP 36.8; O2SAT 98
[2024-07-20] MEDS: OLANZapine 5 mg ODT PO (17:18)
[2024-07-20] MEDS: quetiapine 100 mg Tablet 500 MG PO (19:56)
[2024-07-20 20:00] VITALS: BP 131/85; PULSE 83; RESP 18; TEMP 37; O2SAT 97
[2024-07-20] MEDS: nicotine 2 mg Gum BUCCAL (20:08)
[2024-07-21] VITALS: BP 123/75; PULSE 89; RESP 18; TEMP 37.1; O2SAT 97
[2024-07-21 04:00] VITALS: BP 114/73; PULSE 64; RESP 16; TEMP 36.8; O2SAT 99
[2024-07-21 08:00] VITALS: BP 115/69; PULSE 97; RESP 13; TEMP 36.6; O2SAT 96
[2024-07-21] MEDS: thiamine 100 mg Tablet PO (09:14)
[2024-07-21] MEDS: quetiapine 300 mg Tablet PO (09:14)
[2024-07-21] MEDS: sertraline 100 mg Tablet 150 MG PO (09:14)
[2024-07-21] MEDS: multivitamin therapeutic Tablet 1 TAB PO (09:14)
[2024-07-21] MEDS: gabapentin 400 mg Capsule PO ×3 (09:14→20:36)
[2024-07-21] MEDS: folic acid 1 mg Tablet PO (09:14)
[2024-07-21 12:00] VITALS: BP 98/60; PULSE 71; RESP 17; TEMP 36.7; O2SAT 96
--- NOTE | 2024-07-21 16:22 | P.NPUPN_ITS ---
Subjective NPU 2 Subjective: Patient is a 38-year-old male who reported an extended history of methamphetamine abuse (currently negative for methamphetmamine) and reports increased depression and PTSD symptoms. Patient reported no cravings for substances at this time. He had reported feeling tired and depressed but stated that he was sleeping better. No manic symptoms reported. He reports feeling optimistic about remaining sober. He reports some difficulty with concentration and reported signifcant stress working 2 jobs while trying to earn enough money to eventually leave the sober living house. He reports a 2 year plan to eventually leave there and save enough to rent for himself. Mental Status Exam 2 MSE Comments: This is an overweight white male in hospital scrubs with limited grooming with eye contact looking older than his stated age lying in bed today.? No abnormal involuntary motor movements except for mild psychomotor retardation.?He was cooperative with exam in mild distress.? Speech was decreased in rate and normal in volume.? Mood described as depressed. His affect was restricted in range and mood congruent. ? Thought process was linear.? Thought content: Patient endorsed suicidal ideation with no plan reported today. There were no delusions reported and he denied auditory or visual hallucinations. Attention and concentration was limited and memory was mostly reliable, but none were formally tested.? He is alert and oriented x3.? Insight and judgment are limited. His impulse control is impaired. Vitals/I&O/Wt Last Vital Signs Temp 98.1 F 07/21/24 12:00 Pulse 71 07/21/24 12:00 Resp 17 07/21/24 12:00 BP 98/60 07/21/24 12:00 Pulse Ox 96 07/21/24 12:00 O2 Del Method Room Air 07/21/24 08:00 Data NPU 07/19/24 05:08 07/19/24 05:08 A&P Assessment and plan (1) Depression, unspecified: (2) Alcohol abuse: (3) Suicidal ideation: (4) Cannabis abuse: (5) History of schizophrenia: (6) ADHD, adult residual type: (7) PTSD (post-traumatic stress disorder): (8) Methamphetamine abuse: Plan This is a 38-year-old white male with a significant history of mental health and addiction issues who presents with recent hospitalization related to continued depression currently sober from methamphetamine use but reporting increased suicidality He appears to have place to return this time in sober living situation. 1. Restart current medications including gabapentin 400mg tid, continue zoloft to 150mg daily and continue seroquel 500mg at night and 300mg in am. Patient BAL is 32. Continue CIWA today. NO withdrawal symptoms noted to date. 2. Continue every 15 minute checks for safety. 3. Encourage individual, group and milieu therapies. 4. Encourage sober living treatment after discharge at the highest level of care to which he is willing to commit. Involuntary Hold Information 2 96 Hour Hold: 96 Hour Involuntary Admission: Yes 96 Hour Hold Ending Date: 07/26/24 96 Hour Hold Ending Time: 08:15 Attestations NPU 2 Medical Necessity Statement*: Inpatient hospitalization is medically necessary and the clinically appropriate intervention at this time. We will monitor medication to make changes as indicated. Patient will be in the hospital for over two midnights. His likely length of stay 4-6 days. Coding Level of Care Code Acute Code for [facility] Diagnoses Depression, unspecified F32.A Alcohol abuse F10.10 Suicidal ideation R45.851 Cannabis abuse F12.10 History of schizophrenia Z86.59 ADHD, adult residual type F90.8 PTSD (post-traumatic stress disorder) F43.10 Methamphetamine abuse F15.10
[2024-07-21] MEDS: nicotine 2 mg Gum BUCCAL ×3 (17:12→21:26)
[2024-07-21 20:00] VITALS: BP 134/79; PULSE 102; RESP 18; TEMP 36.7; O2SAT 97
[2024-07-21] MEDS: quetiapine 100 mg Tablet 500 MG PO (20:37)
[2024-07-22] VITALS: BP 121/80; PULSE 92; RESP 18; TEMP 36.9; O2SAT 98
[2024-07-22 03:02] VITALS: BP 114/83; PULSE 111; RESP 18; TEMP 36.4; O2SAT 98
[2024-07-22 08:00] VITALS: BP 99/63; PULSE 85; RESP 17; O2SAT 97
[2024-07-22] MEDS: multivitamin therapeutic Tablet 1 TAB PO (10:57)
[2024-07-22] MEDS: quetiapine 300 mg Tablet PO (10:57)
[2024-07-22] MEDS: sertraline 100 mg Tablet 150 MG PO (10:57)
[2024-07-22] MEDS: thiamine 100 mg Tablet PO (10:57)
[2024-07-22] MEDS: folic acid 1 mg Tablet PO (10:57)
[2024-07-22] MEDS: gabapentin 400 mg Capsule PO ×3 (10:57→19:09)
[2024-07-22 11:35] VITALS: BP 108/78; PULSE 84; RESP 16; O2SAT 97
[2024-07-22] MEDS: nicotine 2 mg Gum BUCCAL ×2 (16:22→18:47)
--- NOTE | 2024-07-22 16:55 | W.PM.NPUPNS ---
Subjective NPU Subjective: Patient is a 38-year-old male who reported an extended history of methamphetamine abuse (currently negative for methamphetmamine) and reports increased depression and PTSD symptoms. The patient had endorsed some occasional flashbacks and nightmares but reported feeling better. He had continued to report depressed mood. He had reported adequate sleep. He had expressed desire to return to work soon. He reported no immediate cravings for opiates. He had expressed some interest with consideration for digital therapeutic applications for treating methamphetamine use. He reported feeling less hopeless and endorsed no hallucinations at this time. Mental Status Exam MSE Comments: This is an overweight white male in hospital scrubs with limited grooming with eye contact looking older than his stated age lying in bed today.? No abnormal involuntary motor movements except for mild psychomotor retardation.?He was cooperative with exam in mild distress.? Speech was normal in rate and normal in volume.? Mood described as a little better. His affect was restricted in range and mood congruent. ? Thought process was linear.? Thought content: Patient endorsed fleeting suicidal ideation with no plan reported today. There were no delusions reported and he denied auditory or visual hallucinations. Attention and concentration was limited and memory was mostly reliable. He is alert and oriented x3.? Insight and judgment are limited. His impulse control is impaired. Vitals/I&O/Wt Last Vital Signs Temp 97.5 F L 07/22/24 03:02 Pulse 84 07/22/24 11:35 Resp 16 07/22/24 11:35 BP 108/78 07/22/24 11:35 Pulse Ox 97 07/22/24 11:35 O2 Del Method Room Air 07/22/24 11:35 Weight last 48 hrs Weight 86.908 kg Data NPU 07/19/24 05:08 07/19/24 05:08 A&P Assessment and plan (1) Depression, unspecified: (2) Alcohol abuse: (3) Suicidal ideation: (4) Cannabis abuse: (5) History of schizophrenia: (6) ADHD, adult residual type: (7) PTSD (post-traumatic stress disorder): (8) Methamphetamine abuse: Plan This is a 38-year-old white male with a significant history of mental health and addiction issues who presents with recent hospitalization related to continued depression currently sober from methamphetamine use but reporting increased suicidality He appears to have place to return this time in sober living situation. 1. Restart current medications including gabapentin 400mg tid, continue zoloft to 150mg daily and continue seroquel 500mg at night and 300mg in am. Patient BAL is 32. Continue CIWA today. NO withdrawal symptoms noted to date. 2. Continue every 15 minute checks for safety. 3. Encourage individual, group and milieu therapies. 4. Encourage sober living treatment after discharge at the highest level of care to which he is willing to commit. Involuntary Hold Information 96 Hour Hold: 96 Hour Involuntary Admission: Yes 96 Hour Hold Ending Date: 07/26/24 96 Hour Hold Ending Time: 08:15 Attestations NPU Medical Necessity Statement*: Inpatient hospitalization is medically necessary and the clinically appropriate intervention at this time. We will monitor medication to make changes as indicated. His likely length of stay 4-6 days. Coding Level of Care Code Acute Code for [facility] Fwd Diagnoses Depression, unspecified F32.A Alcohol abuse F10.10 Suicidal ideation R45.851 Cannabis abuse F12.10 History of schizophrenia Z86.59 ADHD, adult residual type F90.8 PTSD (post-traumatic stress disorder) F43.10 Methamphetamine abuse F15.10
[2024-07-22] MEDS: hyDROXYzine 25 mg Capsule 50 MG PO (19:09)
[2024-07-22] MEDS: quetiapine 100 mg Tablet 500 MG PO (19:09)
[2024-07-22 19:24] VITALS: BP 114/81; PULSE 90; RESP 19; TEMP 36.7; O2SAT 97
[2024-07-23 06:00] VITALS: BP 105/20; PULSE 71; RESP 18; TEMP 36.7; O2SAT 90
[2024-07-23] MEDS: nicotine 2 mg Gum BUCCAL ×4 (06:38→20:16)
[2024-07-23] MEDS: sertraline 100 mg Tablet 150 MG PO (09:05)
[2024-07-23] MEDS: gabapentin 400 mg Capsule PO ×3 (09:05→20:16)
[2024-07-23] MEDS: thiamine 100 mg Tablet PO (09:06)
[2024-07-23] MEDS: multivitamin therapeutic Tablet 1 TAB PO (09:06)
[2024-07-23] MEDS: quetiapine 300 mg Tablet PO (09:06)
[2024-07-23] MEDS: folic acid 1 mg Tablet PO (09:06)
[2024-07-23] MEDS: hyDROXYzine 25 mg Capsule 50 MG PO (11:16)
[2024-07-23 13:58] VITALS: BP 116/73; PULSE 89; RESP 16; TEMP 36.8; O2SAT 96
--- NOTE | 2024-07-23 15:04 | P.NPUPN_ITS ---
Subjective NPU 2 Subjective: Patient is a 38-year-old male who reported an extended history of methamphetamine abuse (currently negative for methamphetmamine) and reports increased depression and PTSD symptoms. Patient had endorsed depressed mood. He had reported still struggling to manage his addiction. He had denied any cravings for alcohol or methamphetamine today. The treatment team had come to determine that the patient did not appear to be a candidate for returning back to his place of residence as he had apparently broken his sobriety and had allegedly taken out a vehicle that was not his for a ride. He had reported feeling more tired in the morning but stated that his sleep schedule had been such that he slept in the morning more and was awake at night. He had minimized any psychotic symptoms at this time. He had expressed interest in continued sobriety. Mental Status Exam 2 MSE Comments: This is an overweight white male in hospital scrubs with adequate grooming with fair eye contact looking older than his stated age. No abnormal involuntary motor movements except for mild psychomotor retardation.?He was cooperative with exam in mild distress.? Speech was normal in rate and normal in volume.? Mood described as a okay. His affect remained restricted in range and mood congruent. ? Thought process was linear.? Thought content: Patient endorsed fleeting suicidal ideation with no plan reported today. There were no delusions reported and he denied auditory or visual hallucinations. Attention and concentration was limited and memory was mostly reliable. He is alert and oriented x3.? Insight and judgment are limited. His impulse control is impaired. Vitals/I&O/Wt Last Vital Signs Temp 98.2 F 07/23/24 13:58 Pulse 89 07/23/24 13:58 Resp 16 07/23/24 13:58 BP 116/73 07/23/24 13:58 Pulse Ox 96 07/23/24 13:58 O2 Del Method Room Air 07/23/24 13:58 Weight last 48 hrs Weight 86.908 kg Data NPU 07/19/24 05:08 07/19/24 05:08 A&P Assessment and plan (1) Depression, unspecified: (2) Alcohol abuse: (3) Suicidal ideation: (4) Cannabis abuse: (5) History of schizophrenia: (6) ADHD, adult residual type: (7) PTSD (post-traumatic stress disorder): (8) Methamphetamine abuse: Plan This is a 38-year-old white male with a significant history of mental health and addiction issues who presents with recent hospitalization related to continued depression currently sober from methamphetamine use but reporting increased suicidality He appears to have place to return this time in sober living situation. 1. Restart current medications including gabapentin 400mg tid,increase zoloft 200mg daily and continue seroquel 500mg at night and 300mg in am. D/C CIWA. 2. Continue every 15 minute checks for safety. 3. Encourage individual, group and milieu therapies. 4. Encourage sober living treatment after discharge at the highest level of care to which he is willing to commit. Involuntary Hold Information 2 96 Hour Hold: 96 Hour Involuntary Admission: Yes 96 Hour Hold Ending Date: 07/26/24 96 Hour Hold Ending Time: 08:15 Attestations NPU 2 Medical Necessity Statement*: Inpatient hospitalization is medically necessary and the clinically appropriate intervention at this time. We will monitor medication to make changes as indicated. His likely length of stay 4-6 days. Coding Level of Care Code Acute Code for [facility] Diagnoses Depression, unspecified F32.A Alcohol abuse F10.10 Suicidal ideation R45.851 Cannabis abuse F12.10 History of schizophrenia Z86.59 ADHD, adult residual type F90.8 PTSD (post-traumatic stress disorder) F43.10 Methamphetamine abuse F15.10
[2024-07-23 20:05] VITALS: BP 124/77; PULSE 81; RESP 16; TEMP 37.1; O2SAT 97
[2024-07-23] MEDS: quetiapine 100 mg Tablet 500 MG PO (20:15)
[2024-07-24 05:16] VITALS: BP 116/69; PULSE 76; RESP 16; TEMP 36.7; O2SAT 95
[2024-07-24] MEDS: nicotine 2 mg Gum BUCCAL ×2 (06:30→09:45)
[2024-07-24] MEDS: folic acid 1 mg Tablet PO (09:43)
[2024-07-24] MEDS: sertraline 100 mg Tablet 200 MG PO (09:44)
[2024-07-24] MEDS: gabapentin 400 mg Capsule PO (09:44)
[2024-07-24] MEDS: quetiapine 300 mg Tablet PO (09:45)
[2024-07-24] MEDS: multivitamin therapeutic Tablet 1 TAB PO (09:45)
[2024-07-24] MEDS: thiamine 100 mg Tablet PO (09:46)
[2024-07-24 15:19] VITALS: BP 116/69; PULSE 76; RESP 16; TEMP 36.7; O2SAT 95
--- NOTE | 2024-07-24 15:21 | P.NPUDS_ITS ---
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 Reports nicotine use including vaping and chewing tob acco. First started nicotine at the age of 18. I spent 5 minutes providing smoking cessation counseling. We talked about history of use, current usage, prior attempts at quitting, and psychological barriers to quitting. I gauged her desire to quit and she is not ready at this time. Social History: Alfonzo is currently staying at [facility] which is a sober living home. States he has been there for couple weeks since he was last discharged from the hospital. Prior to that he states he was homeless. He was staying in [place]. He is single and has no kids. 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 Graduated high school. No history of physical, emotional, sexual abuse. He does report legal history including getting several felonies for possession and avelino saul. He states he spent a couple years in longterm in 2006. States he is currently not on probation or parole. Records indicate that he has been and and has 4 children that he does not have contact with. Hospital Course Hospital Course During the hospitalization, the patient had routine laboratory studies which were within normal limits except for a few outliers.? Additionally, there was a general medical evaluation which was also within normal limits and revealed no new acute processes.? The patient was restarted on his medication without issue and zoloft was increased to 200mg daily prior to discharge. The patient had lost his ability to return to his previous sober living facility due to some violation of rules at that place. He had been given an opportunity to consider another sober living facility but stated that he would rather go to a hotel and continue follow-up at [facility]. He had expressed consideration for the use of IM Vivitrol to target alcohol dependence and a prescription was given to him at the time of discharge. At the time of discharge, lethality was denied and psychosis was resolving.? Mood and anxiety were well managed.? The patient endorsed a plan to avoid all drugs of abuse and follow up with the aftercare recommendations of the treatment team.? The patient was evaluated and deemed to be absent credible lethality and had achieved the maximum benefit from an inpatient hospitalization, and so was discharged Involuntary Hold Information 96 Hour Hold: 96 Hour Involuntary Admission: Yes 96 Hour Hold Ending Date: 07/26/24 96 Hour Hold Ending Time: 08:15 Mental Status Exam MSE Comments: This is an overweight white male in hospital scrubs with adequate grooming with fair eye contact looking older than his stated age. No abnormal involuntary motor movements except for mild psychomotor retardation.?He was cooperative with exam in mild distress.? Speech was normal in rate and normal in volume.? Mood described as allright. His affect was less restricted. ? Thought process was linear.? Thought content: Patient denied suicidal or homicidal ideation. There were no delusions reported and he denied auditory or visual hallucinations. Attention and concentration was limited and memory was mostly reliable. He is alert and oriented x3.? Insight was poor and judgment was fair. His impulse control is limited. Discharge Data Studies Completed and Pending: Laboratory Results WBC 7.26 10^3/uL (3.2 9-11.43) 07/19/24 05:08 RBC 4.44 10^6/uL (3.8 5-5.65) 07/19/24 05:08 Hgb 13.20 g/dL (11.27 -16.99) 07/19/24 05:08 Hct 39.6 % (37-53) 07/19/24 05:08 MCV 89.2 fl (82-101) 07/19/24 05:08 MCH 29.7 pg (27-33) 07/19/24 05:08 MCHC 33.3 g/dL (30-55) 07/19/24 05:08 RDW 13.0 % (12.1-15.1 ) 07/19/24 05:08 Plt Count 264 10^3/cmm (157 -399) 07/19/24 05:08 MPV 9.0 fL (7.4-10.4) 07/19/24 05:08 Neut % (Auto) 42.0 % 07/19/24 05:08 Lymph % (Auto) 44.6 % 07/19/24 05:08 [place] % (Auto) 8.8 % 07/19/24 05:08 Eos % (Auto) 3.0 % 07/19/24 05:08 Baso % (Auto) 0.6 % 07/19/24 05:08 Neut # (Auto) 3.05 10^3/uL (1.8 -7.7) 07/19/24 05:08 Lymph # (Auto) 3.2 10^3/uL (0.8- 4.8) 07/19/24 05:08 [place] # (Auto) 0.6 10^3/uL (0.2- 0.9) 07/19/24 05:08 Eos # (Auto) 0.2 10^3/uL (0.0- 0.8) 07/19/24 05:08 Baso # (Auto) 0.0 10^3/uL (0.0- 0.1) 07/19/24 05:08 Nucleated RBC % (a uto) 0 % 07/19/24 05:08 Nucleated RBCs # 0.0 /100WBC 07/19/24 05:08 Sodium 140 mmol/L (136-1 45) 07/19/24 05:08 Potassium 3.3 mmol/L (3.5-5 .1) L 07/19/24 05:08 Chloride 102 mmol/L (98-10 7) 07/19/24 05:08 Carbon Dioxide 22 mmol/L (22-29) 07/19/24 05:08 Anion Gap 19.3 (5-19) H 07/19/24 05:08 BUN 17 mg/dL (6-20) 07/19/24 05:08 Creatinine 0.9 mg/dL (0.7-1. 2) 07/19/24 05:08 GFR Calculation 95.5 mL/min (90-1 30) 07/19/24 05:08 Glucose 145 mg/dL (65-115 ) H 07/19/24 05:08 Calculated Osmolal ity 294 mOsm/kg (285- 295) 07/19/24 05:08 Calcium 8.7 mg/dL (8.5-10 .5) 07/19/24 05:08 Total Bilirubin 0.6 mg/dL (0.15-1 .2) 07/19/24 05:08 AST 20 U/L (0-40) 07/19/24 05:08 ALT 19 U/L (0-41) 07/19/24 05:08 Alkaline Phosphata se 103 U/L (40-130) 07/19/24 05:08 Total Protein 7.0 g/dL (6.6-8.7 ) 07/19/24 05:08 Albumin 4.2 g/dL (3.5-5.2 ) 07/19/24 05:08 Globulin 2.8 g/dL (1.3-4.6 ) 07/19/24 05:08 Urine Color Yellow (Yellow) 07/19/24 05:23 Urine Appearance Cloudy (CLEAR) A 07/19/24 05:23 Urine pH 6.0 (5-7) 07/19/24 05:23 Ur Specific Gravit y 1.022 (1.005-1.0 30) 07/19/24 05:23 Urine Protein Trace (Negative) A 07/19/24 05:23 Urine Glucose (UA) Negative (Normal ) 07/19/24 05:23 Urine Ketones Negative (Negati ve) 07/19/24 05:23 Urine Blood Negative (Negati ve) 07/19/24 05:23 Urine Nitrate Negative (Negati ve) 07/19/24 05:23 Urine Bilirubin Negative (Negati ve) 07/19/24 05:23 Urine Urobilinogen 1.0 mg/dL (Negati ve) 07/19/24 05:23 Ur Leukocyte Frida ase Negative (Negati ve) 07/19/24 05:23 Urine RBC 0-2 /hpf (0-2) 07/19/24 05:23 Urine WBC 0-5 /hpf (0-5) 07/19/24 05:23 Ur Squamous Epith Cells 0-5 /hpf (0-5) 07/19/24 05:23 Amorphous Sediment Not Reportable 07/19/24 05:23 Urine Bacteria None seen /hpf (N ONE) 07/19/24 05:23 Hyaline Casts 2.05 /lpf 07/19/24 05:23 Salicylates < 0.3 mg/dL (3-10 ) L 07/19/24 05:08 Urine Opiates Scre en Negative ng/mL (N egative) 07/19/24 05:23 Acetaminophen < 5.0 ug/mL (10-3 0) L 07/19/24 05:08 Ur Barbiturates Sc reen Negative ng/mL (N egative) 07/19/24 05:23 Ur Phencyclidine S crn Negative ng/mL (N egative) 07/19/24 05:23 Ur Amphetamines Sc reen Negative ng/mL (N egative) 07/19/24 05:23 U Benzodiazepines Scrn Negative ng/mL (N egative) 07/19/24 05:23 Urine Cocaine Scre en Negative ng/mL (N egative) 07/19/24 05:23 U Marijuana (THC) Screen Positive ng/mL (N egative) H 07/19/24 05:23 Ethyl Alcohol 32 mg/dL (0-10) H 07/19/24 05:08 Vitals: Last Vital Signs Temp 98.1 F 07/24/24 15:19 Pulse 76 07/24/24 15:19 Resp 16 07/24/24 15:19 BP 116/69 07/24/24 15:19 Pulse Ox 95 07/24/24 15:19 O2 Del Method Room Air 07/24/24 05:16 Discharge Plan Discharge Patient Disposition: Home Condition: Stable Prescriptions: New sertraline 100 mg Tablet 200 mg PO DAILY 30 Days Qty: 60 1RF Vivitrol 380 mg suspension,extended rel recon 380 mg IM ONCE Qty: 1 1RF Rx Instructions: IM shot every 28 days Continued quetiapine 300 mg tablet 300 mg PO QAM 30 Days Qty: 30 1RF gabapentin 400 mg capsule 400 mg PO TID 30 Days Qty: 90 1RF quetiapine 400 mg tablet 400 mg PO BEDTIME 30 Days Qty: 30 1RF Rx Instructions: Take 400mg by mouth with Seroquel 100mg at bedtime for a total dose of 500mg. Changed Seroquel 100 mg tablet 100 mg PO 1999 Qty: 30 1RF Rx Instructions: 100 mg orally, total nightly dose 500mg Discontinued sertraline 100 mg tablet 100 mg PO DAILY 30 Days Qty: 30 1RF trazodone 50 mg tablet 50 mg PO BEDTIME PRN (Reason: Sleep) Discharge Orders: Discharge Order (Routine); Ordered 07/24/24 Ordered By: Bautista Sheth Referrals: Iqra Hawkins PMHNP [Staff Physician] - 07/26/24 10:45 am Discharge Diet: Usual diet Discharge Activity: Resume usual activity Patient Instructions: Alcohol Abuse, Alcoholism, Sertraline (By mouth) (Zoloft), Gabapentin (By mouth), Opioid Safety Discharge Attestations NPU Time Spent in Discharge Care*: less than 30 min Coding Level of Care Code Acute Code for [facility] Fwd Diagnoses Depression, unspecified F32.A Alcohol abuse F10.10 Suicidal ideation R45.851 Cannabis abuse F12.10 History of schizophrenia Z86.59 ADHD, adult residual type F90.8 PTSD (post-traumatic stress disorder) F43.10 Methamphetamine abuse F15.10
== END 2024-07-24 14:50 | disposition home or self-care (01) | DRG 885 ==
LOC: ER 08:31 → NP 11:45
PROVIDERS: Emergency Medicine; Admitting Provider Psychiatry & Neurology Psychiatry; Emergency Provider Family Medicine; Visit Provider Psychiatry & Neurology Psychiatry
DX: F25.1 Schizoaffective disorder, depressive type (principal); F43.10 Post-traumatic stress disorder, unspecified; F15.10 Other stimulant abuse, uncomplicated; F12.10 Cannabis abuse, uncomplicated; F10.10 Alcohol abuse, uncomplicated; F90.9 Attention-deficit hyperactivity disorder, unspecified type; F41.1 Generalized anxiety disorder; Z87.891 Personal history of nicotine dependence
CPT/HCPCS: 36415; 80053; 80306; 80307; 81003; 81015; 85025; 93005; 97150; 97165; 99285

== ENCOUNTER 2024-08-14 21:33 | Emergency (ER) | payer MEDICAID, SELFPAY ==
[2024-08-14 21:50] VITALS: BP 142/94; PULSE 108; RESP 18; TEMP 36.7; O2SAT 98; BMI 28.1
--- NOTE | 2024-08-14 22:00 | W.ED.PSYCHS ---
HPI - Psych General: Chief Complaint: Psychiatric Symptoms Stated Complaint: SI Time Seen by Provider: 08/14/24 21:55 History of Present Illness: 38-year-old man with a history of methamphetamine abuse and depression resents emergency room with suicidal thoughts and recent methamphetamine use. He says he is seeing about walking out of traffic. He is not taking any of his prescribed medications he says. He has been taking methamphetamine. Related Data Previous Rx's Medication Instructions Recorded gabapentin 400 mg capsule 400 mg PO TID 30 days #90 caps 07/24/24 naltrexone microspheres 380 mg 380 mg IM ONCE Alcohol Dependence 07/24/24 intramuscular suspension,extended #1 ea release (Vivitrol) quetiapine 100 mg tablet (Seroquel) 100 mg PO 2000 #30 tabs 07/24/24 quetiapine 300 mg tablet 300 mg PO QAM 30 days #30 tabs 07/24/24 quetiapine 400 mg tablet 400 mg PO BEDTIME 30 days #30 tabs 07/24/24 sertraline 100 mg tablet 200 mg (2 x 100 mg) PO DAILY 30 07/24/24 days #60 tabs Allergies Allergy/AdvReac Type Severity Reaction Status Date / Time No Known Allergies Allergy Verified 07/19/24 12:00 Review of Systems Narrative: Constitutional symptoms: Negative except as documented in HPI. Skin symptoms: Negative except as documented in HPI. Eye symptoms: Negative except as documented in HPI. ENMT symptoms: Negative except as documented in HPI. Respiratory symptoms: Negative except as documented in HPI. Cardiovascular symptoms: Negative except as documented in HPI. Gastrointestinal symptoms: Negative except as documented in HPI. Genitourinary symptoms: Negative except as documented in HPI. Musculoskeletal symptoms: Negative except as documented in HPI. Neurologic symptoms: Negative except as documented in HPI. Psychiatric symptoms: Negative except as documented in HPI. Endocrine symptoms: Negative except as documented in HPI. PFSH ED PFSH: Medical History Nicotine use disorder Major depressive disorder, recurrent, mild JAROCHO (generalized anxiety disorder) On combination antipsychotic drug therapy Psychiatric care Auditory hallucinations PTSD (post-traumatic stress disorder) ADHD, adult residual type Depression, unspecified History of psychosis Anxiety History of ETOH abuse Methamphetamine dependence Cannabis abuse Family History Father Cancer melanoma Social History Smoking and tobacco/nicotine status: former use of tobacco/nicotine Alcohol intake: current Alcohol intake frequency: 3 or more drinks per day Substance/Drug Use: current Substance/Drug use frequency: daily Marital status: Single Number of children: 0 Highest education level completed: High School Graduate Physical Exam Narrative: EXAM NARRATIVE: General: Alert, no acute distress. Skin: Warm, dry. Head: Normocephalic, atraumatic. Neck: Supple, trachea midline. Eye: Extraocular movements are intact. Ears, nose, mouth and throat: mucosa moist. Cardiovascular: Regular, Normal peripheral perfusion. Respiratory: Lungs are clear to auscultation, respirations are non-labored, breath sounds are equal, Symmetrical chest wall expansion. Gastrointestinal: Soft, Nontender, Non distended Musculoskeletal: Normal ROM, no deformity. Neurological: Alert and oriented, No focal neurological deficit observed. Psychiatric: Patient is twitching in the bed and appears to be intoxicated on methamphetamine. He endorses suicidal thoughts. Course Vital Signs: Vital signs: Vital Signs Temperature 98.1 F 08/14/24 21:50 Pulse Rate 108 H 08/14/24 21:50 Respiratory Rate 18 08/14/24 21:50 Blood Pressure 142/94 08/14/24 21:50 Pulse Oximetry 98 08/14/24 21:50 Oxygen Delivery Me thod Room Air 08/14/24 21:50 MDM - Psych Medical Decision Making Differential diagnosis: Patient with reported depression and suicidal ideation. concerns for infection, alcohol intoxication, cardiac issues or other medical problems prior to psychiatric admission. Workup: labwork, ekg ordered to evaluate the pathologies and to clear the patient medically prior to psychiatric admission Lab Review: Laboratory results were reviewed and interpreted by myself the emergency room physician. Lab review: - Medically cleared. - EKG shows no ischemic changes. - Blood alcohol level is negative, -Tylenol and salicylate levels are negative. - Drug screen is positive for amphetamine, benzos and marijuana. - No signs of infection, urinalysis clear and white count is not elevated - No anemia. - BUN and creatinine are within normal limits. Assessment and plan: Depression Suicidal ideation Methamphetamine abuse Medical noncompliance -Patient will require admission to neuropsychiatric unit for continued evaluation and treatment. - All lab work was reviewed and interpreted personally by myself, the ER physician - Evaluation and treatment of this problem were appropriate in the emergency setting Lab Data 08/14/24 22:19 08/14/24 22:19 Laboratory Results WBC 14.51 10^3/uL (3.29-11.43) H 08/14/24 22:19 RBC 4.70 10^6/uL (3.85-5.65) 08/14/24 22:19 Hgb 14.10 g/dL (11.27-16.99) 08/14/24 22:19 Hct 40.3 % (37-53) 08/14/24 22:19 MCV 85.7 fl (82-101) 08/14/24 22:19 MCH 30.0 pg (27-33) 08/14/24 22:19 MCHC 35.0 g/dL (30-55) 08/14/24 22:19 RDW 12.7 % (12.1-15.1) 08/14/24 22:19 Plt Count 318 10^3/cmm (157-399) 08/14/24 22:19 MPV 9.3 fL (7.4-10.4) 08/14/24 22:19 Neut % (Auto) 77.0 % 08/14/24 22:19 Lymph % (Auto) 13.2 % 08/14/24 22:19 [place] % (Auto) 9.0 % 08/14/24 22:19 Eos % (Auto) 0.2 % 08/14/24 22:19 Baso % (Auto) 0.2 % 08/14/24 22:19 Neut # (Auto) 11.18 10^3/uL (1.8-7.7) H 08/14/24 22:19 Lymph # (Auto) 1.9 10^3/uL (0.8-4.8) 08/14/24 22:19 [place] # (Auto) 1.3 10^3/uL (0.2-0.9) H 08/14/24 22:19 Eos # (Auto) 0.0 10^3/uL (0.0-0.8) 08/14/24 22:19 Baso # (Auto) 0.0 10^3/uL (0.0-0.1) 08/14/24 22:19 Nucleated RBC % (auto) 0 % 08/14/24 22:19 Nucleated RBCs # 0.0 /100WBC 08/14/24 22:19 Sodium 135 mmol/L (136-145) L 08/14/24 22:19 Potassium 3.5 mmol/L (3.5-5.1) 08/14/24 22:19 Chloride 95 mmol/L (98-107) L 08/14/24 22:19 Carbon Dioxide 20 mmol/L (22-29) L 08/14/24 22:19 Anion Gap 23.5 (5-19) H 08/14/24 22:19 BUN 13 mg/dL (6-20) 08/14/24 22:19 Creatinine 0.8 mg/dL (0.7-1.2) 08/14/24 22:19 GFR Calculation 109.4 mL/min (90-130) 08/14/24 22:19 Glucose 145 mg/dL (65-115) H 08/14/24 22:19 Calculated Osmolality 283 mOsm/kg (285-295) L 08/14/24 22:19 Calcium 10.0 mg/dL (8.5-10.5) 08/14/24 22:19 Total Bilirubin 0.8 mg/dL (0.15-1.2) 08/14/24 22:19 AST 75 U/L (0-40) H 08/14/24 22:19 ALT 41 U/L (0-41) 08/14/24 22:19 Alkaline Phosphatase 109 U/L (40-130) 08/14/24 22:19 Total Protein 7.9 g/dL (6.6-8.7) 08/14/24 22:19 Albumin 4.4 g/dL (3.5-5.2) 08/14/24 22:19 Globulin 3.5 g/dL (1.3-4.6) 08/14/24 22:19 TSH 0.65 uIU/mL (0.27-4.20) 08/14/24 22:19 Urine Color Dark yellow (Yellow) A 08/14/24 23:17 Urine Appearance Clear (CLEAR) 08/14/24 23:17 Urine pH 6.0 (5-7) 08/14/24 23:17 Ur Specific [place] 1.035 (1.005-1.030) H 08/14/24 23:17 Urine Protein 1+ (Negative) A 08/14/24 23:17 Urine Glucose (UA) Trace (Normal) H 08/14/24 23:17 Urine Ketones 4+ (Negative) 08/14/24 23:17 Urine Blood 1+ (Negative) A 08/14/24 23:17 Urine Nitrate Negative (Negative) 08/14/24 23:17 Urine Bilirubin Negative (Negative) 08/14/24 23:17 Urine Urobilinogen 1.0 mg/dL (Negative) 08/14/24 23:17 Ur Leukocyte Esterase Negative (Negative) 08/14/24 23:17 Urine RBC 6-10 /hpf (0-2) 08/14/24 23:17 Urine WBC 0-5 /hpf (0-5) 08/14/24 23:17 Ur Squamous Epith Cells 0-5 /hpf (0-5) 08/14/24 23:17 Amorphous Sediment Not Reportable 08/14/24 23:17 Urine Bacteria None seen /hpf (NONE) 08/14/24 23:17 Hyaline Casts 13.22 /lpf 08/14/24 23:17 Salicylates < 0.3 mg/dL (3-10) L 08/14/24 22:19 Urine Opiates Screen Negative ng/mL (Negative) 08/14/24 23:17 Acetaminophen < 5.0 ug/mL (10-30) L 08/14/24 22:19 Ur Barbiturates Screen Negative ng/mL (Negative) 08/14/24 23:17 Ur Phencyclidine Scrn Negative ng/mL (Negative) 08/14/24 23:17 Ur Amphetamines Screen Positive ng/mL (Negative) H 08/14/24 23:17 U Benzodiazepines Scrn Positive ng/mL (Negative) H 08/14/24 23:17 Urine Cocaine Screen Negative ng/mL (Negative) 08/14/24 23:17 U Marijuana (THC) Screen Positive ng/mL (Negative) H 08/14/24 23:17 Ethyl Alcohol < 10 mg/dL (0-10) 08/14/24 22:19 No radiology studies performed this visit Discharge Plan Discharge Patient Disposition: Xfer Psychiatric Hosp Clinical Impression: Depression, Suicidal ideation, Methamphetamine abuse Condition: Stable Coding Level of Care Code ED Financial Accounting Analyst for Reji Mckeon
--- NOTE | 2024-08-14 22:26 | ECG_ITS ---
[facility] Test Date: 2024-08-14 Pat Name: Alfonzo Kee Department: Room: Gender: Male Dental Patient Coordinator: : 1985 Requested By: Rhea Olivo Order Number: [id number] Tillman MD: Jeannette Corcoran M.D. Measurements Intervals [place] Rate: 84 P: 47 [place]: 133 QRS: 63 QRSD: 90 T: 53 QT: 373 QTc: 442 Interpretive Statements SINUS RHYTHM MINIMAL ST DEPRESSION [0.025+ mV ST DEPRESSION] Compared to ECG 07/19/2024 04:54:22 ST (T wave) deviation now present Short [place] interval no longer present Electronically Signed On 08-14-2024 22:58:35 CDT by Jeannette Corcoran M.D. [id number]
[2024-08-14 22:30] LABS: Basophils % 0.2 %; Eosinophils % 0.2 %; Hematocrit 40.3 % (37-53); Lymphocytes # 1.9 10^3/uL (0.8-4.8); Lymphocytes % 13.2 %; Mean Corpuscular Volume 85.7 fl (82-101); Mean Platelet Volume 9.3 fL (7.4-10.4); Monocytes # 1.3 10^3/uL (0.2-0.9); Neutrophils # 11.18 10^3/uL (1.8-7.7); Nucleated Red Blood Cells % 0 %; Platelet Count 318 10^3/cmm (157-399); Red Cell Distribution Width 12.7 % (12.1-15.1); White Blood Count 14.51 10^3/uL (3.29-11.43)
[2024-08-14 22:58] LABS: Alanine Aminotransferase 41 U/L (0-41); Albumin Level 4.4 g/dL (3.5-5.2); Alkaline Phosphatase 109 U/L (40-130); Anion Gap 23.5 (5-19); Aspartate Amino Transferase 75 U/L (0-40); Blood Urea Nitrogen 13 mg/dL (6-20); Carbon Dioxide 20 mmol/L (22-29); Chloride 95 mmol/L (98-107); Creatinine Clr Calc Pharmacy 134.7053; Globulin 3.5 g/dL (1.3-4.6); Glomerular Filtration Rate 109.4 mL/min (90-130); Glucose 145 mg/dL (65-115); Osmolality Calculated 283 mOsm/kg (285-295); Potassium 3.5 mmol/L (3.5-5.1); Sodium 135 mmol/L (136-145); Thyroid Stimulating Hormone 0.65 uIU/mL (0.27-4.20); Total Bilirubin 0.8 mg/dL (0.15-1.2); Total Protein 7.9 g/dL (6.6-8.7)
[2024-08-14 23:00] LABS: Acetaminophen < 5.0 ug/mL (10-30); Alcohol Level < 10 mg/dL (0-10); Salicylate < 0.3 mg/dL (3-10)
[2024-08-15 00:01] LABS: Amphetamines Screen Urine Positive (Negative); Barbiturates Screen Urine Negative (Negative); Benzodiazepines Screen Urine Positive (Negative); Cocaine Screen Urine Negative (Negative); Opiate Screen Urine Negative (Negative); PCP Screen Urine Negative (Negative); THC Screen Urine Positive (Negative)
[2024-08-15 00:04] LABS: Add Urine Culture? No; Bacteria Urine None Seen /hpf; Bilirubin Urine Negative (Negative); Blood Urine 1+ (Negative); Glucose Urine UA Trace (Normal); Hyaline Casts Urine 13.22 /lpf; Ketones Urine 4+ (Negative); Leukocyte Esterase Urine Negative (Negative); Nitrate Urine Negative (Negative); Protein Urine 1+ (Negative); Specific Gravity, Urine 1.035 (1.005-1.030); Squamous Epithelial Cell Urine 0-5 /hpf (0-5); Urine Appearance Clear (CLEAR); Urine Color Dark Yellow (Yellow); WBC Urine 0-5 /hpf (0-5)
[2024-08-15] MEDS: ondansetron 4 MG Tablet 8 MG PO (04:04)
[2024-08-15] MEDS: sodium chloride 0.9% 1,000 ML 999 ML IV ×2 (04:43→04:44)
[2024-08-15] MEDS: famotidine 20 mg/2 mL INJ 40 MG IVP (04:44)
[2024-08-15] MEDS: ondansetron 2 mg/ML SDV 2 mL 8 MG IVP (04:44)
[2024-08-15 05:18] VITALS: BP 129/73; PULSE 88; RESP 18; O2SAT 98
--- NOTE | 2024-08-15 08:53 | PC.PHAR ---
unable to verify med list with patient, med rec completed with med list last filled and day supply
== END 2024-08-15 11:00 ==
PROVIDERS: Emergency Medicine; Emergency Provider Family Medicine
DX: R45.851 Suicidal ideations (principal); F32.A Depression, unspecified; F15.10 Other stimulant abuse, uncomplicated; Z87.891 Personal history of nicotine dependence
CPT/HCPCS: 36415; 80053; 80306; 80307; 81001; 84443; 85025; 93005; 96361; 96374; 96375; 99285; J2405; J3490; J7030; Q0162

== ENCOUNTER 2024-08-28 04:44 | Emergency (ER) | payer MEDICAID, SELFPAY ==
--- NOTE | 2024-08-28 04:45 | ED.C_ITS ---
Documented by User: Rambo Hdez DO 08/28/24 04:51 HPI - Psych 2 General: Chief Complaint: Psychiatric Symptoms Stated Complaint: SI Time Seen by Provider: 08/28/24 04:44 History of Present Illness: Patient presents to the ER with complaints of suicidal ideation. He says he wants to cut his throat. Patient also fell and hit the back of his head in the front of his head after he took a sleeping pill. Patient has been inpatient several times. It appears the last time he was inpatient on he was transferred to [facility]. Related Data Home Medications Medication Instructions Recorded Confirmed quetiapine 100 mg tablet (Seroquel) 100 mg PO BEDTIME 08/28/24 08/28/24 Previous Rx's Medication Instructions Recorded gabapentin 400 mg capsule 400 mg PO TID 30 days #90 caps 07/24/24 naltrexone microspheres 380 mg 380 mg IM ONCE Alcohol Dependence 07/24/24 intramuscular suspension,extended #1 ea release (Vivitrol) quetiapine 300 mg tablet 300 mg PO QAM 30 days #30 tabs 07/24/24 quetiapine 400 mg tablet 400 mg PO BEDTIME 30 days #30 tabs 07/24/24 sertraline 100 mg tablet 200 mg (2 x 100 mg) PO DAILY 30 07/24/24 days #60 tabs Allergies Allergy/AdvReac Type Severity Reaction Status Date / Time No Known Allergies Allergy Verified 08/28/24 04:54 Review of Systems 2 General: Reports: 10 or more systems reviewed and unremarkable except in HPI and below PFSH ED 2 PFSH: Medical History Nicotine use disorder Major depressive disorder, recurrent, mild JAROCHO (generalized anxiety disorder) On combination antipsychotic drug therapy Psychiatric care Auditory hallucinations PTSD (post-traumatic stress disorder) ADHD, adult residual type Depression, unspecified History of psychosis Anxiety History of ETOH abuse Methamphetamine dependence Cannabis abuse Family History Father Cancer melanoma Social History Smoking and tobacco/nicotine status: former use of tobacco/nicotine Alcohol intake: current Alcohol intake frequency: 3 or more drinks per day Substance/Drug Use: current Substance/Drug use frequency: daily Marital status: Single Number of children: 0 Highest education level completed: High School Graduate Physical Exam 2 Const: COMMON NORMALS: no acute distress, average body habitus, patient oriented x3, no limitations, healthy appearing, alert and well nourished HENMT: COMMON NORMALS: normocephalic, hearing grossly normal bilaterally and external ears normal; head/scalp not atraumatic (Abrasion and lump on frontal scalp and laceration on posterior scalp) and external nose not normal (Dried blood noted on both nares) HEAD & SCALP: normocephalic; not atraumatic (Abrasion and lump on frontal scalp and laceration on posterior scalp) NOSE: external nose not normal (Dried blood noted on both nares) E XTERNAL EAR: Yes external ears normal Eye: COMMON NORMALS: Equal, round and reactive pupils present, EOMs intact bilaterally, conjunctivae normal and no scleral icterus CONJUNCTIVA: Yes conjunctivae normal PUPIL: Yes Equal, round and reactive pupils present Neck/C-Spine: COMMON NORMALS: full ROM, no lymphadenopathy, supple, no meningeal signs, no JVD and Thyroid normal THYROID: Thyroid normal Chest: COMMONS NORMALS: normal inspection of the chest and normal palpation of entire chest wall Resp: COMMON NORMALS: normal respiratory effort, No retractions, No use of accessory muscles and clear to auscultation bilaterally AUSCULTATION: clear to auscultation bilaterally Cardio: COMMON NORMALS: no JVD, regular rate, regular rhythm, S1 normal heart sound present, S2 normal heart sound present, No gallops present (Cardio), No clicks present (Cardio), No murmurs present (Cardio) and No rub (Cardio) R ATE: regular rate RHYTHM: regular rhythm HEART SOUNDS: S1 normal heart sound present and S2 normal heart sound present GI: COMMON NORMALS: Normal to inspection, nondistended, normoactive bowel sounds present, Soft to palpation, non-tender, No hepatosplenomegaly present and no masses PALPATION: Yes Soft to palpation and Yes No hepatosplenomegaly present Neuro: COMMON NORMALS: patient oriented x3 SENSORIUM/ORIENTATION: Yes alert MENINGEAL SIGNS: Yes no meningeal signs Course 2 Vital Signs: Vital signs: Vital Signs Temperature 97.9 F 08/28/24 04:47 Pulse Rate 95 08/28/24 06:44 Respiratory Rate 18 08/28/24 04:47 Blood Pressure 120/76 08/28/24 06:44 Pulse Oximetry 97 08/28/24 06:44 Oxygen Delivery Me thod Room Air 08/28/24 06:44 MDM - Psych Lab Data 08/28/24 05:19 08/28/24 05:[address] 08/28/24 04:52 IMPRESSION: No definite abnormalities noted on motion limited exam. Consider repeat exam when patient is better able to cooperate. Laboratory Results WBC 16.62 10^3/uL (3.29-11.43) H 08/28/24 05:19 RBC 5.20 10^6/uL (3.85-5.65) 08/28/24 05:19 Hgb 15.60 g/dL (11.27-16.99) 08/28/24 05:19 Hct 46.0 % (37-53) 08/28/24 05:19 MCV 88.5 fl (82-101) 08/28/24 05:19 MCH 30.0 pg (27-33) 08/28/24 05:19 MCHC 33.9 g/dL (30-55) 08/28/24 05:19 RDW 12.7 % (12.1-15.1) 08/28/24 05:19 Plt Count 334 10^3/cmm (157-399) 08/28/24 05:19 MPV 9.0 fL (7.4-10.4) 08/28/24 05:19 Neut % (Auto) 79.5 % 08/28/24 05:19 Lymph % (Auto) 14.3 % 08/28/24 05:19 [place] % (Auto) 4.9 % 08/28/24 05:19 Eos % (Auto) 0.4 % 08/28/24 05:19 Baso % (Auto) 0.4 % 08/28/24 05:19 Neut # (Auto) 13.22 10^3/uL (1.8-7.7) H 08/28/24 05:19 Lymph # (Auto) 2.4 10^3/uL (0.8-4.8) 08/28/24 05:19 [place] # (Auto) 0.8 10^3/uL (0.2-0.9) 08/28/24 05:19 Eos # (Auto) 0.1 10^3/uL (0.0-0.8) 08/28/24 05:19 Baso # (Auto) 0.1 10^3/uL (0.0-0.1) 08/28/24 05:19 Nucleated RBC % (auto) 0 % 08/28/24 05:19 Nucleated RBCs # 0.0 /100WBC 08/28/24 05:19 Sodium 138 mmol/L (136-145) 08/28/24 05:19 Potassium 4.1 mmol/L (3.5-5.1) 08/28/24 05:19 Chloride 100 mmol/L (98-107) 08/28/24 05:19 Carbon Dioxide 23 mmol/L (22-29) 08/28/24 05:19 Anion Gap 19.1 (5-19) H 08/28/24 05:19 BUN 19 mg/dL (6-20) 08/28/24 05:19 Creatinine 1.3 mg/dL (0.7-1.2) H 08/28/24 05:19 GFR Calculation 62.5 mL/min (90-130) L 08/28/24 05:19 Glucose 102 mg/dL (65-115) 08/28/24 05:19 Calculated Osmolality 288 mOsm/kg (285-295) 08/28/24 05:19 Calcium 9.6 mg/dL (8.5-10.5) 08/28/24 05:19 Total Bilirubin 0.8 mg/dL (0.15-1.2) 08/28/24 05:19 AST 19 U/L (0-40) 08/28/24 05:19 ALT 16 U/L (0-41) 08/28/24 05:19 Alkaline Phosphatase 108 U/L (40-130) 08/28/24 05:19 Total Protein 8.1 g/dL (6.6-8.7) 08/28/24 05:19 Albumin 4.6 g/dL (3.5-5.2) 08/28/24 05:19 Globulin 3.5 g/dL (1.3-4.6) 08/28/24 05:19 Salicylates < 0.3 mg/dL (3-10) L 08/28/24 05:19 Acetaminophen < 5.0 ug/mL (10-30) L 08/28/24 05:19 Ethyl Alcohol < 10 mg/dL (0-10) 08/28/24 05:19 Discharge Plan Discharge Patient Disposition: Home Clinical Impression: Methamphetamine abuse, Suicidal ideation, Schizophrenia Condition: Stable Prescriptions: No Action sertraline 100 mg Tablet 200 mg PO DAILY 30 Days Qty: 60 1RF quetiapine 300 mg tablet 300 mg PO QAM 30 Days Qty: 30 1RF gabapentin 400 mg capsule 400 mg PO TID 30 Days Qty: 90 1RF quetiapine 400 mg tablet 400 mg PO BEDTIME 30 Days Qty: 30 1RF Rx Instructions: Take 400mg by mouth with 100mg at bedtime for a total dose of 500mg. Vivitrol 380 mg suspension,extended rel recon 380 mg IM ONCE Qty: 1 1RF Rx Instructions: IM shot every 28 days quetiapine [Seroquel] 100 mg tablet 100 mg PO BEDTIME Rx Instructions: Take 100 mg by mouth along with 400mg for a total of 500mg Discharge Orders: Discharge ED (Routine); Ordered 08/28/24 Ordered By: Omar Pyle Discharge Diet: Usual diet Discharge Activity: Resume usual activity Patient Instructions: Depression (ED), Polysubstance Use Disorder (ED), Opioid Safety, Pain Management Activity Restrictions/Additional Instructions: Please follow-up with your behavioral health team on outpatient basis and follow your behavioral health plan as discussed with Dr. Lewis. Coding Level of Care Code ED Electric Container Tester for Chg Fwd Documented by User: Oamr Pyle DO 08/28/24 14:17 HPI - Psych 2 General: Chief Complaint: Psychiatric Symptoms Stated Complaint: SI Time Seen by Provider: 08/28/24 04:44 Related Data Home Medications Medication Instructions Recorded Confirmed quetiapine 100 mg tablet (Seroquel) 100 mg PO BEDTIME 08/28/24 08/28/24 Previous Rx's Medication Instructions Recorded gabapentin 400 mg capsule 400 mg PO TID 30 days #90 caps 07/24/24 naltrexone microspheres 380 mg 380 mg IM ONCE Alcohol Dependence 07/24/24 intramuscular suspension,extended #1 ea release (Vivitrol) quetiapine 300 mg tablet 300 mg PO QAM 30 days #30 tabs 07/24/24 quetiapine 400 mg tablet 400 mg PO BEDTIME 30 days #30 tabs 07/24/24 sertraline 100 mg tablet 200 mg (2 x 100 mg) PO DAILY 30 07/24/24 days #60 tabs Allergies Allergy/AdvReac Type Severity Reaction Status Date / Time No Known Allergies Allergy Verified 08/28/24 04:54 PFSH ED 2 PFSH: Medical History Nicotine use disorder Major depressive disorder, recurrent, mild JAROCHO (generalized anxiety disorder) On combination antipsychotic drug therapy Psychiatric care Auditory hallucinations PTSD (post-traumatic stress disorder) ADHD, adult residual type Depression, unspecified History of psychosis Anxiety History of ETOH abuse Methamphetamine dependence Cannabis abuse Family History Father Cancer melanoma Social History Smoking and tobacco/nicotine status: former use of tobacco/nicotine Alcohol intake: current Alcohol intake frequency: 3 or more drinks per day Substance/Drug Use: current Substance/Drug use frequency: daily Marital status: Single Number of children: 0 Highest education level completed: High School Graduate Course 2 Vital Signs: Vital signs: Vital Signs Temperature 97.9 F 08/28/24 04:47 Pulse Rate 95 08/28/24 06:44 Respiratory Rate 18 08/28/24 04:47 Blood Pressure 120/76 08/28/24 06:44 Pulse Oximetry 97 08/28/24 06:44 Oxygen Delivery Me thod Room Air 08/28/24 06:44 MDM - Psych Medical Decision Making Patient was medically cleared. Patient is well-known to the behavioral health at this facility. He was evaluated by behavioral health Dr. Lewis in the ER. Patient is stable for discharge and needs to follow-up on outpatient basis. Patient is likely positive for methamphetamines based on his actions however he refused to give us urine multiple times missing the hat patient will be discharged and understands return precautions. Lab Data 08/28/24 05:19 08/28/24 05:[address] 08/28/24 04:52 IMPRESSION: No definite abnormalities noted on motion limited exam. Consider repeat exam when patient is better able to cooperate. Laboratory Results WBC 16.62 10^3/uL (3.29-11.43) H 08/28/24 05:19 RBC 5.20 10^6/uL (3.85-5.65) 08/28/24 05:19 Hgb 15.60 g/dL (11.27-16.99) 08/28/24 05:19 Hct 46.0 % (37-53) 08/28/24 05:19 MCV 88.5 fl (82-101) 08/28/24 05:19 MCH 30.0 pg (27-33) 08/28/24 05:19 MCHC 33.9 g/dL (30-55) 08/28/24 05:19 RDW 12.7 % (12.1-15.1) 08/28/24 05:19 Plt Count 334 10^3/cmm (157-399) 08/28/24 05:19 MPV 9.0 fL (7.4-10.4) 08/28/24 05:19 Neut % (Auto) 79.5 % 08/28/24 05:19 Lymph % (Auto) 14.3 % 08/28/24 05:19 Kenton % (Auto) 4.9 % 08/28/24 05:19 Eos % (Auto) 0.4 % 08/28/24 05:19 Baso % (Auto) 0.4 % 08/28/24 05:19 Neut # (Auto) 13.22 10^3/uL (1.8-7.7) H 08/28/24 05:19 Lymph # (Auto) 2.4 10^3/uL (0.8-4.8) 08/28/24 05:19 [place] # (Auto) 0.8 10^3/uL (0.2-0.9) 08/28/24 05:19 Eos # (Auto) 0.1 10^3/uL (0.0-0.8) 08/28/24 05:19 Baso # (Auto) 0.1 10^3/uL (0.0-0.1) 08/28/24 05:19 Nucleated RBC % (auto) 0 % 08/28/24 05:19 Nucleated RBCs # 0.0 /100WBC 08/28/24 05:19 Sodium 138 mmol/L (136-145) 08/28/24 05:19 Potassium 4.1 mmol/L (3.5-5.1) 08/28/24 05:19 Chloride 100 mmol/L (98-107) 08/28/24 05:19 Carbon Dioxide 23 mmol/L (22-29) 08/28/24 05:19 Anion Gap 19.1 (5-19) H 08/28/24 05:19 BUN 19 mg/dL (6-20) 08/28/24 05:19 Creatinine 1.3 mg/dL (0.7-1.2) H 08/28/24 05:19 GFR Calculation 62.5 mL/min (90-130) L 08/28/24 05:19 Glucose 102 mg/dL (65-115) 08/28/24 05:19 Calculated Osmolality 288 mOsm/kg (285-295) 08/28/24 05:19 Calcium 9.6 mg/dL (8.5-10.5) 08/28/24 05:19 Total Bilirubin 0.8 mg/dL (0.15-1.2) 08/28/24 05:19 AST 19 U/L (0-40) 08/28/24 05:19 ALT 16 U/L (0-41) 08/28/24 05:19 Alkaline Phosphatase 108 U/L (40-130) 08/28/24 05:19 Total Protein 8.1 g/dL (6.6-8.7) 08/28/24 05:19 Albumin 4.6 g/dL (3.5-5.2) 08/28/24 05:19 Globulin 3.5 g/dL (1.3-4.6) 08/28/24 05:19 Salicylates < 0.3 mg/dL (3-10) L 08/28/24 05:19 Acetaminophen < 5.0 ug/mL (10-30) L 08/28/24 05:19 Ethyl Alcohol < 10 mg/dL (0-10) 08/28/24 05:19 All radiology interpretation(s) finalized by discharge Discharge Plan Discharge Patient Disposition: Home Clinical Impression: Methamphetamine abuse, Suicidal ideation, Schizophrenia Condition: Stable Prescriptions: No Action sertraline 100 mg Tablet 200 mg PO DAILY 30 Days Qty: 60 1RF quetiapine 300 mg tablet 300 mg PO QAM 30 Days Qty: 30 1RF gabapentin 400 mg capsule 400 mg PO TID 30 Days Qty: 90 1RF quetiapine 400 mg tablet 400 mg PO BEDTIME 30 Days Qty: 30 1RF Rx Instructions: Take 400mg by mouth with 100mg at bedtime for a total dose of 500mg. Vivitrol 380 mg suspension,extended rel recon 380 mg IM ONCE Qty: 1 1RF Rx Instructions: IM shot every 28 days quetiapine [Seroquel] 100 mg tablet 100 mg PO BEDTIME Rx Instructions: Take 100 mg by mouth along with 400mg for a total of 500mg Discharge Orders: Discharge ED (Routine); Ordered 08/28/24 Ordered By: Omar Pyle Discharge Diet: Usual diet Discharge Activity: Resume usual activity Patient Instructions: Depression (ED), Polysubstance Use Disorder (ED), Opioid Safety, Pain Management Activity Restrictions/Additional Instructions: Please follow-up with your behavioral health team on outpatient basis and follow your behavioral health plan as discussed with Dr. Lewis. Coding Level of Care Code ED Electric Container Tester for Reji Mckeon
[2024-08-28 04:47] VITALS: BP 120/82; PULSE 120; RESP 18; TEMP 36.6; O2SAT 96; BMI 28.1
--- NOTE | 2024-08-28 04:52 | CTR_ITS ---
PROCEDURE INFORMATION: Exam: CT Head Without Contrast Exam date and time: 08/28/2024 5:01 AM Age: 38 years old Clinical indication: Injury or trauma; Fall; Blunt trauma (contusions or hematomas); Consciousness not specified; Additional info: Fall head lac TECHNIQUE: Imaging protocol: Computed tomography of the head without contrast. Radiation optimization: All CT scans at this facility use at least one of these dose optimization techniques: automated exposure control; mA and/or kV adjustment per patient size (includes targeted exams where dose is matched to clinical indication); or iterative reconstruction. COMPARISON: CT head wo con* [id number] 01/18/2021 5:33 PM RADIATION DOSE METRICS: Total DLP (mGy-cm): 2368.3 FINDINGS: Please note that there is significant motion artifact on the exam. Exam was repeated multiple times with motion artifact on all sequences. Brain: Normal. No hemorrhage. Unremarkable white matter. No mass effect. Cerebral ventricles: No ventriculomegaly. Paranasal sinuses: Visualized sinuses are unremarkable. No fluid levels. Mastoid air cells: Visualized mastoid air cells are well aerated. Bones: Unremarkable. No acute fracture. Soft tissues: Unremarkable. CT/CT head wo con* [id number] IMPRESSION: No definite abnormalities noted on motion limited exam. Consider repeat exam when patient is better able to cooperate.
[2024-08-28 05:25] LABS: Basophils # 0.1 10^3/uL (0.0-0.1); Basophils % 0.4 %; Eosinophils # 0.1 10^3/uL (0.0-0.8); Eosinophils % 0.4 %; Lymphocytes # 2.4 10^3/uL (0.8-4.8); Lymphocytes % 14.3 %; Mean Corpuscular HGB Conc 33.9 g/dL (30-55); Mean Corpuscular Volume 88.5 fl (82-101); Monocytes # 0.8 10^3/uL (0.2-0.9); Monocytes % 4.9 %; Neutrophils # 13.22 10^3/uL (1.8-7.7); Neutrophils % 79.5 %; Nucleated Red Blood Cells % 0 %; Platelet Count 334 10^3/cmm (157-399); Red Cell Distribution Width 12.7 % (12.1-15.1); White Blood Count 16.62 10^3/uL (3.29-11.43)
[2024-08-28 05:44] LABS: Alanine Aminotransferase 16 U/L (0-41); Albumin Level 4.6 g/dL (3.5-5.2); Alkaline Phosphatase 108 U/L (40-130); Anion Gap 19.1 (5-19); Aspartate Amino Transferase 19 U/L (0-40); Blood Urea Nitrogen 19 mg/dL (6-20); Calcium 9.6 mg/dL (8.5-10.5); Carbon Dioxide 23 mmol/L (22-29); Chloride 100 mmol/L (98-107); Creatinine Clr Calc Pharmacy 82.8956; Globulin 3.5 g/dL (1.3-4.6); Glomerular Filtration Rate 62.5 mL/min (90-130); Glucose 102 mg/dL (65-115); Osmolality Calculated 288 mOsm/kg (285-295); Potassium 4.1 mmol/L (3.5-5.1); Sodium 138 mmol/L (136-145); Total Bilirubin 0.8 mg/dL (0.15-1.2); Total Protein 8.1 g/dL (6.6-8.7)
[2024-08-28 05:48] LABS: Acetaminophen < 5.0 ug/mL (10-30); Alcohol Level < 10 mg/dL (0-10); Salicylate < 0.3 mg/dL (3-10)
--- NOTE | 2024-08-28 05:55 | PC.NURSE ---
96 Pt served with copy of [facility] by this RN and security. Pt knew where he was but slurred words and fell asleep during mid sentence. When pt was talking, his speech was rapid and he twitched in all extremities. Pt was woke up multiple times during the reading of the 96 rights.
[2024-08-28 06:44] VITALS: BP 120/76; PULSE 95; O2SAT 97
--- NOTE | 2024-08-28 13:08 | PC.NURSE ---
NURSE HAS ROUNDED ON PT MULTIPLE TIMES, PT HAS BEEN ASLEEP MOST OF THE MORNING.
[2024-08-28 17:54] VITALS: BP 121/74; PULSE 120; RESP 16; O2SAT 97
== END 2024-08-28 14:10 | disposition home or self-care (01) ==
PROVIDERS: Emergency Medicine; Emergency Provider Student in an Organized Health Care Education/Training Program
DX: F15.10 Other stimulant abuse, uncomplicated (principal); R45.851 Suicidal ideations; F20.9 Schizophrenia, unspecified; Z87.891 Personal history of nicotine dependence
CPT/HCPCS: 70450; 80053; 80307; 85025; 99284

== ENCOUNTER 2025-04-13 01:53 | Emergency (ER) | payer BC, MEDICAID, SELFPAY ==
[2025-04-13 02:02] VITALS: BP 118/87; PULSE 102; RESP 20; O2SAT 96; BMI 25.8
--- NOTE | 2025-04-13 02:08 | XRR_ITS ---
PROCEDURE INFORMATION: Exam: XR Chest Exam date and time: 04/13/2025 2:12 AM Age: 39 years old Clinical indication: Other: Drug overdose; Additional info: Medical clearance TECHNIQUE: Imaging protocol: Radiologic exam of the chest. Views: 1 view. COMPARISON: CR XR chest 1V portable [id number] 01/18/2021 4:40 PM FINDINGS: Lungs: Unremarkable. No consolidation. Pleural spaces: Unremarkable. No pleural effusion. No pneumothorax. Heart/Mediastinum: Unremarkable. No cardiomegaly. Bones/joints: Unremarkable. XR/XR chest 1V portable [id number] IMPRESSION: No acute findings.
--- NOTE | 2025-04-13 02:09 | ECG_ITS ---
[facility] Date: 2025-04-13 Pat Name: Alfonzo Kee Department: Room: Gender: Male Observation Assistant: : 1985 Requested By: Pablo Law Order Number: [id number] Primo MD: SHAHEED LONG Measurements Intervals [place] Rate: 81 P: 0 OR: 0 QRS: 71 QRSD: 79 T: 79 QT: 369 QTc: 430 Interpretive Statements Sinus Rythm Compared to ECG 08/14/2024 22:26:02 ST (T wave) deviation no longer present Electronically Signed On 04-14-2025 19:06:04 CDT by SHAHEED LONG [email or web address] [id number]
--- NOTE | 2025-04-13 02:17 | PC.NURSE ---
Poison control called at 02:17 . Peak time 1.5 hours and half life 6 hours. observe symptoms and do medical screen workup
[2025-04-13 02:23] LABS: Basophils % 0.4 %; Eosinophils # 0.1 10^3/uL (0.0-0.8); Eosinophils % 0.9 %; Hematocrit 41.8 % (37-53); Lymphocytes # 2.6 10^3/uL (0.8-4.8); Lymphocytes % 26.7 %; Mean Corpuscular Volume 88.4 fl (82-101); Monocytes # 0.7 10^3/uL (0.2-0.9); Monocytes % 7.1 %; Neutrophils # 6.32 10^3/uL (1.8-7.7); Neutrophils % 64.6 %; Nucleated Red Blood Cells % 0 %; Platelet Count 214 10^3/cmm (157-399); Red Blood Count 4.73 10^6/uL (3.85-5.65)
--- NOTE | 2025-04-13 02:26 | PC.NURSE ---
pt changed into green scrubs per myself and Dane Ledesma . pt found to have small black knife. clothes and belongings given to security system technician Corey .
--- NOTE | 2025-04-13 02:31 | PC.NURSE ---
per security , patients belongings placed in Hall[address] locker .
[2025-04-13 02:43] LABS: Alanine Aminotransferase 67 U/L (0-41); Albumin Level 4.1 g/dL (3.5-5.2); Alkaline Phosphatase 94 U/L (40-130); Anion Gap 18.2 (5-19); Aspartate Amino Transferase 105 U/L (0-40); Blood Urea Nitrogen 14 mg/dL (6-20); Carbon Dioxide 19 mmol/L (22-29); Chloride 99 mmol/L (98-107); Creatinine Clr Calc Pharmacy 146.9066; Globulin 3.4 g/dL (1.3-4.6); Glomerular Filtration Rate 126.9 mL/min (90-130); Glucose 226 mg/dL (65-115); Osmolality Calculated 284 mOsm/kg (285-295); Potassium 3.2 mmol/L (3.5-5.1); Sodium 133 mmol/L (136-145); Total Bilirubin 1.2 mg/dL (0.15-1.2); Total Protein 7.5 g/dL (6.6-8.7)
[2025-04-13 02:45] LABS: Acetaminophen < 5.0 ug/mL (10-30); Salicylate < 0.3 mg/dL (3-10)
[2025-04-13 03:07] VITALS: BP 140/89; PULSE 118; RESP 18; O2SAT 97
[2025-04-13 04:00] VITALS: BP 104/72; PULSE 99; RESP 18; O2SAT 95
--- NOTE | 2025-04-13 04:50 | W.ED.OVERDOS ---
Documented by User: Pablo Martinez DO 04/13/25 05:55 HPI - Overdose General: Chief Complaint: Overdose Stated Complaint: Overdose Time Seen by Provider: 04/13/25 02:43 History of Present Illness: The patient presents to the emergency department following an overdose of sleeping pills and methamphetamine. The patient reports a history of anxiety, drug use, and suicidal thoughts. The patient states they took an excessive amount of sleeping pills and methamphetamine in an attempt to go to sleep due to high anxiety. Initially, the patient denies intentional self-harm, stating I took more pills than I should and graduated in O.D. from pills and meth and I was trying to go to sleep, and I fell asleep with the pills. However, upon further questioning, the patient acknowledges suicidal thoughts and confirms that they gave in to those thoughts with the sleeping pills. The patient reports ongoing struggles with anxiety, describing difficulty calming down and feeling really high on meds. They also mention a drug problem and refer to themselves as a suicidalist. The patient expresses a desire for help, stating I'm here for help and specifically mentioning needing assistance with this problem, referring to their suicidal thoughts and substance use issues. Related Data Home Medications ?Medication ?Instructions ?Recorded ?Confirmed quetiapine 100 mg tablet (Seroquel) 100 mg PO BEDTIME 08/28/24 08/28/24 Previous Rx's ?Medication ?Instructions ?Recorded gabapentin 400 mg capsule 400 mg PO TID 30 days #90 caps 07/24/24 naltrexone microspheres 380 mg 380 mg IM ONCE Alcohol Dependence 07/24/24 intramuscular suspension,extended #1 ea release (Vivitrol) quetiapine 300 mg tablet 300 mg PO QAM 30 days #30 tabs 07/24/24 quetiapine 400 mg tablet 400 mg PO BEDTIME 30 days #30 tabs 07/24/24 sertraline 100 mg tablet 200 mg (2 x 100 mg) PO DAILY 30 07/24/24 days #60 tabs Allergies Allergy/AdvReac Type Severity Reaction Status Date / Time No Known Allergies Allergy Verified 02/27/25 09:54 Review of Systems General: Reports: 10 or more systems reviewed and unremarkable except in HPI and below PFSH ED PFSH: Medical History Nicotine use disorder Major depressive disorder, recurrent, mild JAROCHO (generalized anxiety disorder) On combination antipsychotic drug therapy Psychiatric care Auditory hallucinations PTSD (post-traumatic stress disorder) ADHD, adult residual type Depression, unspecified History of psychosis Anxiety History of ETOH abuse Methamphetamine dependence Cannabis abuse Family History Father Cancer melanoma Social History Smoking and tobacco/nicotine status: former use of tobacco/nicotine Alcohol intake: current Alcohol intake frequency: 3 or more drinks per day Substance/Drug Use: current Substance/Drug use frequency: daily Marital status: Single Number of children: 0 Highest education level completed: High School Graduate Physical Exam Const: COMMON NORMALS: no acute distress, patient oriented x3, healthy appearing, alert and well nourished HENMT: COMMON NORMALS: normocephalic HEAD & SCALP: normocephalic Eye: COMMON NORMALS: EOMs intact bilaterally Neck/C-Spine: COMMON NORMALS: full ROM and supple Resp: COMMON NORMALS: normal respiratory effort, No retractions and clear to auscultation bilaterally AUSCULTATION: clear to auscultation bilaterally Cardio: COMMON NORMALS: regular rhythm, No gallops present (Cardio) and No murmurs present (Cardio) RATE: tachycardic RHYTHM: regular rhythm GI: COMMON NORMALS: Soft to palpation and non-tender PALPATION: Yes Soft to palpation Extremity: GENERAL: Yes normal exam except as noted Neuro: COMMON NORMALS: patient oriented x3 SENSORIUM/ORIENTATION: Yes alert Skin: COMMON NORMALS: no rashes or lesions noted GENERAL SKIN EXAM: no rashes or lesions noted Course Vital Signs: Vital signs: Vital Signs Pulse Rate 101 H 04/13/25 06:55 Respiratory Rate 18 04/13/25 06:55 Blood Pressure 128/77 04/13/25 06:55 Pulse Oximetry 97 04/13/25 06:55 Oxygen Delivery Me thod Room Air 04/13/25 06:00 MDM - Overdose Medical Decision Making 39-year-old male presents emergency department for evaluation after an overdose. Patient reports that he did meth and then took several Seroquel in order to go to sleep. After he get high he then decided that he would given to his suicidal ideation. Patient will need to be admitted to inpatient psychiatry secondary to suicidal ideation. Monitoring him for Seroquel overdose symptoms. EKG was globally unremarkable. Currently repleting potassium orally and sodium with fluids. Awaiting urinalysis. Case discussed with Dr. Bella for signout. Lab Data 04/13/25 02:17 04/13/25 02:17 Radiology Impressions Chest X-Ray 04/13/25 02:08 IMPRESSION: No acute findings. Laboratory Results WBC 9.80 10^3/uL (3.29-11.43) 04/13/25 02:17 RBC 4.73 10^6/uL (3.85-5.65) 04/13/25 02:17 Hgb 14.20 g/dL (11.27-16.99) 04/13/25 02:17 Hct 41.8 % (37-53) 04/13/25 02:17 MCV 88.4 fl (82-101) 04/13/25 02:17 MCH 30.0 pg (27-33) 04/13/25 02:17 MCHC 34.0 g/dL (30-55) 04/13/25 02:17 RDW 13.0 % (12.1-15.1) 04/13/25 02:17 Plt Count 214 10^3/cmm (157-399) 04/13/25 02:17 MPV 9.0 fL (7.4-10.4) 04/13/25 02:17 Neut % (Auto) 64.6 % 04/13/25 02:17 Lymph % (Auto) 26.7 % 04/13/25 02:17 [place] % (Auto) 7.1 % 04/13/25 02:17 Eos % (Auto) 0.9 % 04/13/25 02:17 Baso % (Auto) 0.4 % 04/13/25 02:17 Neut # (Auto) 6.32 10^3/uL (1.8-7.7) 04/13/25 02:17 Lymph # (Auto) 2.6 10^3/uL (0.8-4.8) 04/13/25 02:17 [place] # (Auto) 0.7 10^3/uL (0.2-0.9) 04/13/25 02:17 Eos # (Auto) 0.1 10^3/uL (0.0-0.8) 04/13/25 02:17 Baso # (Auto) 0.0 10^3/uL (0.0-0.1) 04/13/25 02:17 Nucleated RBC % (auto) 0 % 04/13/25 02:17 Nucleated RBCs # 0.0 /100WBC 04/13/25 02:17 Sodium 133 mmol/L (136-145) L 04/13/25 02:17 Potassium 3.2 mmol/L (3.5-5.1) L 04/13/25 02:17 Chloride 99 mmol/L (98-107) 04/13/25 02:17 Carbon Dioxide 19 mmol/L (22-29) L 04/13/25 02:17 Anion Gap 18.2 (5-19) 04/13/25 02:17 BUN 14 mg/dL (6-20) 04/13/25 02:17 Creatinine 0.7 mg/dL (0.7-1.2) 04/13/25 02:17 GFR Calculation 126.9 mL/min (90-130) 04/13/25 02:17 Glucose 226 mg/dL (65-115) H 04/13/25 02:17 Calculated Osmolality 284 mOsm/kg (285-295) L 04/13/25 02:17 Calcium 9.0 mg/dL (8.5-10.5) 04/13/25 02:17 Total Bilirubin 1.2 mg/dL (0.15-1.2) 04/13/25 02:17 AST 105 U/L (0-40) H 04/13/25 02:17 ALT 67 U/L (0-41) H 04/13/25 02:17 Alkaline Phosphatase 94 U/L (40-130) 04/13/25 02:17 Total Protein 7.5 g/dL (6.6-8.7) 04/13/25 02:17 Albumin 4.1 g/dL (3.5-5.2) 04/13/25 02:17 Globulin 3.4 g/dL (1.3-4.6) 04/13/25 02:17 Salicylates < 0.3 mg/dL (3-10) L 04/13/25 02:17 Acetaminophen < 5.0 ug/mL (10-30) L 04/13/25 02:17 All radiology interpretation(s) finalized by discharge EKG Data EKG 1: Interpretation: Sinus rhythm with a rate of 81, MS~130, QRS 79, QTc of 406 Discharge Plan Discharge Patient Disposition: Home Clinical Impression: Methamphetamine abuse Condition: Stable Prescriptions: No Action sertraline 100 mg Tablet 200 mg PO DAILY 30 Days Qty: 60 1RF quetiapine 300 mg tablet 300 mg PO QAM 30 Days Qty: 30 1RF gabapentin 400 mg capsule 400 mg PO TID 30 Days Qty: 90 1RF quetiapine 400 mg tablet 400 mg PO BEDTIME 30 Days Qty: 30 1RF Rx Instructions: Take 400mg by mouth with 100mg at bedtime for a total dose of 500mg. Vivitrol 380 mg suspension,extended rel recon 380 mg IM ONCE Qty: 1 1RF Rx Instructions: IM shot every 28 days quetiapine [Seroquel] 100 mg tablet 100 mg PO BEDTIME Rx Instructions: Take 100 mg by mouth along with 400mg for a total of 500mg Discharge Orders: Discharge ED (Routine); Ordered 04/13/25 Ordered By: Linda Bella Discharge Diet: Advance as tolerated Discharge Activity: Resume usual activity Patient Instructions: Methamphetamine Use Disorder (ED) Print Language: Azeri Coding Level of Care Code ED Workers Compensation Claims Examiner for Chg Fwd Documented by User: Linda Bella MD 04/13/25 07:02 HPI - Overdose General: Chief Complaint: Overdose Stated Complaint: Overdose Time Seen by Provider: 04/13/25 02:43 Related Data Home Medications ?Medication ?Instructions ?Recorded ?Confirmed quetiapine 100 mg tablet (Seroquel) 100 mg PO BEDTIME 08/28/24 08/28/24 Previous Rx's ?Medication ?Instructions ?Recorded gabapentin 400 mg capsule 400 mg PO TID 30 days #90 caps 07/24/24 naltrexone microspheres 380 mg 380 mg IM ONCE Alcohol Dependence 07/24/24 intramuscular suspension,extended #1 ea release (Vivitrol) quetiapine 300 mg tablet 300 mg PO QAM 30 days #30 tabs 07/24/24 quetiapine 400 mg tablet 400 mg PO BEDTIME 30 days #30 tabs 07/24/24 sertraline 100 mg tablet 200 mg (2 x 100 mg) PO DAILY 30 07/24/24 days #60 tabs Allergies Allergy/AdvReac Type Severity Reaction Status Date / Time No Known Allergies Allergy Verified 02/27/25 09:54 [facility] ED PFSH: Medical History Nicotine use disorder Major depressive disorder, recurrent, mild JAROCHO (generalized anxiety disorder) On combination antipsychotic drug therapy Psychiatric care Auditory hallucinations PTSD (post-traumatic stress disorder) ADHD, adult residual type Depression, unspecified History of psychosis Anxiety History of ETOH abuse Methamphetamine dependence Cannabis abuse Family History Father Cancer melanoma Social History Smoking and tobacco/nicotine status: former use of tobacco/nicotine Alcohol intake: current Alcohol intake frequency: 3 or more drinks per day Substance/Drug Use: current Substance/Drug use frequency: daily Marital status: Single Number of children: 0 Highest education level completed: High School Graduate Course Vital Signs: Vital signs: Vital Signs Pulse Rate 101 H 04/13/25 06:55 Respiratory Rate 18 04/13/25 06:55 Blood Pressure 128/77 04/13/25 06:55 Pulse Oximetry 97 04/13/25 06:55 Oxygen Delivery Me thod Room Air 04/13/25 06:00 MDM - Overdose Medical Decision Making 39-year-old male presents emergency department for evaluation after an overdose. Patient reports that he did meth and then took several Seroquel in order to go to sleep. After he get high he then decided that he would given to his suicidal ideation. Monitoring him for Seroquel overdose symptoms. EKG was globally unremarkable. Currently repleting potassium orally and sodium with fluids. Awaiting urinalysis. Case discussed with Dr. Bella for signout. Patient presents with meth abuse he is adamant he is not suicidal he took Seroquel try to go to sleep he has been well-appearing here he stable for discharge follow-up PCP return if worsening Lab Data 04/13/25 02:17 04/13/25 02:17 Radiology Impressions Chest X-Ray 04/13/25 02:08 IMPRESSION: No acute findings. Laboratory Results WBC 9.80 10^3/uL (3.29-11.43) 04/13/25 02:17 RBC 4.73 10^6/uL (3.85-5.65) 04/13/25 02:17 Hgb 14.20 g/dL (11.27-16.99) 04/13/25 02:17 Hct 41.8 % (37-53) 04/13/25 02:17 MCV 88.4 fl (82-101) 04/13/25 02:17 MCH 30.0 pg (27-33) 04/13/25 02:17 MCHC 34.0 g/dL (30-55) 04/13/25 02:17 RDW 13.0 % (12.1-15.1) 04/13/25 02:17 Plt Count 214 10^3/cmm (157-399) 04/13/25 02:17 MPV 9.0 fL (7.4-10.4) 04/13/25 02:17 Neut % (Auto) 64.6 % 04/13/25 02:17 Lymph % (Auto) 26.7 % 04/13/25 02:17 [place] % (Auto) 7.1 % 04/13/25 02:17 Eos % (Auto) 0.9 % 04/13/25 02:17 Baso % (Auto) 0.4 % 04/13/25 02:17 Neut # (Auto) 6.32 10^3/uL (1.8-7.7) 04/13/25 02:17 Lymph # (Auto) 2.6 10^3/uL (0.8-4.8) 04/13/25 02:17 [place] # (Auto) 0.7 10^3/uL (0.2-0.9) 04/13/25 02:17 Eos # (Auto) 0.1 10^3/uL (0.0-0.8) 04/13/25 02:17 Baso # (Auto) 0.0 10^3/uL (0.0-0.1) 04/13/25 02:17 Nucleated RBC % (auto) 0 % 04/13/25 02:17 Nucleated RBCs # 0.0 /100WBC 04/13/25 02:17 Sodium 133 mmol/L (136-145) L 04/13/25 02:17 Potassium 3.2 mmol/L (3.5-5.1) L 04/13/25 02:17 Chloride 99 mmol/L (98-107) 04/13/25 02:17 Carbon Dioxide 19 mmol/L (22-29) L 04/13/25 02:17 Anion Gap 18.2 (5-19) 04/13/25 02:17 BUN 14 mg/dL (6-20) 04/13/25 02:17 Creatinine 0.7 mg/dL (0.7-1.2) 04/13/25 02:17 GFR Calculation 126.9 mL/min (90-130) 04/13/25 02:17 Glucose 226 mg/dL (65-115) H 04/13/25 02:17 Calculated Osmolality 284 mOsm/kg (285-295) L 04/13/25 02:17 Calcium 9.0 mg/dL (8.5-10.5) 04/13/25 02:17 Total Bilirubin 1.2 mg/dL (0.15-1.2) 04/13/25 02:17 AST 105 U/L (0-40) H 04/13/25 02:17 ALT 67 U/L (0-41) H 04/13/25 02:17 Alkaline Phosphatase 94 U/L (40-130) 04/13/25 02:17 Total Protein 7.5 g/dL (6.6-8.7) 04/13/25 02:17 Albumin 4.1 g/dL (3.5-5.2) 04/13/25 02:17 Globulin 3.4 g/dL (1.3-4.6) 04/13/25 02:17 Salicylates < 0.3 mg/dL (3-10) L 04/13/25 02:17 Acetaminophen < 5.0 ug/mL (10-30) L 04/13/25 02:17 Discharge Plan Discharge Patient Disposition: Home Clinical Impression: Methamphetamine abuse Condition: Stable Prescriptions: No Action sertraline 100 mg Tablet 200 mg PO DAILY 30 Days Qty: 60 1RF quetiapine 300 mg tablet 300 mg PO QAM 30 Days Qty: 30 1RF gabapentin 400 mg capsule 400 mg PO TID 30 Days Qty: 90 1RF quetiapine 400 mg tablet 400 mg PO BEDTIME 30 Days Qty: 30 1RF Rx Instructions: Take 400mg by mouth with 100mg at bedtime for a total dose of 500mg. Vivitrol 380 mg suspension,extended rel recon 380 mg IM ONCE Qty: 1 1RF Rx Instructions: IM shot every 28 days quetiapine [Seroquel] 100 mg tablet 100 mg PO BEDTIME Rx Instructions: Take 100 mg by mouth along with 400mg for a total of 500mg Discharge Orders: Discharge ED (Routine); Ordered 04/13/25 Ordered By: Linda Bella Discharge Diet: Advance as tolerated Discharge Activity: Resume usual activity Patient Instructions: Methamphetamine Use Disorder (ED) Print Language: Azeri Coding Level of Care Code ED Workers Compensation Claims Examiner for Reji Mckeon
[2025-04-13 05:00] VITALS: BP 123/80; PULSE 95; RESP 16; O2SAT 98
[2025-04-13] MEDS: potassium chloride ER 20 mEq Tablet PO (05:52)
[2025-04-13] MEDS: sodium chloride 0.9% 1,000 ML 999 ML IV (05:52)
[2025-04-13 06:00] VITALS: BP 126/77; PULSE 104; RESP 18; O2SAT 95
[2025-04-13 06:55] VITALS: BP 128/77; PULSE 101; RESP 18; O2SAT 97
== END 2025-04-13 06:57 | disposition home or self-care (01) ==
PROVIDERS: General Practice; Emergency Provider Emergency Medicine
DX: F15.10 Other stimulant abuse, uncomplicated (principal); T43.652A Poisoning by methamphetamines intentional self-harm, initial encounter; T43.592A Poisoning by other antipsychotics and neuroleptics, intentional self-harm, initial encounter
CPT/HCPCS: 36415; 71045; 80053; 80307; 85025; 93005; 96360; 99285; J7030; J9999

== ENCOUNTER 2025-05-09 02:50 | Emergency (ER) | payer BC, MEDICAID, SELFPAY ==
[2025-05-09 03:10] VITALS: BP 140/95; PULSE 87; RESP 22; TEMP 36.7; O2SAT 97; BMI 34.9
--- NOTE | 2025-05-09 03:18 | CTR_ITS ---
PROCEDURE INFORMATION: Exam: CT Abdomen And Pelvis Without Contrast Exam date and time: 05/09/2025 3:27 AM Age: 39 years old Clinical indication: Abdominal pain; Flank; Other: B/l; Additional info: Flank pain TECHNIQUE: Imaging protocol: Computed tomography of the abdomen and pelvis without contrast. Sagittal and coronal reformatted images were also reviewed. Radiation optimization: All CT scans at this facility use at least one of these dose optimization techniques: automated exposure control; mA and/or kV adjustment per patient size (includes targeted exams where dose is matched to clinical indication); or iterative reconstruction. COMPARISON: No relevant prior studies available. RADIATION DOSE METRICS: Total DLP (mGy-cm): 769 FINDINGS: Limitations: Evaluation of solid organs and vasculature is limited without intravenous contrast. This is standard protocol for evaluation of possible urolithiasis. Lungs: Visualized lungs are clear. Pleural spaces: No pleural effusion. Heart: Visualized portions of the heart are unremarkable. Liver: The liver is unremarkable. Gallbladder and biliary ducts: The gallbladder is unremarkable. No biliary ductal dilatation. Pancreas: The pancreas is unremarkable. No pancreatic ductal dilatation. Spleen: The spleen is unremarkable. Small splenule in the left upper quadrant. Adrenal glands: The right and left adrenal glands are unremarkable. Kidneys and ureters: The right and left kidneys are unremarkable. The right and left ureters are unremarkable. Stomach and bowel: Fluid within the small bowel and colon without evidence of bowel wall thickening. Appendix: The appendix is visualized and is unremarkable. No findings to suggest acute appendicitis. Intraperitoneal space: No free intraperitoneal air. No ascites. No loculated fluid collections to suggest an abscess. Vasculature: No evidence for aortic aneurysm. Lymph nodes: No lymphadenopathy. Urinary bladder: The bladder is unremarkable for the degree of distension. Reproductive: Unremarkable as visualized. Bones/joints: Degenerative changes in the spine and hips. Soft tissues: No acute abnormality in the extra-abdominal soft tissues. CT/CT kidney stone [id number] IMPRESSION: 1. Fluid within the small bowel and colon without evidence of bowel wall thickening. This may reflect viral gastroenteritis in the appropriate clinical situation. 2. Incidental/nonacute findings are listed in the report.
--- NOTE | 2025-05-09 03:19 | W.ED.BACK ---
HPI - Back Pain/Injury General: Chief Complaint: Back Pain/Injury Stated Complaint: extreame back flank pain Time Seen by Provider: 05/09/25 03:15 History of Present Illness: Patient comes in with back pain. States for the past couple of days he has had lower back pain lateral to midline which he describes as sharp, comes and goes, worse with movement. Denies any trauma. Denies any urinary retention, perianal numbness, or leg muscle weakness. On physical exam he has mild tenderness to palpation in his lower back lateral to midline bilateral. He denies fever, dysuria, or hematuria. Denies any abdominal pain, nausea, cough, or congestion. States he has been drinking real heavily every day for the past few months. Will check labs, give IV fluids, check CT abdomen pelvis, treat pain with 15 mg of IV Toradol, and reassess. Related Data Home Medications ?Medication ?Instructions ?Recorded ?Confirmed quetiapine 100 mg tablet (Seroquel) 100 mg PO BEDTIME 08/28/24 08/28/24 Previous Rx's ?Medication ?Instructions ?Recorded gabapentin 400 mg capsule 400 mg PO TID 30 days #90 caps 07/24/24 naltrexone microspheres 380 mg 380 mg IM ONCE Alcohol Dependence 07/24/24 intramuscular suspension,extended #1 ea release (Vivitrol) quetiapine 300 mg tablet 300 mg PO QAM 30 days #30 tabs 07/24/24 quetiapine 400 mg tablet 400 mg PO BEDTIME 30 days #30 tabs 07/24/24 sertraline 100 mg tablet 200 mg (2 x 100 mg) PO DAILY 30 07/24/24 days #60 tabs Allergies Allergy/AdvReac Type Severity Reaction Status Date / Time No Known Allergies Allergy Verified 02/27/25 09:54 Review of Systems [facility] [place]: Reports: back pain PFS ED PFS: Medical History Nicotine use disorder Major depressive disorder, recurrent, mild JAROCHO (generalized anxiety disorder) On combination antipsychotic drug therapy Psychiatric care Auditory hallucinations PTSD (post-traumatic stress disorder) ADHD, adult residual type Depression, unspecified History of psychosis Anxiety History of ETOH abuse Methamphetamine dependence Cannabis abuse Family History Father Cancer melanoma Social History (Reviewed 08/28/24 @ 04:50 by PETE Miles Smoking and tobacco/nicotine status: former use of tobacco/nicotine Alcohol intake: current Alcohol intake frequency: 3 or more drinks per day Substance/Drug Use: current Substance/Drug use frequency: daily Marital status: Single Number of children: 0 Highest education level completed: High School Graduate Physical Exam Const: COMMON NORMALS: no acute distress, patient oriented x3, healthy appearing and alert HENMT: COMMON NORMALS: normocephalic and atraumatic HEAD & SCALP: normocephalic and atraumatic Neck/C-Spine: COMMON NORMALS: full ROM and supple Resp: COMMON NORMALS: normal respiratory effort, No retractions and No use of accessory muscles Cardio: COMMON NORMALS: regular rate and regular rhythm RATE: regular rate RHYTHM: regular rhythm GI: COMMON NORMALS: Normal to inspection, nondistended, normoactive bowel sounds present, Soft to palpation and non-tender PALPATION: Yes Soft to palpation Back/Pelvis: OTHER: Mild tenderness to palpation bilateral lower back lateral to midline Extremity: COMMON NORMALS: normal to inspection and full ROM Neuro: COMMON NORMALS: patient oriented x3 SENSORIUM/ORIENTATION: Yes alert Course Vital Signs: Vital signs: Vital Signs Temperature 98.1 F 05/09/25 03:10 Pulse Rate 87 05/09/25 03:10 Respiratory Rate 22 H 05/09/25 03:10 Blood Pressure 140/95 05/09/25 03:10 Pulse Oximetry 97 05/09/25 03:10 MDM - Back Pain/Injury Medical Decision Making On reassessment I talked to the patient about his test results. His CT shows possible findings for gastroenteritis. We talked about symptoms which prompt immediate return to the emergency department. Will discharge at this time with precautions to return for worsening or changing symptoms. Labs 05/09/25 03:45 05/09/25 03:45 Radiology Impressions Abdomen/Pelvis CT 05/09/25 03:18 IMPRESSION: 1. Fluid within the small bowel and colon without evidence of bowel wall thickening. This may reflect viral gastroenteritis in the appropriate clinical situation. 2. Incidental/nonacute findings are listed in the report. Laboratory Results WBC 10.19 10^3/uL (3.29-11.43) 05/09/25 03:45 RBC 5.06 10^6/uL (3.85-5.65) 05/09/25 03:45 Hgb 15.30 g/dL (11.27-16.99) 05/09/25 03:45 Hct 43.1 % (37-53) 05/09/25 03:45 MCV 85.2 fl (82-101) 05/09/25 03:45 MCH 30.2 pg (27-33) 05/09/25 03:45 MCHC 35.5 g/dL (30-55) 05/09/25 03:45 RDW 13.0 % (12.1-15.1) 05/09/25 03:45 Plt Count 217 10^3/cmm (157-399) 05/09/25 03:45 MPV 9.4 fL (7.4-10.4) 05/09/25 03:45 Neut % (Auto) 62.4 % 05/09/25 03:45 Lymph % (Auto) 28.5 % 05/09/25 03:45 [place] % (Auto) 7.0 % 05/09/25 03:45 Eos % (Auto) 1.2 % 05/09/25 03:45 Baso % (Auto) 0.4 % 05/09/25 03:45 Neut # (Auto) 6.37 10^3/uL (1.8-7.7) 05/09/25 03:45 Lymph # (Auto) 2.9 10^3/uL (0.8-4.8) 05/09/25 03:45 [place] # (Auto) 0.7 10^3/uL (0.2-0.9) 05/09/25 03:45 Eos # (Auto) 0.1 10^3/uL (0.0-0.8) 05/09/25 03:45 Baso # (Auto) 0.0 10^3/uL (0.0-0.1) 05/09/25 03:45 Nucleated RBC % (auto) 0 % 05/09/25 03:45 Nucleated RBCs # 0.0 /100WBC 05/09/25 03:45 Sodium 136 mmol/L (136-145) 05/09/25 03:45 Potassium 3.3 mmol/L (3.5-5.1) L 05/09/25 03:45 Chloride 100 mmol/L (98-107) 05/09/25 03:45 Carbon Dioxide 22 mmol/L (22-29) 05/09/25 03:45 Anion Gap 17.3 (5-19) 05/09/25 03:45 BUN 9 mg/dL (6-20) 05/09/25 03:45 Creatinine 0.7 mg/dL (0.7-1.2) 05/09/25 03:45 GFR Calculation 126.9 mL/min (90-130) 05/09/25 03:45 Glucose 106 mg/dL (65-115) 05/09/25 03:45 Calculated Osmolality 281 mOsm/kg (285-295) L 05/09/25 03:45 Calcium 9.1 mg/dL (8.5-10.5) 05/09/25 03:45 Total Bilirubin 0.9 mg/dL (0.15-1.2) 05/09/25 03:45 AST 25 U/L (0-40) 05/09/25 03:45 ALT 20 U/L (0-41) 05/09/25 03:45 Alkaline Phosphatase 93 U/L (40-130) 05/09/25 03:45 Total Protein 7.7 g/dL (6.6-8.7) 05/09/25 03:45 Albumin 4.3 g/dL (3.5-5.2) 05/09/25 03:45 Globulin 3.4 g/dL (1.3-4.6) 05/09/25 03:45 Lipase 47 U/L (13-60) 05/09/25 03:45 Urine Color Yellow (Yellow) 05/09/25 04:45 Urine Appearance Clear (CLEAR) 05/09/25 04:45 Urine pH 6.5 (5-7) 05/09/25 04:45 Ur Specific [place] 1.032 (1.005-1.030) H 05/09/25 04:45 Urine Protein 1+ (Negative) A 05/09/25 04:45 Urine Glucose (UA) Negative (Normal) 05/09/25 04:45 Urine Ketones Trace (Negative) 05/09/25 04:45 Urine Blood 1+ (Negative) A 05/09/25 04:45 Urine Nitrate Negative (Negative) 05/09/25 04:45 Urine Bilirubin Negative (Negative) 05/09/25 04:45 Urine Urobilinogen 1.0 mg/dL (Negative) 05/09/25 04:45 Ur Leukocyte Esterase Negative (Negative) 05/09/25 04:45 Urine RBC 21-50 /hpf (0-2) H 05/09/25 04:45 Urine WBC 0-5 /hpf (0-5) 05/09/25 04:45 Ur Squamous Epith Cells 0-5 /hpf (0-5) 05/09/25 04:45 Amorphous Sediment Not Reportable 05/09/25 04:45 Urine Bacteria None seen /hpf (NONE) 05/09/25 04:45 Hyaline Casts 0.40 /lpf 05/09/25 04:45 All radiology interpretation(s) finalized by discharge Discharge Plan Discharge Patient Disposition: Home Clinical Impression: Bilateral flank pain Condition: Stable Prescriptions: No Action sertraline 100 mg Tablet 200 mg PO DAILY 30 Days Qty: 60 1RF quetiapine 300 mg tablet 300 mg PO QAM 30 Days Qty: 30 1RF gabapentin 400 mg capsule 400 mg PO TID 30 Days Qty: 90 1RF quetiapine 400 mg tablet 400 mg PO BEDTIME 30 Days Qty: 30 1RF Rx Instructions: Take 400mg by mouth with 100mg at bedtime for a total dose of 500mg. Vivitrol 380 mg suspension,extended rel recon 380 mg IM ONCE Qty: 1 1RF Rx Instructions: IM shot every 28 days quetiapine [Seroquel] 100 mg tablet 100 mg PO BEDTIME Rx Instructions: Take 100 mg by mouth along with 400mg for a total of 500mg Discharge Orders: Discharge ED (Routine); Ordered 05/09/25 Ordered By: Satya Nunez Patient Instructions: Flank Pain (ED) Print Language: Danish Coding Level of Care Code ED Inspectors And Regulatory Officers for Reji Mckeon
[2025-05-09] MEDS: ketorolac 30 mg/mL INJ 15 MG IVP (03:42)
[2025-05-09] MEDS: sodium chloride 0.9% 1,000 ML 999 ML IV (03:42)
[2025-05-09 03:49] LABS: Basophils % 0.4 %; Eosinophils # 0.1 10^3/uL (0.0-0.8); Eosinophils % 1.2 %; Hematocrit 43.1 % (37-53); Lymphocytes # 2.9 10^3/uL (0.8-4.8); Lymphocytes % 28.5 %; Mean Corpuscular HGB Conc 35.5 g/dL (30-55); Mean Corpuscular Hemoglobin 30.2 pg (27-33); Mean Corpuscular Volume 85.2 fl (82-101); Mean Platelet Volume 9.4 fL (7.4-10.4); Monocytes # 0.7 10^3/uL (0.2-0.9); Neutrophils # 6.37 10^3/uL (1.8-7.7); Neutrophils % 62.4 %; Nucleated Red Blood Cells % 0 %; Platelet Count 217 10^3/cmm (157-399); Red Blood Count 5.06 10^6/uL (3.85-5.65); White Blood Count 10.19 10^3/uL (3.29-11.43)
[2025-05-09 04:09] LABS: Alanine Aminotransferase 20 U/L (0-41); Albumin Level 4.3 g/dL (3.5-5.2); Alkaline Phosphatase 93 U/L (40-130); Anion Gap 17.3 (5-19); Aspartate Amino Transferase 25 U/L (0-40); Blood Urea Nitrogen 9 mg/dL (6-20); Calcium 9.1 mg/dL (8.5-10.5); Carbon Dioxide 22 mmol/L (22-29); Chloride 100 mmol/L (98-107); Creatinine Clr Calc Pharmacy 169.1538; Globulin 3.4 g/dL (1.3-4.6); Glomerular Filtration Rate 126.9 mL/min (90-130); Glucose 106 mg/dL (65-115); Lipase 47 U/L (13-60); Osmolality Calculated 281 mOsm/kg (285-295); Potassium 3.3 mmol/L (3.5-5.1); Sodium 136 mmol/L (136-145); Total Bilirubin 0.9 mg/dL (0.15-1.2); Total Protein 7.7 g/dL (6.6-8.7)
[2025-05-09 05:05] LABS: Bilirubin Urine Negative (Negative); Blood Urine 1+ (Negative); Glucose Urine UA Negative (Normal); Ketones Urine Trace (Negative); Leukocyte Esterase Urine Negative (Negative); Nitrate Urine Negative (Negative); Protein Urine 1+ (Negative); Urine Appearance Clear (CLEAR); Urine Color Yellow (Yellow); pH Urine 6.5 (5-7)
[2025-05-09 05:10] LABS: Add Urine Microscopic? YES; Bacteria Urine None Seen /hpf; RBC Urine 21-50 /hpf (0-2); Squamous Epithelial Cell Urine 0-5 /hpf (0-5); WBC Urine 0-5 /hpf (0-5)
[2025-05-09 05:14] LABS: Specific Gravity, Urine 1.032 (1.005-1.030)
[2025-05-09 06:10] VITALS: BP 131/88; PULSE 89; RESP 18; TEMP 36.6; O2SAT 99
== END 2025-05-09 06:12 | disposition home or self-care (01) ==
PROVIDERS: Emergency Provider Emergency Medicine
DX: R10.9 Unspecified abdominal pain (principal); Z87.891 Personal history of nicotine dependence
CPT/HCPCS: 74176; 80053; 81001; 83690; 85025; 96374; 99285; J1885; J7030

== ENCOUNTER 2025-05-10 04:55 | Inpatient (IN) | payer BC, MEDICAID, SELFPAY ==
[2025-05-10] VITALS (9 sets, daily range): BP systolic 113–140; BP diastolic 66–91; PULSE 78–99; RESP 18–20; TEMP 36.4–36.7; O2SAT 94–99; BMI 33.4
[2025-05-10 05:39] LABS: Basophils % 0.5 %; Eosinophils # 0.1 10^3/uL (0.0-0.8); Eosinophils % 2.1 %; Hematocrit 40.1 % (37-53); Lymphocytes # 2.6 10^3/uL (0.8-4.8); Lymphocytes % 39.7 %; Mean Corpuscular HGB Conc 34.7 g/dL (30-55); Mean Corpuscular Hemoglobin 30.4 pg (27-33); Mean Corpuscular Volume 87.7 fl (82-101); Mean Platelet Volume 9.5 fL (7.4-10.4); Monocytes # 0.5 10^3/uL (0.2-0.9); Monocytes % 6.8 %; Neutrophils # 3.31 10^3/uL (1.8-7.7); Neutrophils % 50.4 %; Nucleated Red Blood Cells % 0 %; Platelet Count 219 10^3/cmm (157-399); Red Blood Count 4.57 10^6/uL (3.85-5.65); Red Cell Distribution Width 13.1 % (12.1-15.1); White Blood Count 6.57 10^3/uL (3.29-11.43)
[2025-05-10 05:55] LABS: Lactic Sepsis W/Reflex 1.4 mmol/L (0.5-2.2)
[2025-05-10 05:56] LABS: Alanine Aminotransferase 20 U/L (0-41); Albumin Level 3.9 g/dL (3.5-5.2); Alcohol Level 64 mg/dL (0-10); Alkaline Phosphatase 89 U/L (40-130); Anion Gap 16.2 (5-19); Aspartate Amino Transferase 22 U/L (0-40); Blood Urea Nitrogen 12 mg/dL (6-20); Calcium 8.8 mg/dL (8.5-10.5); Carbon Dioxide 23 mmol/L (22-29); Chloride 102 mmol/L (98-107); Creatinine Clr Calc Pharmacy 165.4458; Globulin 2.9 g/dL (1.3-4.6); Glomerular Filtration Rate 126.9 mL/min (90-130); Glucose 123 mg/dL (65-115); Lipase 46 U/L (13-60); Osmolality Calculated 287 mOsm/kg (285-295); Potassium 3.2 mmol/L (3.5-5.1); Sodium 138 mmol/L (136-145); Total Bilirubin 0.2 mg/dL (0.15-1.2); Total Protein 6.8 g/dL (6.6-8.7)
[2025-05-10] MEDS: haloperidol inj 5 mg/mL INJ 1 mL 3 MG IVP (05:59)
[2025-05-10] MEDS: sodium chloride 0.9% 1,000 ML 999 ML IV (05:59)
[2025-05-10] MEDS: LORazepam 1 MG/0.5 ML injection 2 MG IVP (05:59)
--- NOTE | 2025-05-10 06:05 | W.ED.GENADLT ---
HPI - General Adult General: Chief complaint: General Medical Stated complaint: extreme flank kidney pain cant keep anyting down Time Seen by Provider: 05/10/25 05:18 History of Present Illness: 39-year-old male patient is a daily drinker. He presents with multiple episodes of vomiting, bilateral flank pain, shakes, agitation diaphoresis. He was here yesterday morning with similar symptoms. His last drink was yesterday morning. He is experiencing increased depression. Related Data Home Medications ?Medication ?Instructions ?Recorded ?Confirmed quetiapine 100 mg tablet (Seroquel) 100 mg PO BEDTIME 08/28/24 08/28/24 Previous Rx's ?Medication ?Instructions ?Recorded gabapentin 400 mg capsule 400 mg PO TID 30 days #90 caps 07/24/24 naltrexone microspheres 380 mg 380 mg IM ONCE Alcohol Dependence 07/24/24 intramuscular suspension,extended #1 ea release (Vivitrol) quetiapine 300 mg tablet 300 mg PO QAM 30 days #30 tabs 07/24/24 quetiapine 400 mg tablet 400 mg PO BEDTIME 30 days #30 tabs 07/24/24 sertraline 100 mg tablet 200 mg (2 x 100 mg) PO DAILY 30 07/24/24 days #60 tabs Allergies Allergy/AdvReac Type Severity Reaction Status Date / Time No Known Allergies Allergy Verified 02/27/25 09:54 [facility] ED PFSH: Medical History Nicotine use disorder Major depressive disorder, recurrent, mild JAROCHO (generalized anxiety disorder) On combination antipsychotic drug therapy Psychiatric care Auditory hallucinations PTSD (post-traumatic stress disorder) ADHD, adult residual type Depression, unspecified History of psychosis Anxiety History of ETOH abuse Methamphetamine dependence Cannabis abuse Family History Father Cancer melanoma Social History Smoking and tobacco/nicotine status: former use of tobacco/nicotine Alcohol intake: current Alcohol intake frequency: 3 or more drinks per day Substance/Drug Use: current Substance/Drug use frequency: daily Marital status: Single Number of children: 0 Highest education level completed: High School Graduate Physical Exam Const: COMMON NORMALS: alert GENERAL APPEARANCE: cooperative, anxious and ill appearing (Mildly); not frail appearing ORIENTATION/CONSCIOUSNESS: Yes awake, Yes oriented to person, Yes oriented to place and Yes oriented to time HENMT: COMMON NORMALS: normocephalic, atraumatic and Normal external nose present HEAD & SCALP: normocephalic and atraumatic FACE & SINUS: normal facial exam and face symmetric NOSE: Normal external nose present Eye: COMMON NORMALS: Equal, round and reactive pupils present and EOMs intact bilaterally PUPIL: Yes Equal, round and reactive pupils present Neck/C-Spine: GENERAL: Yes trachea midline Chest: CHEST: Yes Symmetrical chest wall rise Resp: COMMON NORMALS: normal respiratory effort, No retractions, No use of accessory muscles and clear to auscultation bilaterally AUSCULTATION: clear to auscultation bilaterally Cardio: COMMON NORMALS: regular rhythm RATE: tachycardic RHYTHM: regular rhythm GI: COMMON NORMALS: Normal to inspection, nondistended, normoactive bowel sounds present Extremity: COMMON NORMALS: no pedal edema Neuro: JOAQUIN COMA SCALE: document GCS findings Joaquin coma scale eye opening: Spontaneous [place] coma scale verbal response: Orientated Joaquin coma scale motor response: Obey commands Joaquin coma scale total score: 15 SENSORIUM/ORIENTATION: Yes alert, Yes oriented to person, Yes oriented to place and Yes oriented to time SENSORY EXAM: Yes extremities (intact) Psych: COMMON NORMALS: speech normal SPEECH: Yes normal speech Skin: COMMON NORMALS: no rashes or lesions noted GENERAL SKIN EXAM: no rashes or lesions noted Course Vital Signs: Vital signs: Vital Signs Temperature 97.9 F 05/10/25 20:00 Pulse Rate 97 05/10/25 20:00 Respiratory Rate 18 05/10/25 20:00 Blood Pressure 126/89 05/10/25 20:00 Pulse Oximetry 98 05/10/25 20:00 Oxygen Delivery Me thod Room Air 05/10/25 20:00 [facility] - General Adult Medical Decision Making Patient has made a couple of suicidal statements here. Does not have a specific plan. He does have alcohol withdrawal symptoms. His potassium is 3.2 and repleted. Other laboratory is stable. His alcohol is 64. He wishes to stay. Affidavit is written. Will dress him out. Medically he is otherwise stable. Lab Data 05/10/25 05:33 05/10/25 05:33 Laboratory Results WBC 6.57 10^3/uL (3.29-11.43) 05/10/25 05:33 RBC 4.57 10^6/uL (3.85-5.65) 05/10/25 05:33 Hgb 13.90 g/dL (11.27-16.99) 05/10/25 05:33 Hct 40.1 % (37-53) 05/10/25 05:33 MCV 87.7 fl (82-101) 05/10/25 05:33 MCH 30.4 pg (27-33) 05/10/25 05:33 MCHC 34.7 g/dL (30-55) 05/10/25 05:33 RDW 13.1 % (12.1-15.1) 05/10/25 05:33 Plt Count 219 10^3/cmm (157-399) 05/10/25 05:33 MPV 9.5 fL (7.4-10.4) 05/10/25 05:33 Neut % (Auto) 50.4 % 05/10/25 05:33 Lymph % (Auto) 39.7 % 05/10/25 05:33 [place] % (Auto) 6.8 % 05/10/25 05:33 Eos % (Auto) 2.1 % 05/10/25 05:33 Baso % (Auto) 0.5 % 05/10/25 05:33 Neut # (Auto) 3.31 10^3/uL (1.8-7.7) 05/10/25 05:33 Lymph # (Auto) 2.6 10^3/uL (0.8-4.8) 05/10/25 05:33 [place] # (Auto) 0.5 10^3/uL (0.2-0.9) 05/10/25 05:33 Eos # (Auto) 0.1 10^3/uL (0.0-0.8) 05/10/25 05:33 Baso # (Auto) 0.0 10^3/uL (0.0-0.1) 05/10/25 05:33 Nucleated RBC % (auto) 0 % 05/10/25 05:33 Nucleated RBCs # 0.0 /100WBC 05/10/25 05:33 Sodium 138 mmol/L (136-145) 05/10/25 05:33 Potassium 3.2 mmol/L (3.5-5.1) L 05/10/25 05:33 Chloride 102 mmol/L (98-107) 05/10/25 05:33 Carbon Dioxide 23 mmol/L (22-29) 05/10/25 05:33 Anion Gap 16.2 (5-19) 05/10/25 05:33 BUN 12 mg/dL (6-20) 05/10/25 05:33 Creatinine 0.7 mg/dL (0.7-1.2) 05/10/25 05:33 GFR Calculation 126.9 mL/min (90-130) 05/10/25 05:33 Glucose 123 mg/dL (65-115) H 05/10/25 05:33 Calculated Osmolality 287 mOsm/kg (285-295) 05/10/25 05:33 Lactic Acid 1.4 mmol/L (0.5-2.2) 05/10/25 05:33 Calcium 8.8 mg/dL (8.5-10.5) 05/10/25 05:33 Total Bilirubin 0.2 mg/dL (0.15-1.2) 05/10/25 05:33 AST 22 U/L (0-40) 05/10/25 05:33 ALT 20 U/L (0-41) 05/10/25 05:33 Alkaline Phosphatase 89 U/L (40-130) 05/10/25 05:33 C-Reactive Protein 3.0 mg/L (0.0-4.9) 05/10/25 05:33 Total Protein 6.8 g/dL (6.6-8.7) 05/10/25 05:33 Albumin 3.9 g/dL (3.5-5.2) 05/10/25 05:33 Globulin 2.9 g/dL (1.3-4.6) 05/10/25 05:33 Lipase 46 U/L (13-60) 05/10/25 05:33 Ethyl Alcohol 64 mg/dL (0-10) H 05/10/25 05:33 No radiology studies performed this visit Discharge Plan Discharge Patient Disposition: Admitted As Inpatient Admit Provider: David Lewis Clinical Impression: Depression, Anxiety, Alcohol withdrawal, Suicidal ideation Condition: Stable Coding Level of Care Code ED [employer] for Reji Mckeon
[2025-05-10] MEDS: potassium chloride oral liq 20 mEq/15 mL UDC 40 MEQ PO (06:28)
[2025-05-10] MEDS: thiamine 100 mg/mL 2mL SDV IVP (06:58)
[2025-05-10] MEDS: thiamine 100 mg Tablet PO (08:16)
[2025-05-10] MEDS: folic acid 1 mg Tablet PO (08:16)
[2025-05-10] MEDS: multivitamin therapeutic Tablet 1 TAB PO (08:16)
--- NOTE | 2025-05-10 09:53 | PC.ADMIT ---
[address] Admission Note:Pt states that he came in wanting to detox safely from alcohol and get back to work. He isn't interersted in rehab, states that he works too much. He reports working at [employer]. He lives with his and no children. He states that he is SI but no plan at this time. The patient,Alfonzo Kee,39 y/o, was given written information regarding hospital policies, unit procedures and contact persons. Patient's smoking status: former smoker. Vital Signs - 8 hr 05/10/25 05:13 05/10/25 06:00 05/10/25 07:00 Temperature 98.1 F Pulse Rate 99 97 89 Respiratory Rate 20 H 18 Blood Pressure 140/91 127/87 120/66 Pulse Oximetry 94 99 95 Oxygen Delivery Method Room Air Room Air Room Air 05/10/25 07:28 05/10/25 07:39 05/10/25 07:41 Temperature 97.5 F L Pulse Rate 93 79 Respiratory Rate 18 Blood Pressure 113/68 137/75 Pulse Oximetry 96 96 Oxygen Delivery Method Room Air Room Air 05/10/25 08:00 Temperature 97.5 F L Pulse Rate 80 Respiratory Rate 18 Blood Pressure 125/73 Pulse Oximetry 97 Oxygen Delivery Method Room Air
[2025-05-10] MEDS: nicotine 2 mg Gum BUCCAL (13:03)
[2025-05-10] MEDS: LORazepam 2 mg Tablet PO ×2 (13:55→19:37)
[2025-05-10] MEDS: nicotine 4 mg lozenge MUCOUS MEM (19:37)
[2025-05-10] MEDS: trazodone 50 mg Tablet PO (19:58)
[2025-05-11] VITALS: BP 103/68; PULSE 89; RESP 18; TEMP 37.1; O2SAT 98
[2025-05-11 00:42] VITALS: BMI 32.1
[2025-05-11 04:00] VITALS: BP 109/77; PULSE 79; RESP 17; TEMP 37.1; O2SAT 100
[2025-05-11] MEDS: hyDROXYzine 25 mg Capsule 50 MG PO ×3 (06:32→20:52)
[2025-05-11] MEDS: nicotine 4 mg lozenge MUCOUS MEM ×6 (06:34→20:53)
[2025-05-11] MEDS: LORazepam 2 mg Tablet PO ×3 (07:33→12:55)
[2025-05-11 08:00] VITALS: BP 113/74; PULSE 75; RESP 16; TEMP 36.5; O2SAT 99
[2025-05-11] MEDS: multivitamin therapeutic Tablet 1 TAB PO (08:58)
[2025-05-11] MEDS: folic acid 1 mg Tablet PO (08:58)
[2025-05-11] MEDS: thiamine 100 mg Tablet PO (08:58)
--- NOTE | 2025-05-11 11:33 | P.NPUHP_ITS ---
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 or visual hallucinations. He describes past hallucinations of past traumas or voices talking negatively saying to hurt himself or others. He describes his anxiety is pretty high today. He indicates he feels this is situational because he started a new job. No suicidal thoughts today. No homicidal thoughts. He asks if his Seroquel can be increased to 300 in the morning and 500 at bedtime. Comments he would like to increase this because he is struggling to fall asleep at night. Estimates getting between 4 or 6 hours of sleep depending on what he has to do. He has been working 2 jobs recently. 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 He states this gives him about 6 or 7 hours of sleep before he gets up for work again. Alfonzo denies any history of quynh. He states he has never had increased energy or been without sleep if it was not drug-related. He states he has a previous diagnosis of PTSD and indicates past trauma of watching his brother being murdered. Alfonzo reports the following: Most days he feels on edge, has flashbacks during the day, feels that the world is a bad place and others have negative intentions toward him. He continues to experience delusions, both auditory and visual hallucinations daily, and has times where he wants to avoid people. He often looses touch with reality and will isolate himself at home when that happens. He states he has struggled with addiction for a long time and methamphetamine often makes his schizophrenia symptoms worse; he will become erratic and impulsive. History Past Psychiatric History: Has been hospitalized 5 times at [facility] neuropsychiatric unit. Last was May 08 through May 11. Comments he was hospitalized once in [place] and in [place]. Typically goes into the hospital because he gets off his medicine, is using drugs, and wants to get sober. 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 States he has not typically followed up on an outpatient basis after being in the hospital. Records indicate a previous diagnosis of ADHD. Family History: Denies family history of mental illness. Alfonzo's biological father blew his brains out while dealing with stage 4 cancer. Past Medical History: Primary care provider is Dr. Paul. He denies any physical health issues. States he has not been diagnosed with any conditions. Denies any previous injuries or surgeries. Substance Use History: Reports nicotine use including vaping and chewing tobacco. First started nicotine at the age of 18. I spent 5 minutes providing smoking cessation counseling. We talked about history of use, current usage, prior attempts at quitting, and psychological barriers to quitting. I gauged her desire to quit and she is not ready at this time. Social History: Alfonzo is currently staying at [facility] which is a sober living home. States he has been there for couple weeks since he was last discharged from the hospital. Prior to that he states he was homeless. He was staying in [place]. He is single and has no kids. 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 Graduated high school. No history of physical, emotional, sexual abuse. He does report legal history including getting several felonies for possession and avelino larceny. He states he spent a couple years in care home in 2006. States he is currently not on probation or parole. Records indicate that he has been and and has 4 children that he does not have contact with. Hospital Course During the hospitalization, the patient had routine laboratory studies which were within normal limits except for a few outliers. Additionally, there was a general medical evaluation which was also within normal limits and revealed no new acute processes. The patient was restarted on his medication without issue and zoloft was increased to 200mg daily prior to discharge. The patient had lost his ability to return to his previous sober living facility due to some violation of rules at that place. He had been given an opportunity to consider another sober living facility but stated that he would rather go to a hotel and continue follow-up at [facility]. He had expressed consideration for the use of IM Vivitrol to target alcohol dependence and a prescription was given to him at the time of discharge. At the time of discharge, lethality was denied and psychosis was resolving. Mood and anxiety were well managed. The patient endorsed a plan to avoid all drugs of abuse and follow up with the aftercare recommendations of the treatment team. The patient was evaluated and deemed to be absent credible lethality and had achieved the maximum benefit from an inpatient hospitalization, and so was discharged Meds NPU Home Medications ?Medication ?Instructions ?Recorded ?Confirmed ?Last Taken ?Type No Known Home Medications 05/11/25/01/14 Unknown History Allergies Allergy/AdvReac Type Severity Reaction Status Date / Time No Known Allergies Allergy Verified 02/27/25 09:54 PFS NPU 2 PFSH: Medical History Nicotine use disorder Major depressive disorder, recurrent, mild JAROCHO (generalized anxiety disorder) On combination antipsychotic drug therapy Psychiatric care Auditory hallucinations PTSD (post-traumatic stress disorder) ADHD, adult residual type Depression, unspecified History of psychosis Anxiety History of ETOH abuse Methamphetamine dependence Cannabis abuse Family History Father Cancer melanoma Social History Smoking and tobacco/nicotine status: former use of tobacco/nicotine Alcohol intake: current Alcohol intake frequency: 3 or more drinks per day Substance/Drug Use: current Substance/Drug use frequency: daily Marital status: Single Number of children: 0 Highest education level completed: High School Graduate Mental Status Exam 2 MSE Comments: This is an overweight versus obese white male in hospital scrubs with limited grooming with eye contact looking older than his stated age.? No abnormal movements.?Cooperation with exam in no acute distress.? Speech was slightly decreased rate and volume.? Mood described as better than yesterday, affect congruent.? Thought process linear.? Thought content: Patient denied active suicidal or homicidal ideation, there were no delusions reported but mild paranoia noted and he did not report any auditory or visual hallucinations.? Attention and concentration was intact and memory was mostly reliable, but none were formally tested.? He is alert and oriented x3.? Insight and judgment are limited, impulse control is limited but improving. Vitals/I&O/Wt Last Vital Signs Temp 97.7 F 05/11/25 08:00 Pulse 75 05/11/25 08:00 Resp 16 05/11/25 08:00 BP 113/74 05/11/25 08:00 Pulse Ox 99 05/11/25 08:00 O2 Del Method Room Air 05/11/25 08:00 Weight last 48 hrs Weight 95.765 kg Weight 99.79 kg Data NPU 05/10/25 05:33 05/10/25 05:33 A&P Assessment and plan (1) Depression, unspecified: (2) Alcohol abuse: (3) Suicidal ideation: (4) Cannabis abuse: (5) History of schizophrenia: (6) ADHD, adult residual type: (7) PTSD (post-traumatic stress disorder): (8) Methamphetamine abuse: Plan This is a 39-year-old white male with a significant history of mental health and addiction issues who presents with last hospitalization being about 9 months ago and reporting that he had done well over that time getting a job and getting her girlfriend but that he relapsed and things started going backwards again and so that he came into the hospital to prevent further worsening of symptoms to get back on track. 1. Restart previous medications at appropriate doses. 2. Continue every 15 minute checks for safety. 3. Encourage individual, group and milieu therapies. 4. Encourage sober living treatment after discharge at the highest level of care to which he is willing to commit. 5. May consider discharge in the next 48 hours. PDMP PDMP Reviewed: Not Reviewed Involuntary Hold Information 2 96 Hour Hold: 96 Hour Involuntary Admission: Yes Attestations NPU 2 Medical Necessity Statement*: Inpatient hospitalization is medically necessary and the clinically appropriate intervention at this time. We will monitor medication to make changes as indicated. Patient will be in the hospital for over two midnights. His likely length of stay 2-4 days. Coding Level of Care Code Acute Code for g Fwd Diagnoses Depression, unspecified F32.A Alcohol abuse F10.10 Suicidal ideation R45.851 Cannabis abuse F12.10 History of schizophrenia Z86.59 ADHD, adult residual type F90.8 PTSD (post-traumatic stress disorder) F43.10 Methamphetamine abuse F15.10
[2025-05-11 12:00] VITALS: BP 112/71; PULSE 85; RESP 16; TEMP 36.9; O2SAT 98
[2025-05-11 16:00] VITALS: BP 112/73; PULSE 83; RESP 16; TEMP 36.6; O2SAT 98
[2025-05-11] MEDS: OLANZapine 5 mg ODT PO (17:38)
[2025-05-11 20:00] VITALS: BP 91/55; PULSE 81; RESP 16; TEMP 36.6; O2SAT 95
[2025-05-11] MEDS: trazodone 50 mg Tablet PO (20:52)
[2025-05-12 06:00] VITALS: BP 123/74; PULSE 70; RESP 20; TEMP 36.4; O2SAT 99
[2025-05-12] MEDS: nicotine 4 mg lozenge MUCOUS MEM ×3 (06:11→10:08)
[2025-05-12] MEDS: hyDROXYzine 25 mg Capsule 50 MG PO (07:25)
[2025-05-12] MEDS: folic acid 1 mg Tablet PO (07:25)
[2025-05-12] MEDS: multivitamin therapeutic Tablet 1 TAB PO (07:25)
[2025-05-12] MEDS: thiamine 100 mg Tablet PO (07:25)
--- NOTE | 2025-05-12 11:28 | W.PM.NPUDCS ---
Diagnoses at Discharge Discharge Diagnosis (1) Depression, unspecified: Status: Acute (2) Alcohol abuse: Status: Acute (3) Suicidal ideation: Status: Resolved (4) Cannabis abuse: Status: Acute (5) History of schizophrenia: Status: Deleted (6) ADHD, adult residual type: Status: Acute (7) PTSD (post-traumatic stress disorder): Status: Acute (8) Methamphetamine abuse: Status: Acute Reason for Visit Reason for Visit: extreme flank kidney pain cant keep anyting down Involuntary Hold Information Hold Status: Date/Time Hold Expires: voluntary 96 Hour Hold: 96 Hour Involuntary Admission: Yes Mental Status Exam MSE Comments: This is an overweight versus obese white male in hospital scrubs with limited grooming with eye contact looking older than his stated age.? No abnormal movements.?Cooperation with exam in no acute distress.? Speech was slightly decreased rate and volume.? Mood described as better than yesterday, affect congruent.? Thought process linear.? Thought content: Patient denied active suicidal or homicidal ideation, there were no delusions reported but mild paranoia noted and he did not report any auditory or visual hallucinations.? Attention and concentration was intact and memory was mostly reliable, but none were formally tested.? He is alert and oriented x3.? Insight and judgment are limited, impulse control is limited but improving. Discharge Data Studies Completed and Pending: Laboratory Results WBC 6.57 10^3/uL (3.2 9-11.43) 05/10/25 05:33 RBC 4.57 10^6/uL (3.8 5-5.65) 05/10/25 05:33 Hgb 13.90 g/dL (11.27 -16.99) 05/10/25 05:33 Hct 40.1 % (37-53) 05/10/25 05:33 MCV 87.7 fl (82-101) 05/10/25 05:33 MCH 30.4 pg (27-33) 05/10/25 05:33 MCHC 34.7 g/dL (30-55) 05/10/25 05:33 RDW 13.1 % (12.1-15.1 ) 05/10/25 05:33 Plt Count 219 10^3/cmm (157 -399) 05/10/25 05:33 MPV 9.5 fL (7.4-10.4) 05/10/25 05:33 Neut % (Auto) 50.4 % 05/10/25 05:33 Lymph % (Auto) 39.7 % 05/10/25 05:33 [place] % (Auto) 6.8 % 05/10/25 05:33 Eos % (Auto) 2.1 % 05/10/25 05:33 Baso % (Auto) 0.5 % 05/10/25 05:33 Neut # (Auto) 3.31 10^3/uL (1.8 -7.7) 05/10/25 05:33 Lymph # (Auto) 2.6 10^3/uL (0.8- 4.8) 05/10/25 05:33 [place] # (Auto) 0.5 10^3/uL (0.2- 0.9) 05/10/25 05:33 Eos # (Auto) 0.1 10^3/uL (0.0- 0.8) 05/10/25 05:33 Baso # (Auto) 0.0 10^3/uL (0.0- 0.1) 05/10/25 05:33 Nucleated RBC % (a uto) 0 % 05/10/25 05:33 Nucleated RBCs # 0.0 /100WBC 05/10/25 05:33 Sodium 138 mmol/L (136-1 45) 05/10/25 05:33 Potassium 3.2 mmol/L (3.5-5 .1) L 05/10/25 05:33 Chloride 102 mmol/L (98-10 7) 05/10/25 05:33 Carbon Dioxide 23 mmol/L (22-29) 05/10/25 05:33 Anion Gap 16.2 (5-19) 05/10/25 05:33 BUN 12 mg/dL (6-20) 05/10/25 05:33 Creatinine 0.7 mg/dL (0.7-1. 2) 05/10/25 05:33 GFR Calculation 126.9 mL/min (90- 130) 05/10/25 05:33 Glucose 123 mg/dL (65-115 ) H 05/10/25 05:33 Calculated Osmolal ity 287 mOsm/kg (285- 295) 05/10/25 05:33 Lactic Acid 1.4 mmol/L (0.5-2 .2) 05/10/25 05:33 Calcium 8.8 mg/dL (8.5-10 .5) 05/10/25 05:33 Total Bilirubin 0.2 mg/dL (0.15-1 .2) 05/10/25 05:33 AST 22 U/L (0-40) 05/10/25 05:33 ALT 20 U/L (0-41) 05/10/25 05:33 Alkaline Phosphata se 89 U/L (40-130) 05/10/25 05:33 C-Reactive Protein 3.0 mg/L (0.0-4.9 ) 05/10/25 05:33 Total Protein 6.8 g/dL (6.6-8.7 ) 05/10/25 05:33 Albumin 3.9 g/dL (3.5-5.2 ) 05/10/25 05:33 Globulin 2.9 g/dL (1.3-4.6 ) 05/10/25 05:33 Lipase 46 U/L (13-60) 05/10/25 05:33 Ethyl Alcohol 64 mg/dL (0-10) H 05/10/25 05:33 Vitals: Last Vital Signs Temp 97.5 F L 05/12/25 06:00 Pulse 70 05/12/25 06:00 Resp 20 H 05/12/25 06:00 BP 123/74 05/12/25 06:00 Pulse Ox 99 05/12/25 06:00 O2 Del Method Room Air 05/12/25 06:00 Discharge Plan Discharge Patient Disposition: Home Condition: Stable Prescriptions: New thiamine mononitrate (vit B1) [Vitamin B-1 (mononitrate)] 100 mg Tablet 100 mg PO DAILY 30 Days Qty: 30 1RF hydroxyzine pamoate 25 mg Capsule 50 mg PO Q6H PRN (Reason: Anxiety) 30 Days Qty: 30 1RF naltrexone 50 mg tablet 50 mg PO DAILY 30 Days Qty: 30 1RF Vivitrol 380 mg suspension,extended rel recon 380 mg IM ONCE 30 Days Qty: 1 1RF Rx Instructions: Start when available and discontinue oral after receiving injection. Discharge Orders: Discharge Order (Routine); Ordered 05/12/25 Ordered By: David Lewis Discharge Diet: Regular Discharge Activity: Resume usual activity Patient Instructions: Opioid Safety, Pain Management Discharge Attestations NPU Time Spent in Discharge Care*: less than 30 min Specific Discharge Activities: Specific discharge activities: educating patient, discussing with piano case and bench assembler/social workers/dc planners, documenting/other paperwork and evaluating patient/reviewing data Coding Level of Care Code Acute Code for Chg Fwd Diagnoses Depression, unspecified F32.A Alcohol abuse F10.10 Suicidal ideation R45.851 Cannabis abuse F12.10 History of schizophrenia Z86.59 ADHD, adult residual type F90.8 PTSD (post-traumatic stress disorder) F43.10 Methamphetamine abuse F15.10
[2025-05-12 11:41] VITALS: BP 123/74; PULSE 70; RESP 20; TEMP 36.4; O2SAT 99
[2025-05-12 11:42] VITALS: BP 123/74; PULSE 70; RESP 20; TEMP 36.4; O2SAT 99
== END 2025-05-12 12:21 | disposition home or self-care (01) | DRG 881 ==
LOC: ER 06:50 → NP 07:27
PROVIDERS: Admitting Provider Psychiatry & Neurology Psychiatry; Emergency Provider Emergency Medicine; Visit Provider Psychiatry & Neurology Psychiatry
DX: F32.A Depression, unspecified (principal); F10.10 Alcohol abuse, uncomplicated; F12.10 Cannabis abuse, uncomplicated; F90.8 Attention-deficit hyperactivity disorder, other type; F43.10 Post-traumatic stress disorder, unspecified; F15.10 Other stimulant abuse, uncomplicated; Z87.891 Personal history of nicotine dependence; Z86.59 Personal history of other mental and behavioral disorders; E66.9 Obesity, unspecified; Z68.32 Body mass index [BMI] 32.0-32.9, adult
CPT/HCPCS: 36415; 80053; 80307; 83605; 83690; 85025; 86140; 97150; 97165; 99285; J1630; J2060; J3411; J7030; J9999

== ENCOUNTER 2025-07-21 00:50 | Emergency (ER) | payer BC, MEDICAID, SELFPAY ==
--- OUTSIDE RECORDS SUMMARY | 2025-07-21 00:54 | XMS_ITS | Encounter Summary ---
Author Organization [facility] Address [address] [place] [address] Care Team Providers Care Maxillofacial Prosthetics Dentist Name Role Phone Unavailable Primary Care Provider Unavailabl e Encounter Details Date Type Department Care Team (Latest Contact Info) Description 10/05/2005 Outpatient Historical [facility] Family Medicine- [address] [place] [address] Zackary Dougherty NP NO ADDRESS ON FILE Rectal/anal hemorrhage (Primary Dx); ACUTE URI NOS; Venereal disease contact Social History Tobacco Use Types Packs/Day Years Used Date Smoking Tobacco: Never Assessed Sex and Gender Information Value Date Recorded Sex Assigned at Not on file 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
--- OUTSIDE RECORDS SUMMARY | 2025-07-21 00:54 | XMS_ITS | Clinical Summary ---
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 Gender Identity Not on file Sexual Orientation Not on file Last Filed Vital Signs Vital Sign Reading Time Taken Comments Blood Pressure 123/84 01/07/2018 8:00 PM SPORTS MARKETING SPECIALIST Pulse 86 01/07/2018 8:00 PM SPORTS MARKETING SPECIALIST Temperature 36.6 C (97.9 F) 01/07/2018 4:07 PM SPORTS MARKETING SPECIALIST Respiratory Rate 18 01/07/2018 4:07 PM SPORTS MARKETING SPECIALIST Oxygen Saturation 100% 01/07/2018 8:00 PM SPORTS MARKETING SPECIALIST Inhaled Oxygen Concentration - - Weight 77.1 kg (170 lb) 01/07/2018 5:41 PM SPORTS MARKETING SPECIALIST Height 174 cm (5' 8.5 ) 01/07/2018 5:41 PM SPORTS MARKETING SPECIALIST Body Mass Index 25.47 01/07/2018 5:41 PM SPORTS MARKETING SPECIALIST Plan of Treatment Health Maintenance Due Date Last Done Comments DTAP/TDAP/TD VACCINES (1 - Tdap) 2006 HEPATITIS B VACCINES (1 of 3 - 19+ 3-dose series) 09/20 HPV VACCINES (1 - 3-dose SCDM series) 2014 INFLUENZA VACCINE (#1) 2025
--- OUTSIDE RECORDS SUMMARY | 2025-07-21 00:54 | XMS_ITS | Encounter Summary ---
Author Organization [facility] Address [address] [place] [address] Care Team Providers Care Pattern Stamper Name Role Phone Unavailable Primary Care Provider Unavailabl e Encounter Details Date Type Department Care Team (Latest Contact Info) Description 07/25/2002 Outpatient Historical [facility] Medicine [place] [address] [facility] [address] [place] [address] Carey Yeboah MD NO ADDRESS ON FILE ENLARGEMENT LYMPH NODES (Primary Dx) Social History Tobacco Use Types Packs/Day Years Used Date Smoking Tobacco: Never Assessed Sex and Gender Information Value Date Recorded Sex Assigned at Not on file 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
--- OUTSIDE RECORDS SUMMARY | 2025-07-21 00:54 | XMS_ITS | Clinical Summary ---
Author Organization [facility] Address [address] [place] [address] Phone Care Team Providers Care Log Cut Off Sawyer Name Role Phone Unavailable Primary Care Provider Unavailabl e Allergies No known active allergies Medications No known medications Active Problems Problem Noted Date Diagnosed Date Leukocytosis 04/04/2024 Elevated serum creatinine 04/04/2024 Nicotine use 04/04/2024 Substance-induced psychotic disorder with halluc inations 04/04/2024 Paranoia 04/04/2024 Bipolar disorder, current episode depressed, sev ere 02/18/2024 Medical clearance for psychiatric admission 01/20 Alcohol use disorder 02/17/2024 Hypokalemia 02/17/2024 Suicidal ideation 02/17/2024 Immunizations Immunization Administration Dates Next Due Td(adult) Unspecified Formulation 10/03/2013 Social History Tobacco Use Types Packs/Day Years Used Date Smoking Tobacco: Never Smokeless Tobacco: Never Alcohol Use Standard Drinks/Week Comments Yes 0 (1 standard drink = 0.6 oz pur e alcohol) holidays 1 x a year Feeling Safe Answer Date Recorded Are you in a relationship wi th someone who hurts you emotionally and/or physically? 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 Gender Identity Not on file Sexual Orientation Not on file Last Filed Vital Signs Vital Sign Reading Time Taken Comments Blood Pressure 111/66 04/09/2024 7:45 AM CDT Pulse 70 04/09/2024 7:45 AM CDT Temperature 35.7 C (96.3 F) 04/09/2024 7:45 AM CDT Respiratory Rate 18 04/09/2024 7:45 AM CDT Oxygen Saturation 96% 04/08/2024 8:00 PM CDT Inhaled Oxygen Concentration - - Weight 85.4 kg (188 lb 6 oz) 04/07/2024 8:04 AM CDT Height 172.7 cm (5' 8 ) 04/03/2024 4:02 PM CDT Body Mass Index 28.64 04/03/2024 4:02 PM CDT Plan of Treatment Health Maintenance Due Date Last Done Comments Pre-Diabetes and Diabetes Screening 1987 HEPATITIS B VACCINES (1 of 3 - 19+ 3-dose series) 2006 DTAP/TDAP/TD VACCINES (1 - Tdap) 10/04/2013 10/03/20 13, 10/03/2013 HPV VACCINES (1 - 3-dose SCDM series) 2014 INFLUENZA VACCINE (#1) [id number] [place] [id number] RX [employer] Medicaid [facility] [id number] Advance Directives For more information, please contact: [phone] * Full Code (Latest Code Status on File) Date Activated Date Inactivated Comments 04/03/2024 3:44 PM 04/09/2024 4:41 PM * Full Code Date Activated Date Inactivated Comments 02/17/2024 12:37 PM 02/23/2024 7:56 PM
--- OUTSIDE RECORDS SUMMARY | 2025-07-21 00:54 | XMS_ITS | Encounter Summary ---
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
--- OUTSIDE RECORDS SUMMARY | 2025-07-21 00:54 | XMS_ITS | Encounter Summary ---
Author Organization [facility] Address [address] [place] [address] Care Team Providers Care Barn Manager Name Role Phone Unavailable Primary Care Provider Unavailabl e Encounter Details Date Type Department Care Team (Latest Contact Info) Description 07/04/2002 Outpatient Historical [facility] Medicine [place] [address] [facility] [address] [place] [address] Carey Yeboah MD NO ADDRESS ON FILE ATTN DEFICIT NONHYPERACT (Primary Dx) Social History Tobacco Use Types Packs/Day Years Used Date Smoking Tobacco: Never Assessed Sex and Gender Information Value Date Recorded Sex Assigned at Not on file 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
--- OUTSIDE RECORDS SUMMARY | 2025-07-21 00:54 | XMS_ITS | Encounter Summary ---
Author Organization [facility] Address [address] [place] [address] Care Team Providers Care Health Information Systems Technician Name Role Phone Unavailable Primary Care Provider Unavailabl e Encounter Details Date Type Department Care Team (Latest Contact Info) Description 06/06/2002 Outpatient Historical [facility] Medicine [place] [address] [facility] [address] [place] [address] Carey Yeboah MD NO ADDRESS ON FILE ATTN DEFICIT NONHYPERACT (Primary Dx) Social History Tobacco Use Types Packs/Day Years Used Date Smoking Tobacco: Never Assessed Sex and Gender Information Value Date Recorded Sex Assigned at Not on file 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
--- OUTSIDE RECORDS SUMMARY | 2025-07-21 00:54 | XMS_ITS | Encounter Summary ---
Author Organization [facility] Address [address] [place] [address] Care Team Providers Care Mental Health Social Worker Name Role Phone Unavailable Primary Care Provider Unavailabl e Encounter Details Date Type Department Care Team (Latest Contact Info) Description 03/11/2004 Outpatient Historical [facility] [address] [place] [address] Sohail Santo MD [address] [place] [address] VENEREAL DIS CONTACT (Primary Dx) Social History Tobacco Use Types Packs/Day Years Used Date Smoking Tobacco: Never Assessed Sex and Gender Information Value Date Recorded Sex Assigned at Not on file Legal Sex Male 5:36 AM 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
--- OUTSIDE RECORDS SUMMARY | 2025-07-21 00:54 | XMS_ITS | Encounter Summary ---
Author Organization [facility] Address [address] [place] [address] Care Team Providers Care [place] Dental Lab Technician Name Role Phone Unavailable Primary Care Provider Unavailabl e Encounter Details Date Type Department Care Team (Latest Contact Info) Description 09/21/2004 Outpatient Historical [facility] [address] [place] [address] Sohail Santo MD [address] [place] [address] ACUTE URI NOS (Primary Dx); VIRAL ENTERITIS NOS Social History Tobacco Use Types Packs/Day Years Used Date Smoking Tobacco: Never Assessed Sex and Gender Information Value Date Recorded Sex Assigned at Not on file Legal Sex Male 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
--- OUTSIDE RECORDS SUMMARY | 2025-07-21 00:54 | XMS_ITS | Encounter Summary ---
Author Organization [facility] Address [address] [place] [address] Care Team Providers Care Forest Products Teacher Name Role Phone Unavailable Primary Care Provider Unavailabl e Encounter Details Date Type Department Care Team (Latest Contact Info) Description 08/21/2006 Outpatient Historical [facility] Family Medicine- [address] [place] [id number] Zackary Dougherty, RAHEL NO ADDRESS ON FILE Open Wound of Hand (Primary Dx) Social History Tobacco Use Types Packs/Day Years Used Date Smoking Tobacco: Never Assessed Sex and Gender Information Value Date Recorded Sex Assigned at Not on file 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
--- OUTSIDE RECORDS SUMMARY | 2025-07-21 00:54 | XMS_ITS | Encounter Summary ---
Author Organization [facility] Address [address] [facility] Attn: [place] [address] Care Team Providers Care Cleat Layer Name Role Phone Unavailable Primary Care Provider Unavailabl e Encounter Details Date Type Department Care Team (Late st Contact Info) Description 10/05/2005 Outpatient Historical Zackary Dougherty NP NO ADDRESS ON FILE Social History Tobacco Use Types Packs/Day Years Used Date Smoking Tobacco: Never Assessed Sex and Gender Information Value Date Recorded Sex Assigned at Not on file Legal Sex Male 5:36 AM MANAGER CORPORATE STRATEGY Gender Identity Not on file Sexual Orientation Not on file documented as of this encounter Plan of Treatment Not on file documented as of this encounter Procedures Procedure Name Priority Date/Time Associated Diagnosis Comments RPR Routine 10/05/2005 11:48 AM MANAGER CORPORATE STRATEGY documented in this encounter Results * RPR (10/05/2005 11:48 AM MANAGER CORPORATE STRATEGY) RPR Non-Reactiv e Non-Reacti ve INTERFACE SYSTEM 10/05/2005 11:4 8 AM MANAGER CORPORATE STRATEGY us Zackary Dougherty NP CHEMISTRY ORDERABLES Final R esult INTERFACE SYSTEM Refer to clinic/hospital department documented in this encounter Visit Diagnoses Not on filedocumented in this encounter
[2025-07-21 01:04] VITALS: BP 132/89; PULSE 103; RESP 18; TEMP 36.9; O2SAT 96; BMI 31.9
--- NOTE | 2025-07-21 02:10 | PC.NURSE ---
Pt state he went to bed at aprox 2100 and woke up with swollen tonsils. Pts states it is difficult to swallow, denies SOB, fever, or any symptoms prior to this.
--- NOTE | 2025-07-21 02:18 | CTR_ITS ---
PROCEDURE INFORMATION: Exam: CT Neck With Contrast Exam date and time: 07/21/2025 2:31 AM Age: 39 years old Clinical indication: Mass, lump, or swelling in neck; Bilateral; Painful swallowing; C/O throat pain with tonsillar swelling and dysphagia. ; Additional info: Tonsillar pain and swelling, trouble swallowing TECHNIQUE: Imaging protocol: Computed tomography of the neck with contrast. Radiation optimization: All CT scans at this facility use at least one of these dose optimization techniques: automated exposure control; mA and/or kV adjustment per patient size (includes targeted exams where dose is matched to clinical indication); or iterative reconstruction. Contrast material: OMNI 350; Contrast volume: 100 ml; Contrast route: INTRAVENOUS (IV); COMPARISON: CT head wo con* [id number] 08/28/2024 5:01 AM RADIATION DOSE METRICS: Total DLP (mGy-cm): 254.07 FINDINGS: Paranasal sinuses: Patchy mucosal thickening is noted within frontal recesses and anterior ethmoid air cells. Nasal cavity: There is a rightward convexity deviation of the nasal septum. Salivary glands: Coarse calcification is noted in the left parotid which may be due to prior granulomatous disease or infection. Pharynx: There is mild symmetric prominence of the tonsils with coarse calcification likely tonsilliths. No drainable fluid collection is appreciated. Larynx: Unremarkable. Epiglottis is normal. Thyroid: Normal. No enlarged or calcified nodules. Trachea: Visualized trachea is unremarkable. Lungs: Apical blebs are noted in the lungs. Lymph nodes: Unremarkable. No lymphadenopathy. Bones/joints: Unremarkable. No acute fracture. Soft tissues: Unremarkable. No significant soft tissue swelling. CT/CT neck w con* [id number] IMPRESSION: Query mild symmetric tonsillitis without drainable peritonsillar collection.
[2025-07-21] MEDS: iohexol 350 mg/mL 500 mL Btl (per mL) IV (02:39)
[2025-07-21] MEDS: ondansetron 2 mg/ML SDV 2 mL 4 MG IVP (02:44)
[2025-07-21 03:15] LABS: Rapid Strep A Test Negative (Negative)
[2025-07-21 03:19] LABS: Hematocrit 40.3 % (37-53); Hemoglobin 13.50 g/dL (11.27-16.99); Mean Corpuscular HGB Conc 33.5 g/dL (30-55); Mean Corpuscular Hemoglobin 30.2 pg (27-33); Mean Corpuscular Volume 90.2 fl (82-101); Nucleated Red Blood Cells % 0 %; Platelet Count 272 10^3/cmm (157-399); Red Blood Count 4.47 10^6/uL (3.85-5.65); White Blood Count 5.26 10^3/uL (3.29-11.43)
[2025-07-21 03:25] LABS: Alanine Aminotransferase 20 U/L (0-41); Albumin Level 4.2 g/dL (3.5-5.2); Alkaline Phosphatase 72 U/L (40-130); Anion Gap 17.0 (5-19); Aspartate Amino Transferase 25 U/L (0-40); Blood Urea Nitrogen 9 mg/dL (6-20); Calcium 8.9 mg/dL (8.5-10.5); Carbon Dioxide 23 mmol/L (22-29); Chloride 105 mmol/L (98-107); Creatinine Clr Calc Pharmacy 141.5206; Globulin 3.1 g/dL (1.3-4.6); Glucose 120 mg/dL (65-115); Osmolality Calculated 292 mOsm/kg (285-295); Potassium 4.0 mmol/L (3.5-5.1); Sodium 141 mmol/L (136-145); Total Protein 7.3 g/dL (6.6-8.7)
[2025-07-21 03:37] VITALS: BP 103/79; PULSE 87; O2SAT 93
--- NOTE | 2025-07-21 03:37 | PC.NURSE ---
MD Blanco spoke with pt about draining peritonsillar collection, pt declined.
--- NOTE | 2025-07-21 03:41 | ED_ITS ---
HPI - General Adult 2 General: Chief complaint: Airway/Esophagus Foreign Body Stated complaint: Tonsils inflamed Time Seen by Provider: 07/21/25 02:12 History of Present Illness: Patient is a 39-year-old male who presents with acute onset of throat pain and swelling that began after midnight today. He reports going to bed at approximately 9 PM feeling well, then waking up after midnight with significant throat discomfort and swelling. The patient describes pain and noticeable enlargement in his throat area. He denies fever. Patient reports being able to swallow despite the discomfort. He acknowledges vomiting but denies any difficulty breathing. The patient states he has never experienced similar symptoms before. Related Data Previous Rx's ?Medication ?Instructions ?Recorded hydroxyzine pamoate 25 mg capsule 50 mg (2 x 25 mg) PO Q6H PRN 05/12/25 Anxiety 30 days #30 caps naltrexone 50 mg tablet 50 mg PO DAILY 30 days #30 t abs 05/12/25 naltrexone microspheres 380 mg 380 mg IM ONCE 30 days #1 ea 05/12/25 intramuscular suspension,extended release (Vivitrol) thiamine mononitrate (vit B1) 100 100 mg PO DAILY 30 d ays #30 tabs 05/12/25 mg tablet (Vitamin B-1 (mononitrate)) amoxicillin 875 mg-potassium 1 tab PO BID #20 tabs 12/14 clavulanate 125 mg tablet Allergies Allergy/AdvReac Type Severity Reaction Status Date / Time No Known Allergies Allergy Verified 07/21/25 01:10 Review of Systems 2 ENMT: Reports: uvular edema PFSH ED 2 PFSH: Medical History Alcohol abuse Nicotine use disorder Major depressive disorder, recurrent, mild JAROCHO (generalized anxiety disorder) On combination antipsychotic drug therapy Psychiatric care Auditory hallucinations PTSD (post-traumatic stress disorder) ADHD, adult residual type Depression, unspecified History of psychosis Anxiety History of ETOH abuse Methamphetamine dependence Cannabis abuse Family History Father Cancer melanoma Social History Smoking and tobacco/nicotine status: former use of tobacco/nicotine Alcohol intake: current Alcohol intake frequency: 3 or more drinks per day Substance/Drug Use: current Substance/Drug use frequency: daily Marital status: Single Number of children: 0 Highest education level completed: High School Graduate Physical Exam 2 HENMT: COMMON NORMALS: normocephalic, atraumatic and Normal external nose present HEAD & SCALP: normocephalic and atraumatic FACE & SINUS: normal facial exam NOSE: Normal external nose present and Normal nares present T HROAT: posterior oropharynx abnormal and uvular edema; uvula not laterally displaced OTHER: Throat exam reveals an enlarged uvula with what appears to be a swollen blister anteriorly from the uvula. Tonsils are red, swollen and inflamed. Patient is handling secretions. No exudates are apparent. Eye: COMMON NORMALS: Equal, round and reactive pupils present and EOMs intact bilaterally PUPIL: Yes Equal, round and reactive pupils present Lymph: LYMPHATIC: no lymphadenopathy noted Chest: CHEST: Yes Symmetrical chest wall rise Resp: COMMON NORMALS: normal respiratory effort and clear to auscultation bilaterally AUSCULTATION: clear to auscultation bilaterally Cardio: COMMON NORMALS: regular rate and regular rhythm RATE: regular rate RHYTHM: regular rhythm Neuro: JOAQUIN COMA SCALE: document GCS findings Joaquin coma scale eye opening: Spontaneous [place] coma scale verbal response: Orientated Joaquin coma scale motor response: Obey commands [place] coma scale total score: 15 Course 2 Vital Signs: Vital signs: Vital Signs Temperature 98.5 F 07/21/25 01:04 Pulse Rate 87 07/21/25 03:37 Respiratory Rate 18 07/21/25 01:04 Blood Pressure 103/79 07/21/25 03:37 Pulse Oximetry 93 07/21/25 03:37 Oxygen Delivery Me thod Room Air 07/21/25 01:04 MDM - General Adult Medical Decision Making Patient appears to have a swollen uvula with a blister anteriorly. There is tonsillitis on exam as well. Because of uvular elevation and palatial elevation, CT was ordered. Confirms mild symmetric tonsillitis without abscess. Laboratory is normal. Patient was given the option of local topical anesthetic such as Cetacaine to the uvula, with puncture and drainage of uvular blister. He declined. He is given dexamethasone IV and clindamycin IV. He will be discharged on Augmentin. To return immediately for any problems, especially respiratory ones Lab Data 07/21/25 02:30 07/21/25 02:[address] 07/21/25 02:18 IMPRESSION: Query mild symmetric tonsillitis without drainable peritonsillar collection. Laboratory Results WBC 5.26 10^3/uL (3.29-11.43) 07/21/25 02:30 RBC 4.47 10^6/uL (3.85-5.65) 07/21/25 02:30 Hgb 13.50 g/dL (11.27-16.99) 07/21/25 02:30 Hct 40.3 % (37-53) 07/21/25 02:30 MCV 90.2 fl (82-101) 07/21/25 02:30 MCH 30.2 pg (27-33) 07/21/25 02:30 MCHC 33.5 g/dL (30-55) 07/21/25 02:30 RDW 13.3 % (12.1-15.1) 07/21/25 02:30 Plt Count 272 10^3/cmm (157-399) 07/21/25 02:30 MPV 9.9 fL (7.4-10.4) 07/21/25 02:30 Neut % (Auto) 48.3 % 07/21/25 02:30 Lymph % (Auto) 38.4 % 07/21/25 02:30 [place] % (Auto) 9.3 % 07/21/25 02:30 Eos % (Auto) 3.2 % 07/21/25 02:30 Baso % (Auto) 0.6 % 07/21/25 02:30 Neut # (Auto) 2.54 10^3/uL (1.8-7.7) 07/21/25 02:30 Lymph # (Auto) 2.0 10^3/uL (0.8-4.8) 07/21/25 02:30 [place] # (Auto) 0.5 10^3/uL (0.2-0.9) 07/21/25 02:30 Eos # (Auto) 0.2 10^3/uL (0.0-0.8) 07/21/25 02:30 Baso # (Auto) 0.0 10^3/uL (0.0-0.1) 07/21/25 02:30 Nucleated RBC % (auto) 0 % 07/21/25 02:30 Nucleated RBCs # 0.0 /100WBC 07/21/25 02:30 Sodium 141 mmol/L (136-145) 07/21/25 02:30 Potassium 4.0 mmol/L (3.5-5.1) 07/21/25 02:30 Chloride 105 mmol/L (98-107) 07/21/25 02:30 Carbon Dioxide 23 mmol/L (22-29) 07/21/25 02:30 Anion Gap 17.0 (5-19) 07/21/25 02:30 BUN 9 mg/dL (6-20) 07/21/25 02:30 Creatinine 0.8 mg/dL (0.7-1.2) 07/21/25 02:30 GFR Calculation 108.8 mL/min (90-130) 07/21/25 02:30 Glucose 120 mg/dL (65-115) H 07/21/25 02:30 Calculated Osmolality 292 mOsm/kg (285-295) 07/21/25 02:30 Calcium 8.9 mg/dL (8.5-10.5) 07/21/25 02:30 Total Bilirubin 0.2 mg/dL (0.15-1.2) 07/21/25 02:30 AST 25 U/L (0-40) 07/21/25 02:30 ALT 20 U/L (0-41) 07/21/25 02:30 Alkaline Phosphatase 72 U/L (40-130) 07/21/25 02:30 C-Reactive Protein 3.0 mg/L (0.0-4.9) 07/21/25 02:30 Total Protein 7.3 g/dL (6.6-8.7) 07/21/25 02:30 Albumin 4.2 g/dL (3.5-5.2) 07/21/25 02:30 Globulin 3.1 g/dL (1.3-4.6) 07/21/25 02:30 Group A Strep Rapid Negative (Negative) 07/21/25 02:43 All radiology interpretation(s) finalized by discharge Discharge Plan Discharge Patient Disposition: Home Clinical Impression: Acute tonsillitis, Uvulitis Condition: Stable Prescriptions: New amoxicillin-pot clavulanate 875-125 mg tablet 1 tab PO BID Qty: 20 0RF No Action thiamine mononitrate (vit B1) [Vitamin B-1 (mononitrate)] 100 mg Tablet 100 mg PO DAILY 30 Days Qty: 30 1RF hydroxyzine pamoate 25 mg Capsule 50 mg PO Q6H PRN (Reason: Anxiety) 30 Days Qty: 30 1RF naltrexone 50 mg tablet 50 mg PO DAILY 30 Days Qty: 30 1RF Vivitrol 380 mg suspension,extended rel recon 380 mg IM ONCE 30 Days Qty: 1 1RF Rx Instructions: Start when available and discontinue oral after receiving injection. Discharge Orders: Discharge ED (Routine); Ordered 07/21/25 Ordered By: Yonathan Blanco Patient Instructions: Tonsillitis (ED), Uvulitis (ED), Opioid Safety, Pain Management, Patient Portal & Tabatha Instructions Activity Restrictions/Additional Instructions: Antibiotics as directed. Warm salt water gargles may help. You received steroid in the emergency department which can take 4 to 8 hours to begin to improve symptoms. You may use anti-inflammatories for pain and swelling following this. Liquid anti-inflammatories such as children's ibuprofen may be easier to tolerate. Return for problems. Stand Alone Forms: Work/School Release Print Language: [place] Coding Level of Care Code ED Verification Engineer for Reji Mckeon
== END 2025-07-21 03:35 | disposition home or self-care (01) ==
PROVIDERS: Emergency Provider Emergency Medicine
DX: J03.90 Acute tonsillitis, unspecified (principal); K12.2 Cellulitis and abscess of mouth; Z87.891 Personal history of nicotine dependence
CPT/HCPCS: 70491; 80053; 85025; 86140; 87081; 87880; 96365; 96375; 99285; J1100; J1885; J2405; J3490

== ENCOUNTER 2025-07-27 19:45 | Emergency (ER) | payer BC, MEDICAID, SELFPAY ==
[2025-07-27 19:47] VITALS: BP 135/81; PULSE 95; TEMP 36.7; O2SAT 98
--- OUTSIDE RECORDS SUMMARY | 2025-07-27 19:51 | XMS_ITS | Encounter Summary ---
Author Organization [facility] Address [address] Attn: [place] [address] Care Team Providers Care Blankbook Forwarder Name Role Phone Unavailable Primary Care Provider Unavailabl e Encounter Details Date Type Department Care Team (Late st Contact Info) Description 10/05/2005 Outpatient Historical Zackary Dougherty NP NO ADDRESS ON FILE Social History Tobacco Use Types Packs/Day Years Used Date Smoking Tobacco: Never Assessed Sex and Gender Information Value Date Recorded Sex Assigned at Not on file Legal Sex Male 5:36 AM PSYCHOLOGIST ENGINEERING Gender Identity Not on file Sexual Orientation Not on file documented as of this encounter Plan of Treatment Not on file documented as of this encounter Procedures Procedure Name Priority Date/Time Associated Diagnosis Comments RPR Routine 10/05/2005 11:48 AM PSYCHOLOGIST ENGINEERING documented in this encounter Results * RPR (10/05/2005 11:48 AM PSYCHOLOGIST ENGINEERING) RPR Non-Reactiv e Non-Reacti ve INTERFACE SYSTEM 10/05/2005 11:4 8 AM PSYCHOLOGIST ENGINEERING us Zackary Dougherty NP CHEMISTRY ORDERABLES Final R esult INTERFACE SYSTEM Refer to clinic/hospital department documented in this encounter Visit Diagnoses Not on filedocumented in this encounter
--- OUTSIDE RECORDS SUMMARY | 2025-07-27 19:51 | XMS_ITS | Encounter Summary ---
Author Organization [facility] Address [address] [place] [address] Care Team Providers Care Business Objects Consultant Name Role Phone Unavailable Primary Care Provider Unavailabl e Encounter Details Date Type Department Care Team (Latest Contact Info) Description 09/21/2004 Outpatient Historical [facility] [address] [place] [address] Sohail Santo MD [address] [place] [address] ACUTE URI NOS (Primary Dx); VIRAL ENTERITIS NOS Social History Tobacco Use Types Packs/Day Years Used Date Smoking Tobacco: Never Assessed Sex and Gender Information Value Date Recorded Sex Assigned at Not on file 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
--- OUTSIDE RECORDS SUMMARY | 2025-07-27 19:51 | XMS_ITS | Clinical Summary ---
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 Gender Identity Not on file Sexual Orientation Not on file Last Filed Vital Signs Vital Sign Reading Time Taken Comments Blood Pressure 123/84 01/07/2018 8:00 PM WAFER POLISHER Pulse 86 01/07/2018 8:00 PM WAFER POLISHER Temperature 36.6 C (97.9 F) 01/07/2018 4:07 PM WAFER POLISHER Respiratory Rate 18 01/07/2018 4:07 PM WAFER POLISHER Oxygen Saturation 100% 01/07/2018 8:00 PM WAFER POLISHER Inhaled Oxygen Concentration - - Weight 77.1 kg (170 lb) 01/07/2018 5:41 PM WAFER POLISHER Height 174 cm (5' 8.5 ) 01/07/2018 5:41 PM WAFER POLISHER Body Mass Index 25.47 01/07/2018 5:41 PM WAFER POLISHER Plan of Treatment Health Maintenance Due Date Last Done Comments DTAP/TDAP/TD VACCINES (1 - Tdap) 2006 HEPATITIS B VACCINES (1 of 3 - 19+ 3-dose series) 09/20 HPV VACCINES (1 - 3-dose SCDM series) 2014 INFLUENZA VACCINE (#1) 2025
--- OUTSIDE RECORDS SUMMARY | 2025-07-27 19:51 | XMS_ITS | Encounter Summary ---
Author Organization [facility] Address [address] [place] [address] Care Team Providers Care Mergers And Acquisitions Attorney Name Role Phone Unavailable Primary Care Provider Unavailabl e Encounter Details Date Type Department Care Team (Latest Contact Info) Description 03/11/2004 Outpatient Historical [facility] [address] [place] [address] Sohail Santo MD [address] [place] [address] VENEREAL DIS CONTACT (Primary Dx) Social History Tobacco Use Types Packs/Day Years Used Date Smoking Tobacco: Never Assessed Sex and Gender Information Value Date Recorded Sex Assigned at Not on file Legal Sex Male 5:36 AM BOTTOM BLEACHER Gender Identity Not on file Sexual Orientation Not on file documented as of this encounter Plan of Treatment Not on file documented as of this encounter Visit Diagnoses Diagnosis Contact with or exposure to venereal diseases- Primary documented in this encounter
--- OUTSIDE RECORDS SUMMARY | 2025-07-27 19:51 | XMS_ITS | Encounter Summary ---
Author Organization [facility] Address [address] [place] [address] Care Team Providers Care Event Marketing Coordinator Name Role Phone Unavailable Primary Care Provider Unavailabl e Encounter Details Date Type Department Care Team (Latest Contact Info) Description 07/25/2002 Outpatient Historical [facility] Medicine [place] [address] [facility] [address] [place] [address] Carey Yeboah MD NO ADDRESS ON FILE ENLARGEMENT LYMPH NODES (Primary Dx) Social History Tobacco Use Types Packs/Day Years Used Date Smoking Tobacco: Never Assessed Sex and Gender Information Value Date Recorded Sex Assigned at Not on file Legal Sex Male 5:36 AM URBAN DESIGN CONSULTANT Gender Identity Not on file Sexual Orientation Not on file documented as of this encounter Plan of Treatment Not on file documented as of this encounter Visit Diagnoses Diagnosis Enlargement of lymph nodes- Primary documented in this encounter
--- OUTSIDE RECORDS SUMMARY | 2025-07-27 19:51 | XMS_ITS | Encounter Summary ---
Author Organization [facility] Address [address] [place] [address] Care Team Providers Care Round Kiln Drawer Name Role Phone Unavailable Primary Care Provider Unavailabl e Encounter Details Date Type Department Care Team (Latest Contact Info) Description 08/21/2006 Outpatient Historical [facility] Family Medicine- [place] [address] [facility] [place] [address] Zackary Dougherty, RAHEL NO ADDRESS ON FILE Open Wound of Hand (Primary Dx) Social History Tobacco Use Types Packs/Day Years Used Date Smoking Tobacco: Never Assessed Sex and Gender Information Value Date Recorded Sex Assigned at Not on file Legal Sex Male 5:36 AM SIZE CUTTER Gender Identity Not on file Sexual Orientation Not on file documented as of this encounter Plan of Treatment Not on file documented as of this encounter Visit Diagnoses Diagnosis Open wound of hand except finger(s) alone, without mention of complication- Primary documented in this encounter
--- OUTSIDE RECORDS SUMMARY | 2025-07-27 19:51 | XMS_ITS | Encounter Summary ---
Author Organization [facility] Address [address] [facility] Attn: [place] [address] Care Team Providers Care Nursery Helper Name Role Phone Unavailable Primary Care Provider Unavailabl e Encounter Details Date Type Department Care Team (Late st Contact Info) Description 06/06/2002 Outpatient Historical Carey Yeboah MD NO ADDRESS ON FILE Social History Tobacco Use Types Packs/Day Years Used Date Smoking Tobacco: Never Assessed Sex and Gender Information Value Date Recorded Sex Assigned at Not on file Legal Sex Male 5:36 AM SCIENCE EDUCATION PROFESSOR Gender Identity Not on file Sexual Orientation Not on file documented as of this encounter Plan of Treatment Not on file documented as of this encounter Visit Diagnoses Not on filedocumented in this encounter
--- OUTSIDE RECORDS SUMMARY | 2025-07-27 19:51 | XMS_ITS | Encounter Summary ---
Author Organization [facility] Address [address] [place] [address] Care Team Providers Care Able Seaman Name Role Phone Unavailable Primary Care Provider Unavailabl e Encounter Details Date Type Department Care Team (Latest Contact Info) Description 06/06/2002 Outpatient Historical [facility] Medicine [place] [address] [facility] [address] [place] [address] Carey Yeboah MD NO ADDRESS ON FILE ATTN DEFICIT NONHYPERACT (Primary Dx) Social History Tobacco Use Types Packs/Day Years Used Date Smoking Tobacco: Never Assessed Sex and Gender Information Value Date Recorded Sex Assigned at Not on file Legal Sex Male 5:[address] LIGHT SERVICER SUPERVISOR Gender Identity Not on file Sexual Orientation Not on file documented as of this encounter Plan of Treatment Not on file documented as of this encounter Visit Diagnoses Diagnosis Attention deficit disorder without mention of hyperactivity- Primary documented in this encounter
--- OUTSIDE RECORDS SUMMARY | 2025-07-27 19:51 | XMS_ITS | Encounter Summary ---
Author Organization [facility] Address [address] [place] [address] Care Team Providers Care Chef Under Name Role Phone Unavailable Primary Care Provider Unavailabl e Encounter Details Date Type Department Care Team (Latest Contact Info) Description 10/05/2005 Outpatient Historical [facility]- [address] [place] [address] Zackary Dougherty NP NO ADDRESS ON FILE Rectal/anal hemorrhage (Primary Dx); ACUTE URI NOS; Venereal disease contact Social History Tobacco Use Types Packs/Day Years Used Date Smoking Tobacco: Never Assessed Sex and Gender Information Value Date Recorded Sex Assigned at Not on file Legal Sex Male 5:36 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
--- OUTSIDE RECORDS SUMMARY | 2025-07-27 19:51 | XMS_ITS | Clinical Summary ---
Author Organization [facility] Address [address] [place] [address] Phone Care Team Providers Care Shredded Filler Cutter Operator Name Role Phone Unavailable Primary Care Provider [...] on file Legal Sex Male 7:58 AM HARPSICHORD MAKER Gender Identity Not on file Sexual Orientation [...] series) 2014 INFLUENZA VACCINE (#1) [id number] [place] [id number] RX INFOCROSSING Medicaid [facility] [id number] Advance Directives For more information, please contact: [phone] * Full Code (Latest Code Status on File) Date Activated Date Inactivated Comments 04/03/2024 3:44 PM 04/09/2024 4:41 PM * Full Code Date Activated Date Inactivated Comments 02/17/2024 12:37 PM 02/23/2024 7:56 PM
--- OUTSIDE RECORDS SUMMARY | 2025-07-27 19:51 | XMS_ITS | Encounter Summary ---
Author Organization [facility] Address [address] [place] [address] Care Team Providers Care Shift Superintendent Caustic Cresylate Name Role Phone Unavailable Primary Care Provider Unavailabl e Encounter Details Date Type Department Care Team (Latest Contact Info) Description 07/04/2002 Outpatient Historical [facility] Medicine [place] [address] [facility] [address] [place] [address] Carey Yeboah MD NO ADDRESS ON FILE ATTN DEFICIT NONHYPERACT (Primary Dx) Social History Tobacco Use Types Packs/Day Years Used Date Smoking Tobacco: Never Assessed Sex and Gender Information Value Date Recorded Sex Assigned at Not on file 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
--- NOTE | 2025-07-27 21:21 | ED_ITS ---
HPI - URI/Sore Throat General: Chief Complaint: Upper Respiratory Infection Stated Complaint: N/V Tonils hurting Time Seen by Provider: 07/27/25 20:38 History of Present Illness: Patient was here 4 days ago with uvula swelling, and prescribed Augmentin. Patient states that the pill is very big, and difficult to swallow with his edema to his uvula. He is still asking not to have this area incised, however coverage for antibiotics that he could possibly take. Associated symptoms: Deny abdominal pain, chills, chest pain, fever(s), headache(s), nausea or vomiting Related Data Previous Rx's ?Medication ?Instructions ?Recorded hydroxyzine pamoate 25 mg capsule 50 mg (2 x 25 mg) PO Q6H PRN 05/12/25 Anxiety 30 days #30 caps naltrexone 50 mg tablet 50 mg PO DAILY 30 days #30 t abs 05/12/25 naltrexone microspheres 380 mg 380 mg IM ONCE 30 days #1 ea 05/12/25 intramuscular suspension,extended release (Vivitrol) thiamine mononitrate (vit B1) 100 100 mg PO DAILY 30 d ays #30 tabs 05/12/25 mg tablet (Vitamin B-1 (mononitrate)) amoxicillin 875 mg-potassium 1 tab PO BID #20 tabs 12/14 clavulanate 125 mg tablet clindamycin HCl 300 mg capsule 300 mg PO Q8H 10 days # 30 caps 07/27/25 (Cleocin HCl) Allergies Allergy/AdvReac Type Severity Reaction Status Date / Time No Known Allergies Allergy Verified 07/27/25 19:52 Review of Systems Const: Denies: fever(s) or chills Eyes: Denies: change in vision or blurry vision ENMT: Reports: uvular edema Card: Denies: chest pain or palpitations Resp: Denies: dyspnea or non-productive cough GI: Denies: abdominal pain, nausea or vomiting : Denies: flank pain or difficulty urinating Musc: Denies: neck pain, back pain or extremity pain Skin/Breast: Denies: rash or pruritus Neuro: Denies: headache(s), numbness in extremities or lack of coordination Psych: Denies: anxiety or depression PFS ED PFSH: Medical History (Updated 07/27/25 @ 21:24 by ARIEL Gupta) Alcohol abuse Nicotine use disorder Major depressive disorder, recurrent, mild JAROCHO (generalized anxiety disorder) On combination antipsychotic drug therapy Psychiatric care Auditory hallucinations PTSD (post-traumatic stress disorder) ADHD, adult residual type Depression, unspecified History of psychosis Anxiety History of ETOH abuse Methamphetamine dependence Cannabis abuse Family History Father Cancer melanoma Social History Smoking and tobacco/nicotine status: former use of tobacco/nicotine Alcohol intake: current Alcohol intake frequency: 3 or more drinks per day Substance/Drug Use: current Substance/Drug use frequency: daily Marital status: Single Number of children: 0 Highest education level completed: High School Graduate Physical Exam Const: COMMON NORMALS: no acute distress, average body habitus and patient oriented x3 HENMT: COMMON NORMALS: normocephalic, atraumatic and TM's normal bilaterally HEAD & SCALP: normocephalic and atraumatic TYMPANIC MEMBRANE: TM's normal bilaterally THROAT: uvular edema Eye: COMMON NORMALS: Equal, round and reactive pupils present and EOMs intact bilaterally PUPIL: Yes Equal, round and reactive pupils present Neck/C-Spine: COMMON NORMALS: full ROM and no lymphadenopathy Lymph: LYMPHATIC: no lymphadenopathy noted Chest: COMMONS NORMALS: normal inspection of the chest and normal palpation of entire chest wall Resp: COMMON NORMALS: normal respiratory effort and clear to auscultation bilaterally AUSCULTATION: clear to auscultation bilaterally Cardio: COMMON NORMALS: regular rate and regular rhythm RATE: regular rate RHYTHM: regular rhythm GI: COMMON NORMALS: Normal to inspection, nondistended, normoactive bowel sounds present, Soft to palpation, non-tender and No hepatosplenomegaly present PALPATION: Yes Soft to palpation and Yes No hepatosplenomegaly present : COMMON NORMALS: Yes no CVA tenderness BLADDER/KIDNEY EXAM: Yes no CVA tenderness Back/Pelvis: COMMON NORMALS: no CVA tenderness Extremity: COMMON NORMALS: normal to inspection, full ROM and capillary refill normal Neuro: COMMON NORMALS: patient oriented x3, CN's II-XII intact bilaterally and moves all extremities Psych: COMMON NORMALS: mental status grossly normal, Normal thought process present and cooperative THOUGHT PROCESS: Normal thought process present Skin: COMMON NORMALS: no rashes or lesions noted, no wounds and turgor normal GENERAL SKIN EXAM: no rashes or lesions noted and turgor normal Course Vital Signs: Vital signs: Vital Signs Temperature 98.1 F 07/27/25 19:47 Pulse Rate 95 07/27/25 19:47 Blood Pressure 135/81 07/27/25 19:47 Pulse Oximetry 98 07/27/25 19:47 Oxygen Delivery Me thod Room Air 07/27/25 19:47 MDM - URI/Sore Throat Medical Decision Making Patient is 39-year-old male with 4 days of uvula swelling. Once again, he does decline incision and drainage to this area. He is acceptable to dexamethasone, and changing his antibiotics due to tolerance. Due to the size of the Augmentin, he is unable to swallow this pill very effectively. He has tried crusting it to some availability, however his compliance is an issue. I do believe it is fair to attempt clindamycin given this issue and his refusal of incision and drainage, which she is absolutely entitled to. Medical Records I reviewed the patient's medical records. Lab Data I reviewed the patient's lab results. All radiology interpretation(s) finalized by discharge Discharge Plan Discharge Patient Disposition: Home Clinical Impression: Uvulitis Condition: Stable Prescriptions: New clindamycin HCl [Cleocin HCl] 300 mg capsule 300 mg PO Q8H 10 Days Qty: 30 0RF No Action thiamine mononitrate (vit B1) [Vitamin B-1 (mononitrate)] 100 mg Tablet 100 mg PO DAILY 30 Days Qty: 30 1RF hydroxyzine pamoate 25 mg Capsule 50 mg PO Q6H PRN (Reason: Anxiety) 30 Days Qty: 30 1RF naltrexone 50 mg tablet 50 mg PO DAILY 30 Days Qty: 30 1RF Vivitrol 380 mg suspension,extended rel recon 380 mg IM ONCE 30 Days Qty: 1 1RF Rx Instructions: Start when available and discontinue oral after receiving injection. amoxicillin-pot clavulanate 875-125 mg tablet 1 tab PO BID Qty: 20 0RF Discharge Orders: Discharge ED (Routine); Ordered 07/27/25 Ordered By: Danica Garay Discharge Diet: Soft Mechanical Discharge Activity: Resume usual activity Patient Instructions: Uvulitis (ED), Patient Portal & Tabatha Instructions Activity Restrictions/Additional Instructions: Return to ED if you want us to incise this area Return to ED with worsening breathing Different antibiotics have been sent to the pharmacy due to the issue of having trouble swallowing. This is an capsule form, can be open, placed in applesauce, ice cream, and taken if you cannot tolerate the capsule. Please return to the ED if you have worsening redness, edema to the back of your throat. Is important to follow-up with your doctor regarding today's visit. You did receive Rocephin, an intramuscular antibiotic also called ceftriaxone, and dexamethasone, a steroid to help with the edema. Stand Alone Forms: Work/School Release Print Language: Bengali Coding Level of Care Code ED Rehabilitation Services Coordinator for Reji Mckeon
[2025-07-27] MEDS: cefTRIAXone 1,000 MG in water for injection-sterile 2.1 ML 1 MG IM (21:26)
== END 2025-07-27 21:49 | disposition home or self-care (01) ==
PROVIDERS: Emergency Provider Physician Assistant
DX: K12.2 Cellulitis and abscess of mouth (principal); Z87.891 Personal history of nicotine dependence
CPT/HCPCS: 96372; 99284; J0696; J1100

== ENCOUNTER 2025-08-08 11:49 | Inpatient (IN) | payer BC, MEDICAID, SELFPAY ==
[2025-08-08 11:53] VITALS: BP 159/78; PULSE 129; RESP 18; TEMP 37.1; O2SAT 99; BMI 27.3
--- OUTSIDE RECORDS SUMMARY | 2025-08-08 11:53 | XMS_ITS | Encounter Summary ---
Author Organization [facility] Address [address] [place] [address] Care Team Providers Care Rn Postpartum Name Role Phone Unavailable Primary Care Provider Unavailabl e Encounter Details Date Type Department Care Team (Latest Contact Info) Description 09/21/2004 Outpatient Historical [facility] [address] [place] [address] Sohail Santo MD [address] [place] [address] ACUTE URI NOS (Primary Dx); VIRAL ENTERITIS NOS Social History Tobacco Use Types Packs/Day Years Used Date Smoking Tobacco: Never Assessed Sex and Gender Information Value Date Recorded Sex Assigned at Not on file 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
--- OUTSIDE RECORDS SUMMARY | 2025-08-08 11:53 | XMS_ITS | Encounter Summary ---
Author Organization [facility] Address [address] [place] [address] Care Team Providers Care High Pressure Operator Name Role Phone Unavailable Primary Care Provider Unavailabl e Encounter Details Date Type Department Care Team (Latest Contact Info) Description 07/25/2002 Outpatient Historical [facility] [place] [address] [facility] [address] [place] [address] Carey Yeboah MD NO ADDRESS ON FILE ENLARGEMENT LYMPH NODES (Primary Dx) Social History Tobacco Use Types Packs/Day Years Used Date Smoking Tobacco: Never Assessed Sex and Gender Information Value Date Recorded Sex Assigned at Not on file Legal Sex Male 5:36 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
--- OUTSIDE RECORDS SUMMARY | 2025-08-08 11:53 | XMS_ITS | Encounter Summary ---
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
--- OUTSIDE RECORDS SUMMARY | 2025-08-08 11:53 | XMS_ITS | Encounter Summary ---
Author Organization [facility] Address [address] [place] [address] Care Team Providers Care Records Manager Name Role Phone Unavailable Primary Care Provider Unavailabl e Encounter Details Date Type Department Care Team (Latest Contact Info) Description 10/05/2005 Outpatient Historical [facility]- [employer] [address] [place] [address] Zackary Dougherty NP NO ADDRESS ON FILE Rectal/anal hemorrhage (Primary Dx); ACUTE URI NOS; Venereal disease contact Social History Tobacco Use Types Packs/Day Years Used Date Smoking Tobacco: Never Assessed Sex and Gender Information Value Date Recorded Sex Assigned at Not on file Legal Sex Male 5:36 AM DIRECTOR OF PHYSICIAN PRACTICES Gender Identity Not on file Sexual Orientation [...]
--- OUTSIDE RECORDS SUMMARY | 2025-08-08 11:53 | XMS_ITS | Encounter Summary ---
Author Organization [facility] Address [address] [place] [address] Care Team Providers Care Ingredient Mixer Name Role Phone Unavailable Primary Care Provider Unavailabl e Encounter Details Date Type Department Care Team (Latest Contact Info) Description 06/06/2002 Outpatient Historical [facility] Medicine [place] [address] [facility] [address] [place] [address] Carey Yeboah MD NO ADDRESS ON FILE ATTN DEFICIT NONHYPERACT (Primary Dx) Social History Tobacco Use Types Packs/Day Years Used Date Smoking Tobacco: Never Assessed Sex and Gender Information Value Date Recorded Sex Assigned at Not on file 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
--- OUTSIDE RECORDS SUMMARY | 2025-08-08 11:53 | XMS_ITS | Encounter Summary ---
Author Organization [facility] Address [address] [place] [address] Care Team Providers Care Production Supervisor Off Shift Name Role Phone Unavailable Primary Care Provider Unavailabl e Encounter Details Date Type Department Care Team (Latest Contact Info) Description 08/21/2006 Outpatient Historical [facility]- [address] [facility] [place] [address] Zackary Dougherty, RAHEL NO ADDRESS ON FILE Open Wound of Hand (Primary Dx) Social History Tobacco Use Types Packs/Day Years Used Date Smoking Tobacco: Never Assessed Sex and Gender Information Value Date Recorded Sex Assigned at Not on file Legal Sex Male 5:36 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
--- OUTSIDE RECORDS SUMMARY | 2025-08-08 11:53 | XMS_ITS | Clinical Summary ---
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 Gender Identity Not on file Sexual Orientation Not on file Last Filed Vital Signs Vital Sign Reading Time Taken Comments Blood Pressure 123/84 01/07/2018 8:00 PM AUTOMOBILE DRIVERS Pulse 86 01/07/2018 8:00 PM AUTOMOBILE DRIVERS Temperature 36.6 C (97.9 F) 01/07/2018 4:07 PM AUTOMOBILE DRIVERS Respiratory Rate 18 01/07/2018 4:07 PM AUTOMOBILE DRIVERS Oxygen Saturation 100% 01/07/2018 8:00 PM AUTOMOBILE DRIVERS Inhaled Oxygen Concentration - - Weight 77.1 kg (170 lb) 01/07/2018 5:41 PM AUTOMOBILE DRIVERS Height 174 cm (5' 8.5 ) 01/07/2018 5:41 PM AUTOMOBILE DRIVERS Body Mass Index 25.47 01/07/2018 5:41 PM AUTOMOBILE DRIVERS Plan of Treatment Health Maintenance Due Date Last Done Comments DTAP/TDAP/TD VACCINES (1 - Tdap) 2006 HEPATITIS B VACCINES (1 of 3 - 19+ 3-dose series) 09/20 HPV VACCINES (1 - 3-dose SCDM series) 2014 INFLUENZA VACCINE (#1) 2025
--- OUTSIDE RECORDS SUMMARY | 2025-08-08 11:53 | XMS_ITS | Encounter Summary ---
Author Organization [facility] Address [address] [place] [address] Care Team Providers Care Cement Conveyor Operator Name Role Phone Unavailable Primary Care Provider Unavailabl e Encounter Details Date Type Department Care Team (Latest Contact Info) Description 03/11/2004 Outpatient Historical [facility] [place] [address] [place] [address] Sohail Santo MD [address] [place] [address] VENEREAL DIS CONTACT (Primary Dx) Social History Tobacco Use Types Packs/Day Years Used Date Smoking Tobacco: Never Assessed Sex and Gender Information Value Date Recorded Sex Assigned at Not on file 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
--- OUTSIDE RECORDS SUMMARY | 2025-08-08 11:53 | XMS_ITS | Encounter Summary ---
Author Organization [facility] Address [address] [facility] Attn: [place] [address] Care Team Providers Care Ultrasound Technologist Sonographer Name Role Phone Unavailable Primary Care Provider Unavailabl e Encounter Details Date Type Department Care Team (Late st Contact Info) Description 10/05/2005 Outpatient Historical Zackary Dougherty NP NO ADDRESS ON FILE Social History Tobacco Use Types Packs/Day Years Used Date Smoking Tobacco: Never Assessed Sex and Gender Information Value Date Recorded Sex Assigned at Not on file Legal Sex Male 5:36 AM NAPRAPATH Gender Identity Not on file Sexual Orientation Not on file documented as of this encounter Plan of Treatment Not on file documented as of this encounter Procedures Procedure Name Priority Date/Time Associated Diagnosis Comments RPR Routine 10/05/2005 11:48 AM NAPRAPATH documented in this encounter Results * RPR (10/05/2005 11:48 AM NAPRAPATH) RPR Non-Reactiv e Non-Reacti ve INTERFACE SYSTEM 10/05/2005 11:4 8 AM NAPRAPATH us Zackary Dougherty NP CHEMISTRY ORDERABLES Final R esult INTERFACE SYSTEM Refer to clinic/hospital department documented in this encounter Visit Diagnoses Not on filedocumented in this encounter
--- OUTSIDE RECORDS SUMMARY | 2025-08-08 11:53 | XMS_ITS | Clinical Summary ---
Author Organization [facility] Address [address] [place] [address] Phone Care Team Providers Care Fire Systems Inspector Name Role Phone Unavailable Primary Care Provider [...] on file Legal Sex Male 7:58 AM TOBACCO CLOTH RECLAIMER Gender Identity Not on file Sexual Orientation [...] series) 2014 INFLUENZA VACCINE (#1) 2025 Insurance [id number] [place] [id number] RX INFOCROSSING Medicaid [facility] [id number] Advance Directives For more information, please contact: [phone] * Full Code (Latest Code Status on File) Date Activated Date Inactivated Comments 04/03/2024 3:44 PM 04/09/2024 4:41 PM * Full Code Date Activated Date Inactivated Comments 02/17/2024 12:37 PM 02/23/2024 7:56 PM
--- OUTSIDE RECORDS SUMMARY | 2025-08-08 11:53 | XMS_ITS | Encounter Summary ---
Author Organization [facility] Address [address] [place] [address] Care Team Providers Care Erecting Crane Operator Name Role Phone Unavailable Primary Care Provider Unavailabl e Encounter Details Date Type Department Care Team (Latest Contact Info) Description 07/04/2002 Outpatient Historical [facility] Medicine [place] [address] [facility] [address] [place] [address] Carey Yeboah MD NO ADDRESS ON FILE ATTN DEFICIT NONHYPERACT (Primary Dx) Social History Tobacco Use Types Packs/Day Years Used Date Smoking Tobacco: Never Assessed Sex and Gender Information Value Date Recorded Sex Assigned at Not on file 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
--- NOTE | 2025-08-08 12:03 | W.ED.PSYCHS ---
HPI - Psych General: Chief Complaint: Psychiatric Symptoms Stated Complaint: MHE Time Seen by Provider: 08/08/25 11:51 Source: patient Mode of arrival: ambulatory Limitations: no limitations History of Present Illness: 39-year-old male here with suicidality. He states been having suicidal thoughts of last 2 to 3 days with plans of hanging himself. Patient also admits to methamphetamine abuse with last 1 being 2 hours ago. Patient denies any worsening proving factors. Associated symptoms: Reports depression and suicidal ideation Related Data Previous Rx's ?Medication ?Instructions ?Recorded hydroxyzine pamoate 25 mg capsule 50 mg (2 x 25 mg) PO Q6H PRN 05/12/25 Anxiety 30 days #30 caps naltrexone 50 mg tablet 50 mg PO DAILY 30 days #30 tabs 05/12/25 naltrexone microspheres 380 mg 380 mg IM ONCE 30 days #1 ea 05/12/25 intramuscular suspension,extended release (Vivitrol) thiamine mononitrate (vit B1) 100 100 mg PO DAILY 30 days #30 tabs 05/12/25 mg tablet (Vitamin B-1 (mononitrate)) amoxicillin 875 mg-potassium 1 tab PO BID #20 tabs 07/21/25 clavulanate 125 mg tablet Allergies Allergy/AdvReac Type Severity Reaction Status Date / Time No Known Allergies Allergy Verified 07/27/25 19:52 Review of Systems Card: Denies: chest pain Resp: Denies: dyspnea GI: Denies: abdominal pain Psych: Reports: depression and suicidal ideation [facility] ED PFSH: Medical History Alcohol abuse Nicotine use disorder Major depressive disorder, recurrent, mild JAROCHO (generalized anxiety disorder) On combination antipsychotic drug therapy Psychiatric care Auditory hallucinations PTSD (post-traumatic stress disorder) ADHD, adult residual type Depression, unspecified History of psychosis Anxiety History of ETOH abuse Methamphetamine dependence Cannabis abuse Family History Father Cancer melanoma Social History Smoking and tobacco/nicotine status: former use of tobacco/nicotine Alcohol intake: current Alcohol intake frequency: 3 or more drinks per day Substance/Drug Use: current Substance/Drug use frequency: daily Marital status: Single Number of children: 0 Highest education level completed: High School Graduate Physical Exam Const: COMMON NORMALS: patient oriented x3 HENMT: COMMON NORMALS: normocephalic and atraumatic HEAD & SCALP: normocephalic and atraumatic Eye: COMMON NORMALS: Equal, round and reactive pupils present and EOMs intact bilaterally PUPIL: Yes Equal, round and reactive pupils present Neck/C-Spine: COMMON NORMALS: full ROM and supple Chest: COMMONS NORMALS: normal inspection of the chest Resp: COMMON NORMALS: normal respiratory effort, No retractions, No use of accessory muscles and clear to auscultation bilaterally AUSCULTATION: clear to auscultation bilaterally Cardio: COMMON NORMALS: regular rhythm and No murmurs present (Cardio) RATE: tachycardic RHYTHM: regular rhythm Extremity: COMMON NORMALS: normal to inspection and full ROM Neuro: COMMON NORMALS: patient oriented x3, moves all extremities and no focal motor deficits Psych: COMMON NORMALS: mental status grossly normal, Normal thought process present and cooperative THOUGHT PROCESS: Normal thought process present THOUGHT CONTENT: Yes Suicidality present Skin: COMMON NORMALS: no rashes or lesions noted and no wounds GENERAL SKIN EXAM: no rashes or lesions noted Course Vital Signs: Vital signs: Vital Signs Temperature 98.7 F 08/08/25 11:53 Pulse Rate 129 H 08/08/25 11:53 Respiratory Rate 18 08/08/25 11:53 Blood Pressure 159/78 08/08/25 11:53 Pulse Oximetry 99 08/08/25 11:53 Oxygen Delivery Me thod Room Air 08/08/25 11:53 MDM - Psych Medical Decision Making Patient presents here with suicidal ideations with plan of hanging himself. Patient also has a history of meth abuse likely causing this tachycardia here. Patient is calm down here after Ativan. Patient's blood work is reviewed and all normal. I spoke to Dr. Lewis of psychiatry patient is medically cleared and will admit to the psychiatric [facility]. Medical Records I reviewed the patient's medical records. Lab Data I reviewed the patient's lab results. 08/08/25 12:05 08/08/25 12:05 Laboratory Results WBC 11.13 10^3/uL (3.29-11.43) 08/08/25 12:05 RBC 4.76 10^6/uL (3.85-5.65) 08/08/25 12:05 Hgb 14.50 g/dL (11.27-16.99) 08/08/25 12:05 Hct 42.8 % (37-53) 08/08/25 12:05 MCV 89.9 fl (82-101) 08/08/25 12:05 MCH 30.5 pg (27-33) 08/08/25 12:05 MCHC 33.9 g/dL (30-55) 08/08/25 12:05 RDW 12.7 % (12.1-15.1) 08/08/25 12:05 Plt Count 260 10^3/cmm (157-399) 08/08/25 12:05 MPV 9.5 fL (7.4-10.4) 08/08/25 12:05 Neut % (Auto) 66.6 % 08/08/25 12:05 Lymph % (Auto) 22.9 % 08/08/25 12:05 [place] % (Auto) 9.0 % 08/08/25 12:05 Eos % (Auto) 0.9 % 08/08/25 12:05 Baso % (Auto) 0.4 % 08/08/25 12:05 Neut # (Auto) 7.42 10^3/uL (1.8-7.7) 08/08/25 12:05 Lymph # (Auto) 2.6 10^3/uL (0.8-4.8) 08/08/25 12:05 [place] # (Auto) 1.0 10^3/uL (0.2-0.9) H 08/08/25 12:05 Eos # (Auto) 0.1 10^3/uL (0.0-0.8) 08/08/25 12:05 Baso # (Auto) 0.0 10^3/uL (0.0-0.1) 08/08/25 12:05 Nucleated RBC % (auto) 0 % 08/08/25 12:05 Nucleated RBCs # 0.0 /100WBC 08/08/25 12:05 Potassium 4.1 mmol/L (3.5-5.1) 08/08/25 12:05 Chloride 100 mmol/L (98-107) 08/08/25 12:05 Anion Gap 18.1 (5-19) 08/08/25 12:05 BUN 19 mg/dL (6-20) 08/08/25 12:05 Creatinine 1.0 mg/dL (0.7-1.2) 08/08/25 12:05 Glucose 97 mg/dL (65-115) 08/08/25 12:05 Calcium 10.1 mg/dL (8.5-10.5) 08/08/25 12:05 Total Bilirubin 1.1 mg/dL (0.15-1.2) 08/08/25 12:05 AST 37 U/L (0-40) 08/08/25 12:05 ALT 27 U/L (0-41) 08/08/25 12:05 Alkaline Phosphatase 72 U/L (40-130) 08/08/25 12:05 Total Protein 7.6 g/dL (6.6-8.7) 08/08/25 12:05 Albumin 4.4 g/dL (3.5-5.2) 08/08/25 12:05 Globulin 3.2 g/dL (1.3-4.6) 08/08/25 12:05 No radiology studies performed this visit Discharge Plan Discharge Patient Disposition: Admitted As Inpatient Clinical Impression: Suicidal ideation, Methamphetamine abuse Condition: Stable Coding Level of Care Code ED [employer]otechnician for Reji Mckeon
[2025-08-08] MEDS: LORazepam 1 MG/0.5 ML injection 2 MG IM (12:10)
[2025-08-08 12:11] LABS: Hematocrit 42.8 % (37-53); Hemoglobin 14.50 g/dL (11.27-16.99); Mean Corpuscular HGB Conc 33.9 g/dL (30-55); Mean Corpuscular Hemoglobin 30.5 pg (27-33); Mean Corpuscular Volume 89.9 fl (82-101); Nucleated Red Blood Cells % 0 %; Platelet Count 260 10^3/cmm (157-399); Red Blood Count 4.76 10^6/uL (3.85-5.65); White Blood Count 11.13 10^3/uL (3.29-11.43)
[2025-08-08 12:32] LABS: Alanine Aminotransferase 27 U/L (0-41); Albumin Level 4.4 g/dL (3.5-5.2); Alkaline Phosphatase 72 U/L (40-130); Anion Gap 18.1 (5-19); Aspartate Amino Transferase 37 U/L (0-40); Blood Urea Nitrogen 19 mg/dL (6-20); Calcium 10.1 mg/dL (8.5-10.5); Carbon Dioxide 21 mmol/L (22-29); Chloride 100 mmol/L (98-107); Creatinine Clr Calc Pharmacy 105.4302; Globulin 3.2 g/dL (1.3-4.6); Glucose 97 mg/dL (65-115); Osmolality Calculated 282 mOsm/kg (285-295); Potassium 4.1 mmol/L (3.5-5.1); Sodium 135 mmol/L (136-145); Total Protein 7.6 g/dL (6.6-8.7)
[2025-08-08 12:40] LABS: Acetaminophen < 5.0 ug/mL (10-30); Alcohol Level < 10 mg/dL (0-10); Salicylate < 0.3 mg/dL (3-10)
--- NOTE | 2025-08-08 13:05 | PC.NURSE ---
Involuntary 96 hour hold rights read and reviewed with patient. [place] from security present during reading of rights. Patient verbalized understandings and copy of rights given to patient.
[2025-08-08 14:07] VITALS: PULSE 124; RESP 20; O2SAT 98
--- NOTE | 2025-08-08 15:21 | PC.OT ---
OT evaluation orders received; hold until pt is appropriate for services and evaluation will be attempted at later time.
--- NOTE | 2025-08-08 15:42 | PC.ADMIT ---
[address] Admission Note:Pt reports coming to the ED for SI with plan to hang himself. States that he had done meth 2 hours before coming in. He states that it is the meth that is making him suicidal, he denies any depression. He states that prior to this he had not used meth for 6-7 months. 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 He is on a 96 hour hold. Pt is actively tweaking The patient,Alfonzo Kee,39 y/o, was given written information regarding hospital policies, unit procedures and contact persons. Patient's smoking status: former smoker. Vital Signs - 8 hr 08/08/25 11:53 08/08/25 14:18 Temperature 98.7 F Pulse Rate 129 H Respiratory Rate 18 Blood Pressure 159/78 Pulse Oximetry 99 Oxygen Delivery Method Room Air Room Air
--- NOTE | 2025-08-08 20:49 | PC.NURSE ---
room check not done, pt sleeping soundly
--- NOTE | 2025-08-08 21:57 | PC.NURSE ---
vitals not done pt sleeping soundly, nurse aware, resp. 14
--- NOTE | 2025-08-09 06:35 | PC.NURSE ---
pt sleeping soundly, vitals not done per nurse, resp. 16
--- NOTE | 2025-08-09 08:02 | P.NPUHP_ITS ---
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 substance abuse treatment of methamphetamine abuse. Hospital Course Hospital Course He acclimated to the individual, group and milieu therapies provided. He presented with similar complaints as the past as he had relapsed and was having limited adherence to his medication. There was concern about his Valium prescription and we discussed that not being continued moving forward. There were no changes in his medication. He worked with the treatment team to obtain appropriate follow-up and discharge planning. They were able to get him connected with [facility] to address his addiction. He had significant improvement and was able to contract for safety outside the hospital prior to discharge. The outside hospital, patient had routine laboratory studies which were within normal limits except for few outliers. Additionally there was a general medical evaluation which was also within normal limits and revealed no new acute processes. Discharge Summary: At the time of discharge, he denied psychosis or lethality. Mood and anxiety were well managed. Patient endorsed a plan to avoid all drugs of abuse and follow-up with the aftercare recommendations of the treatment team. Patient was evaluated and deemed to be absent credible lethality, and had achieved the maximum benefit from an inpatient hospitalization, so was discharged. Excerpt from [facility] outpatient evaluation from 05/30/24 [facility] History and Physical Time In: 10:00 Time Out: 11:00 Chief Complaint: Medication management History of Present Illness: [facility]. He has been recently hospitalized at [facility] neuropsychiatric unit May 08 through May 11. This is his fifth hospitalization at [facility] NPU this year. He comments the reason for his hospitalization is he gets off his medicine, starts using drugs, and wants help getting sober. Since his last hospitalization he started staying at [facility]. Today he tells me he has not used meth in 3 months. He states the last time he used marijuana was May 06. He describes his mood as a little down today. He comments that he has been without his antidepressant for a couple days indicating he just has not been to the pharmacy to get a refill. He denies hearing any voices today. No auditory or visual hallucinations. He describes past hallucinations of past traumas or voices talking negatively saying to hurt himself or others. He describes his anxiety is pretty high today. He indicates he feels this is situational because he started a new job. No suicidal thoughts today. No homicidal thoughts. He asks if his Seroquel can be increased to 300 in the morning and 500 at bedtime. Comments he would like to increase this because he is struggling to fall asleep at night. Estimates getting between 4 or 6 hours of sleep depending on what he has to do. He has been working 2 jobs recently. 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 He states this gives him about 6 or 7 hours of sleep before he gets up for work again. Alfonzo denies any history of quynh. He states he has never had increased energy or been without sleep if it was not drug-related. He states he has a previous diagnosis of PTSD and indicates past trauma of watching his brother being murdered. Alfonzo reports the following: Most days he feels on edge, has flashbacks during the day, feels that the world is a bad place and others have negative intentions toward him. He continues to experience delusions, both auditory and visual hallucinations daily, and has times where he wants to avoid people. He often looses touch with reality and will isolate himself at home when that happens. He states he has struggled with addiction for a long time and methamphetamine often makes his schizophrenia symptoms worse; he will become erratic and impulsive. History Past Psychiatric History: Has been hospitalized 5 times at [facility] neuropsychiatric unit. Last was May 08 through May 11. Comments he was hospitalized once in [place] and in [place]. Typically goes into the hospital because he gets off his medicine, is using drugs, and wants to get sober. 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 States he has not typically followed up on an outpatient basis after being in the hospital. Records indicate a previous diagnosis of ADHD. Family History: Denies family history of mental illness. Alfonzo's biological father blew his brains out while dealing with stage 4 cancer. Past Medical History: Primary care provider is Dr. Paul. He denies any physical health issues. States he has not been diagnosed with any conditions. Denies any previous injuries or surgeries. Substance Use History: Reports nicotine use including vaping and chewing tobacco. First started nicotine at the age of 18. I spent 5 minutes providing smoking cessation counseling. We talked about history of use, current usage, prior attempts at quitting, and psychological barriers to quitting. I gauged her desire to quit and she is not ready at this time. Social History: Alfonzo is currently staying at [facility] which is a sober living home. States he has been there for couple weeks since he was last discharged from the hospital. Prior to that he states he was homeless. He was staying in [place]. He is single and has no kids. 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 Graduated high school. No history of physical, emotional, sexual abuse. He does report legal history including getting several felonies for possession and avelino larceny. He states he spent a couple years in senior care in 2006. States he is currently not on probation or parole. Records indicate that he has been and and has 4 children that he does not have contact with. Hospital Course He acclimated to the individual, group and milieu therapies provided. He presented with reports that things have been significantly better than they were in the past. He was able to get employment, get a partner and gain his sobriety. He reports that however very recently he started drinking again and things got out of control and he was in the process of detoxing with a plan for sobriety and then started feeling very unstable with the withdrawal and came to the hospital. We were able to assist him over a couple of days and evaluated him against the backdrop of the 96-hour hold identifying no credible lethality. He had been having some suicidal thoughts as his withdrawal intensified but that resolved on the unit. We initiated thiamine and Vistaril for his alcohol use disorder and anxiety respectively. Additionally naltrexone was added and the option for the Vivitrol injection was given. The absence of any drugs of abuse, the initiation of those medications and the treatment milieu led to a positive response. He worked with the treatment team to obtain appropriate follow-up and discharge planning. He had significant improvement during his stay and was able to contract for safety outside the hospital prior to discharge. The outside hospital, patient had routine laboratory studies which were within normal limits except for few outliers. Additionally there was a general medical evaluation which was also within normal limits and revealed no new acute processes. Discharge Summary: At the time of discharge, he denied psychosis or lethality. Mood and anxiety were well managed. Patient endorsed a plan to avoid all drugs of abuse and follow-up with the aftercare recommendations of the treatment team. Patient was evaluated and deemed to be absent credible lethality, and had achieved the maximum benefit from an inpatient hospitalization, so was discharged. Meds NPU Home Medications ?Medication ?Instructions ?Recorded ?Confirmed ?Last Taken ?Type hydroxyzine pamoate 25 mg capsule 50 mg (2 x 25 mg) PO Q6H PRN 05/12/25 08/08/25 Unknown Rx Anxiety 30 days #30 caps naltrexone 50 mg tablet 50 mg PO DAILY 30 days #30 t abs 05/12/25 08/08/25 Unknown Rx naltrexone microspheres 380 mg 380 mg IM ONCE 30 days #1 ea 05/12/25 08/08/25 Unknown Rx intramuscular suspension,extended release (Vivitrol) thiamine mononitrate (vit B1) 100 100 mg PO DAILY 30 d ays #30 tabs 05/12/25 08/08/25 Unknown Rx mg tablet (Vitamin B-1 (mononitrate)) clindamycin HCl 300 mg capsule 300 mg PO Q8H 08/08/25 08/08/25 Unknown History Allergies Allergy/AdvReac Type Severity Reaction Status Date / Time No Known Allergies Allergy Verified 07/27/25 19:52 PFSH NPU 2 PFSH: Medical History (Updated 08/08/25 @ 12:36 by Linda Bella MD) Alcohol abuse Nicotine use disorder Major depressive disorder, recurrent, mild JAROCHO (generalized anxiety disorder) On combination antipsychotic drug therapy Psychiatric care Auditory hallucinations PTSD (post-traumatic stress disorder) ADHD, adult residual type Depression, unspecified History of psychosis Anxiety History of ETOH abuse Methamphetamine dependence Cannabis abuse Family History Father Cancer melanoma Social History Smoking and tobacco/nicotine status: former use of tobacco/nicotine Alcohol intake: current Alcohol intake frequency: 3 or more drinks per day Substance/Drug Use: current Substance/Drug use frequency: daily Marital status: Single Number of children: 0 Highest education level completed: High School Graduate Mental Status Exam 2 MSE Comments: This is an overweight versus obese white male in hospital scrubs with limited grooming with eye contact looking older than his stated age.? No abnormal movements except for significant psychomotor retardation.? Mostly uncooperative with exam in moderate distress.? Speech was limited and decreased rate and volume.? Mood described as tired, affect congruent and irritable.? Thought process linear.? Thought content: Patient did not answer questions about lethality and showed no signs of aggression towards himself or others, there were no delusions reported but mild paranoia noted but there was not much content to evaluate and he did not report any auditory or visual hallucinations.? Attention and concentration were impaired and memory was unreliable, but none were formally tested.? He is alert and oriented times person and place.? Insight, judgment and impulse control are all impaired.. Vitals/I&O/Wt Last Vital Signs Temp 98.7 F 08/08/25 11:53 Pulse 124 H 08/08/25 14:07 Resp 20 H 08/08/25 14:07 BP 159/78 08/08/25 11:53 Pulse Ox 98 08/08/25 14:07 O2 Del Method Room Air 08/08/25 14:18 Weight last 48 hrs Weight 81.647 kg Data NPU 08/08/25 12:05 08/08/25 12:05 A&P Assessment and plan 1. Depression, unspecified: 2. Alcohol abuse: 3. Suicidal ideation: 4. Cannabis abuse: 5. History of schizophrenia: 6. ADHD, adult residual type: 7. PTSD (post-traumatic stress disorder): 8. Methamphetamine dependence: Plan: This is a 39-year-old white male with a significant history of mental health and addiction issues who presents with last hospitalization being about 3 months ago with clear signs of intoxication from methamphetamine with significant tweaking and psychomotor agitation from his use. His level of impairment was so significant to render him almost incapable of giving history. 1. Restart previous medications at appropriate doses. 2. Continue every 15 minute checks for safety. 3. Encourage individual, group and milieu therapies. 4. Encourage sober living treatment after discharge at the highest level of care to which he is willing to commit. 5. Obtain collateral information. 6. Evaluate against the backdrop of the 96-hour hold. PDMP PDMP Reviewed: Not Reviewed Involuntary Hold Information 2 Hold Status: Legal Status: 96 Hour Hold Date/Time Hold Expires: 08/14/25 @1215 96 Hour Hold: 96 Hour Involuntary Admission: Yes Attestations NPU 2 Medical Necessity Statement*: Inpatient hospitalization is medically necessary and the clinically appropriate intervention at this time. We will monitor medication to make changes as indicated. Patient will be in the hospital for over two midnights. His likely length of stay 5-7 days. Coding Level of Care Code Acute Code for [facility] Diagnoses Depression, unspecified F32.A Alcohol abuse F10.10 Suicidal ideation R45.851 Cannabis abuse F12.10 History of schizophrenia Z86.59 ADHD, adult residual type F90.8 PTSD (post-traumatic stress disorder) F43.10 Methamphetamine dependence F15.20
[2025-08-09 14:00] VITALS: BP 154/74; PULSE 78; RESP 16; TEMP 36.9; O2SAT 96
--- NOTE | 2025-08-09 20:01 | PC.NURSE ---
pt asleep, search not done, nurse aware,
--- NOTE | 2025-08-09 21:07 | PC.NURSE ---
pt sleeping soundly, vitals not done per nurse, resp 14,
[2025-08-09 22:00] VITALS: BP 103/70; PULSE 111; RESP 18; TEMP 36.5; O2SAT 96
[2025-08-10 05:13] VITALS: BP 118/73; PULSE 85; RESP 18; TEMP 36.4; O2SAT 97; BMI 28.5
[2025-08-10 13:26] VITALS: BP 92/56; PULSE 74; RESP 16; TEMP 36.9; O2SAT 97
[2025-08-10 13:37] LABS: PCP Screen Urine Negative (Negative)
--- NOTE | 2025-08-10 18:04 | P.NPUPN_ITS ---
Subjective NPU 2 Subjective: Patient presented today reporting very little. Reports and directed medication. He continued to be fairly disgruntled and irritable and giving on the the limited necessary response if he responded. He did not have any comment on what he wanted to do, if he feels he needs to do, anyway we can help him advance his sobriety excetra. Continues to be in significant methamphetamine withdraw that reports and direct observation. He denied any side effects to the as needed medications that he has been given. Mental Status Exam 2 MSE Comments: This is an overweight versus obese white male in hospital scrubs with limited grooming with eye contact looking older than his stated age.? No abnormal movements except for significant psychomotor retardation.? Mostly uncooperative with exam in moderate distress.? Speech was limited and decreased rate and volume.? Mood described as tired, affect congruent and irritable.? Thought process linear.? Thought content: Patient did not answer questions about lethality and showed no signs of aggression towards himself or others, there were no delusions reported but mild paranoia noted but there was not much content to evaluate and he did not report any auditory or visual hallucinations.? Attention and concentration were impaired and memory was unreliable, but none were formally tested.? He is alert and oriented times person and place.? Insight, judgment and impulse control are all impaired.. Vitals/I&O/Wt Last Vital Signs Temp 98.0 F 08/10/25 19:51 Pulse 103 H 08/10/25 19:51 Resp 18 08/10/25 19:51 BP 98/54 08/10/25 19:51 Pulse Ox 97 08/10/25 19:51 O2 Del Method Room Air 08/10/25 19:51 Weight last 48 hrs Weight 85.275 kg Data NPU 08/08/25 12:05 08/08/25 12:05 A&P Assessment and plan 1. Depression, unspecified: 2. Alcohol abuse: 3. Suicidal ideation: 4. Cannabis abuse: 5. History of schizophrenia: 6. ADHD, adult residual type: 7. PTSD (post-traumatic stress disorder): 8. Methamphetamine dependence: Plan: This is a 39-year-old white male with a significant history of mental health and addiction issues who presents with last hospitalization being about 3 months ago with clear signs of intoxication from methamphetamine with significant tweaking and psychomotor agitation from his use. His level of impairment was so significant to render him almost incapable of giving history. 1. Restart previous medications at appropriate doses. 2. Continue every 15 minute checks for safety. 3. Encourage individual, group and milieu therapies. 4. Encourage sober living treatment after discharge at the highest level of care to which he is willing to commit. 5. Obtain collateral information. 6. Evaluate against the backdrop of the 96-hour hold. PDMP PDMP Reviewed: Not Reviewed Involuntary Hold Information 2 Hold Status: Legal Status: 96 Hour Hold Date/Time Hold Expires: 08/14/25 @1215 96 Hour Hold: 96 Hour Involuntary Admission: Yes Attestations NPU 2 Medical Necessity Statement*: Inpatient hospitalization is medically necessary and the clinically appropriate intervention at this time. We will monitor medication to make changes as indicated. His likely length of stay 5-7 days. Coding Level of Care Code Acute Code for [facility] Diagnoses Depression, unspecified F32.A Alcohol abuse F10.10 Suicidal ideation R45.851 Cannabis abuse F12.10 History of schizophrenia Z86.59 ADHD, adult residual type F90.8 PTSD (post-traumatic stress disorder) F43.10 Methamphetamine dependence F15.20
[2025-08-10 19:51] VITALS: BP 98/54; PULSE 103; RESP 18; TEMP 36.7; O2SAT 97
[2025-08-11 06:00] VITALS: BP 106/68; PULSE 87; RESP 18; TEMP 37; O2SAT 98
[2025-08-11 13:38] VITALS: BP 105/67; PULSE 85; RESP 16; TEMP 36.4; O2SAT 96
--- NOTE | 2025-08-11 17:28 | P.NPUPN_ITS ---
Subjective NPU 2 Subjective: Patient was admitted with suicidal ideation. He is well-known to this scenario writer. He appeared extremely disinterested in engaging in conversation. He remained irritable and remained disgruntled stating that he did not need any help with managing his problems. He had minimized the concerns with his continued methamphetamine use and how it had led him to be in the hospital several times before over the last few years. He was not forthcoming regarding anything that may be able to help him to leave here and remain sober. Mental Status Exam 2 MSE Comments: This is an average weight white male in hospital scrubs with limited grooming with eye contact looking older than his stated age.? No abnormal involuntary motor movements except for significant psychomotor agitation. He was minimally uncooperative with exam in moderate distress.? Speech was limited and decreased in rate and volume.? Mood described as tired , His affect was mood incongruent and irritable.? Thought process was linear.? Thought content: Patient denied suicidal or homicidal ideation. There were no delusions reported but continued paranoia. He did not report any auditory or visual hallucinations.? His Attention and concentration were impaired and memory was unreliable, but none were formally tested.? He is alert and oriented times person and place and time. ? Insight, judgment and impulse control are all impaired.. Vitals/I&O/Wt Last Vital Signs Temp 97.6 F 08/11/25 13:38 Pulse 85 08/11/25 13:38 Resp 16 08/11/25 13:38 BP 105/67 08/11/25 13:38 Pulse Ox 96 08/11/25 13:38 O2 Del Method Room Air 08/11/25 13:38 Weight last 48 hrs Weight 85.275 kg Data NPU 08/08/25 12:05 08/08/25 12:05 A&P Assessment and plan 1. Depression, unspecified: 2. Alcohol abuse: 3. Suicidal ideation: 4. Cannabis abuse: 5. History of schizophrenia: 6. ADHD, adult residual type: 7. PTSD (post-traumatic stress disorder): 8. Methamphetamine dependence: Plan: This is a 39-year-old white male with a significant history of mental health and addiction issues who presents with last hospitalization being about 3 months ago with clear signs of intoxication from methamphetamine with significant tweaking and psychomotor agitation from his use. His level of impairment was so significant to render him almost incapable of giving history. 1. Restart Invega 3mg at night for agitation. Patient remains irritable. 2. Continue every 15 minute checks for safety. 3. Encourage individual, group and milieu therapies. 4. Encourage sober living treatment after discharge at the highest level of care to which he is willing to commit. 5. Obtain collateral information. 6. Evaluate against the backdrop of the 96-hour hold. PDMP PDMP Reviewed: Not Reviewed Involuntary Hold Information 2 Hold Status: Legal Status: 96 Hour Hold Date/Time Hold Expires: 08/14/25 @1215 96 Hour Hold: 96 Hour Involuntary Admission: Yes Attestations NPU 2 Medical Necessity Statement*: Inpatient hospitalization is medically necessary and the clinically appropriate intervention at this time. We will monitor medication to make changes as indicated. His likely length of stay 5-7 days. Coding Level of Care Code Acute Code for [facility] Fwd Diagnoses Depression, unspecified F32.A Alcohol abuse F10.10 Suicidal ideation R45.851 Cannabis abuse F12.10 History of schizophrenia Z86.59 ADHD, adult residual type F90.8 PTSD (post-traumatic stress disorder) F43.10 Methamphetamine dependence F15.20
[2025-08-11 21:04] VITALS: BP 111/77; PULSE 84; RESP 17; TEMP 36.4; O2SAT 97
[2025-08-12 06:00] VITALS: BP 115/75; PULSE 69; RESP 18; TEMP 37; O2SAT 98
--- NOTE | 2025-08-12 11:32 | PC.NURSE ---
Pt's anxiety level was 9/10 administered 5mg Zyprexa Zydis, pt went to his room to lay down. All pt's current needs are met.
[2025-08-12 14:00] VITALS: BP 120/77; PULSE 79; RESP 14; TEMP 36.6; O2SAT 99
--- NOTE | 2025-08-12 17:30 | P.NPUPN_ITS ---
Subjective NPU 2 Subjective: Patient was admitted with suicidal ideation in the context of methamphetamine use. Patient reported that he was feeling better today. He had appeared to be at times pacing on the unit but was less isolative. He continued to report feeling irritable but was more redirectable. He had continued to minimize any thoughts of wishing to consider inpatient substance abuse treatment. Patient had stated that he had a job and did not need to be here. The patient was informed that he was currently here on a hold due to his statements. He did not press any interest in wishing to have sobriety. Mental Status Exam 2 MSE Comments: This is an average weight white male in hospital scrubs with limited grooming with eye contact looking older than his stated age.? No abnormal involuntary motor movements except for mild psychomotor agitation. He was more cooperative with exam in moderate distress.? Speech was more productive and normal in rate and volume.? Mood described as a little better, His affect was irritable. Thought process was linear.? Thought content: Patient denied suicidal or homicidal ideation. There were no delusions reported but continued paranoia. He did not report any auditory or visual hallucinations.? His attention and concentration were improving. ? He is alert and oriented times person and place and time. ? Insight was poor. His judgment is poor and impulse control is poor. Vitals/I&O/Wt Last Vital Signs Temp 97.8 F 08/12/25 14:00 Pulse 79 08/12/25 14:00 Resp 14 08/12/25 14:00 BP 120/77 08/12/25 14:00 Pulse Ox 99 08/12/25 14:00 O2 Del Method Room Air 08/12/25 06:00 Data NPU 08/08/25 12:05 08/08/25 12:05 A&P Assessment and plan 1. Depression, unspecified: 2. Alcohol abuse: 3. Suicidal ideation: 4. Cannabis abuse: 5. History of schizophrenia: 6. ADHD, adult residual type: 7. PTSD (post-traumatic stress disorder): 8. Methamphetamine dependence: Plan: This is a 39-year-old white male with a significant history of mental health and addiction issues who presents with last hospitalization being about 3 months ago with clear signs of intoxication from methamphetamine with significant tweaking and psychomotor agitation from his use. His level of impairment was so significant to render him almost incapable of giving history. 1. Continue Invega 3mg at night for agitation. 2. Continue every 15 minute checks for safety. 3. Encourage individual, group and milieu therapies. 4. Encourage sober living treatment after discharge at the highest level of care to which he is willing to commit. 5. Obtain collateral information. 6. Evaluate against the backdrop of the 96-hour hold. PDMP PDMP Reviewed: Not Reviewed Involuntary Hold Information 2 Hold Status: Legal Status: 96 Hour Hold Date/Time Hold Expires: 08/14/25 @1215 96 Hour Hold: 96 Hour Involuntary Admission: Yes Attestations NPU 2 Medical Necessity Statement*: Inpatient hospitalization is medically necessary and the clinically appropriate intervention at this time. We will monitor medication to make changes as indicated. His likely length of stay 1-2 days. Coding Level of Care Code Acute Code for [facility] Fwd Diagnoses Depression, unspecified F32.A Alcohol abuse F10.10 Suicidal ideation R45.851 Cannabis abuse F12.10 History of schizophrenia Z86.59 ADHD, adult residual type F90.8 PTSD (post-traumatic stress disorder) F43.10 Methamphetamine dependence F15.20
[2025-08-12 20:02] VITALS: BP 120/74; PULSE 76; RESP 17; TEMP 36.6; O2SAT 96
[2025-08-13 06:00] VITALS: BP 121/76; PULSE 73; RESP 18; TEMP 37.1; O2SAT 96
[2025-08-13 14:00] VITALS: BP 129/73; PULSE 100; RESP 15; TEMP 36.6; O2SAT 99
--- NOTE | 2025-08-13 15:22 | W.PM.NPUDCS ---
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 methamphetamine. Seroquel had helped to alleviate psychosis and the patient was given a referral for [facility] to begin digital substance abuse treatment of methamphetamine abuse. Hospital Course Hospital Course He acclimated to the individual, group and milieu therapies provided. He presented with similar complaints as the past as he had relapsed and was having limited adherence to his medication. There was concern about his Valium prescription and we discussed that not being continued moving forward. There were no changes in his medication. He worked with the treatment team to obtain appropriate follow-up and discharge planning. They were able to get him connected with [facility] to address his addiction. He had significant improvement and was able to contract for safety outside the hospital prior to discharge. The outside hospital, patient had routine laboratory studies which were within normal limits except for few outliers. Additionally there was a general medical evaluation which was also within normal limits and revealed no new acute processes. Discharge Summary: At the time of discharge, he denied psychosis or lethality. Mood and anxiety were well managed. Patient endorsed a plan to avoid all drugs of abuse and follow-up with the aftercare recommendations of the treatment team. Patient was evaluated and deemed to be absent credible lethality, and had achieved the maximum benefit from an inpatient hospitalization, so was discharged. Excerpt from [facility] outpatient evaluation from 05/30/24 [facility] History and Physical Time In: 10:00 Time Out: 11:00 Chief Complaint: Medication management History of Present Illness: [facility]. He has been recently hospitalized at [facility] neuropsychiatric unit May 08 through May 11. This [facility]. He comments the reason for his hospitalization is he gets off his medicine, starts using drugs, and wants help getting sober. Since his last hospitalization he started staying at [facility]. Today he tells me he has not used meth in 3 months. He states the last time he used marijuana was May 06. He describes his mood as a little down today. He comments that he has been without his antidepressant for a couple days indicating he just has not been to the pharmacy to get a refill. He denies hearing any voices today. No auditory or visual hallucinations. He describes past hallucinations of past traumas or voices talking negatively saying to hurt himself or others. He describes his anxiety is pretty high today. He indicates he feels this is situational because he started a new job. No suicidal thoughts today. No homicidal thoughts. He asks if his Seroquel can be increased to 300 in the morning and 500 at bedtime. Comments he would like to increase this because he is struggling to fall asleep at night. Estimates getting between 4 or 6 hours of sleep depending on what he has to do. He has been working 2 jobs recently. 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 He states this gives him about 6 or 7 hours of sleep before he gets up for work again. Alfonzo denies any history of quynh. He states he has never had increased energy or been without sleep if it was not drug-related. He states he has a previous diagnosis of PTSD and indicates past trauma of watching his brother being murdered. Alfonzo reports the following: Most days he feels on edge, has flashbacks during the day, feels that the world is a bad place and others have negative intentions toward him. He continues to experience delusions, both auditory and visual hallucinations daily, and has times where he wants to avoid people. He often looses touch with reality and will isolate himself at home when that happens. He states he has struggled with addiction for a long time and methamphetamine often makes his schizophrenia symptoms worse; he will become erratic and impulsive. History Past Psychiatric History: Has been hospitalized 5 times at [facility] neuropsychiatric unit. Last was May 08 through May 11. Comments he was hospitalized once in [place] and in [place]. Typically goes into the hospital because he gets off his medicine, is using drugs, and wants to get sober. 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 States he has not typically followed up on an outpatient basis after being in the hospital. Records indicate a previous diagnosis of ADHD. Family History: Denies family history of mental illness. Alfonzo's biological father blew his brains out while dealing with stage 4 cancer. Past Medical History: Primary care provider is Dr. Paul. He denies any physical health issues. States he has not been diagnosed with any conditions. Denies any previous injuries or surgeries. Substance Use History: Reports nicotine use including vaping and chewing tobacco. First started nicotine at the age of 18. I spent 5 minutes providing smoking cessation counseling. We talked about history of use, current usage, prior attempts at quitting, and psychological barriers to quitting. I gauged her desire to quit and she is not ready at this time. Social History: Alfonzo is currently staying at [facility] which is a sober living home. States he has been there for couple weeks since he was last discharged from the hospital. Prior to that he states he was homeless. He was staying in [place]. He is single and has no kids. 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 Graduated high school. No history of physical, emotional, sexual abuse. He does report legal history including getting several felonies for possession and avelino larceny. He states he spent a couple years in shelter in 2006. States he is currently not on probation or parole. Records indicate that he has been and and has 4 children that he does not have contact with. Hospital Course He acclimated to the individual, group and milieu therapies provided. He presented with reports that things have been significantly better than they were in the past. He was able to get employment, get a partner and gain his sobriety. He reports that however very recently he started drinking again and things got out of control and he was in the process of detoxing with a plan for sobriety and then started feeling very unstable with the withdrawal and came to the hospital. We were able to assist him over a couple of days and evaluated him against the backdrop of the 96-hour hold identifying no credible lethality. He had been having some suicidal thoughts as his withdrawal intensified but that resolved on the unit. We initiated thiamine and Vistaril for his alcohol use disorder and anxiety respectively. Additionally naltrexone was added and the option for the Vivitrol injection was given. The absence of any drugs of abuse, the initiation of those medications and the treatment milieu led to a positive response. He worked with the treatment team to obtain appropriate follow-up and discharge planning. He had significant improvement during his stay and was able to contract for safety outside the hospital prior to discharge. The outside hospital, patient had routine laboratory studies which were within normal limits except for few outliers. Additionally there was a general medical evaluation which was also within normal limits and revealed no new acute processes. Discharge Summary: At the time of discharge, he denied psychosis or lethality. Mood and anxiety were well managed. Patient endorsed a plan to avoid all drugs of abuse and follow-up with the aftercare recommendations of the treatment team. Patient was evaluated and deemed to be absent credible lethality, and had achieved the maximum benefit from an inpatient hospitalization, so was discharged. Hospital Course Hospital Course The patient tested positive for amphetamines and marijuana once again during a hospitalization here. He had appeared isolative and irritable for the next several days and appeared to be responding over the next few days to paliperidone 3mg at night to target agitation and irritability over the last few days. He remained disagreeable to substance abuse treatment including the recommended inpatient substance abuse treatment. During the hospitalization, the patient had routine laboratory studies which were within normal limits except for a few outliers.? Additionally, there was a general medical evaluation which was also within normal limits and revealed no new acute processes.? At the time of discharge, lethality was denied and psychosis was resolving.? Mood and anxiety were well managed.? The patient endorsed a plan to avoid all drugs of abuse and follow up with the aftercare recommendations of the treatment team.? The patient was evaluated and deemed to be absent credible lethality and had achieved the maximum benefit from an inpatient hospitalization, and so was discharged. ? Involuntary Hold Information Hold Status: Legal Status: 96 Hour Hold Date/Time Hold Expires: 08/14/25 @1215 96 Hour Hold: 96 Hour Involuntary Admission: Yes Mental Status Exam MSE Comments: This is an average weight white male in hospital scrubs with improved grooming with fair eye contact looking older than his stated age.? No abnormal involuntary motor movements appreciated. He was more cooperative with exam in moderate distress.? Speech was more productive and normal in rate and volume.? Mood described as good. His affect was euthymic. Thought process was linear.? Thought content: Patient denied suicidal or homicidal ideation. There were no delusions reported and no evidence of paranoia. He did not report any auditory or visual hallucinations.? He did not appear to be responding to internal stimuli. His attention and concentration were improving. ? He is alert and oriented times person, and place, and time. ? Insight was fair. His judgment is fair and impulse control is fair. Discharge Data Studies Completed and Pending: Laboratory Results WBC 11.13 10^3/uL (3. 29-11.43) 08/08/25 12:05 RBC 4.76 10^6/uL (3.8 5-5.65) 08/08/25 12:05 Hgb 14.50 g/dL (11.27 -16.99) 08/08/25 12:05 Hct 42.8 % (37-53) 08/08/25 12:05 MCV 89.9 fl (82-101) 08/08/25 12:05 MCH 30.5 pg (27-33) 08/08/25 12:05 MCHC 33.9 g/dL (30-55) 08/08/25 12:05 RDW 12.7 % (12.1-15.1 ) 08/08/25 12:05 Plt Count 260 10^3/cmm (157 -399) 08/08/25 12:05 MPV 9.5 fL (7.4-10.4) 08/08/25 12:05 Neut % (Auto) 66.6 % 08/08/25 12:05 Lymph % (Auto) 22.9 % 08/08/25 12:05 Spalding % (Auto) 9.0 % 08/08/25 12:05 Eos % (Auto) 0.9 % 08/08/25 12:05 Baso % (Auto) 0.4 % 08/08/25 12:05 Neut # (Auto) 7.42 10^3/uL (1.8 -7.7) 08/08/25 12:05 Lymph # (Auto) 2.6 10^3/uL (0.8- 4.8) 08/08/25 12:05 Spalding # (Auto) 1.0 10^3/uL (0.2- 0.9) H 08/08/25 12:05 Eos # (Auto) 0.1 10^3/uL (0.0- 0.8) 08/08/25 12:05 Baso # (Auto) 0.0 10^3/uL (0.0- 0.1) 08/08/25 12:05 Nucleated RBC % (a uto) 0 % 08/08/25 12:05 Nucleated RBCs # 0.0 /100WBC 08/08/25 12:05 Sodium 135 mmol/L (136-1 45) L 08/08/25 12:05 Potassium 4.1 mmol/L (3.5-5 .1) 08/08/25 12:05 Chloride 100 mmol/L (98-10 7) 08/08/25 12:05 Carbon Dioxide 21 mmol/L (22-29) L 08/08/25 12:05 Anion Gap 18.1 (5-19) 08/08/25 12:05 BUN 19 mg/dL (6-20) 08/08/25 12:05 Creatinine 1.0 mg/dL (0.7-1. 2) 08/08/25 12:05 GFR Calculation 84.1 mL/min (90-1 30) L 08/08/25 12:05 Glucose 97 mg/dL (65-115) 08/08/25 12:05 Calculated Osmolal ity 282 mOsm/kg (285- 295) L 08/08/25 12:05 Calcium 10.1 mg/dL (8.5-1 0.5) 08/08/25 12:05 Total Bilirubin 1.1 mg/dL (0.15-1 .2) 08/08/25 12:05 AST 37 U/L (0-40) 08/08/25 12:05 ALT 27 U/L (0-41) 08/08/25 12:05 Alkaline Phosphata se 72 U/L (40-130) 08/08/25 12:05 Total Protein 7.6 g/dL (6.6-8.7 ) 08/08/25 12:05 Albumin 4.4 g/dL (3.5-5.2 ) 08/08/25 12:05 Globulin 3.2 g/dL (1.3-4.6 ) 08/08/25 12:05 Salicylates < 0.3 mg/dL (3-10 ) L 08/08/25 12:05 Urine Opiates Scre en Negative ng/mL (N egative) 08/10/25 13:00 Acetaminophen < 5.0 ug/mL (10-3 0) L 08/08/25 12:05 Ur Barbiturates Sc reen Negative ng/mL (N egative) 08/10/25 13:00 Ur Phencyclidine S crn Negative ng/mL (N egative) 08/10/25 13:00 Ur Amphetamines Sc reen Positive ng/mL (N egative) H 08/10/25 13:00 U Benzodiazepines Scrn Negative ng/mL (N egative) 08/10/25 13:00 Urine Cocaine Scre en Negative ng/mL (N egative) 08/10/25 13:00 U Marijuana (THC) Screen Positive ng/mL (N egative) H 08/10/25 13:00 Ethyl Alcohol < 10 mg/dL (0-10) 08/08/25 12:05 Vitals: Last Vital Signs Temp 98 F 08/13/25 14:00 Pulse 100 08/13/25 14:00 Resp 15 08/13/25 14:00 BP 129/73 08/13/25 14:00 Pulse Ox 99 08/13/25 14:00 O2 Del Method Room Air 08/13/25 06:00 Discharge Plan Discharge Patient Disposition: Home Condition: Stable Prescriptions: New paliperidone 3 mg Tablet Extended Release 24hr 3 mg PO 2100 30 Days Qty: 30 1RF Continued thiamine mononitrate (vit B1) [Vitamin B-1 (mononitrate)] 100 mg Tablet 100 mg PO DAILY 30 Days Qty: 30 1RF Vivitrol 380 mg suspension,extended rel recon 380 mg IM ONCE 30 Days Qty: 1 1RF Rx Instructions: Start when available and discontinue oral after receiving injection. Discontinued hydroxyzine pamoate 25 mg Capsule 50 mg PO Q6H PRN (Reason: Anxiety) 30 Days Qty: 30 1RF naltrexone 50 mg tablet 50 mg PO DAILY 30 Days Qty: 30 1RF clindamycin HCl 300 mg capsule 300 mg PO Q8H Discharge Order = DC NOW: Discharge Order (Routine); Ordered 08/13/25 Ordered By: Bautista Sheth Referrals: [facility] [Outside] - 08/20/25 10:00 am Discharge Diet: Usual diet Discharge Activity: Resume usual activity Patient Instructions: Alcohol Abuse, Alcohol Intoxication, Opioid Safety, Patient Portal & Tabatha Instructions Discharge Attestations NPU Time Spent in Discharge Care*: less than 30 min Specific Discharge Activities: Specific discharge activities: educating patient, discussing with case therapist/social workers/dc planners and documenting/other paperwork Coding Level of Care Code Acute Code for [facility] Fwd Diagnoses Depression, unspecified F32.A Alcohol abuse F10.10 Suicidal ideation R45.851 Cannabis abuse F12.10 History of schizophrenia Z86.59 ADHD, adult residual type F90.8 PTSD (post-traumatic stress disorder) F43.10 Methamphetamine dependence F15.20
[2025-08-13 15:34] VITALS: BP 129/73; PULSE 100; RESP 15; TEMP 36.6; O2SAT 99
== END 2025-08-13 16:10 | disposition home or self-care (01) | DRG 885 ==
LOC: ER 12:36 → NP 12:54
PROVIDERS: Admitting Provider Psychiatry & Neurology Psychiatry; Emergency Provider Emergency Medicine; Visit Provider Psychiatry & Neurology Psychiatry
DX: F33.0 Major depressive disorder, recurrent, mild (principal); R45.851 Suicidal ideations; F15.229 Other stimulant dependence with intoxication, unspecified; F41.1 Generalized anxiety disorder; F43.10 Post-traumatic stress disorder, unspecified; Z87.891 Personal history of nicotine dependence; E66.9 Obesity, unspecified; Z68.28 Body mass index [BMI] 28.0-28.9, adult; F10.10 Alcohol abuse, uncomplicated; F12.10 Cannabis abuse, uncomplicated; F20.9 Schizophrenia, unspecified
CPT/HCPCS: 36415; 80053; 80306; 80307; 85025; 96372; 97150; 97165; 99285; J2060; J9999

== ENCOUNTER → 2025-10-22 10:21 | Outpatient (BNVA) | payer BC, SELFPAY | PROVIDERS: Visit Provider Nurse Practitioner | DX: Z79.899 Other long term (current) drug therapy (principal) | CPT/HCPCS: 80061; 83036; 83721 ==